=== PATIENT | female | born 1950 | race Caucasian/White ===

== ENCOUNTER → 2017-09-25 08:06 | Outpatient (CLI) | payer MEDICARE, SELFPAY ==
[2017-09-25 13:27] LABS: Anion Gap 7 (5-15); BUN 27 mg/dL (7-18); BUN/Creat Ratio 16.1 RATIO (10-20); Calcium,Total 8.6 mg/dL (8.5-10.1); Chloride 106 mmol/L (98-107); Creatinine, Serum 1.68 mg/dL (0.55-1.02); EST Glomerular Filtration Rate 32 mL/min (>60); Est Glom Filt Rate - Afr Amer 39 mL/min (>60); Glucose 113 mg/dL (74-106); Potassium 4.4 mmol/L (3.5-5.1); Sodium Level 141 mmol/L (136-145)
== END ==
PROVIDERS: PCP Internal Medicine Cardiovascular Disease; Visit Provider Family Medicine
DX: E11.65 Type 2 diabetes mellitus with hyperglycemia (principal); Z51.81 Encounter for therapeutic drug level monitoring
CPT/HCPCS: 36415; 80048

== ENCOUNTER → 2017-10-30 09:02 | Outpatient (CLI) | payer MEDICARE, SELFPAY ==
[2017-10-30 12:52] LABS: AST(SGOT) 23 U/L (15-37); Alanine Aminotransfer ALT/SGPT 25 U/L (13-56); Albumin, Serum 3.8 g/dL (3.2-5.0); Alkaline Phosphatase 43 U/L (45-117); Anion Gap 9 (5-15); BUN 24 mg/dL (7-18); BUN/Creat Ratio 13.9 RATIO (10-20); Chloride 105 mmol/L (98-107); Cholesterol 163 mg/dL (200); Creatinine, Serum 1.73 mg/dL (0.55-1.02); EST Glomerular Filtration Rate 31 mL/min (>60); Est Glom Filt Rate - Afr Amer 38 mL/min (>60); Glucose 108 mg/dL (74-106); High Density Lipoprotein 58 mg/dL; Potassium 4.1 mmol/L (3.5-5.1); Protein, Total 7.8 g/dL (6.4-8.2); Sodium Level 141 mmol/L (136-145); Triglycerides 87 mg/dL; Very Low Density Lipoprotein 17 mg/dL (5-40)
== END ==
PROVIDERS: Family Provider Family Medicine; PCP Family Medicine; Visit Provider Family Medicine
DX: E78.5 Hyperlipidemia, unspecified (principal)
CPT/HCPCS: 36415; 80053; 80061

== ENCOUNTER → 2017-12-13 08:01 | Outpatient (CLI) | payer MEDICARE, SELFPAY ==
[2017-12-13 12:09] LABS: Anion Gap 6 (5-15); BUN 36 mg/dL (7-18); BUN/Creat Ratio 23.1 RATIO (10-20); Chloride 109 mmol/L (98-107); Creatinine, Serum 1.56 mg/dL (0.55-1.02); EST Glomerular Filtration Rate 35 mL/min (>60); Est Glom Filt Rate - Afr Amer 42 mL/min (>60); Glucose 110 mg/dL (74-106); Potassium 4.8 mmol/L (3.5-5.1); Sodium Level 143 mmol/L (136-145)
== END ==
PROVIDERS: Family Provider Family Medicine; PCP Family Medicine; Visit Provider Family Medicine
DX: N28.9 Disorder of kidney and ureter, unspecified (principal)
CPT/HCPCS: 36415; 80048

== ENCOUNTER 2017-12-27 17:46 | Emergency (ER) | payer MEDICARE, SELFPAY ==
[2017-12-27 17:53] VITALS: BP 107/69; PULSE 118; RESP 18; TEMP 36.8; O2SAT 96; BMI 31.3
--- NOTE | 2017-12-27 18:07 | CT_ITS ---
STUDY: CT BRAIN WITHOUT CONTRAST REASON FOR EXAM: Female, 67 years old. Mental status change. Patient found crawling on the floor with numerous bruises. Patient on blood thinners. History of hallucinations and delusions and bipolar 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 disorder. Recent medicine change. RADIATION DOSAGE (If Supplied By Facility): CTDIvol = ( 44.99 ) mGy, DLP = ( 779.24 ) mGycm TECHNIQUE: Transaxial CT imaging of the brain was performed without administration of intravenous contrast material. Individualized dose optimization techniques were used for this CT. COMPARISON: None. FINDINGS: Normal soft tissue structures. Normal calvarium. There is mild cerebral atrophy with widening of the extra-axial spaces and ventricular dilatation. Normal white matter tracts of the cerebral hemispheres. There are small punctate calcifications of the bilateral basal ganglia. The differential diagnostic considerations includes: Fahrs disease, or endocrine disorders (hyperparathyroidism, hypoparathyroidism, pseudohypoparathyroidism). The incidental discovery of basal ganglia calcifications in a patient less than 50 years of age merits investigation. Normal brainstem. Normal cerebellum. There is no intracranial hemorrhage. There are no findings of an acute ischemic infarction. Normal visualized paranasal sinuses. CT/Brain/Head without Contrast IMPRESSION: Chronic involutional changes without evidence of acute intracranial or calvarial abnormality. There is no evidence of acute intracranial or calvarial abnormality. Electronically Signed: Angel Young DO at 18:57 EDT Tel [phone], Service support ,
--- NOTE | 2017-12-27 18:12 | ED.VISSUMM ---
- ER Visit Summary Date of Service: 12/27/17 Chief Complaint: Sent in by counseling center for unable to care for self History of Present Illness: The patient is a 67 F history of peripheral vascular disease on Plavix has had prior lower extremity vascular stents. History of qkq-bozbkcq-cnxhggtrt diabetes, COPD and renal insufficiency. Per nursing from the [facility] the counseling center had the patient sent in due to mental status change and unable to care for herself. Patient himself denies complaints. States she is not suicidal. And is able to take care of herself. Physical Examination: Older female no acute distress vital signs are stable afebrile. Pulse ox 96% room air no signs of hypoxia. H EENT exam unremarkable. No signs of trauma to her face or scalp. Nontender no hematomas. Pupils are reactive light. Normal speech. No facial droop. Neck nontender. No lymphadenopathy. Lungs clear to auscultation bilaterally. Heart regular rhythm no murmur. Chest wall nontender. Abdomen soft nontender. There is diffuse bruising of her abdomen but no abdominal tenderness or peritoneal signs. Pelvic girdle intact. She is moving all 4 extremities. Neurovascular intact. No deformities. Normal range of motion. She is a large bruise/hematoma over her left hip and buttock and also along her left shoulder and upper arm. There are no gross bony deformities. 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 Back exam is nontender. The cervical, thoracic and lumbar spines are nontender. Neurologically she is awake and alert. I do not find her to be confused. She knows day, month, year, president 9 states where she has had. She is speaking normally. Test Results: CBC normal. BMP normal. Other than chronic renal insufficiency with creatinine 1.8. INR normal. UA showed 25-50 white cells but no other signs of infection. Negative bacteria negative nitrate a urine culture be sent. CT of her brain is read by the radiologist and reviewed by me shows no acute abnormality. Alcohol intoxication were negative. Emergency Department Course and Treatment: [] Treatment Plan: She underwent crisis evaluation. And she will be transferred to a psychiatric facility in [facility]. On repeat exam at 2118 currently she is doing well. Disposition: Psychiatric facility Impression: Acute exacerbation of underlying psychiatric illness Unable to care for self This note was generated with Dragon dictation software. It may contain incorrect words, spelling, and punctuation that were not noted in review of the chart prior to signing ED Disposition - Plan for ED Patient: Chief Complaint: Confusion Referrals: Mine Bojorquez DO [Primary Care Provider] -
--- NOTE | 2017-12-27 18:15 | ED.DCSUM_ITS ---
- ER Visit Summary Date of Service: 12/27/17 Chief Complaint: Sent in by counseling center for unable to care for self History of Present Illness: The patient is a 67 F history of peripheral vascular disease on Plavix has had prior lower extremity vascular stents. History of dod-cibtrcv-pfzuhqndp diabetes, COPD and renal insufficiency. Per nursing from the [facility] the counseling center had the patient sent in due to mental status change and unable to care for herself. Patient himself denies complaints. States she is not suicidal. And is able to take care of herself. Physical Examination: Older female no acute distress vital signs are stable afebrile. Pulse ox 96% room air no signs of hypoxia. H EENT exam unremarkable. No signs of trauma to her face or scalp. Nontender no hematomas. Pupils are reactive light. Normal speech. No facial droop. Neck nontender. No lymphadenopathy. Lungs clear to auscultation bilaterally. Heart regular rhythm no murmur. Chest wall nontender. Abdomen soft nontender. There is diffuse bruising of her abdomen but no abdominal tenderness or peritoneal signs. Pelvic girdle intact. She is moving all 4 extremities. Neurovascular intact. No deformities. Normal range of motion. She is a large bruise/hematoma over her left hip and buttock and also along her left shoulder and upper arm. There are no gross bony deformities. Both upper and lower extremities are neurovascular intact with 5 out of 5 superintendent horticulture strength dorsi and plantar flexion. Back exam is nontender. The cervical, thoracic and lumbar spines are nontender. Neurologically she is awake and alert. I do not find her to be confused. She knows day, month, year, president 9 states where she has had. She is speaking normally. Test Results: CBC normal. BMP normal. Other than chronic renal insufficiency with creatinine 1.8. INR normal. UA showed 25-50 white cells but no other signs of infection. Negative bacteria negative nitrate a urine culture be sent. CT of her brain is read by the radiologist and reviewed by me shows no acute abnormality. Alcohol intoxication were negative. Emergency Department Course and Treatment: [] Treatment Plan: She underwent crisis evaluation. And she will be transferred to a psychiatric facility in [facility]. On repeat exam at 2118 currently she is doing well. Disposition: Psychiatric facility Impression: Acute exacerbation of underlying psychiatric illness Unable to care for self This note was generated with Dragon dictation software. It may contain incorrect words, spelling, and punctuation that were not noted in review of the chart prior to signing ED Disposition - Plan for ED Patient: Chief Complaint: Confusion Referrals: Mine Bojorquez DO [Primary Care Provider] -
[2017-12-27 18:38] LABS: Absolute Lymphocyte Count 1.88 X10^3/ul (0.83-4.51); Absolute Neutrophil Count 5.7 X10^3/uL (2.0-7.7); Basophil# 0.04 X10^3/uL; Basophil% 0.5 % (0-1); Eosinophil# 0.13 X10^3/uL; Eosinophils% 1.5 % (0-5); Hematocrit 42.4 % (37-47); Hemoglobin 14.2 g/dl (12.0-15.0); Lymphocyte # 1.88 X10^3/ul (4.0); Lymphocyte % 21.5 % (19-41); Mean Corp Hgb Conc 33.5 g/gl (32-36); Mean Corpuscular Hgb 31.8 pg (27.0-32.0); Mean Corpuscular Volume 95.1 fL (81-99); Mean Platelet Vol. 11.1 fl (6.2-12.0); Monocyte# 0.93 X10^3/uL; Monocyte% 10.6 % (0-10); Neutrophil # 5.73 X10^3/uL (2.7-7.7); Neutrophil % 65.4 % (47-70); Platelet Count 265 K/mm3 (150-450); RBC Distribution Width CV 15.8 % (11.6-14.6); RBC Distribution Width SD 52.8 fl (35.1-43.9); Red Blood Count 4.46 M/mm3 (4.2-5.4); White Blood Count 8.8 K/mm3 (4.4-11.0)
[2017-12-27 18:39] LABS: Anion Gap 11 (5-15); BUN 40 mg/dL (7-18); BUN/Creat Ratio 22.2 RATIO (10-20); Calcium,Total 9.7 mg/dL (8.5-10.1); Chloride 106 mmol/L (98-107); EST Glomerular Filtration Rate 30 mL/min (>60); Est Glom Filt Rate - Afr Amer 36 mL/min (>60); Estimated Creatinine Clearance 28.68 ml/min; Glucose 250 mg/dL (74-106); Potassium 3.6 mmol/L (3.5-5.1); Sodium Level 140 mmol/L (136-145)
[2017-12-27 18:42] LABS: International Normalized Ratio 1.1; POSITIVE COUNT NO; POSITIVE DIFFERENTIAL NO; POSITIVE MORPHOLOGY NO; Prothrombin Time (Protime)PT. 13.9 SECONDS (11.7-14.9)
[2017-12-27 19:53] LABS: Bacteria 0 SEEN /hpf (None Seen); Mucous, Urine 0 SEEN /hpf (<or=2+)
[2017-12-27 19:56] LABS: Color, Urine Yellow (Yellow); Glucose, Dipstick 1000 mg/dl (Normal); Ketone-Dipstick 15 mg/dl (Negative); Leukocyte Esterase-Dipstick 500 /ul (Negative); Nitrite-Dipstick Negative (Negative); Occult Blood-Urine 10 /ul (Negative); Protein-Dipstick 30 mg/dl (Negative); Urine Clarity Sl. Cloudy (Clear); Urine Urobilinogen 1 mg/dl (Normal)
[2017-12-27 20:06] LABS: Urine Bilirubin Dipstick 1 mg/dL (Negative)
[2017-12-27 20:18] LABS: Hyaline Cast 0-5 SEEN /lpf (0-5); Red Blood Cells-Urine 0-5 SEEN /hpf (0-5); Squamous Epithelial Cells - UA 0-5 SEEN /hpf (5-10); White Blood Cells 25-50 SEEN /hpf (0-5)
[2017-12-27 20:19] LABS: Amphetamine Urine VISTA NEGATIVE (<1000 ng/mL); Barbiturate Urine VISTA NEGATIVE (< 200 ng/mL); Benzodiazepine Urine VISTA NEGATIVE (< 200 ng/mL); Cocaine Urine VISTA NEGATIVE (< 300 ng/mL); Ecstacy Urine VISTA NEGATIVE (< 500 ng/mL); Methadone Urine VISTA NEGATIVE (< 300 ng/mL); PCP Urine VISTA NEGATIVE (< 25 ng/mL); THC Urine VISTA NEGATIVE (< 50 ng/mL); Vista UDS pH Range 6
[2017-12-27] MEDS: 0.9% Normal Saline 1,000 ML 999 ML IV (23:24)
[2017-12-27] MEDS: Cephalexin 250 MG Capsule 500 MG PO (23:24)
[2017-12-27 23:41] VITALS: BP 108/72; PULSE 86; RESP 18; O2SAT 99
--- NOTE | 2017-12-27 23:50 | ED.RN ---
CALLED [facility] TO SEE IF THEY COULD TRANSPORT PATIENT. BOTH DISPATCHERS STATED THEY COULD NOT UNTIL THE MORNING.
[2017-12-28 00:17] VITALS: BP 110/73; PULSE 73; RESP 16; O2SAT 97
[2017-12-28 07:44] VITALS: BP 147/68; PULSE 102; RESP 18; O2SAT 96
--- NOTE | 2017-12-28 08:58 | ED.RN ---
Michelle kowalski RN updated on [facility] that she will be picked up by transport at 0930
[2017-12-28 09:08] VITALS: RESP 20
== END 2017-12-28 09:36 ==
PROVIDERS: Emergency Provider Emergency Medicine; Family Provider Family Medicine; PCP Family Medicine
DX: F99 Mental disorder, not otherwise specified (principal); I73.9 Peripheral vascular disease, unspecified; E11.9 Type 2 diabetes mellitus without complications; J44.9 Chronic obstructive pulmonary disease, unspecified
CPT/HCPCS: 36415; 70450; 80048; 80307; 80320; 81001; 85025; 85610; 87077; 87086; 87088; 87186; 99285; J7030; G0480

== ENCOUNTER 2018-01-29 18:12 | Inpatient (IN) | payer MEDICARE, SELFPAY ==
[2018-01-29] VITALS (11 sets, daily range): BP systolic 107–142; BP diastolic 45–81; PULSE 91–126; RESP 21–33; TEMP 36.3–38.2; O2SAT 92–98; BMI 36.1; BMI 43.9; BMI 44.0
--- NOTE | 2018-01-29 18:27 | CT_ITS ---
STUDY: CT BRAIN WITHOUT CONTRAST REASON FOR EXAM: Female, 67 years old. Patient found unresponsive. RADIATION DOSAGE (If Supplied By Facility): CTDIvol = ( 44.99 ) mGy, DLP = ( 812.98 ) mGycm TECHNIQUE: Transaxial CT imaging of the brain was performed without administration of intravenous contrast material. Individualized dose optimization techniques were used for this CT. COMPARISON: December 27, 2017. FINDINGS: Normal soft tissue structures. Normal calvarium. There is mild cerebral atrophy with widening of the extra-axial spaces and ventricular dilatation. Normal white matter tracts of the cerebral hemispheres. There are small punctate calcifications of the basal ganglia which are seen in the aging brain as a normal variant. Normal brainstem. Normal cerebellum. There is no intracranial hemorrhage. There are no findings of an acute ischemic infarction. There is mucoperiosteal inflammatory disease of the paranasal sinuses consistent with moderate chronic sinusitis. CT/Brain/Head without Contrast IMPRESSION: Chronic involutional changes of the brain. Stable appearance. No hemorrhage. Electronically Signed: Andres Louie MD at 19:58 EDT , Service support ,
--- NOTE | 2018-01-29 18:27 | RAD_ITS ---
STUDY: X-RAY CHEST REASON FOR EXAM: Female, 67 years old. Hypoxia. Hypoglycemia. TECHNIQUE: Single AP portable view of the chest. COMPARISON: December 27, 2014. FINDINGS: There are monitoring devices. There are interstitial fibrotic changes of the lungs. There is no demonstrated pleural abnormality. Normal size heart. Normal mediastinum and cynthia. Normal visualized pulmonary arteries. There is atherosclerotic calcification of the aortic arch with tortuosity. Normal visualized thoracic spine. Normal visualized ribs, clavicles, and shoulders. There is no demonstrated abnormality of the visualized soft tissue structures of the upper abdomen. RAD/Chest 1 View (Portable) IMPRESSION: Lower lung fibrotic densities. Electronically Signed: Andres Louie MD at 19:18 EDT , Service support ,
--- NOTE | 2018-01-29 18:28 | EKG12_ITS ---
Test Reason : TACHY Blood Pressure : / mmHG Vent. Rate : 125 BPM Atrial Rate : 125 BPM P-R Int : 142 ms QRS Dur : 080 ms QT Int : 308 ms P-R-T Axes : 078 052 070 degrees QTc Int : 444 ms Sinus tachycardia Nonspecific ST abnormality Abnormal ECG Confirmed by DALIA HOOK, CLYDE ([id number]), assistant editor BEE TREVINO ([id number] on 01/31/2018 6:06:38 PM Referred By: DR LOPEZ Confirmed By:CLYDE GÓMEZ MD
--- NOTE | 2018-01-29 18:29 | CT_ITS ---
STUDY: CT CERVICAL SPINE WITHOUT CONTRAST REASON FOR EXAM: Female, 67 years old. Patient found unresponsive. RADIATION DOSAGE (If Supplied By Facility): CTDIvol = ( 33.81 ) mGy, DLP = ( 707.14 ) mGycm TECHNIQUE: High resolution transaxial imaging was performed without contrast material. Sagittal and coronal images were reconstructed. Individualized dose optimization techniques were used for this CT. COMPARISON: None FINDINGS: Normal craniovertebral junction. Normal anterior atlantoaxial articulation. Normal odontoid process. There is straightening of the normal cervical lordosis. There is no fracture. Normal vertebral bodies and posterior osseous elements. There is congenital incomplete fusion of the posterior arch of C1. C2-3: Normal endplates. Normal disc height and morphology. Normal central canal and intervertebral neuroforamina. C3-4: Mild spurring toward the right. Normal central canal and intervertebral neuroforamina. C4-5: Normal endplates. Normal disc height and morphology. Normal central canal and intervertebral neuroforamina. C5-6: Disc bulge with spurring flattening the thecal sac. Normal central canal and intervertebral neuroforamina. C6-7: Normal endplates. Normal disc height and morphology. Normal central canal and intervertebral neuroforamina. C7-T1: Normal endplates. Normal disc height and morphology. Normal central canal and intervertebral neuroforamina. Normal visualized soft tissue structures. There are atherosclerotic calcifications. CT/Spine Cervical without Contras IMPRESSION: Degenerative change. No fracture. Electronically Signed: Andres Louie MD at 19:56 EDT , Service support ,
[2018-01-29 18:36] LABS: Bedside Glucose 81 mg/dL (70-110)
[2018-01-29] MEDS: 0.9% Normal Saline 1,000 ML 1000 ML IV (18:50)
[2018-01-29 18:51] LABS: Absolute Lymphocyte Count 0.44 X10^3/ul (0.83-4.51); Absolute Neutrophil Count 8.2 X10^3/uL (2.0-7.7); Basophil# 0.01 X10^3/uL; Basophil% 0.1 % (0-1); Eosinophil# 0.05 X10^3/uL; Eosinophils% 0.5 % (0-5); Hematocrit 39.9 % (37-47); Hemoglobin 12.5 g/dl (12.0-15.0); Lymphocyte # 0.44 X10^3/ul (4.0); Lymphocyte % 4.6 % (19-41); Mean Corp Hgb Conc 31.3 g/gl (32-36); Mean Corpuscular Hgb 31.3 pg (27.0-32.0); Mean Platelet Vol. 10.3 fl (6.2-12.0); Monocyte# 0.84 X10^3/uL; Monocyte% 8.8 % (0-10); Neutrophil # 8.18 X10^3/uL (2.7-7.7); Neutrophil % 85.9 % (47-70); Platelet Count 232 K/mm3 (150-450); RBC Distribution Width CV 16.5 % (11.6-14.6); RBC Distribution Width SD 60.1 fl (35.1-43.9); Red Blood Count 3.99 M/mm3 (4.2-5.4); White Blood Count 9.5 K/mm3 (4.4-11.0)
[2018-01-29 18:52] LABS: Differential Indicated SCAN CRITERIA MET; International Normalized Ratio 1.1; POSITIVE COUNT NO; POSITIVE DIFFERENTIAL YES; POSITIVE MORPHOLOGY NO; Prothrombin Time (Protime)PT. 13.9 SECONDS (11.7-14.9)
[2018-01-29 18:53] LABS: Partial Thromboplast Time 28.6 Seconds (24.1-36.2)
[2018-01-29 18:58] LABS: ALB/GLOB Ratio 0.7 RATIO (0.9-2.4); AST(SGOT) 42 U/L (15-37); Alanine Aminotransfer ALT/SGPT 25 U/L (13-56); Albumin, Serum 2.8 g/dL (3.2-5.0); Alkaline Phosphatase 56 U/L (45-117); Anion Gap 7 (5-15); BUN 21 mg/dL (7-18); BUN/Creat Ratio 13.3 RATIO (10-20); Chloride 110 mmol/L (98-107); Creatinine, Serum 1.58 mg/dL (0.55-1.02); EST Glomerular Filtration Rate 34 mL/min (>60); Est Glom Filt Rate - Afr Amer 42 mL/min (>60); Glucose 126 mg/dL (74-106); Lipase 241 U/L (73-393); Potassium 4.1 mmol/L (3.5-5.1); Protein, Total 6.8 g/dL (6.4-8.2); Sodium Level 144 mmol/L (136-145)
[2018-01-29 18:59] LABS: Bacteria 0 SEEN /hpf (None Seen); Mucous, Urine 0 SEEN /hpf (<or=2+); Red Blood Cells-Urine 0 SEEN /hpf (0-5); Squamous Epithelial Cells - UA 0 SEEN /hpf (5-10)
[2018-01-29 19:00] LABS: Bedside Glucose 84 mg/dL (70-110)
[2018-01-29 19:00] LABS: Lactic Acid 1.3 mmol/L (0.4-2.0)
[2018-01-29 19:05] LABS: Differential Comment SCANNED
[2018-01-29 19:10] LABS: Allen Test POS; Base Excess -1 mmol/L (-2 to +2); Bicarbonate 24.2 mmol/L (22-26); Blood Gas Specimen Type ART; O2 Delivery Device Nasal Can; PO2 64 mmHG (75-100); SITE R Radial; SO2 91 % (95-99); Time Given 1900; Total Carbon Dioxide 25 mmol/L; pCO2 41.5 mmHg (35-45); pH 7.37 (7.35-7.45)
[2018-01-29 19:11] LABS: Color, Urine Yellow (Yellow); Glucose, Dipstick 100 mg/dl (Normal); Ketone-Dipstick Negative (Negative); Leukocyte Esterase-Dipstick NEGATIVE /ul (Negative); Nitrite-Dipstick NEGATIVE (Negative); Occult Blood-Urine NEGATIVE /ul (Negative); Protein-Dipstick 15 mg/dl (Negative); Urine Bilirubin Dipstick Negative (Negative); Urine Clarity Clear (Clear); Urine Urobilinogen 1 mg/dl (Normal)
[2018-01-29 19:12] LABS: White Blood Cells 0-5 SEEN /hpf (0-5)
[2018-01-29 19:15] LABS: CPK Total, Creatine Kinase 722 U/L (26-192)
[2018-01-29] MEDS: Dext 5%-0.45% NS 1,000 ML 125 ML IV (19:38)
--- NOTE | 2018-01-29 19:55 | ED.DCSUM_ITS ---
- ER Visit Summary Date of Service: 01/29/18 Chief Complaint: Unresponsive History of Present Illness: The patient is a 67 F who was found unresponsive this evening. Patient reportedly was to meet with home health around 10 this morning but they were unable to contact her. They went out to her residence this evening and the soft of the window that she was on the floor and on responsive. Fire made entry and the patient was noted have a blood sugar of 38. An amp of D50 was given. EMS notes her lung sounds are rhonchorous and that she was initially hypoxic and referred that she may have aspirated. It was noted that the patient at the time that she was found was laying on her left side. She is a known diabetic. Type II. Physical Examination: 121/57 temperature 97.4 heart rate 123 respirations are 27 pulse ox is 90% on room air Gen: Well-nourished well-developed Head: Normocephalic atraumatic Eyes: Perrl EOMI ENT: TMs clear no rhinorrhea moist mucous membranes Neck: Supple no lymphadenopathy no JVD nontender CVS: Regular tachycardic rate rhythm no murmurs normal S1-S2 Respiratory: No distress rhonchorous lung sounds with frequent coughing of sputum chest nontender Abdomen: Soft nontender nondistended normal bowel sounds no masses Back: Nontender Extremity: Nontender 1+ edema of the legs. There are pressure changes noted of the knee and distal legs. Extremities are cool to the touch. Skin: Normal color Neuro: Patient is lethargic/stuporous. She moves all extremities. She will open her eyes on command. Patient is able to say her name. Psych: Unable to assess Test Results: White count 9.5 with a hemoglobin of 12.5. BUN 21 and a creatinine 1.58. Liver enzymes showed an AST of 42 lipase 241. Coags normal. Troponin 0 0.038. Total body CK 722. Ketones negative. Lactic acid 1.3. Chest x-ray fibrotic changes at the bases. CT of the brain and C-spine were negative for acute. EKG shows a sinus rhythm at a rate of 125. Old EKG has a left bundle branch block. Emergency Department Course and Treatment: Patient's blood sugar was frequently monitored. She received IV fluids a De Leon catheter temperature sensitive was placed to monitor urinary output. Patient had D5 half-normal saline added to her fluids for a combined rate of 250 cc/h between the D5 half-normal in the normal saline. We will continue to monitor blood sugar. Patient continued to cough up large amounts of sputum. This was sent for culture. We administered Zosyn to cover for aspiration. Plan is admission into the hospital. Impression: 1. Diabetic hypoglycemia 2. Rhabdomyolysis 3. Hypoxemia 4. Aspiration This note was generated with [employer] dictation software. It may contain incorrect words, spelling, and punctuation that were not noted in review of the chart prior to signing ED Disposition - Plan for ED Patient: Chief Complaint: Hypoglycemia Referrals: Mine Bojorquez DO [Primary Care Provider] -
[2018-01-29 19:56] LABS: Bedside Glucose 60 mg/dL (70-110)
[2018-01-29 20:36] LABS: Bedside Glucose 130 mg/dL (70-110)
--- NOTE | 2018-01-29 20:47 | DT_ITS ---
This patient was seen during an EMR downtime January 22, 2018 - January 29, 2018. This patient may have a combination of paper and electronic documentation or all paper documentation. All documentation is viewable within the e-chart portion of [facility] for each patient visit.
[2018-01-29] MEDS: 0.9% Normal Saline 1,000 ML 999 ML IV (20:56)
--- NOTE | 2018-01-29 20:57 | ED.RN ---
PT coughed and appeared to be having problems swallowing water. This RN not comfortable giving oral Tylenol. Dr. Rodgers aware.
--- NOTE | 2018-01-29 21:19 | HP.PCM_ITS ---
Problem List (1) H/O tubal ligation Status: Resolved Comment: 41 years ago (2) H/O percutaneous transluminal coronary angioplasty Status: Resolved Comment: PTCA with MO to mid left CFX 01/02; (3) Old myocardial infarction Status: Chronic (4) Diabetes mellitus type II Status: Chronic (5) COPD Status: Chronic Comment: On 2.5 L nasal cannula at home Quit Smoking 2011 (6) History of psychosis Status: Chronic (7) Obesity Status: Chronic (8) HLD (hyperlipidemia) Status: Chronic Qualifiers: (9) HTN (hypertension) Status: Chronic Qualifiers: (10) S/P AAA repair Status: Chronic (11) Altered mental status Status: Acute Qualifiers: Altered mental status type: unspecified Qualified Code(s): R41.82 - Altered mental status, unspecified (12) Hypoglycemia Status: Acute (13) Rhabdomyolysis Status: Acute History of Present Illness Date of Admission: 01/29/18 Chief Complaint: altered mental status, low blood sugar The patient is a 67 year old female patient who presents to the ER by squad due to altered mental status. She was to receive home health care this morning at 10 :00 am but they were unable to reach her. This evening they went back and looked through the window and saw her laying on the floor. The fire department gained entry and treated her with D50 at the scene. Initial blood sugar was in the 30s and her CK is 722. Despite correcting her blood sugar she remains confused and is a poor historian. Due to altered mental status, hypoglycemia, and suspected aspiration pneumonia along with rhabdomyolysis she will be admitted to the ICU overnight. Past Medical History Past Medical History (Chronic Problems): Chronic Problems (Last Updated 11/28/17 @ 13:25 by Rina Blair) Acute and chronic respiratory failure (Chronic) Cor pulmonale (Chronic) Old myocardial infarction (Chronic) Atherosclerotic heart disease of [place] coronary artery without angina pectoris (Chronic) S/P stenting to left circumflex in 2014; Diabetes mellitus type II (Chronic) Chronic respiratory failure (Chronic) 2.5 L nasal cannular at home COPD (Chronic) On 2.5 L nasal cannula at home Quit Smoking 2011 Tobacco use disorder (Chronic) History of psychosis (Chronic) Obesity (Chronic) HLD (hyperlipidemia) (Chronic) Pulmonary hypertension (Chronic) Cor pulmonale, chronic (Chronic) HTN (hypertension) (Chronic) S/P AAA repair (Chronic) PAD (peripheral artery disease) (Chronic) Status post stenting AAA (abdominal aortic aneurysm) (Chronic) Status post repair Medical History: Medical History (Last Updated 11/28/17 @ 13:25 by Rina Blair) Acute and chronic respiratory failure (Chronic) J96.20 Cor pulmonale (Chronic) I27.81 Old myocardial infarction (Chronic) I25.2 Other detention (current) drug therapy (Acute) Z79.899 Atherosclerotic heart disease of [place] coronary artery without angina pectoris (Chronic) I25.10 S/P stenting to left circumflex in 2014; Diabetes mellitus type II (Chronic) Chronic respiratory failure (Chronic) 2.5 L nasal cannular at home COPD (Chronic) On 2.5 L nasal cannula at home Quit Smoking 2011 Tobacco use disorder (Chronic) F17.200 History of psychosis (Chronic) Z86.59 Obesity (Chronic) E66.9 Fever (Acute) R50.9 HLD (hyperlipidemia) (Chronic) E78.5 Pulmonary hypertension (Chronic) I27.2 Cor pulmonale, chronic (Chronic) I27.81 HTN (hypertension) (Chronic) I10 NSTEMI (non-ST elevated myocardial infarction) (Acute) I21.4 PAD (peripheral artery disease) (Chronic) I73.9 Status post stenting AAA (abdominal aortic aneurysm) (Chronic) I71.4 Status post repair Anemia D64.9 Allergies No Known Allergies Allergy (Verified 12/27/17 17:58) Home Medications: Ambulatory Orders Medication Instructions Recorded Aspirin [Adult Low Dose Aspirin EC] 81 mg PO DAILY 09/26/16 Canagliflozin [Invokana] 100 mg PO DAILY 09/26/16 Glimepiride [Amaryl] 4 mg PO BID 09/26/16 Isosorbide Mononitrate [Isosorbide 30 mg PO DAILY 09/26/16 Mononitrate ER] Lisinopril [Zestril] 5 mg PO BID 09/26/16 Lorazepam [Ativan] 0.5 mg PO TID 09/26/16 Metoprolol Succinate [Toprol Xl] 50 mg PO BID 09/26/16 Potassium Chloride [K-Dur] 10 meq PO DAILY 09/26/16 Sennosides/Docusate Sodium 1 ea PO DAILY 09/26/16 [Doc-Q-Lax Tablet] Trifluoperazine HCl 5 mg PO DAILY 09/26/16 Albuterol Inhaler [Ventolin Hfa 1 - 2 puff INHALATION Q6H PRN PRN 03/21/17 (SP)] Fluticasone/Vilanterol [Breo 1 ea IH DAILY 03/21/17 Ellipta Inhaler] pantoprazole 40 mg tablet,delayed 40 mg PO DAILY #30 tab 08/23/17 release fenofibrate micronized 200 mg 200 mg PO QDAY #90 cap 09/01/17 capsule clopidogrel 75 mg tablet 75 mg PO DAILY #28 tab 09/21/17 atorvastatin 80 mg tablet 80 mg PO QHS #30 tab 10/19/17 diphenhydramine 25 mg capsule 25 mg PO TID PRN cap 11/29/17 furosemide 40 mg tablet 40 mg PO DAILY tab 11/29/17 metformin 500 mg tablet 1,000 mg PO QDAY tab 11/29/17 Surgical History: Surgical History (Last Updated 11/29/17 @ 09:43 by Olinda Manzo) H/O tubal ligation (Resolved) Z98.51 41 years ago H/O percutaneous transluminal coronary angioplasty (Resolved) Z98.61 PTCA with MO to mid left CFX 01/02; S/P AAA repair (Chronic) Z98.890, Z86.79 Surgical History: - - AAA repair Smoking Status: Unknown if ever smoked - *Family History Maternal Family History: Family History (Last Reviewed 11/29/17 @ 09:43 by Olinda Manzo) Mother CAD (coronary artery disease) Brother CAD (coronary artery disease) Myocardial infarction Sister Cancer Son COPD (chronic obstructive pulmonary disease) Son COPD (chronic obstructive pulmonary disease) Daughter COPD (chronic obstructive pulmonary disease) History Items: No pertinent history Review of Systems Constitutional: Reports: Weakness Respiratory: Denies: Cough, Shortness of breath at rest Gastrointestinal: Denies: Abdominal Pain, Nausea, Vomiting Genitourinary: Denies: Dysuria Musculoskeletal: Denies: Joint Pain, Joint Tenderness Skin: Denies: Rash, Wounds Neurological: Reports: Change in Speech, Slurred speech, Confusion. Denies: Focal weakness, Numbness, Tingling Psychiatric: Reports: Anxiety. Denies: Depression, Homicidal Ideations, Suicidal Ideations Hematologic/ Lymphatic: Denies: Easy Bruising, Easy Bleeding VTE Information - Inpt Only VTE Present on Admission: No VTE Mechan Device Prophylaxis: None VTE Pharm Prophylaxis ordered?: Yes Patient Problems: Active and Suspected Problems (Last Updated 11/28/17 @ 13:25 by Rina Blair) Altered mental status (Acute) Hypoglycemia (Acute) Rhabdomyolysis (Acute) - Physical Exam General: Alert, Cooperative, Confused HEENT: Atraumatic, PERRLA, EOMI, Normocephalic Neck: Supple Lungs: Clear to auscultation, Normal air movement Cardiovascular: Regular rate, Normal S1, Normal S2, No murmurs Abdomen: Bowel Sounds Present, Soft, Non Tender, Obese Extremities: No edema Skin: No rashes Musculoskeletal: No Tenderness to Palpation of Joints or Extremities Neurological: Neuro grossly intact Psych/Mental Status: Flat Affect Vital Signs Temp Pulse Resp BP Pulse Ox 100.4 F H 124 H 33 H 107/67 94 01/29/18 19:51 01/29/18 19:51 01/29/18 19:51 01/29/18 19:51 01/29/18 19:51 Oxygen Flow Rate (L/min) 3 Oxygen Delivery Method Nasal Cannula Weight: 230 lb 6.129 oz Body Mass Index (BMI) 36.1 Finger Stick Blood Glucose 130 Laboratory Tests Past 24 Hrs 01/29/18 01/29/18 01/29/18 18:21 18:21 18:21 WBC 9.5 RBC 3.99 L Hgb 12.5 Hct 39.9 MCV 100.0 H MCH 31.3 MCHC 31.3 L RDW 16.5 H RDW Differential 60.1 H Plt Count 232 MPV 10.3 Immature Gran % (Auto) 0.100 Neut % (Auto) 85.9 H Lymph % (Auto) 4.6 L [place] % (Auto) 8.8 Eos % (Auto) 0.5 Baso % (Auto) 0.1 Absolute Neuts (auto) 8.2 H Absolute Lymphs (auto) 0.44 L Total Counted Not Reportable Differential Comment SCANNED PT 13.9 INR 1.1 APTT 28.6 Specimen Type Sample Site pH Bicarbonate Actual POC Total CO2 Base Excess O2 Saturation ABG pCO2 ABG pO2 Zachary Test O2 Delivery Device Liter Flow Blood Gas Notified Whom Blood Gas Notified Time Sodium 144 Potassium 4.1 Chloride 110 H Carbon Dioxide 27.0 Anion Gap 7 BUN 21 H Creatinine 1.58 H Est GFR (MDRD) Af Amer 42 L Est GFR (MDRD) Non-Af 34 L BUN/Creatinine Ratio 13.3 Glucose 126 H Lactic Acid Calcium 8.0 L Total Bilirubin 0.30 AST 42 H ALT 25 Alkaline Phosphatase 56 Total Creatine Kinase Troponin I 0.038 Total Protein 6.8 Albumin 2.8 L Globulin 4.0 Albumin/Globulin Ratio 0.7 L Lipase 241 Urine Color Urine Clarity Urine pH Ur Specific [place] Urine Protein Urine Glucose (UA) Urine Ketones Urine Occult Blood Urine Nitrite Urine Bilirubin Urine Urobilinogen Ur Leukocyte Esterase Urine RBC Urine WBC Ur Squamous Epith Cells Urine Bacteria Urine Mucus Acetone Level 01/29/18 01/29/18 01/29/18 18:21 18:21 18:21 WBC RBC Hgb Hct MCV MCH MCHC RDW RDW Differential Plt Count MPV Immature Gran % (Auto) Neut % (Auto) Lymph % (Auto) [place] % (Auto) Eos % (Auto) Baso % (Auto) Absolute Neuts (auto) Absolute Lymphs (auto) Total Counted Differential Comment PT INR APTT Specimen Type Sample Site pH Bicarbonate Actual POC Total CO2 Base Excess O2 Saturation ABG pCO2 ABG pO2 Zachary Test O2 Delivery Device Liter Flow Blood Gas Notified Whom Blood Gas Notified Time Sodium Potassium Chloride Carbon Dioxide Anion Gap BUN Creatinine Est GFR (MDRD) Af Amer Est GFR (MDRD) Non-Af BUN/Creatinine Ratio Glucose Lactic Acid 1.3 Calcium Total Bilirubin AST ALT Alkaline Phosphatase Total Creatine Kinase 722 H Troponin I Total Protein Albumin Globulin Albumin/Globulin Ratio Lipase Urine Color Urine Clarity Urine pH Ur Specific [place] Urine Protein Urine Glucose (UA) Urine Ketones Urine Occult Blood Urine Nitrite Urine Bilirubin Urine Urobilinogen Ur Leukocyte Esterase Urine RBC Urine WBC Ur Squamous Epith Cells Urine Bacteria Urine Mucus Acetone Level NEGATIVE 01/29/18 01/29/18 18:30 19:02 WBC RBC Hgb Hct MCV MCH MCHC RDW RDW Differential Plt Count MPV Immature Gran % (Auto) Neut % (Auto) Lymph % (Auto) [place] % (Auto) Eos % (Auto) Baso % (Auto) Absolute Neuts (auto) Absolute Lymphs (auto) Total Counted Differential Comment PT INR APTT Specimen Type ART Sample Site R Radial pH 7.37 Bicarbonate Actual 24.2 POC Total CO2 25 Base Excess -1 O2 Saturation 91 L ABG pCO2 41.5 ABG pO2 64 L Zachary Test POS O2 Delivery Device Nasal Can Liter Flow 3.0 Blood Gas Notified Whom ED Blood Gas Notified Time 1900 Sodium Potassium Chloride Carbon Dioxide Anion Gap BUN Creatinine Est GFR (MDRD) Af Amer Est GFR (MDRD) Non-Af BUN/Creatinine Ratio Glucose Lactic Acid Calcium Total Bilirubin AST ALT Alkaline Phosphatase Total Creatine Kinase Troponin I Total Protein Albumin Globulin Albumin/Globulin Ratio Lipase Urine Color Yellow Urine Clarity Clear Urine pH 7.0 Ur Specific [place] 1.010 Urine Protein 15 H Urine Glucose (UA) 100 H Urine Ketones Negative Urine Occult Blood NEGATIVE Urine Nitrite NEGATIVE Urine Bilirubin Negative Urine Urobilinogen 1 H Ur Leukocyte Esterase NEGATIVE Urine RBC 0 SEEN Urine WBC 0-5 SEEN Ur Squamous Epith Cells 0 SEEN Urine Bacteria 0 SEEN Urine Mucus 0 SEEN Acetone Level POC Glucose 01/29/18 01/29/18 01/29/18 20:29 19:33 18:57 POC Glucose 130 H 60 L 84 01/29/18 18:15 POC Glucose 81 Assessment/Plan All Active Problems (Last Updated 11/28/17 @ 13:25 by Rina Blair) Altered mental status (Acute) Hypoglycemia (Acute) Rhabdomyolysis (Acute) H/O tubal ligation (Resolved) H/O percutaneous transluminal coronary angioplasty (Resolved) Other long term care administrator (current) drug therapy (Acute) Fever (Acute) NSTEMI (non-ST elevated myocardial infarction) (Acute) Chronic Problems (Last Updated 11/28/17 @ 13:25 by Rina OleOlesterling) Acute and chronic respiratory failure (Chronic) Cor pulmonale (Chronic) Old myocardial infarction (Chronic) Atherosclerotic heart disease of [place] coronary artery without angina pectoris (Chronic) S/P stenting to left circumflex in 2014; Diabetes mellitus type II (Chronic) Chronic respiratory failure (Chronic) 2.5 L nasal cannular at home COPD (Chronic) On 2.5 L nasal cannula at home Quit Smoking 2011 Tobacco use disorder (Chronic) History of psychosis (Chronic) Obesity (Chronic) HLD (hyperlipidemia) (Chronic) Pulmonary hypertension (Chronic) Cor pulmonale, chronic (Chronic) HTN (hypertension) (Chronic) S/P AAA repair (Chronic) PAD (peripheral artery disease) (Chronic) Status post stenting AAA (abdominal aortic aneurysm) (Chronic) Status post repair Plan - admit to ICU - Consult [facility] Dr Saldana - continue IV fluid resuscitation with D51/2 normal saline at 125 cc/hour - continue glucose checks q 2 hours - CBC, CMP, ckmb in am, CXR PA/Lat - hold PO medications tonight while she remains obtunded - SCDs for DVT prophylaxis Code Visit Inpatient E&M: 83176 Init Hosp L3
[2018-01-29 22:16] LABS: Bedside Glucose 124 mg/dL (70-110)
[2018-01-29 23:51] LABS: M R Staph aureus DNA By PCR Negative (Negative); Probe Check PASS; Specimen Processing Control PASS
[2018-01-30] VITALS (31 sets, daily range): BP systolic 100–139; BP diastolic 32–86; PULSE 70–113; RESP 16–26; TEMP 37.4–38.4; O2SAT 91–98
[2018-01-30 00:20] LABS: Bedside Glucose 100 mg/dL (70-110)
[2018-01-30] MEDS: Acetaminophen 650 MG Suppository RECTAL (00:55)
[2018-01-30 02:01] LABS: Bedside Glucose 119 mg/dL (70-110)
[2018-01-30] MEDS: CHLORHEXIDINE GLUC 2% CLOTH 1 EACH TOWELETTE TOPICAL (04:10)
[2018-01-30] MEDS: 0.9% NaCl Peripheral Flush Adult/Peds IV ×3 (04:10→21:21)
[2018-01-30] MEDS: Dext 5%-0.45% NS 1,000 ML 125 ML IV (04:12)
[2018-01-30 04:16] LABS: Bedside Glucose 117 mg/dL (70-110)
[2018-01-30 04:21] LABS: Hematocrit 34.9 % (37-47); Hemoglobin 10.9 g/dl (12.0-15.0); Mean Corp Hgb Conc 31.2 g/gl (32-36); Mean Corpuscular Hgb 31.6 pg (27.0-32.0); Mean Corpuscular Volume 101.2 fL (81-99); Mean Platelet Vol. 10.3 fl (6.2-12.0); Platelet Count 205 K/mm3 (150-450); RBC Distribution Width CV 16.9 % (11.6-14.6); RBC Distribution Width SD 59.8 fl (35.1-43.9); Red Blood Count 3.45 M/mm3 (4.2-5.4); White Blood Count 8.2 K/mm3 (4.4-11.0)
[2018-01-30 04:28] LABS: Scan Indicated on CBC? Y/N NO
[2018-01-30 04:46] LABS: ALB/GLOB Ratio 0.8 RATIO (0.9-2.4); AST(SGOT) 49 U/L (15-37); Alanine Aminotransfer ALT/SGPT 24 U/L (13-56); Albumin, Serum 2.4 g/dL (3.2-5.0); Alkaline Phosphatase 45 U/L (45-117); Anion Gap 4 (5-15); BUN 20 mg/dL (7-18); BUN/Creat Ratio 13.6 RATIO (10-20); CPK Total, Creatine Kinase 1029 U/L (26-192); Calcium,Total 7.5 mg/dL (8.5-10.1); Chloride 113 mmol/L (98-107); Creatinine, Serum 1.47 mg/dL (0.55-1.02); EST Glomerular Filtration Rate 37 mL/min (>60); Est Glom Filt Rate - Afr Amer 45 mL/min (>60); Estimated Creatinine Clearance 25.94 ml/min; Globulin 3.2 g/dL (2.2-4.2); Glucose 109 mg/dL (74-106); Protein, Total 5.6 g/dL (6.4-8.2); Sodium Level 146 mmol/L (136-145)
[2018-01-30] MEDS: Piperacil/Tazobactam 3.375 GM/50 ML ML IV ×3 (05:10→21:05)
--- NOTE | 2018-01-30 05:55 | RAD_ITS ---
STUDY: X-RAY CHEST REASON FOR EXAM: Female, 67 years old. SOB TECHNIQUE: Single AP portable view of the chest. COMPARISON: None. FINDINGS: The lungs are underexpanded. There is a small left pleural effusion. Subsegmental atelectases are noted in the right and left lung bases. Normal size heart. Normal mediastinum and cynthia. Normal visualized pulmonary arteries. Normal visualized aortic arch and descending thoracic aorta. Normal visualized thoracic spine. There is degenerative osteoarthritis of the bilateral shoulders. There is no demonstrated abnormality of the visualized soft tissue structures of the upper abdomen. RAD/Chest 1 View (Portable) IMPRESSION: Small left pleural effusion. Electronically Signed: Fei Hall MD at 9:24 EDT Tel , Service support ,
[2018-01-30 06:10] LABS: Bedside Glucose 112 mg/dL (70-110)
--- NOTE | 2018-01-30 07:19 | PCM.CON.CC ---
Problem List (1) Altered mental status Status: Acute Qualifiers: Altered mental status type: unspecified Qualified Code(s): R41.82 - Altered mental status, unspecified (2) Hypoglycemia Status: Acute (3) Rhabdomyolysis Status: Acute Qualifiers: Rhabdomyolysis type: non-traumatic Qualified Code(s): M62.82 - Rhabdomyolysis (4) H/O tubal ligation Status: Resolved Comment: 41 years ago (5) H/O percutaneous transluminal coronary angioplasty Status: Resolved Comment: PTCA with MO to mid left CFX 01/02; (6) Cor pulmonale Status: Chronic (7) Old myocardial infarction Status: Chronic (8) Other longterm (current) drug therapy Status: Acute (9) Atherosclerotic heart disease of [place] coronary artery without angina pectoris Status: Chronic Qualifiers: [place] vs. transplanted heart: [place] heart Qualified Code(s): I25.10 - Atherosclerotic heart disease of [place] coronary artery without angina pectoris Comment: S/P stenting to left circumflex in 2014; (10) Diabetes mellitus type II Status: Chronic (11) Chronic respiratory failure Status: Chronic Comment: 2.5 L nasal cannular at home (12) COPD Status: Chronic Comment: On 2.5 L nasal cannula at home Quit Smoking 2011 (13) Tobacco use disorder Status: Chronic (14) History of psychosis Status: Chronic (15) Obesity Status: Chronic (16) HLD (hyperlipidemia) Status: Chronic Qualifiers: (17) Pulmonary hypertension Status: Chronic (18) HTN (hypertension) Status: Chronic Qualifiers: (19) S/P AAA repair Status: Chronic (20) NSTEMI (non-ST elevated myocardial infarction) Status: Acute (21) PAD (peripheral artery disease) Status: Chronic Comment: Status post stenting (22) AAA (abdominal aortic aneurysm) Status: Chronic Comment: Status post repair Reason for Consult Date of Consultation: 01/30/18 Reason for Consultation: Altered mental status History of Present Illness: The patient is a 67 year old F, with past medical history listed below, who presented to [facility] on 01/29/2018 after being found down by a home health aide. Patient reportedly lives alone in a home health aide went to visit her approximately 10 AM. Patient did not come to the door, so a second check was performed in the evening. Healthcare aide look to the window and found patient on the floor. The fire department was notified and made entry. Evaluation showed patient had a blood sugar of 38 with rhonchorous lung sounds and hypoxic. Patient was found lying on her left side. On presentation to the emergency room, patient was noted to be tachycardic at 123 bpm and tachypneic at 27 breaths per minute. Patient was noted to be 90% on room air. Patient was noted to be lethargic and answering only to name. Laboratory workup was grossly unremarkable except for a slightly elevated CK. Patient was placed on D5 half-normal saline and transferred to the intensive care unit for further monitoring. Patient was initiated on Zosyn therapy secondary to aspiration. Overnight, patient's hemodynamic status has significantly improved. Patient has had a fever and productive cough reported. Patient continues to have significant confusion and calling out frequently. Patient is alert and oriented only to herself. Patient is not able to provide any additional history. All available history was obtained through the electronic medical record and discussion with hospitalist. Patient is reportedly very anxious at baseline and does have a psychiatric history. Patient states that she is on chronic insulin therapy, but this is not part of her home meds list. Patient is unable to provide any history about her respiratory status. Past Medical History Past Medical History (Chronic Problems): Chronic Problems (Last Updated 11/28/17 @ 13:25 by [employer]ina [employer]) Acute and chronic respiratory failure (Chronic) Cor pulmonale (Chronic) Old myocardial infarction (Chronic) Atherosclerotic heart disease of [place] coronary artery without angina pectoris (Chronic) S/P stenting to left circumflex in 2014; Diabetes mellitus type II (Chronic) Chronic respiratory failure (Chronic) 2.5 L nasal cannular at home COPD (Chronic) On 2.5 L nasal cannula at home Quit Smoking 2011 Tobacco use disorder (Chronic) History of psychosis (Chronic) Obesity (Chronic) HLD (hyperlipidemia) (Chronic) Pulmonary hypertension (Chronic) Cor pulmonale, chronic (Chronic) HTN (hypertension) (Chronic) S/P AAA repair (Chronic) PAD (peripheral artery disease) (Chronic) Status post stenting AAA (abdominal aortic aneurysm) (Chronic) Status post repair Medical History: Medical History (Last Updated 11/28/17 @ 13:25 by [employer]) Acute and chronic respiratory failure (Chronic) J96.20 Cor pulmonale (Chronic) I27.81 Old myocardial infarction (Chronic) I25.2 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 (Acute) Z79.899 Atherosclerotic heart disease of [place] coronary artery without angina pectoris (Chronic) I25.10 S/P stenting to left circumflex in 2014; Diabetes mellitus type II (Chronic) Chronic respiratory failure (Chronic) 2.5 L nasal cannular at home COPD (Chronic) On 2.5 L nasal cannula at home Quit Smoking 2011 Tobacco use disorder (Chronic) F17.200 History of psychosis (Chronic) Z86.59 Obesity (Chronic) E66.9 Fever (Acute) R50.9 HLD (hyperlipidemia) (Chronic) E78.5 Pulmonary hypertension (Chronic) I27.2 Cor pulmonale, chronic (Chronic) I27.81 HTN (hypertension) (Chronic) I10 NSTEMI (non-ST elevated myocardial infarction) (Acute) I21.4 PAD (peripheral artery disease) (Chronic) I73.9 Status post stenting AAA (abdominal aortic aneurysm) (Chronic) I71.4 Status post repair Anemia D64.9 Allergies No Known Allergies Allergy (Verified 12/27/17 17:58) Home Medications: Ambulatory Orders Medication Instructions Recorded Aspirin [Adult Low Dose Aspirin EC] 81 mg PO DAILY 09/26/16 Canagliflozin [Invokana] 100 mg PO DAILY 09/26/16 Glimepiride [Amaryl] 4 mg PO BID 09/26/16 Isosorbide Mononitrate [Isosorbide 30 mg PO DAILY 09/26/16 Mononitrate ER] Lisinopril [Zestril] 5 mg PO BID 09/26/16 Lorazepam [Ativan] 0.5 mg PO TID 09/26/16 Metoprolol Succinate [Toprol Xl] 50 mg PO BID 09/26/16 Potassium Chloride [K-Dur] 10 meq PO DAILY 09/26/16 Sennosides/Docusate Sodium 1 ea PO DAILY 09/26/16 [Doc-Q-Lax Tablet] Trifluoperazine HCl 5 mg PO DAILY 09/26/16 Albuterol Inhaler [Ventolin Hfa 1 - 2 puff INHALATION Q6H PRN PRN 03/21/17 (SP)] Fluticasone/Vilanterol [Breo 1 ea IH DAILY 03/21/17 Ellipta Inhaler] pantoprazole 40 mg tablet,delayed 40 mg PO DAILY #30 tab 08/23/17 release fenofibrate micronized 200 mg 200 mg PO QDAY #90 cap 09/01/17 capsule clopidogrel 75 mg tablet 75 mg PO DAILY #28 tab 09/21/17 atorvastatin 80 mg tablet 80 mg PO QHS #30 tab 10/19/17 diphenhydramine 25 mg capsule 25 mg PO TID PRN cap 11/29/17 furosemide 40 mg tablet 40 mg PO DAILY tab 11/29/17 metformin 500 mg tablet 1,000 mg PO QDAY tab 11/29/17 Surgical History: Surgical History (Last Updated 11/29/17 @ 09:43 by Olinda Manzo) H/O tubal ligation (Resolved) Z98.51 41 years ago H/O percutaneous transluminal coronary angioplasty (Resolved) Z98.61 PTCA with MO to mid left CFX 01/02; S/P AAA repair (Chronic) Z98.890, Z86.79 Surgical History: - - AAA repair Smoking Status: Unknown if ever smoked - *Family History Maternal Family History: Family History (Last Reviewed 11/29/17 @ 09:43 by Olinda Manzo) Mother CAD (coronary artery disease) Brother CAD (coronary artery disease) Myocardial infarction Sister Cancer Son COPD (chronic obstructive pulmonary disease) Son COPD (chronic obstructive pulmonary disease) Daughter COPD (chronic obstructive pulmonary disease) History Items: No pertinent history Review of Systems Unable to obtain accurate/complete ROS d/t: See HPI Patient Problems: Active and Suspected Problems (Last Updated 11/28/17 @ 13:25 by Rina Blair) Altered mental status (Acute) Hypoglycemia (Acute) Rhabdomyolysis (Acute) Objective: Chest x-ray was personally reviewed and shows continued bibasilar scarring. There does not appear to be any significant change compared to previous. - Physical Exam General: Alert, No apparent distress, Confused, Disoriented, - - Morbidly obese. Speaking in full sentences. HEENT: Atraumatic, PERRLA, EOMI, Normocephalic, - - No scleral icterus or injection noted. Oral: Moist Mucosa, No Gingival or Mucosal Lesions/ Ulcerations, - - Fair dentition Neck: Supple, No JVD, No Nodes, Trachea Midline Lungs: No rhonchi, No wheeze, No rales, Diminished, - - Symmetric expansion. Cardiovascular: Regular rate, Regular Rhythm, Normal S1, Normal S2, No murmurs, No rub noted, No Gallop Abdomen: Bowel Sounds Present, Soft, Non Tender, Non-Distended, Obese Extremities: No clubbing, No cyanosis, No edema, Capillary Refill Less than 3 Seconds Skin: No rashes, No breakdown Musculoskeletal: No Tenderness to Palpation of Joints or Extremities Lymphatic: No Cervical, Supraclavicular, or Inguinal Adenopathy Neurological: Cranial nerves II-XII grossly intact, Neuro grossly intact, Motor Exam 5/5 strength throughout Psych/Mental Status: Anxious, Restless Vital Signs Temp Pulse Resp BP Pulse Ox 37.9 C H 99 18 132/57 H 95 01/30/18 06:00 01/30/18 06:00 01/30/18 06:00 01/30/18 06:00 01/30/18 06:35 Oxygen Flow Rate (L/min) 2 Oxygen Delivery Method Nasal Cannula Weight: 102.2 kg Body Mass Index (BMI) 43.9 Intake and Output for Last 24 Hours 01/28/18 01/29/18 01/30/18 23:59 23:59 23:59 Intake Total 200 / 200 720 / 720 Output Total 1000 / 1000 250 / 250 Balance -800 / -800 470 / 470 Laboratory Tests Past 24 Hrs 01/29/18 01/30/18 01/30/18 21:55 04:05 04:05 WBC 8.2 RBC 3.45 L Hgb 10.9 L Hct 34.9 L MCV 101.2 H MCH 31.6 MCHC 31.2 L RDW 16.9 H RDW Differential 59.8 H Plt Count 205 MPV 10.3 Sodium 146 H Potassium 4.0 Chloride 113 H Carbon Dioxide 29.0 Anion Gap 4 L BUN 20 H Creatinine 1.47 H Estim Creat Clear Calc 25.94 Est GFR (MDRD) Af Amer 45 L Est GFR (MDRD) Non-Af 37 L BUN/Creatinine Ratio 13.6 Glucose 109 H Calcium 7.5 L Total Bilirubin 0.40 AST 49 H ALT 24 Alkaline Phosphatase 45 Total Creatine Kinase 1029 H Total Protein 5.6 L Albumin 2.4 L Globulin 3.2 Albumin/Globulin Ratio 0.8 L MRSA (PCR) Negative POC Glucose 01/30/18 01/30/18 01/30/18 06:02 04:04 01:55 POC Glucose 112 H 117 H 119 H 01/29/18 01/29/18 23:56 21:58 POC Glucose 100 124 H Clinical Impression(s) from Imaging Studies Brain CT 01/29/18 18:27 IMPRESSION: Chronic involutional changes of the brain. Stable appearance. No hemorrhage. Electronically Signed: Andres Louie MD at 19:58 EDT , Service support , Chest X-Ray 01/29/18 18:27 IMPRESSION: Lower lung fibrotic densities. Electronically Signed: Andres Louie MD at 19:18 EDT , Service support , Cervical Spine CT 01/29/18 18:29 IMPRESSION: Degenerative change. No fracture. Electronically Signed: Andres Louie MD at 19:56 EDT , Service support , Assessment/Plan Active and Suspected Problems (Last Updated 11/28/17 @ 13:25 by Rina Blair) Altered mental status (Acute) Hypoglycemia (Acute) Rhabdomyolysis (Acute) RECOMMENDATIONS: 1. Wean IV fluids over the course of the day 2. Consider de-escalation of antibiotics 3. Delirium protocol 4. Speech therapy evaluation 5. Reevaluation of baseline medications if passes swallow eval IMPRESSIONS: 1. Mild rhabdomyolysis secondary to hypoglycemia History is very unreliable at this time. Patient account for an unknown amount of time. Patient did have a slight elevation in CK, but renal function appears to be at baseline. Patient is receiving hydration at this time. We will have to be careful given patient's history of congestive heart failure and baseline Lasix therapy. Patient is reporting a history of insulin, but this is not on her home medication list. These will need to be verified. Hold on any insulin therapy for now. 2. Reported chronic hypoxic respiratory failure secondary to COPD She reportedly on 2-1/2 L nasal cannula oxygen at baseline. No respiratory history is available at this time. Reasonable to continue with as needed bronchodilators. No signs or symptoms of exacerbation at this time. Would not recommend steroid therapy. 3. Probable chronic diastolic congestive heart failure Patient is not showing any signs or symptoms of exacerbation at this time. Last echocardiogram was completed in 2014 showed a preserved ejection fraction of 55% with left atrial enlargement. Patient does carry a diagnosis of cor pulmonale, which would lead to significant desaturations with exertion. Patient should likely have a walking oximetry prior to discharge. Defer to hospitalist on whether echocardiogram needs to be completed as an inpatient. Patient is on her reported baseline supplemental oxygen. 4. Sepsis secondary to possible aspiration Patient did spike a fever overnight. Patient does have chronic fibrotic changes at the bases, which could obscure an aspiration pneumonia. Patient is on empiric antibiotics at this time. Blood pressure is adequate to elevated. Patient is on a number of antihypertensives at home. These have been held secondary to mental status. 5. Diabetes mellitus type 2/history of myocardial infarction/morbid obesity/psychiatric conditions/HLD/AAA status post repair Complicates care, management, recovery and prognosis. Patient reportedly lives alone. Will attempt to obtain further information through friends or family through the day. Patient is currently hemodynamically stable and may be moved from the intensive care unit later today. Code Visit Inpatient E&M: 94297 Init Hosp L3
--- NOTE | 2018-01-30 07:30 | CON.PCM_ITS ---
Problem List (1) Altered mental status Status: Acute Qualifiers: Altered mental status type: unspecified Qualified Code(s): R41.82 - Altered mental status, unspecified (2) Hypoglycemia Status: Acute (3) Rhabdomyolysis Status: Acute Qualifiers: Rhabdomyolysis type: non-traumatic Qualified Code(s): M62.82 - Rhabdomyolysis (4) H/O tubal ligation Status: Resolved Comment: 41 years ago (5) H/O percutaneous transluminal coronary angioplasty Status: Resolved Comment: PTCA with MO to mid left CFX 01/02; (6) Cor pulmonale Status: Chronic (7) Old myocardial infarction Status: Chronic (8) Other group home (current) drug therapy Status: Acute (9) Atherosclerotic heart disease of [place] coronary artery without angina pectoris Status: Chronic Qualifiers: [place] vs. transplanted heart: [place] heart Qualified Code(s): I25.10 - Atherosclerotic heart disease of [place] coronary artery without angina pectoris Comment: S/P stenting to left circumflex in 2014; (10) Diabetes mellitus type II Status: Chronic (11) Chronic respiratory failure Status: Chronic Comment: 2.5 L nasal cannular at home (12) COPD Status: Chronic Comment: On 2.5 L nasal cannula at home Quit Smoking 2011 (13) Tobacco use disorder Status: Chronic (14) History of psychosis Status: Chronic (15) Obesity Status: Chronic (16) HLD (hyperlipidemia) Status: Chronic Qualifiers: (17) Pulmonary hypertension Status: Chronic (18) HTN (hypertension) Status: Chronic Qualifiers: (19) S/P AAA repair Status: Chronic (20) NSTEMI (non-ST elevated myocardial infarction) Status: Acute (21) PAD (peripheral artery disease) Status: Chronic Comment: Status post stenting (22) AAA (abdominal aortic aneurysm) Status: Chronic Comment: Status post repair Reason for Consult Date of Consultation: 01/30/18 Reason for Consultation: Altered mental status History of Present Illness: The patient is a 67 year old F, with past medical history listed below, who presented to [facility] on 01/29/2018 after being found down by a home health aide. Patient reportedly lives alone in a home health aide went to visit her approximately 10 AM. Patient did not come to the door, so a second check was performed in the evening. Healthcare aide look to the window and found patient on the floor. The fire department was notified and made entry. Evaluation showed patient had a blood sugar of 38 with rhonchorous lung sounds and hypoxic. Patient was found lying on her left side. On presentation to the emergency room, patient was noted to be tachycardic at 123 bpm and tachypneic at 27 breaths per minute. Patient was noted to be 90% on room air. Patient was noted to be lethargic and answering only to name. Laboratory workup was grossly unremarkable except for a slightly elevated CK. Patient was placed on D5 half-normal saline and transferred to the intensive care unit for further monitoring. Patient was initiated on Zosyn therapy secondary to aspiration. Overnight, patient's hemodynamic status has significantly improved. Patient has had a fever and productive cough reported. Patient continues to have significant confusion and calling out frequently. Patient is alert and oriented only to herself. Patient is not able to provide any additional history. All available history was obtained through the electronic medical record and discussion with hospitalist. Patient is reportedly very anxious at baseline and does have a psychiatric history. Patient states that she is on chronic insulin therapy, but this is not part of her home meds list. Patient is unable to provide any history about her respiratory status. Past Medical History Past Medical History (Chronic Problems): Chronic Problems (Last Updated 11/28/17 @ 13:25 by Rina [employer]) Acute and chronic respiratory failure (Chronic) Cor pulmonale (Chronic) Old myocardial infarction (Chronic) Atherosclerotic heart disease of [place] coronary artery without angina pectoris (Chronic) S/P stenting to left circumflex in 2014; Diabetes mellitus type II (Chronic) Chronic respiratory failure (Chronic) 2.5 L nasal cannular at home COPD (Chronic) On 2.5 L nasal cannula at home Quit Smoking 2011 Tobacco use disorder (Chronic) History of psychosis (Chronic) Obesity (Chronic) HLD (hyperlipidemia) (Chronic) Pulmonary hypertension (Chronic) Cor pulmonale, chronic (Chronic) HTN (hypertension) (Chronic) S/P AAA repair (Chronic) PAD (peripheral artery disease) (Chronic) Status post stenting AAA (abdominal aortic aneurysm) (Chronic) Status post repair Medical History: Medical History (Last Updated 11/28/17 @ 13:25 by AnilXOG) Acute and chronic respiratory failure (Chronic) J96.20 Cor pulmonale (Chronic) I27.81 Old myocardial infarction (Chronic) I25.2 Other ocean transportation intermediary (current) drug therapy (Acute) Z79.899 Atherosclerotic heart disease of [place] coronary artery without angina pectoris (Chronic) I25.10 S/P stenting to left circumflex in 2014; Diabetes mellitus type II (Chronic) Chronic respiratory failure (Chronic) 2.5 L nasal cannular at home COPD (Chronic) On 2.5 L nasal cannula at home Quit Smoking 2011 Tobacco use disorder (Chronic) F17.200 History of psychosis (Chronic) Z86.59 Obesity (Chronic) E66.9 Fever (Acute) R50.9 HLD (hyperlipidemia) (Chronic) E78.5 Pulmonary hypertension (Chronic) I27.2 Cor pulmonale, chronic (Chronic) I27.81 HTN (hypertension) (Chronic) I10 NSTEMI (non-ST elevated myocardial infarction) (Acute) I21.4 PAD (peripheral artery disease) (Chronic) I73.9 Status post stenting AAA (abdominal aortic aneurysm) (Chronic) I71.4 Status post repair Anemia D64.9 Allergies No Known Allergies Allergy (Verified 12/27/17 17:58) Home Medications: Ambulatory Orders Medication Instructions Recorded Aspirin [Adult Low Dose Aspirin EC] 81 mg PO DAILY 09/26/16 Canagliflozin [Invokana] 100 mg PO DAILY 09/26/16 Glimepiride [Amaryl] 4 mg PO BID 09/26/16 Isosorbide Mononitrate [Isosorbide 30 mg PO DAILY 09/26/16 Mononitrate ER] Lisinopril [Zestril] 5 mg PO BID 09/26/16 Lorazepam [Ativan] 0.5 mg PO TID 09/26/16 Metoprolol Succinate [Toprol Xl] 50 mg PO BID 09/26/16 Potassium Chloride [K-Dur] 10 meq PO DAILY 09/26/16 Sennosides/Docusate Sodium 1 ea PO DAILY 09/26/16 [Doc-Q-Lax Tablet] Trifluoperazine HCl 5 mg PO DAILY 09/26/16 Albuterol Inhaler [Ventolin Hfa 1 - 2 puff INHALATION Q6H PRN PRN 03/21/17 (SP)] Fluticasone/Vilanterol [Breo 1 ea IH DAILY 03/21/17 Ellipta Inhaler] pantoprazole 40 mg tablet,delayed 40 mg PO DAILY #30 tab 08/23/17 release fenofibrate micronized 200 mg 200 mg PO QDAY #90 cap 09/01/17 capsule clopidogrel 75 mg tablet 75 mg PO DAILY #28 tab 09/21/17 atorvastatin 80 mg tablet 80 mg PO QHS #30 tab 10/19/17 diphenhydramine 25 mg capsule 25 mg PO TID PRN cap 11/29/17 furosemide 40 mg tablet 40 mg PO DAILY tab 11/29/17 metformin 500 mg tablet 1,000 mg PO QDAY tab 11/29/17 Surgical History: Surgical History (Last Updated 11/29/17 @ 09:43 by lOinda Manzo) H/O tubal ligation (Resolved) Z98.51 41 years ago H/O percutaneous transluminal coronary angioplasty (Resolved) Z98.61 PTCA with MO to mid left CFX 01/02; S/P AAA repair (Chronic) Z98.890, Z86.79 Surgical History: - - AAA repair Smoking Status: Unknown if ever smoked - *Family History Maternal Family History: Family History (Last Reviewed 11/29/17 @ 09:43 by Olinda Manzo) Mother CAD (coronary artery disease) Brother CAD (coronary artery disease) Myocardial infarction Sister Cancer Son COPD (chronic obstructive pulmonary disease) Son COPD (chronic obstructive pulmonary disease) Daughter COPD (chronic obstructive pulmonary disease) History Items: No pertinent history Review of Systems Unable to obtain accurate/complete ROS d/t: See HPI Patient Problems: Active and Suspected Problems (Last Updated 11/28/17 @ 13:25 by Rina Blair) Altered mental status (Acute) Hypoglycemia (Acute) Rhabdomyolysis (Acute) Objective: Chest x-ray was personally reviewed and shows continued bibasilar scarring. There does not appear to be any significant change compared to previous. - Physical Exam General: Alert, No apparent distress, Confused, Disoriented, - - Morbidly obese. Speaking in full sentences. HEENT: Atraumatic, PERRLA, EOMI, Normocephalic, - - No scleral icterus or injection noted. Oral: Moist Mucosa, No Gingival or Mucosal Lesions/ Ulcerations, - - Fair dentition Neck: Supple, No JVD, No Nodes, Trachea Midline Lungs: No rhonchi, No wheeze, No rales, Diminished, - - Symmetric expansion. Cardiovascular: Regular rate, Regular Rhythm, Normal S1, Normal S2, No murmurs, No rub noted, No Gallop Abdomen: Bowel Sounds Present, Soft, Non Tender, Non-Distended, Obese Extremities: No clubbing, No cyanosis, No edema, Capillary Refill Less than 3 Seconds Skin: No rashes, No breakdown Musculoskeletal: No Tenderness to Palpation of Joints or Extremities Lymphatic: No Cervical, Supraclavicular, or Inguinal Adenopathy Neurological: Cranial nerves II-XII grossly intact, Neuro grossly intact, Motor Exam 5/5 strength throughout Psych/Mental Status: Anxious, Restless Vital Signs Temp Pulse Resp BP Pulse Ox 37.9 C H 99 18 132/57 H 95 01/30/18 06:00 01/30/18 06:00 01/30/18 06:00 01/30/18 06:00 01/30/18 06:35 Oxygen Flow Rate (L/min) 2 Oxygen Delivery Method Nasal Cannula Weight: 102.2 kg Body Mass Index (BMI) 43.9 Intake and Output for Last 24 Hours 01/28/18 01/29/18 01/30/18 23:59 23:59 23:59 Intake Total 200 / 200 720 / 720 Output Total 1000 / 1000 250 / 250 Balance -800 / -800 470 / 470 Laboratory Tests Past 24 Hrs 01/29/18 01/30/18 01/30/18 21:55 04:05 04:05 WBC 8.2 RBC 3.45 L Hgb 10.9 L Hct 34.9 L MCV 101.2 H MCH 31.6 MCHC 31.2 L RDW 16.9 H RDW Differential 59.8 H Plt Count 205 MPV 10.3 Sodium 146 H Potassium 4.0 Chloride 113 H Carbon Dioxide 29.0 Anion Gap 4 L BUN 20 H Creatinine 1.47 H Estim Creat Clear Calc 25.94 Est GFR (MDRD) Af Amer 45 L Est GFR (MDRD) Non-Af 37 L BUN/Creatinine Ratio 13.6 Glucose 109 H Calcium 7.5 L Total Bilirubin 0.40 AST 49 H ALT 24 Alkaline Phosphatase 45 Total Creatine Kinase 1029 H Total Protein 5.6 L Albumin 2.4 L Globulin 3.2 Albumin/Globulin Ratio 0.8 L MRSA (PCR) Negative POC Glucose 01/30/18 01/30/18 01/30/18 06:02 04:04 01:55 POC Glucose 112 H 117 H 119 H 01/29/18 01/29/18 23:56 21:58 POC Glucose 100 124 H Clinical Impression(s) from Imaging Studies Brain CT 01/29/18 18:27 IMPRESSION: Chronic involutional changes of the brain. Stable appearance. No hemorrhage. Electronically Signed: Andres Louie MD at 19:58 EDT , Service support , Chest X-Ray 01/29/18 18:27 IMPRESSION: Lower lung fibrotic densities. Electronically Signed: Andres Louie MD at 19:18 EDT , Service support , Cervical Spine CT 01/29/18 18:29 IMPRESSION: Degenerative change. No fracture. Electronically Signed: Andres Louie MD at 19:56 EDT , Service support , Assessment/Plan Active and Suspected Problems (Last Updated 11/28/17 @ 13:25 by Rina Blair) Altered mental status (Acute) Hypoglycemia (Acute) Rhabdomyolysis (Acute) RECOMMENDATIONS: 1. Wean IV fluids over the course of the day 2. Consider de-escalation of antibiotics 3. Delirium protocol 4. Speech therapy evaluation 5. Reevaluation of baseline medications if passes swallow eval IMPRESSIONS: 1. Mild rhabdomyolysis secondary to hypoglycemia History is very unreliable at this time. Patient account for an unknown amount of time. Patient did have a slight elevation in CK, but renal function appears to be at baseline. Patient is receiving hydration at this time. We will have to be careful given patient's history of congestive heart failure and baseline Lasix therapy. Patient is reporting a history of insulin, but this is not on her home medication list. These will need to be verified. Hold on any insulin therapy for now. 2. Reported chronic hypoxic respiratory failure secondary to COPD She reportedly on 2-1/2 L nasal cannula oxygen at baseline. No respiratory history is available at this time. Reasonable to continue with as needed bronchodilators. No signs or symptoms of exacerbation at this time. Would not recommend steroid therapy. 3. Probable chronic diastolic congestive heart failure Patient is not showing any signs or symptoms of exacerbation at this time. Last echocardiogram was completed in 2014 showed a preserved ejection fraction of 55% with left atrial enlargement. Patient does carry a diagnosis of cor pulmonale, which would lead to significant desaturations with exertion. Patient should likely have a walking oximetry prior to discharge. Defer to hospitalist on whether echocardiogram needs to be completed as an inpatient. Patient is on her reported baseline supplemental oxygen. 4. Sepsis secondary to possible aspiration Patient did spike a fever overnight. Patient does have chronic fibrotic changes at the bases, which could obscure an aspiration pneumonia. Patient is on empiric antibiotics at this time. Blood pressure is adequate to elevated. Patient is on a number of antihypertensives at home. These have been held secondary to mental status. 5. Diabetes mellitus type 2/history of myocardial infarction/morbid obesity/ psychiatric conditions/HLD/AAA status post repair Complicates care, management, recovery and prognosis. Patient reportedly lives alone. Will attempt to obtain further information through friends or family through the day. Patient is currently hemodynamically stable and may be moved from the intensive care unit later today. Code Visit Inpatient E&M: 19265 Init Hosp L3
[2018-01-30 07:56] LABS: Bedside Glucose 111 mg/dL (70-110)
--- NOTE | 2018-01-30 09:45 | CASEMGMT ---
Addendum entered by Whitney Lockwood 01/30/18 10:41: JAYA called [facility]([phone]), pt does use this pharmacy. Ann Marie will fax over pt's med list from when she left [facility] last week. SW let ICU know that the med list will be faxed over from pt's pharmacy. BENY Guerra, BRAIN Original Note: Addendum entered by Whitney Lockwood 01/30/18 10:34: SW also spoke w/Mendy at [facility], pt's mental health diagnoses as per [facility] are paranoid schizophrenia and 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 disorder unspecified. BENY Guerra, BRAIN Original Note: Pt is here in ICU, there is no family contact listed, and pt is confused. JAYA called [facility], pt's foster care case manager is Yuliya Echevarria ([phone]). JAYA called and left a message, then called and spoke to the covering foster care case manager, Leola. Pt's contact is Ashley Mcghee, though she is listed as both the daughter and the granddaughter([phone]). Pt has [employer] twice per week, Monday and , for 2.5 hours each visit. Pt also has meals delivered by [employer]. Pt was in [facility] from 12/28-01/22, which is a psychiatric facility. Pt went there from the ER at [facility]. Sola was working on getting pt set up w/a foster care case manager at [facility]. JAYA spoke w/pt briefly, pt was able to say that Ashley Mcghee is her daughter. Pt was not able to answer any other questions at this time however, repeated one word a few times, was not clear what she was saying however. SW passed on the daughter's name and number to physician, along w/information regarding recent hospitalization. JAYA will continue to follow. BENY Guerra, BRAIN
[2018-01-30] MEDS: Enoxaparin 40 MG/0.4 ML Syringe SC (10:01)
[2018-01-30 10:06] LABS: Bedside Glucose 108 mg/dL (70-110)
--- NOTE | 2018-01-30 10:14 | NURSING ---
Message left for Daughter, Ashley and Dental Appliance Fixer, Yuliya in attempt to obtain home med list and medical history. Awaiting call back.
--- NOTE | 2018-01-30 10:49 | PN_ITS ---
Patient Problems: Active and Suspected Problems (Last Updated 11/28/17 @ 13:25 by Rina Blair) Altered mental status (Acute) Hypoglycemia (Acute) Rhabdomyolysis (Acute) Subjective: Cc: Altered mental status Objective: She still confused, hemodynamically stable blood glucose has normalized. she has history of psychosis, she is not agitated or combative. Vitals/I&O's: Vital Signs Temp Pulse Resp BP Pulse Ox 99.8 F H 99 22 H 137/62 H 97 01/30/18 10:00 01/30/18 10:00 01/30/18 10:00 01/30/18 10:00 01/30/18 10:00 Oxygen Flow Rate (L/min) 1 Oxygen Delivery Method Room Air Weight: 102.2 kg Body Mass Index (BMI) 43.9 Intake and Output for Last 24 Hours 01/28/18 01/29/18 01/30/18 23:59 23:59 23:59 Intake Total 200 / 200 720 / 720 Output Total 1000 / 1000 250 / 250 Balance -800 / -800 470 / 470 General: Alert, Confused Neck: Supple, No JVD Lungs: No wheeze, No rales Cardiovascular: Regular rate, Normal S1, Normal S2 Abdomen: Bowel Sounds Present, Soft, Non Tender, Non-Distended Extremities: No edema Neurological: Cranial nerves II-XII grossly intact, Motor Exam 5/5 strength throughout Psych/Mental Status: Normal Affect Laboratory Results 01/29/18 21:55: MRSA (PCR) Negative 01/29/18 21:58: POC Glucose 124 H 01/29/18 23:56: POC Glucose 100 01/30/18 01:55: POC Glucose 119 H 01/30/18 04:04: POC Glucose 117 H 01/30/18 04:05: WBC 8.2, RBC 3.45 L, Hgb 10.9 L, Hct 34.9 L, MCV 101.2 H, MCH 31.6, MCHC 31.2 L, RDW 16.9 H, RDW Differential 59.8 H, Plt Count 205, MPV 10.3 01/30/18 04:05: Sodium 146 H, Potassium 4.0, Chloride 113 H, Carbon Dioxide 29.0 , Anion Gap 4 L, BUN 20 H, Creatinine 1.47 H, Estim Creat Clear Calc 25.94, Est GFR (MDRD) Af Amer 45 L, Est GFR (MDRD) Non-Af 37 L, BUN/Creatinine Ratio 13.6, Glucose 109 H, Calcium 7.5 L, Total Bilirubin 0.40, AST 49 H, ALT 24, Alkaline Phosphatase 45, Total Creatine Kinase 1029 H, Total Protein 5.6 L, Albumin 2.4 L , Globulin 3.2, Albumin/Globulin Ratio 0.8 L 01/30/18 06:02: POC Glucose 112 H 01/30/18 07:48: POC Glucose 111 H 01/30/18 09:59: POC Glucose 108 Current Medications Acetaminophen (Tylenol) 650 mg RECTAL Q6H PRN PRN PRN Reason: fever Last Admin: 01/30/18 00:55 Dose: 650 mg Chlorhexidine Gluconate () 1 each TOPICAL DAILY [facility] Last Admin: 01/30/18 04:10 Dose: 1 each Clopidogrel Bisulfate (Plavix) 75 mg PO DAILY [facility] Last Admin: 01/30/18 09:47 Dose: Not Given Enoxaparin Sodium (Lovenox) 40 mg SC DAILY@1000 [facility] Last Admin: 01/30/18 10:01 Dose: 40 mg Sodium Chloride () 250 mls @ 15 mls/hr IV .[id number] PRN PRN Reason: SALINE FLUSH Piperacillin Sod/Tazobactam Sod (Zosyn) 3.375 gm in 50 mls @ 12.5 mls/hr IV Q8 FÉLIX Last Admin: 01/30/18 05:10 Dose: 12.5 mls/hr Dextrose/Sodium Chloride () 1,000 mls @ 75 mls/hr IV .[id number] [facility] Magnesium Hydroxide (Milk Of Magnesia) 30 ml PO DAILY PRN PRN PRN Reason: Constipation Sodium Chloride () 5 - 30 ml IV UD PRN PRN Reason: SALINE FLUSH Last Admin: 01/30/18 04:10 Dose: 20 ml Medical Necessity - Tobacco Use Smoking Status: Unknown if ever smoked Assessment/Plan All Active Problems (Last Updated 11/28/17 @ 13:25 by Rina Blair) Altered mental status (Acute) Hypoglycemia (Acute) Rhabdomyolysis (Acute) H/O tubal ligation (Resolved) H/O percutaneous transluminal coronary angioplasty (Resolved) Other termite exterminator (current) drug therapy (Acute) Fever (Acute) NSTEMI (non-ST elevated myocardial infarction) (Acute) 1. Acute change in mental status; would continue to monitor her closely. 2. hypoglycemia; this has improved. 3. Diabetes mellitus type II ; she is on no hypoglycemic agents at this time due to presenting with difficult hypoglycemia.. Will obtain hemoglobin A1c 4. history Psychosis (NOS); we will obtain medication record from her pharmacy and restart her psychotropic medications. 5. Coronary artery ; S/P stenting to left circumflex in 2014, we clementina [id number] her cardioprotective medications as ordered. 6. Chronic respiratory failure hypoxia; continue supplemental oxygen. 7. Possible aspiration with presumptive aspiration pneumonia; we will continue with IV Zosyn as ordered. 8. DVT Prophylaxis with Lovenox. Code Visit Inpatient E&M: 43832 Subs Hosp L2
[2018-01-30 12:11] LABS: Bedside Glucose 162 mg/dL (70-110)
[2018-01-30] MEDS: RisperiDONE 1 MG Tablet 3 MG PO ×2 (13:11→21:12)
[2018-01-30] MEDS: Clopidogrel Bisulfate 75 MG Tablet PO (13:11)
[2018-01-30] MEDS: Metoprolol Tartrate 50 MG Tablet PO ×2 (13:12→21:05)
[2018-01-30 13:21] LABS: Bedside Glucose 123 mg/dL (70-110)
[2018-01-30] MEDS: busPIRone 5 MG Tablet 10 MG PO ×2 (14:13→21:12)
[2018-01-30 16:40] LABS: Bedside Glucose 192 mg/dL (70-110)
[2018-01-30] MEDS: Acetaminophen 325 MG Tablet 650 MG PO (18:56)
[2018-01-30] MEDS: QUEtiapine 100 MG Tablet 300 MG PO (21:05)
[2018-01-30 21:31] LABS: Bedside Glucose 237 mg/dL (70-110)
[2018-01-31] VITALS (17 sets, daily range): BP systolic 97–133; BP diastolic 44–68; PULSE 56–109; RESP 14–28; TEMP 36.8–37.5; O2SAT 92–97
[2018-01-31] MEDS: CHLORHEXIDINE GLUC 2% CLOTH 1 EACH TOWELETTE TOPICAL (03:00)
[2018-01-31] MEDS: busPIRone 5 MG Tablet 10 MG PO ×3 (05:33→21:27)
[2018-01-31] MEDS: Piperacil/Tazobactam 3.375 GM/50 ML ML IV ×3 (05:34→22:23)
[2018-01-31] MEDS: 0.9% NaCl Peripheral Flush Adult/Peds IV (05:47)
[2018-01-31 06:22] LABS: Absolute Lymphocyte Count 1.99 X10^3/ul (0.83-4.51); Absolute Neutrophil Count 4.4 X10^3/uL (2.0-7.7); Basophil# 0.02 X10^3/uL; Basophil% 0.3 % (0-1); Eosinophil# 0.22 X10^3/uL; Eosinophils% 2.9 % (0-5); Hematocrit 33.9 % (37-47); Hemoglobin 10.7 g/dl (12.0-15.0); Lymphocyte # 1.99 X10^3/ul (4.0); Lymphocyte % 26.4 % (19-41); Mean Corp Hgb Conc 31.6 g/gl (32-36); Mean Corpuscular Hgb 31.9 pg (27.0-32.0); Mean Corpuscular Volume 101.2 fL (81-99); Mean Platelet Vol. 10.6 fl (6.2-12.0); Monocyte# 0.91 X10^3/uL; Monocyte% 12.1 % (0-10); Neutrophil # 4.38 X10^3/uL (2.7-7.7); Platelet Count 186 K/mm3 (150-450); RBC Distribution Width CV 16.7 % (11.6-14.6); RBC Distribution Width SD 59.8 fl (35.1-43.9); Red Blood Count 3.35 M/mm3 (4.2-5.4); White Blood Count 7.5 K/mm3 (4.4-11.0)
[2018-01-31 06:28] LABS: Anion Gap 5 (5-15); BUN 21 mg/dL (7-18); BUN/Creat Ratio 12.4 RATIO (10-20); Chloride 113 mmol/L (98-107); Creatinine, Serum 1.69 mg/dL (0.55-1.02); EST Glomerular Filtration Rate 32 mL/min (>60); Est Glom Filt Rate - Afr Amer 39 mL/min (>60); Estimated Creatinine Clearance 22.57 ml/min; Glucose 126 mg/dL (74-106); Magnesium 2.4 mg/dL (1.6-2.6); Phosphorus 2.6 mg/dL (2.5-4.9); Potassium 4.2 mmol/L (3.5-5.1); Sodium Level 146 mmol/L (136-145)
[2018-01-31 06:39] LABS: POSITIVE COUNT NO; POSITIVE DIFFERENTIAL NO; POSITIVE MORPHOLOGY NO
--- NOTE | 2018-01-31 07:04 | PCM.PN.INT ---
Subjective: Patient did okay overnight. Patient continues to report a productive cough, but mentation is much improved compared to previous. Patient is on minimal nasal cannula oxygen to maintain saturations. Patient denies any pain at this time and feels that she is strong enough to go home. Patient did spike a fever overnight, but remained hemodynamically stable. General: Alert, Cooperative, No apparent distress, Disoriented, - - Speaks in full sentences. HEENT: Atraumatic, PERRLA, EOMI, Normocephalic, - - No scleral icterus or injection noted. Oral: Moist Mucosa, No Gingival or Mucosal Lesions/ Ulcerations Neck: Supple, No JVD, No Nodes, Trachea Midline Lungs: No rales, Diminished, Rhonchi - Right greater than left, Wheezes - Sporadic, - - Symmetric expansion. No dullness to percussion. Cardiovascular: Regular rate, Regular Rhythm, Normal S1, Normal S2, No murmurs, No rub noted, No Gallop Abdomen: Bowel Sounds Present, Soft, Non Tender, Non-Distended, Obese Extremities: No clubbing, No cyanosis, No edema, Capillary Refill Less than 3 Seconds Skin: No rashes, No breakdown Musculoskeletal: No Tenderness to Palpation of Joints or Extremities, No Muscle Wasting Lymphatic: No Cervical, Supraclavicular, or Inguinal Adenopathy Neurological: Cranial nerves II-XII grossly intact, Neuro grossly intact, Motor Exam 5/5 strength throughout Psych/Mental Status: Anxious, Impulsive Vital Signs Temp Pulse Resp BP Pulse Ox 37.4 C H 84 14 132/60 H 94 01/31/18 06:00 01/31/18 06:00 01/31/18 06:00 01/31/18 06:00 01/31/18 06:00 Oxygen Flow Rate (L/min) 2 Oxygen Delivery Method Nasal Cannula Weight: 102.8 kg Body Mass Index (BMI) 43.9 Intake and Output for Last 24 Hours 01/29/18 01/30/18 01/31/18 23:59 23:59 23:59 Intake Total 200 / 200 2256 / 2256 323 / 323 Output Total 1000 / 1000 1100 / 1100 150 / 150 Balance -800 / -800 1156 / 1156 173 / 173 Labs (Last 48 Hours) 01/29/18 01/29/18 01/29/18 21:55 21:58 23:56 WBC RBC Hgb Hct MCV MCH MCHC RDW RDW Differential Plt Count MPV Immature Gran % (Auto) Neut % (Auto) Lymph % (Auto) [place] % (Auto) Eos % (Auto) Baso % (Auto) Absolute Neuts (auto) Absolute Lymphs (auto) Total Counted Sodium Potassium Chloride Carbon Dioxide Anion Gap BUN Creatinine Estim Creat Clear Calc Est GFR (MDRD) Af Amer Est GFR (MDRD) Non-Af BUN/Creatinine Ratio Glucose Calcium Phosphorus Magnesium Total Bilirubin AST ALT Alkaline Phosphatase Total Creatine Kinase Total Protein Albumin Globulin Albumin/Globulin Ratio MRSA (PCR) Negative POC Glucose 124 H 100 01/30/18 01/30/18 01/30/18 01:55 04:04 04:05 WBC 8.2 RBC 3.45 L Hgb 10.9 L Hct 34.9 L MCV 101.2 H MCH 31.6 MCHC 31.2 L RDW 16.9 H RDW Differential 59.8 H Plt Count 205 MPV 10.3 Immature Gran % (Auto) Neut % (Auto) Lymph % (Auto) [place] % (Auto) Eos % (Auto) Baso % (Auto) Absolute Neuts (auto) Absolute Lymphs (auto) Total Counted Sodium Potassium Chloride Carbon Dioxide Anion Gap BUN Creatinine Estim Creat Clear Calc Est GFR (MDRD) Af Amer Est GFR (MDRD) Non-Af BUN/Creatinine Ratio Glucose Calcium Phosphorus Magnesium Total Bilirubin AST ALT Alkaline Phosphatase Total Creatine Kinase Total Protein Albumin Globulin Albumin/Globulin Ratio MRSA (PCR) POC Glucose 119 H 117 H 01/30/18 01/30/18 01/30/18 04:05 06:02 07:48 WBC RBC Hgb Hct MCV MCH MCHC RDW RDW Differential Plt Count MPV Immature Gran % (Auto) Neut % (Auto) Lymph % (Auto) [place] % (Auto) Eos % (Auto) Baso % (Auto) Absolute Neuts (auto) Absolute Lymphs (auto) Total Counted Sodium 146 H Potassium 4.0 Chloride 113 H Carbon Dioxide 29.0 Anion Gap 4 L BUN 20 H Creatinine 1.47 H Estim Creat Clear Calc 25.94 Est GFR (MDRD) Af Amer 45 L Est GFR (MDRD) Non-Af 37 L BUN/Creatinine Ratio 13.6 Glucose 109 H Calcium 7.5 L Phosphorus Magnesium Total Bilirubin 0.40 AST 49 H ALT 24 Alkaline Phosphatase 45 Total Creatine Kinase 1029 H Total Protein 5.6 L Albumin 2.4 L Globulin 3.2 Albumin/Globulin Ratio 0.8 L MRSA (PCR) POC Glucose 112 H 111 H 01/30/18 01/30/18 01/30/18 09:59 12:05 13:15 WBC RBC Hgb Hct MCV MCH MCHC RDW RDW Differential Plt Count MPV Immature Gran % (Auto) Neut % (Auto) Lymph % (Auto) [place] % (Auto) Eos % (Auto) Baso % (Auto) Absolute Neuts (auto) Absolute Lymphs (auto) Total Counted Sodium Potassium Chloride Carbon Dioxide Anion Gap BUN Creatinine Estim Creat Clear Calc Est GFR (MDRD) Af Amer Est GFR (MDRD) Non-Af BUN/Creatinine Ratio Glucose Calcium Phosphorus Magnesium Total Bilirubin AST ALT Alkaline Phosphatase Total Creatine Kinase Total Protein Albumin Globulin Albumin/Globulin Ratio MRSA (PCR) POC Glucose 108 162 H 123 H 01/30/18 01/30/18 01/31/18 16:37 21:04 05:45 WBC 7.5 RBC 3.35 L Hgb 10.7 L Hct 33.9 L MCV 101.2 H MCH 31.9 MCHC 31.6 L RDW 16.7 H RDW Differential 59.8 H Plt Count 186 MPV 10.6 Immature Gran % (Auto) 0.300 Neut % (Auto) 58.0 Lymph % (Auto) 26.4 [place] % (Auto) 12.1 H Eos % (Auto) 2.9 Baso % (Auto) 0.3 Absolute Neuts (auto) 4.4 Absolute Lymphs (auto) 1.99 Total Counted Not Reportable Sodium Potassium Chloride Carbon Dioxide Anion Gap BUN Creatinine Estim Creat Clear Calc Est GFR (MDRD) Af Amer Est GFR (MDRD) Non-Af BUN/Creatinine Ratio Glucose Calcium Phosphorus Magnesium Total Bilirubin AST ALT Alkaline Phosphatase Total Creatine Kinase Total Protein Albumin Globulin Albumin/Globulin Ratio MRSA (PCR) POC Glucose 192 H 237 H 01/31/18 05:45 WBC RBC Hgb Hct MCV MCH MCHC RDW RDW Differential Plt Count MPV Immature Gran % (Auto) Neut % (Auto) Lymph % (Auto) [place] % (Auto) Eos % (Auto) Baso % (Auto) Absolute Neuts (auto) Absolute Lymphs (auto) Total Counted Sodium 146 H Potassium 4.2 Chloride 113 H Carbon Dioxide 28.0 Anion Gap 5 BUN 21 H Creatinine 1.69 H Estim Creat Clear Calc 22.57 Est GFR (MDRD) Af Amer 39 L Est GFR (MDRD) Non-Af 32 L BUN/Creatinine Ratio 12.4 Glucose 126 H Calcium 8.0 L Phosphorus 2.6 Magnesium 2.4 Total Bilirubin AST ALT Alkaline Phosphatase Total Creatine Kinase Total Protein Albumin Globulin Albumin/Globulin Ratio MRSA (PCR) POC Glucose Clinical Impression(s) from Imaging Studies Chest X-Ray 01/30/18 05:55 IMPRESSION: Small left pleural effusion. 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 Likely okay to initiate p.o. antibiotics to complete a seven-day course 2. Consider placement for stabilization 3. Reinitiate diabetic medications in a stepwise fashion 4. Okay to leave the intensive care unit from my perspective IMPRESSIONS: 1. Mild rhabdomyolysis secondary to hypoglycemia History is very unreliable at this time. Patient is still unable to account for an unknown amount of time. Patient did have a slight elevation in CK, but renal function appears to be at baseline. She is currently on a p.o. diet. We will have to be careful given patient's history of congestive heart failure and baseline Lasix therapy. Patient reportedly does not take insulin at baseline. Hyperglycemics will be reinitiated in a stepwise fashion. 2. Reported chronic hypoxic respiratory failure secondary to COPD/probable aspiration pneumonia She reportedly on 2-1/2 L nasal cannula oxygen at baseline. No respiratory history is available at this time. Reasonable to continue with as needed bronchodilators. Patient with previous infiltrates and new onset fever. Clinical suspicion for aspiration pneumonia. Patient likely could be treated with Augmentin p.o. to complete a seven-day course. 3. Probable chronic diastolic congestive heart failure Patient is not showing any signs or symptoms of exacerbation at this time. Last echocardiogram was completed in 2014 showed a preserved ejection fraction of 55% with left atrial enlargement. Patient does carry a diagnosis of cor pulmonale, which would lead to significant desaturations with exertion. Patient should likely have a walking oximetry prior to discharge. Defer to hospitalist on whether echocardiogram needs to be completed as an inpatient. Patient is on her reported baseline supplemental oxygen. 4. Sepsis secondary to possible aspiration Patient did spike a fever overnight. Patient does have chronic fibrotic changes at the bases, which could obscure an aspiration pneumonia. Patient is on empiric antibiotics at this time. Blood pressure is adequate to elevated. Continue with current medications for now. No fluid boluses are indicated. 5. Diabetes mellitus type 2/history of myocardial infarction/morbid obesity/psychiatric conditions/HLD/AAA status post repair Complicates care, management, recovery and prognosis. Patient reportedly lives alone. Patient likely can be moved from the intensive care unit from my perspective. Code Visit Inpatient E&M: 75241 [facility] L3
[2018-01-31 08:25] LABS: Bedside Glucose 122 mg/dL (70-110)
--- NOTE | 2018-01-31 09:30 | NURSING ---
OT present in pt room
--- NOTE | 2018-01-31 10:00 | NURSING ---
BICYCLE ASSEMBLER w/pt
--- NOTE | 2018-01-31 10:19 | CASEMGMT ---
Addendum entered by Whitney Lockwood 01/31/18 10:51: SW met w/pt again, spoke w/pt again in regard to POA. Pt is not certain who she would put down. Pt does not want to put her niece as based on conversations they have had, she thinks her niece just wants her things and her money. She does not want to put Ashley down either. Pt states maybe her aide, SW explained that could be a conflict of interest however since she works for pt. Pt states that they had papers drawn up at the [email or web address] for all POA(financial and medical), and her daughter Ashley she would take her off machines. Pt states she does not think that is very nice, states she wants to when she is 88 of natural causes. SW asked pt about mental health. Pt states she is fine, is not suicidal or homicidal. Pt states she sees the psychiatrist at [facility] and takes her prescribed medications. SW explained that Jackie from [facility] is going to come see her to make sure she is okay, pt is fine with this. Pt states has been hospitalized for psychiatric reasons 5 or 6 times, but not recently until this last stay. Pt states she was suicidal one time after taking drugs, and then took sleeping pills. Pt thinks at that time the drugs caused her to be suicidal. She states she was in her 20's and her daughters were 2 and 8 at the time, states they saw all of this happen. SW then spoke w/pt about discharge plan from here is psych placement is not needed. SW asked pt about going somewhere for rehab. Pt adamantly states she is not going to a assisted. Pt states she feels she can manage at home with her aide services. She states that her niece, her granddaughter and her neighbor all also check in on her. She also is wondering if her aide services can be increased, SW explained can ask Yuliya w/[facility]. Pt is adamantly against assisted placement. SW explained that we will check in w/her again once she has had PT/OT today, as she did not move well yesterday. Pt states understanding. She then said that she hopes she does not end up in a room with a roommate who watches TV all the time. SW explained that it is not determined yet if she needs pysch placement, she will talk to Jackie from [facility] and then this will be decided. Pt states understanding. SW did give pt POA papers, let her know to just think about who she may want to put down and speak w/that person. Pt states she may want to put her daughter Sachi in [place], but also states does not want to make her family have to make decisions. SW explained that if it was ever needed, without papers her children would need to make decisions together, if she is not able to make decisions for herself. Pt states she does not want this. SW encouraged her to speak w/Sachi about it and see if she would be okay w/pt putting her as POA. Pt became tearful, states, what if she says no? SW explained if she says no, will need to think about someone else. SW offered support to pt. SW reiterated this is not a decision that needs made today, and in fact should probably not be made today, but that she should think about it. Pt states understanding. SW called [facility], let Yuliya know pt is interested in increasing aide hours, she states she will call [facility] to see about availability, as pt is getting the minimum amount of aide services. Yuliya will let this SW know. SW also let Yuliya know this SW spoke w/pt about LW/POA forms, and pt is not ready to complete them. SW asked Yuliya to follow up w/pt about these forms once she is home. JAYA explained that crisis is seeing pt, and if psych placement is not needed, pt will refuse SNF placement. Yuliya also mentioned pt going somewhere such as [facility] during the day could be beneficial to pt, though pt has been resistant to this. SW will speak w/pt about this, and [facility], if time allows, later today or tomorrow. Jackie is here now to see pt from [facility], SW will continue to follow. BENY Guerra, BLOOD TYPER Original Note: JAYA spoke w/Dr. Garcia, he states pt is medically stable and okay to call crisis today to see if pt needs psych placement again. SW called crisis, Jackie is in the ED. SW called SW in ED, she will let Jackie know that pt needs seen today. SW spoke w/pt in room regarding prior level of function, discharge plan. Pt states her outsole caser from [facility] came in to see her, told her she passed out at home, she does not remember this. She remembers not feeling well and calling the crisis line, told them she did not feel well but states she did not talk w/anyone there. She remembers going to bed the night before but does not remember passing out or how she came to the hospital. SW asked pt how she was managing at home, pt states fine. She states she drives, is independent with ADL's, does not use a cane or walker. She states her aide from [facility] just helps her with cleaning. Pt states she does have oxygen from CME that she wears at night. Pt confirms her pharmacy is [facility] and gets her medications prepackaged, states she can take her medications fine, does not need assist. Pt states maybe her aide could come out to be with her more often, but did not ask Yuilya about this when she came to visit. SW asked pt about POA forms. Pt has not completed them. SW inquired about Ashley Mcghee, pt initially states, she is nothing to me. When asked further, pt states Ashley is her daughter but they have not spoken in over a year. Pt states she has 4 children, two sons and two daughters. Her sons are 53 and 54 and do not speak to her as they do not feel pt should get any benefits her ex-(their father) who from a stroke. Pt is also from her second . Pt's other daughter, her baby, is 42 and lives in [place]. Pt mentioned a niece Carri Diaz as being her emergency contact, but does not have a number for her. SW asked about completing POA forms, and who she may want to make medical decisions for her in the event she cannot make them for herself. Pt initially states her aide. SW explained she needs to speak w/her aide to make sure she would be okay with this. Pt asked for assist in completing the forms. Mirza from [facility] came in to see pt, SW will return after Mirza has completed his assessment to discuss further POA/LW forms and also talk about possible SNF placement, if pt does not need placed by crisis. BENY Guerra, BLOOD TYPER
--- NOTE | 2018-01-31 10:30 | NURSING ---
PT working w/ pt, walking in [place]
[2018-01-31] MEDS: Metoprolol Tartrate 50 MG Tablet PO ×2 (11:57→21:27)
[2018-01-31] MEDS: Pioglitazone Hydrochloride 30 MG Tablet PO (11:57)
[2018-01-31] MEDS: Enoxaparin 40 MG/0.4 ML Syringe SC (11:59)
[2018-01-31] MEDS: RisperiDONE 1 MG Tablet 3 MG PO ×2 (12:00→21:27)
[2018-01-31] MEDS: Clopidogrel Bisulfate 75 MG Tablet PO (12:00)
--- NOTE | 2018-01-31 12:04 | CASEMGMT ---
SW spoke w/Yuliya from [facility], she states they may be able to increase her aide services. Also, if pt goes home tomorrow, her aide for tomorrow may be able to go out to see her as she does not come until 4pm. Yuliya asked SW to let her know when she is discharged. Pt was cleared by crisis, pt does not need psych placement at this time. SW reviewed [employer], we do have POA for finances and medical in the E-chart, and both forms have daughter Amalia Mcghee. SW went back to speak w/pt again. Pt is finishing w/PT and OT, pt is walking fine, walked laps in the hallway, and is steady on her feet. SW told pt that as per Jackie w/[facility], she does not need psych placement. Pt states, I told you! SW asked pt if she feels she can manage at home given how she is moving w/PT, pt states she is fine w/returning home and feels she can manage. Pt then asked about completing the POA forms, feels ready to do this now. Since pt is cleared by crisis, and pt feels ready, SW able to assist pt with this at this time. SW explained did find some in the E-chart for both medical and financial, and daughter Ashley is on both. Pt states she does not want her on both, wants to complete the medical POA and put daughter Sachi down. SW asked if she wants to speak w/her first, pt states Sachi is her daughter and will do it. Pt completed POA and Living Will forms, put Sachi(Sachi Vu, ) as POA. Pt also completed the organ donor form and SW mailed it for pt. SW gave pt original and copies, and placed a copy on the chart. SW asked pt about participating in [employer] or [employer]. Pt is not sure if she would want to do this, will think about it. SW let her know if she decides she would like to do this, let Yuliya know and she can help to set it up. Pt states understanding. SW also let pt know that as per Yuliya, [facility] may be able to increase her aide services, and if she gets home early enough tomorrow her aide can come out tomorrow. Pt states understanding. SW called Yuliya back from [facility], let her know pt did complete POA forms, gave her Sachi's contact information. Plan: Home at discharge, SW to call Yuliya at [facility] once pt is discharged([phone]), and call [facility] ([phone]) if we cannot reach Yuliya. SW did call [facility] today to make sure they knew pt was in the hospital. BENY Guerra, HEALTH CARE LEGAL ASSISTANT
[2018-01-31 12:15] LABS: Bedside Glucose 198 mg/dL (70-110)
[2018-01-31] MEDS: 0.9% NaCl IVPB Med Flush (250 mL) 15 ML IV (15:15)
--- NOTE | 2018-01-31 15:22 | NURSING ---
to 321 per WC, icu staff in attendance
--- NOTE | 2018-01-31 16:45 | PN_ITS ---
Patient Problems: Active and Suspected Problems (Last Updated 11/28/17 @ 13:25 by Rina Blair) Altered mental status (Acute) Hypoglycemia (Acute) Rhabdomyolysis (Acute) Subjective: CC: Acute mental status changes Objective: The patient is alert and oriented to time place and person, be discharged today , she does not want to go to ECF if this is recommended to, she has an aide at home who she feels is due to good job. Vitals/I&O's: Vital Signs Temp Pulse Resp BP Pulse Ox 98.9 F 56 L 22 H 111/68 92 01/31/18 14:00 01/31/18 14:00 01/31/18 14:00 01/31/18 14:00 01/31/18 14:00 Oxygen Flow Rate (L/min) 2 Oxygen Delivery Method Room Air Weight: 102.8 kg Body Mass Index (BMI) 43.9 Intake and Output for Last 24 Hours 01/29/18 01/30/18 01/31/18 23:59 23:59 23:59 Intake Total 200 / 200 2256 / 2256 683 / 683 Output Total 1000 / 1000 1100 / 1100 150 / 150 Balance -800 / -800 1156 / 1156 533 / 533 General: Alert, Oriented x3 HEENT: Atraumatic Oral: Moist Mucosa Neck: Supple Lungs: Clear to auscultation Cardiovascular: Regular rate, Regular Rhythm, Normal S1, Normal S2 Abdomen: Bowel Sounds Present, Soft, Non Tender, Non-Distended Extremities: No edema Neurological: Cranial nerves II-XII grossly intact, Motor Exam 5/5 strength throughout Laboratory Results 01/30/18 21:04: POC Glucose 237 H 01/31/18 05:45: WBC 7.5, RBC 3.35 L, Hgb 10.7 L, Hct 33.9 L, MCV 101.2 H, MCH 31.9, MCHC 31.6 L, RDW 16.7 H, RDW Differential 59.8 H, Plt Count 186, MPV 10.6 , Immature Gran % (Auto) 0.300, Neut % (Auto) 58.0, Lymph % (Auto) 26.4, [place] % (Auto) 12.1 H, Eos % (Auto) 2.9, Baso % (Auto) 0.3, Absolute Neuts (auto) 4.4, Absolute Lymphs (auto) 1.99, Total Counted Not Reportable 01/31/18 05:45: Sodium 146 H, Potassium 4.2, Chloride 113 H, Carbon Dioxide 28.0 , Anion Gap 5, BUN 21 H, Creatinine 1.69 H, Estim Creat Clear Calc 22.57, Est GFR (MDRD) Af Amer 39 L, Est GFR (MDRD) Non-Af 32 L, BUN/Creatinine Ratio 12.4, Glucose 126 H, Calcium 8.0 L, Phosphorus 2.6, Magnesium 2.4 01/31/18 08:20: POC Glucose 122 H 01/31/18 12:04: POC Glucose 198 H Current Medications Acetaminophen (Tylenol) 650 mg PO Q6H PRN PRN PRN Reason: MILD-MOD PAIN (-12/28) Last Admin: 01/30/18 18:56 Dose: 650 mg Buspirone HCl (Buspar) 10 mg PO TID [facility] Last Admin: 01/31/18 15:11 Dose: 10 mg Chlorhexidine Gluconate () 1 each TOPICAL DAILY [facility] Last Admin: 01/31/18 03:00 Dose: 1 each Clopidogrel Bisulfate (Plavix) 75 mg PO DAILY [facility] Last Admin: 01/31/18 12:00 Dose: 75 mg Enoxaparin Sodium (Lovenox) 40 mg SC DAILY@1000 [facility] Last Admin: 01/31/18 11:59 Dose: 40 mg Sodium Chloride () 250 mls @ 15 mls/hr IV .[id number] PRN PRN Reason: SALINE FLUSH Last Admin: 01/31/18 15:15 Dose: 15 mls/hr Piperacillin Sod/Tazobactam Sod (Zosyn) 3.375 gm in 50 mls @ 12.5 mls/hr IV Q8 [facility] Last Admin: 01/31/18 15:12 Dose: 12.5 mls/hr Magnesium Hydroxide (Milk Of Magnesia) 30 ml PO DAILY PRN PRN PRN Reason: Constipation Metoprolol Tartrate (Lopressor (Beta Rolando)) 50 mg PO BID [facility] Last Admin: 01/31/18 11:57 Dose: 50 mg Pioglitazone HCl (Actos) 30 mg PO DAILY@0800 [facility] Last Admin: 01/31/18 11:57 Dose: 30 mg Quetiapine Fumarate (Seroquel) 300 mg PO QHS [facility] Last Admin: 01/30/18 21:05 Dose: 300 mg Risperidone (Risperdal) 3 mg PO BID [facility] Last Admin: 01/31/18 12:00 Dose: 3 mg Sodium Chloride () 5 - 30 ml IV UD PRN PRN Reason: SALINE FLUSH Last Admin: 01/31/18 05:47 Dose: 20 ml Valproic Acid (Depakene) 250 mg PO TID [facility] Last Admin: 01/31/18 15:12 Dose: 250 mg Medical Necessity - Tobacco Use Smoking Status: Unknown if ever smoked Assessment/Plan All Active Problems (Last Updated 11/28/17 @ 13:25 by Rina Blair) Altered mental status (Acute) Hypoglycemia (Acute) Rhabdomyolysis (Acute) H/O tubal ligation (Resolved) H/O percutaneous transluminal coronary angioplasty (Resolved) 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 Acute change in mental status; this has improved 2. hypoglycemia; has resolved. 3. Diabetes mellitus type II ; she is on Actos, will obtain A1c. 4. history Psychosis (NOS); she has restarted her psychotropic medications. 5. Coronary artery ; S/P stenting to left circumflex in 2014, we will continue her cardioprotective medications as ordered. 6. Chronic respiratory failure with hypoxia; we will continue supplemental oxygen. 7. Possible aspiration with presumptive aspiration pneumonia; we will continue with IV Zosyn 8. DVT Prophylaxis with Lovenox. Code Visit Inpatient E&M: 11904 [facility] L2
[2018-01-31 17:26] LABS: Bedside Glucose 107 mg/dL (70-110)
[2018-01-31 17:31] LABS: Hemoglobin A1c 5.3 % (4.2-6.3)
[2018-01-31] MEDS: QUEtiapine 100 MG Tablet 300 MG PO (21:27)
[2018-01-31 21:40] LABS: Bedside Glucose 187 mg/dL (70-110)
[2018-02-01 05:50] VITALS: BP 138/71; PULSE 86; RESP 20; TEMP 36.7; O2SAT 93
[2018-02-01] MEDS: busPIRone 5 MG Tablet 10 MG PO ×2 (05:54→13:13)
[2018-02-01] MEDS: Piperacil/Tazobactam 3.375 GM/50 ML ML IV ×2 (05:54→13:12)
[2018-02-01 06:06] LABS: Bedside Glucose 72 mg/dL (70-110)
[2018-02-01 06:51] LABS: Bedside Glucose 120 mg/dL (70-110)
[2018-02-01 07:51] VITALS: BP 125/59; PULSE 76; RESP 16; TEMP 36.6; O2SAT 92
[2018-02-01] MEDS: Pioglitazone Hydrochloride 30 MG Tablet PO (07:59)
--- NOTE | 2018-02-01 08:17 | PCA ---
Supervised pt. eat breakfast. Pt. tolerated well.
--- NOTE | 2018-02-01 08:22 | PCM.PROGNOTE ---
Patient Problems: Active and Suspected Problems (Last Updated 11/28/17 @ 13:25 by Rina Blair) Altered mental status (Acute) Hypoglycemia (Acute) Rhabdomyolysis (Acute) Subjective: The patient was seen and examined. Nursing staff reports no acute events overnight. The patient is ambulating the halls and tolerating well. Maintaining appropriate saturations on room air. Complains of productive cough which has subjectively improved and is now only occasional with clear sputum. Asking to go home. Objective: Recent lab and culture data reviewed. Patient is afebrile today and remains hemodynamically stable. She has been weaned to room air and saturating in the low 90s. Blood cultures from 01/29 are still pending. Respiratory culture normal. - Physical Exam General: Alert, Oriented x3, Cooperative, - - no conversational dyspnea HEENT: Atraumatic, Normocephalic Oral: Moist Mucosa, No Gingival or Mucosal Lesions/ Ulcerations Neck: Supple, No Nodes, Trachea Midline Lungs: No rhonchi, No wheeze, No rales, Diminished, - - Symmetric expansion, no dullness to percussion Cardiovascular: Regular rate, Regular Rhythm, Normal S1, Normal S2, No murmurs, No rub noted, No Gallop Abdomen: Bowel Sounds Present, Soft, Non Tender, Non-Distended, Obese Extremities: No clubbing, No cyanosis, No edema Skin: No rashes, No breakdown Musculoskeletal: No Tenderness to Palpation of Joints or Extremities Lymphatic: No Cervical, Supraclavicular, or Inguinal Adenopathy Neurological: Cranial nerves II-XII grossly intact, Neuro grossly intact, Motor Exam 5/5 strength throughout Psych/Mental Status: Alert and oriented to time, place, person, mood and affect Vital Signs Temp Pulse Resp BP Pulse Ox 97.9 F 76 16 125/59 H 92 02/01/18 07:51 02/01/18 07:51 02/01/18 07:51 02/01/18 07:51 02/01/18 07:51 Oxygen Flow Rate (L/min) 2 Oxygen Delivery Method Room Air Weight: 230 lb 6.129 oz Body Mass Index (BMI) 43.9 Intake and Output for Last 24 Hours 01/30/18 01/31/18 02/01/18 23:59 23:59 23:59 Intake Total 2256 / 2256 683 / 683 859 / 859 Output Total 1100 / 1100 150 / 150 Balance 1156 / 1156 533 / 533 859 / 859 Laboratory Tests Past 24 Hrs 01/31/18 05:45 Hemoglobin A1c 5.3 POC Glucose 02/01/18 02/01/18 01/31/18 06:44 05:57 21:35 POC Glucose 120 H 72 187 H 01/31/18 01/31/18 01/31/18 17:14 12:04 08:20 POC Glucose 107 198 H 122 H Medical Necessity - Tobacco Use Smoking Status: Unknown if ever smoked Assessment/Plan All Active Problems (Last Updated 11/28/17 @ 13:25 by Rina Blair) Altered mental status (Acute) Hypoglycemia (Acute) Rhabdomyolysis (Acute) H/O tubal ligation (Resolved) H/O percutaneous transluminal coronary angioplasty (Resolved) Other fdc (current) drug therapy (Acute) Fever (Acute) NSTEMI (non-ST elevated myocardial infarction) (Acute) RECOMMENDATIONS: 1. Likely okay to transition to Augmentin to complete a seven-day course 2. Consider placement for stabilization 3. Reinitiate diabetic medications in a stepwise fashion 4. Wean supplemental oxygen as tolerated 5. Okay to discharge from pulmonary perspective IMPRESSIONS: 1. Mild rhabdomyolysis secondary to hypoglycemia History is very unreliable at this time. Patient is still unable to account for an unknown amount of time. Patient did have a slight elevation in CK, but renal function appears to be at baseline. She is currently on a p.o. diet. We will have to be careful given patient's history of congestive heart failure and baseline Lasix therapy. Patient reportedly does not take insulin at baseline. Hyperglycemics will be reinitiated in a stepwise fashion. 2. Reported chronic hypoxic respiratory failure secondary to COPD/probable aspiration pneumonia She reportedly on 2-1/2 L nasal cannula oxygen at baseline. No respiratory history is available at this time. Reasonable to continue with as needed bronchodilators. Patient with previous infiltrates and new onset fever. Clinical suspicion for aspiration pneumonia. Patient likely could be treated with Augmentin p.o. to complete a seven-day course. She appears stable for discharge from a pulmonary perspective. 3. Probable chronic diastolic congestive heart failure Patient is not showing any signs or symptoms of exacerbation at this time. Last echocardiogram was completed in 2014 showed a preserved ejection fraction of 55% with left atrial enlargement. Patient does carry a diagnosis of cor pulmonale, which would lead to significant desaturations with exertion. Patient should likely have a walking oximetry prior to discharge. Defer to hospitalist on whether echocardiogram needs to be completed as an inpatient. Patient is on her reported baseline supplemental oxygen. 4. Sepsis secondary to possible aspiration Patient afebrile now, T high 101 ?F. Patient does have chronic fibrotic changes at the bases, which could obscure an aspiration pneumonia. Patient is on empiric antibiotics at this time. Blood pressure is adequate to elevated. Continue with current medications for now. No fluid boluses are indicated. 5. Diabetes mellitus type 2/history of myocardial infarction/morbid obesity/psychiatric conditions/HLD/AAA status post repair Complicates care, management, recovery and prognosis. Patient reportedly lives alone. Patient moved from the intensive care unit 01/31. This note was generated with [employer] dictation software. It may contain incorrect words, spelling, and punctuation that were not noted in checking the note before signing.
[2018-02-01 08:24] VITALS: O2SAT 91
[2018-02-01 09:31] VITALS: PULSE 76
[2018-02-01] MEDS: Metoprolol Tartrate 50 MG Tablet PO (09:31)
[2018-02-01] MEDS: Enoxaparin 40 MG/0.4 ML Syringe SC (09:32)
[2018-02-01] MEDS: Clopidogrel Bisulfate 75 MG Tablet PO (09:33)
[2018-02-01] MEDS: RisperiDONE 1 MG Tablet 3 MG PO (09:33)
--- NOTE | 2018-02-01 11:09 | CASEMGMT ---
Social Work Note Charge Nurse Anna updated this worker that pt has decided to make her niece Carri her Healthcare Power of Corporate Relations Director now instead of her daughter and that her niece will be at [facility] around 12:15pm and would like to meet with this worker. This worker informed Anna that this worker should be available at that time. SW in to meet with pt. SW introduced self and role at [facility]. Pt confirms that she would like her niece Carri to now be her Healthcare Power of Corporate Relations Director. SW informed pt that she will have to complete a new POA form. Pt states understanding. SW informed pt that her niece informed the staff that she will be at [facility] around 12:15pm. Pt asked to complete POA forms at this time when her niece is present. SW informed pt that this worker will be back in to see her once her niece arrives. Per previous conversations with BENY Olson, pt had mentioned that she didn't want to make her niece Carri POA as she felt her niece wants her things and money. SW asked pt about this. Pt states that she doesn't think that anymore and that her niece volunteered to be her POA and she is agreeable to her niece being POA. SW will check back in with pt once pt's niece arrives to update POA forms. Plan: This worker will complete updated POA forms with pt once pt's niece arrives. Pt will discharge home when medically cleared with resumption of Home Health Services through [facility]. Kimmy Tijerina LEVEL GLASS VIAL FILLER, PUBLIC EVENTS FACILITIES RENTAL MANAGER
[2018-02-01 11:20] LABS: Bedside Glucose 111 mg/dL (70-110)
--- NOTE | 2018-02-01 13:15 | DCINST_ITS ---
- Discharge Diagnoses Current Active Problems: Current Active and Chronic Problems (Last Updated 11/28/17 @ 13:25 by Rina Blair) Altered mental status (Acute) Hypoglycemia (Acute) Rhabdomyolysis (Acute) You will use the following diet at home:: Calorie/Carbohydrate Controlled ( specify 1200, 1400, etc) Discharge Activity: Return to Normal Activity Allergies/Adverse Reactions: Allergies No Known Allergies Allergy (Verified 12/27/17 17:58) Medications to take at Discharge Aspirin [Adult Low Dose Aspirin EC] 81 mg PO DAILY 09/26/16 Canagliflozin [Invokana] 100 mg PO DAILY 09/26/16 Isosorbide Mononitrate [Isosorbide Mononitrate ER] 30 mg PO DAILY 09/26/16 Metoprolol Succinate [Toprol Xl] 50 mg PO DAILY 09/26/16 Potassium Chloride [K-Dur] 10 meq PO DAILY 09/26/16 Fluticasone/Vilanterol [Breo Ellipta 100-25 Mcg INH] 1 ea IH DAILY 03/21/17 pantoprazole 40 mg tablet,delayed release 40 mg PO DAILY #30 tab 08/23/17 fenofibrate micronized 200 mg capsule 200 mg PO QDAY #90 cap 09/01/17 clopidogrel 75 mg tablet 75 mg PO DAILY #28 tab 09/21/17 atorvastatin 80 mg tablet 80 mg PO QHS #30 tab 10/19/17 furosemide 40 mg tablet 60 mg PO DAILY tab 11/29/17 metformin 500 mg tablet 1,000 mg PO QDAY tab 11/29/17 Buspirone HCl 10 mg PO TID 01/30/18 DiphenhydrAMINE [Benadryl] 25 mg PO TID PRN PRN 01/30/18 Melatonin 10 mg PO QHS 01/30/18 Meloxicam 7.5 mg PO DAILY PRN 01/30/18 Multivitamin [Daily Multiple Vitamin] 1 tab PO DAILY 01/30/18 [place]-3 Fatty Acids/Fish Oil [Fish Oil 1,000 mg Capsule] 1 cap PO DAILY Paliperidone Palmitate [Invega Sustenna] 234 mg IM Q30D 01/30/18 Pioglitazone [Actos] 30 mg PO DAILY 01/30/18 Quetiapine Fumarate [Seroquel] 300 mg PO QHS 01/30/18 Risperidone [Risperdal] 3 mg PO BID 01/30/18 Sennosides/Docusate Sodium [Stool Softener-Laxative Tablet] 1 each PO DAILY 08/07 Umeclidinium [place] [Incruse Ellipta] 1 puff IH DAILY 01/30/18 Valproic Acid (As Sodium Salt) [Valproic Acid] 250 mg PO TID 01/30/18 Amoxicillin/Potassium Clav [Augmentin 875-125 Tablet] 1 ea PO BID #14 tab Glimepiride [Amaryl] 4 mg PO DAILY #0 02/01/18 The following prescriptions were given: Amoxicillin/Potassium Clav [Augmentin 875-125 Tablet] 1 ea PO BID #14 tab Primary Care Physician: Mine Bojorquez DO [Primary Care Provider] - Within 2 Weeks
--- NOTE | 2018-02-01 13:15 | PCM.DC.SUM ---
Discharge Date and Diagnosis Date of Admission: 01/29/18 Date of Discharge: 02/01/18 - Primary Discharge Diagnosis Active and Suspected Problems (Last Updated 11/28/17 @ 13:25 by Rina Blair) Altered mental status (Acute) Hypoglycemia (Acute) Rhabdomyolysis (Acute) - Secondary Discharge Diagnosis Chronic Problems (Last Updated 11/28/17 @ 13:25 by Rina Blair) Acute and chronic respiratory failure (Chronic) Cor pulmonale (Chronic) Old myocardial infarction (Chronic) Atherosclerotic heart disease of ione coronary artery without angina pectoris (Chronic) S/P stenting to left circumflex in 2014; Diabetes mellitus type II (Chronic) Chronic respiratory failure (Chronic) 2.5 L nasal cannular at home COPD (Chronic) On 2.5 L nasal cannula at home Quit Smoking 2011 Tobacco use disorder (Chronic) History of psychosis (Chronic) Obesity (Chronic) HLD (hyperlipidemia) (Chronic) Pulmonary hypertension (Chronic) Cor pulmonale, chronic (Chronic) HTN (hypertension) (Chronic) S/P AAA repair (Chronic) PAD (peripheral artery disease) (Chronic) Status post stenting AAA (abdominal aortic aneurysm) (Chronic) Status post repair Hospital Course and Treatment Consultations 01/31/18 10:28 Consult: Mental Health/Crisis Routine Reason for consult?: unable to care for self at times, to assess for inpt psych placement Date Notified:: 01/31/18 Time notified:: 10:15 Operations: None Summary of Care Provided: Roz Raymond is a 67 F who was found unresponsive at home. EMS was activated and upon the arrival she was noted to have her lung sounding rhonchorous and that she was initially hypoxic and referred that she may was presumed aspirated. She was placed on supplemental oxygen and sent to the emergency room for further management. Was then admitted to the ICU and has now improved she was then transferred to regular medical floor for continued management. She is Now ready for discharge home with home health care. 1. Acute change in mental status; likely due to hypoglycemia, this has resolved. 2. hypoglycemia; this has resolved. 3. Diabetes mellitus type II ; at home dose of Amaryl had been decreased to once a day instead of twice daily, metformin was continued at the same dose. 4. history Psychosis (NOS); we have restarted her psychotropic medications. 5. Coronary artery ; S/P stenting to left circumflex in 2015, we will continue her cardioprotective medications as they are. 6. acute respiratory failure hypoxia; the patient currently does not require supplemental oxygen at the time of her discharge. 7. Possible aspiration with presumptive aspiration pneumonia; treated with with IV Zosyn transitioned to Augmentin at discharge. 8. Rhabdomyolysis; this was mild and improved with IV hydration. physical exam at the time of discharge; vital signs were stable. He was alert and oriented to time place and person. He did not appear to be any form of distress. S1 and S2 heard no murmur or gallop Lung exam was clear to auscultation with no adventitious sounds. Abdomen was soft nontender with normal bowel sounds. extremity exam did not reveal any edema, palpable pulses bilaterally. Neurologic exam was grossly intact. Discharge Diet: No Restrictions Discharge Activity: Return to Normal Activity Home Medications: Medications to take at Discharge Aspirin [Adult Low Dose Aspirin EC] 81 mg PO DAILY 09/26/16 Canagliflozin [Invokana] 100 mg PO DAILY 09/26/16 Isosorbide Mononitrate [Isosorbide Mononitrate ER] 30 mg PO DAILY 09/26/16 Metoprolol Succinate [Toprol Xl] 50 mg PO DAILY 09/26/16 Potassium Chloride [K-Dur] 10 meq PO DAILY 09/26/16 Fluticasone/Vilanterol [Breo Ellipta 100-25 Mcg INH] 1 ea IH DAILY 03/21/17 pantoprazole 40 mg tablet,delayed release 40 mg PO DAILY #30 tab 08/23/17 fenofibrate micronized 200 mg capsule 200 mg PO QDAY #90 cap 09/01/17 clopidogrel 75 mg tablet 75 mg PO DAILY #28 tab 09/21/17 atorvastatin 80 mg tablet 80 mg PO QHS #30 tab 10/19/17 furosemide 40 mg tablet 60 mg PO DAILY tab 11/29/17 metformin 500 mg tablet 1,000 mg PO QDAY tab 11/29/17 Buspirone HCl 10 mg PO TID 01/30/18 DiphenhydrAMINE [Benadryl] 25 mg PO TID PRN PRN 01/30/18 Melatonin 10 mg PO QHS 01/30/18 Meloxicam 7.5 mg PO DAILY PRN 01/30/18 Multivitamin [Daily Multiple Vitamin] 1 tab PO DAILY 01/30/18 [place]-3 Fatty Acids/Fish Oil [Fish Oil 1,000 mg Capsule] 1 cap PO DAILY 01/30/18 Paliperidone Palmitate [Invega Sustenna] 234 mg IM Q30D 01/30/18 Pioglitazone [Actos] 30 mg PO DAILY 01/30/18 Quetiapine Fumarate [Seroquel] 300 mg PO QHS 01/30/18 Risperidone [Risperdal] 3 mg PO BID 01/30/18 Sennosides/Docusate Sodium [Stool Softener-Laxative Tablet] 1 each PO DAILY 01/30/18 Umeclidinium [place] [Incruse Ellipta] 1 puff IH DAILY 01/30/18 Valproic Acid (As Sodium Salt) [Valproic Acid] 250 mg PO TID 01/30/18 Amoxicillin/Potassium Clav [Augmentin 875-125 Tablet] 1 ea PO BID #14 tab 02/01/18 Glimepiride [Amaryl] 4 mg PO DAILY #0 02/01/18 Following Prescrptions Were Given to Patient: Amoxicillin/Potassium Clav [Augmentin 875-125 Tablet] 1 ea PO BID #14 tab Primary Care Physician: Mine Bojorquez DO [Primary Care Provider] - Within 2 Weeks Medical Necessity - Tobacco Use Smoking Status: Unknown if ever smoked Meaningful Use Info Meaningful Use Diagnoses (Choose all that apply): None applicable Code Visit Inpatient E&M: 07750 Disch Hosp
[2018-02-01 13:31] VITALS: BP 132/59; PULSE 83; RESP 16; TEMP 37.2; O2SAT 94
--- NOTE | 2018-02-01 14:33 | CASEMGMT ---
Social Work Note Pt's niece Carri present in pt's room and requesting to talk to this worker. SW in to meet with pt and pt's niece Carri. Pt confirms that she still would like to update her Healthcare Power of Fourth Hand. JAYA completed Healthcare Power of Fourth Hand with pt. This worker and REENA Rodney witnessed pt's signature. Pt requested to have copy of Healthcare Power of Fourth Hand faxed to [facility]. Pt's niece asked this worker about guardianship for pt if she comes unable to make decisions for herself. SW states that if pt becomes unable to make decisions for herself and needs a guardian, then her PCP will have to deem her incompetent to make decisions. Carri states understanding. SW informed Crari that pt's aide should be able to see pt today as per previous notes, Care EVENTS ADMINISTRATIVE ASSISTANT-S mentioned that if pt is able to discharge before 4:00pm today then her aide will be able to come see her tonight. Carri states understanding. JAYA provided original of Healthcare Power of Fourth Hand to pt and placed copy on pt's chart. Pt agreeable to this worker giving copy of Healthcare Power of Fourth Hand to her niece. JAYA provided copy of Healthcare Power of Fourth Hand to pt's niece Carri. Pt and pt's niece Carri denied additional needs or concerns at this time. JAYA faxed discharge instructions to [facility] and copy of pt's Healthcare Power of Fourth Hand per pt's request. REENA Rodney states that she called [facility] and updated them that pt will be discharged today. This SW placed a call to Yuliya at [facility] and left her a message informing her that pt will be discharged today. Earlier today, this worker received a call from [place] informing this worker that pt has [facility] and pt's REENA Marcial was wanting to see if pt would fill out release of information for [facility]. SW asked pt if she would be agreeable to signing release of information for [facility] and pt agreeable. Pt signed release of information for [facility]. Plan: Pt discharge home with resumption of Home Health Care through [facility] Kimmy Tijerina PARADI TENDER, FINANCIAL REP
--- NOTE | 2018-02-01 14:45 | PCA ---
Pt. peripheral IV D/C'd, pt. tolerated well.
== END 2018-02-01 14:16 | disposition home health service (06) | DRG 637 ==
LOC: ED 19:52 → ICU 21:15 → MS3 01-31 15:27
PROVIDERS: Internal Medicine Critical Care Medicine; Admitting Provider Family Medicine; Emergency Provider Emergency Medicine; Family Provider Family Medicine; PCP Family Medicine; Visit Provider Internal Medicine
DX: E11.649 Type 2 diabetes mellitus with hypoglycemia without coma (principal); J69.0 Pneumonitis due to inhalation of food and vomit; J96.21 Acute and chronic respiratory failure with hypoxia; M62.82 Rhabdomyolysis; I50.32 Chronic diastolic (congestive) heart failure; I11.0 Hypertensive heart disease with heart failure; I25.10 Atherosclerotic heart disease of native coronary artery without angina pectoris; J44.9 Chronic obstructive pulmonary disease, unspecified; E78.5 Hyperlipidemia, unspecified; I27.81 Cor pulmonale (chronic); I73.9 Peripheral vascular disease, unspecified; I27.20 Pulmonary hypertension, unspecified; Z86.79 Personal history of other diseases of the circulatory system; Z87.891 Personal history of nicotine dependence; Z79.82 Long term (current) use of aspirin; I25.2 Old myocardial infarction; Z98.61 Coronary angioplasty status; Z98.51 Tubal ligation status; Z60.2 Problems related to living alone
CPT/HCPCS: 36415; 36600; 51702; 70450; 71045; 72125; 80048; 80053; 81001; 82009; 82550; 82803; 82962; 83036; 83605; 83690; 83735; 84100; 84484; 85025; 85027; 85610; 85730; 87040; 87070; 87077; 87205; 87641; 92526; 93005; 97162; 97165; 97530; 97802; 99285; J7030; J7050; A4216; J7799

== ENCOUNTER 2018-02-12 19:51 | Emergency (ER) | payer MEDICARE, SELFPAY ==
[2018-02-12 19:53] VITALS: BP 115/80; PULSE 91; RESP 18; TEMP 36.4; O2SAT 95; BMI 36.3
[2018-02-12] MEDS: Dextrose 50%-Water 25 GM/50 ML DISP.SYRIN IV (20:06)
--- NOTE | 2018-02-12 20:11 | EKG12_ITS ---
Test Reason : HYPOGLYCEMIA Blood Pressure : / mmHG Vent. Rate : 091 BPM Atrial Rate : 091 BPM P-R Int : 144 ms QRS Dur : 084 ms QT Int : 386 ms P-R-T Axes : 072 021 042 degrees QTc Int : 474 ms Normal sinus rhythm Normal ECG Confirmed by CLYDE GÓMEZ MD ([id number]), script editor SRINIVASA ADAME ([id number]) on 02/15/2018 3:59:17 PM Referred By: HILLARY MADRID Confirmed By:CLYDE GÓMEZ MD
--- NOTE | 2018-02-12 20:20 | ED.DCSUM_ITS ---
- ER Visit Summary Date of Service: 02/12/18 Chief Complaint: Altered mental status History of Present Illness: The patient is a 67 F who was found by her caregiver at home, lethargic. She had this in the past with hypoglycemia. Her blood sugar was in the 40s. EMS was activated and they treated her with oral glucose. She continues to have a blood sugar in the 40s, but her mental status is improving. The patient takes oral hypoglycemics for diabetes. She has not been eating today other than a glass of milk. She says she is not hungry and she is also dieting. She has a history of Schizoaffective disorder, but is not having active delusions or hallucinations. No suicidal or homicidal thoughts. Physical Examination: Vital signs unremarkable. Afebrile. Head and neck atraumatic. Cranial nerves grossly intact. No focal or lateralizing neurologic abnormalities. Heart regular. Lungs clear. Abdomen soft. Skin appears normal. Alert and oriented. Appropriate for situation. Test Results: EKG and laboratory studies pending. Emergency Department Course and Treatment: IV placed. Patient was treated with an amp of dextrose. Laboratory studies and EKG unremarkable. Repeat glucose after eating was 147. Patient was discussed with her primary care doctor who was on-call for admissions. I called to admit her overnight for observation. The hospitalist saw the patient. He knows her well. She is back to baseline would like to go home. She will be discharged. He recommended stopping the oral hypoglycemics. Treatment Plan: As above Disposition: Discharged Impression: Hypoglycemia This note was generated with [employer] dictation software. It may contain incorrect words, spelling, and punctuation that were not noted in review of the chart prior to signing ED Disposition - Plan for ED Patient: Chief Complaint: Hypoglycemia Referrals: Mine Bojorquez DO [Primary Care Provider] -
[2018-02-12 20:24] LABS: Absolute Lymphocyte Count 1.41 X10^3/ul (0.83-4.51); Absolute Neutrophil Count 2.9 X10^3/uL (2.0-7.7); Basophil# 0.01 X10^3/uL; Basophil% 0.2 % (0-1); Eosinophil# 0.07 X10^3/uL; Eosinophils% 1.4 % (0-5); Hemoglobin 11.7 g/dl (12.0-15.0); Lymphocyte # 1.41 X10^3/ul (4.0); Lymphocyte % 28.7 % (19-41); Mean Corp Hgb Conc 31.6 g/gl (32-36); Mean Corpuscular Hgb 31.4 pg (27.0-32.0); Mean Corpuscular Volume 99.2 fL (81-99); Mean Platelet Vol. 10.3 fl (6.2-12.0); Monocyte# 0.48 X10^3/uL; Monocyte% 9.8 % (0-10); Neutrophil # 2.94 X10^3/uL (2.7-7.7); Neutrophil % 59.9 % (47-70); Platelet Count 233 K/mm3 (150-450); RBC Distribution Width CV 15.8 % (11.6-14.6); RBC Distribution Width SD 56.9 fl (35.1-43.9); Red Blood Count 3.73 M/mm3 (4.2-5.4); White Blood Count 4.9 K/mm3 (4.4-11.0)
[2018-02-12 20:26] LABS: POSITIVE COUNT NO; POSITIVE DIFFERENTIAL NO; POSITIVE MORPHOLOGY NO
[2018-02-12 20:26] LABS: Bedside Glucose 44 mg/dL (70-110)
[2018-02-12 20:58] LABS: ALB/GLOB Ratio 0.7 RATIO (0.9-2.4); AST(SGOT) 36 U/L (15-37); Alanine Aminotransfer ALT/SGPT 25 U/L (13-56); Albumin, Serum 2.8 g/dL (3.2-5.0); Alkaline Phosphatase 58 U/L (45-117); Anion Gap 9 (5-15); BUN 20 mg/dL (7-18); BUN/Creat Ratio 11.2 RATIO (10-20); Calcium,Total 8.5 mg/dL (8.5-10.1); Chloride 105 mmol/L (98-107); Creatinine, Serum 1.79 mg/dL (0.55-1.02); EST Glomerular Filtration Rate 30 mL/min (>60); Est Glom Filt Rate - Afr Amer 36 mL/min (>60); Estimated Creatinine Clearance 26.69 ml/min; Globulin 3.8 g/dL (2.2-4.2); Glucose 41 mg/dL (74-106); Potassium 3.7 mmol/L (3.5-5.1); Protein, Total 6.6 g/dL (6.4-8.2); Sodium Level 142 mmol/L (136-145)
--- NOTE | 2018-02-12 20:59 | ED.RN ---
LAB CALLED WITH CRITICAL LAB RESULTS. GLUCOSE 41. DR. THORNTON MADE AWARE AT THIS TIME
[2018-02-12 21:01] LABS: Bedside Glucose 146 mg/dL (70-110)
[2018-02-12 21:03] LABS: Mucous, Urine 0 SEEN /hpf (<or=2+); Red Blood Cells-Urine 0 SEEN /hpf (0-5)
[2018-02-12 21:07] LABS: Color, Urine Yellow (Yellow); Glucose, Dipstick 1000 mg/dl (Normal); Ketone-Dipstick 5 mg/dl (Negative); Leukocyte Esterase-Dipstick 500 /ul (Negative); Nitrite-Dipstick Positive (Negative); Occult Blood-Urine 10 /ul (Negative); Protein-Dipstick 15 mg/dl (Negative); Urine Bilirubin Dipstick Negative (Negative); Urine Clarity Sl. Cloudy (Clear); Urine Urobilinogen Normal (Normal)
[2018-02-12 21:17] LABS: Bacteria 3+ /hpf (None Seen); Hyaline Cast 0-5 SEEN /lpf (0-5); Squamous Epithelial Cells - UA 0-5 SEEN /hpf (5-10); White Blood Cells 10-25 SEEN /hpf (0-5)
[2018-02-12 21:35] LABS: Amphetamine Urine VISTA NEGATIVE (<1000 ng/mL); Barbiturate Urine VISTA NEGATIVE (< 200 ng/mL); Benzodiazepine Urine VISTA NEGATIVE (< 200 ng/mL); Cocaine Urine VISTA NEGATIVE (< 300 ng/mL); Ecstacy Urine VISTA NEGATIVE (< 500 ng/mL); Methadone Urine VISTA NEGATIVE (< 300 ng/mL); PCP Urine VISTA NEGATIVE (< 25 ng/mL); THC Urine VISTA NEGATIVE (< 50 ng/mL); Vista UDS pH Range 5
--- NOTE | 2018-02-12 21:39 | ED.DEP ---
ED Disposition - Plan for ED Patient: Chief Complaint: Hypoglycemia Instructions: ED Diabetes Hypoglycemia Oral Agent Referrals: Mine Bojorquez DO [Primary Care Provider] -
--- NOTE | 2018-02-12 22:18 | ED.RN ---
ATTEMPTED TO OBTAIN TRANSPORTATION HOME, PT HAS MONEY FOR TAXI, NO FAMILY THAT IS ABLE TO GIVE RIDE HOME. NEWS DEPARTMENT INTERN FROM [facility] WILL COME GET PT, GIVE HER RIDE HOME.
[2018-02-12 22:19] VITALS: BP 153/87; PULSE 81; RESP 16; O2SAT 97
[2018-02-12 22:36] LABS: Bedside Glucose 197 mg/dL (70-110)
== END 2018-02-12 22:30 | disposition home or self-care (01) ==
PROVIDERS: Emergency Provider Emergency Medicine; Family Provider Family Medicine; PCP Family Medicine
DX: E11.649 Type 2 diabetes mellitus with hypoglycemia without coma (principal); J44.9 Chronic obstructive pulmonary disease, unspecified; I25.10 Atherosclerotic heart disease of native coronary artery without angina pectoris; I10 Essential (primary) hypertension; I25.2 Old myocardial infarction; Z72.0 Tobacco use; Z99.81 Dependence on supplemental oxygen; F25.9 Schizoaffective disorder, unspecified
CPT/HCPCS: 80053; 80307; 80320; 81001; 82962; 84484; 85025; 93005; 99285; A4216; G0480

== ENCOUNTER → 2018-02-28 07:29 | Outpatient (CLI) | payer MEDICARE, SELFPAY ==
--- NOTE | 2018-02-28 07:41 | CT_ITS ---
STUDY: CT ABDOMEN AND PELVIS WITHOUT CONTRAST REASON FOR EXAM: Female, 67 years old. Abdominal aortic aneurysm. RADIATION DOSAGE (If Supplied By Facility): CTDIvol = ( 21.20 ) mGy, DLP = ( 1070.08 ) mGycm TECHNIQUE: Transaxial images were obtained from the dome of the diaphragm to the symphysis pubis without oral contrast, and without intravenous contrast. Sagittal and coronal images were reconstructed. Individualized dose optimization techniques were used for this CT. COMPARISON: February 17, 2017. FINDINGS: Bilateral lower lung atelectasis. The visualized portions of the heart are within normal limits. Normal liver. There are multiple gallstones. There are multiple benign calcified granulomata of the spleen. Normal pancreas. Normal bilateral adrenal glands. Normal right kidney. Normal left kidney. No stones or hydronephrosis. Normal visualized stomach. Normal small intestine. There are multiple colonic diverticula consistent with diverticulosis. There is non-visualization of the appendix. Atherosclerotic calcifications of the aorta and branches. There is 4.0 cm infrarenal aortic aneurysm with stent graft extending to the proximal iliac arteries. Normal inferior vena cava. Normal retroperitoneum. Normal urinary bladder. Normal visualized uterus. There is no free fluid in the abdomen or pelvis. Normal abdominal wall. There is grade 2 spondylolisthesis at L4-5 with bilateral pars interarticularis defects of L4. There are degenerative changes of the hips. CT/Abdomen/Pelvis without Cont IMPRESSION: Stable aortic aneurysm status post stent graft. Colonic diverticulosis. No obstruction or abscess. Multiple gallstones. No biliary dilatation. Electronically Signed: Andres Louie MD at 17:05 EDT , Service support ,
[2018-02-28 08:03] LABS: Anion Gap 8 (5-15); BUN 22 mg/dL (7-18); BUN/Creat Ratio 13.3 RATIO (10-20); Calcium,Total 9.2 mg/dL (8.5-10.1); Chloride 102 mmol/L (98-107); Creatinine, Serum 1.66 mg/dL (0.55-1.02); EST Glomerular Filtration Rate 33 mL/min (>60); Est Glom Filt Rate - Afr Amer 39 mL/min (>60); Glucose 114 mg/dL (74-106); Potassium 3.5 mmol/L (3.5-5.1); Sodium Level 140 mmol/L (136-145)
== END ==
PROVIDERS: Family Provider Family Medicine; PCP Family Medicine; Visit Provider Surgery Vascular Surgery
DX: I71.4 Abdominal aortic aneurysm, without rupture (principal); R79.89 Other specified abnormal findings of blood chemistry; Z98.890 Other specified postprocedural states
CPT/HCPCS: 36415; 74176; 80048

== ENCOUNTER → 2018-03-22 13:08 | Outpatient (CLI) | payer MEDICARE, SELFPAY ==
--- NOTE | 2018-03-22 13:12 | BI_ITS ---
MAMMOGRAPHY - BILATERAL DIAGNOSTIC REASON FOR EXAM: Female, 68 years old. 3 week history of right breast lump. PERTINENT HISTORY: Daughter with breast cancer. Sister with breast cancer. TECHNIQUE: Digital bilateral breast chadwick (3D mammographic acquisition) in the CC and MLO projections. 2-D mediolateral oblique (MLO) and craniocaudad (CC) views of both breasts were obtained. CAD: Full Field Digital Mammography with Computer Added Detection was performed. COMPARISON: Comparison is made with prior examination dated March 24, 2017 and March 23, 2016. FINDINGS: Breast Composition: There are scattered areas of fibroglandular density. There are no dominant masses or suspicious calcifications. No other significant abnormalities are identified. There has been no significant change since the prior study. BI/DIAG MAMM W/CAD, BILAT IMPRESSION: Stable bilateral diagnostic mammogram. The patient's history of a palpable lump in the right breast, correlation with ultrasound is recommended. ASSESSMENT CATEGORY: BIRADS Category 0: Incomplete. Need additional imaging evaluation. A letter regarding these results will be sent to the patient by the facility within 30 days. Approximately 10% of breast cancers are not detected by mammography. A normal mammogram should not delay biopsy of a clinically suspicious abnormality. Electronically Signed: Smith Chau MD at 15:00 EDT Tel [phone], Service support ,
--- NOTE | 2018-03-22 13:12 | US_ITS ---
STUDY: ULTRASOUND BREAST - RIGHT REASON FOR EXAM: Female, 68 years old. Palpable lump in the right breast. TECHNIQUE: Axial and longitudinal images of the RIGHT breast were performed with a high resolution ultrasound transducer. COMPARISON: Comparison is made with prior mammogram done earlier in the day. FINDINGS: RIGHT Breast: There is evidence of mild retroareolar ductal dilatation. No mass lesion is seen. US/Breast Limited Unilateral IMPRESSION: Retroareolar ductal dilatation. ASSESSMENT CATEGORY: BIRADS Category 2: Benign. A letter regarding these results will be sent to the patient by the facility within 30 days. Electronically Signed: Smith Chau MD at 14:30 EDT Tel [phone], Service support ,
== END ==
PROVIDERS: Family Provider Family Medicine; PCP Family Medicine; Visit Provider Family Medicine
DX: N63.13 Unspecified lump in the right breast, lower outer quadrant (principal); Z80.3 Family history of malignant neoplasm of breast
CPT/HCPCS: 76642; 77062; 77066; G0279

== ENCOUNTER → 2018-05-03 08:08 | Outpatient (CLI) | payer MEDICARE, SELFPAY ==
[2018-05-03 09:30] LABS: Hemoglobin A1c 5.8 % (4.2-6.3)
[2018-05-03 09:36] LABS: ALB/GLOB Ratio 0.8 RATIO (0.9-2.4); AST(SGOT) 30 U/L (15-37); Alanine Aminotransfer ALT/SGPT 33 U/L (13-56); Albumin, Serum 3.3 g/dL (3.2-5.0); Alkaline Phosphatase 56 U/L (45-117); Anion Gap 10 (5-15); BUN 21 mg/dL (7-18); BUN/Creat Ratio 15.2 RATIO (10-20); Calcium,Total 9.6 mg/dL (8.5-10.1); Chloride 105 mmol/L (98-107); Cholesterol 164 mg/dL (200); Creatinine, Serum 1.38 mg/dL (0.55-1.02); EST Glomerular Filtration Rate 40 mL/min (>60); Est Glom Filt Rate - Afr Amer 49 mL/min (>60); Glucose 108 mg/dL (74-106); High Density Lipoprotein 45 mg/dL; Potassium 3.5 mmol/L (3.5-5.1); Prealbumin 25.6 mg/dL (20.0-40.0); Protein, Total 7.3 g/dL (6.4-8.2); Sodium Level 144 mmol/L (136-145); Triglycerides 147 mg/dL; Very Low Density Lipoprotein 29 mg/dL (5-40)
[2018-05-03 09:37] LABS: Creatinine, Urine (random) < 13.00 mg/dL (NO RANGE EST.); Microalbumin,Random Urine < 5.0 mg/L (NO RANGE EST.)
== END ==
PROVIDERS: Family Provider Family Medicine; PCP Family Medicine; Visit Provider Family Medicine
DX: E11.9 Type 2 diabetes mellitus without complications (principal); E46 Unspecified protein-calorie malnutrition
CPT/HCPCS: 36415; 80053; 80061; 82043; 82570; 83036; 84134

== ENCOUNTER 2018-05-18 15:57 | Inpatient (IN) | payer MEDICARE, MEDICAID, SELFPAY ==
[2018-05-18] VITALS (9 sets, daily range): BP systolic 103–144; BP diastolic 47–63; PULSE 63–94; RESP 14–23; TEMP 36.6–36.7; O2SAT 92–98; BMI 29.9; BMI 31.6
--- NOTE | 2018-05-18 16:07 | CT_ITS ---
STUDY: CT BRAIN WITHOUT CONTRAST REASON FOR EXAM: Female, 68 years old. Altered mental status. History of bipolar/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 disorder. RADIATION DOSAGE (If Supplied By Facility): CTDIvol = ( 44.99 ) mGy, DLP = ( 779.24 ) mGycm TECHNIQUE: Transaxial CT imaging of the brain was performed without administration of intravenous contrast material. Individualized dose optimization techniques were used for this CT. COMPARISON: Prior head CT exam of January 29, 2018 FINDINGS: Normal soft tissue structures. Normal calvarium. There is mild cerebral atrophy with widening of the extra-axial spaces and ventricular dilatation. Normal white matter tracts of the cerebral hemispheres. There are small punctate calcifications of the basal ganglia which are seen in the aging brain as a normal variant. Normal brainstem. Normal cerebellum. There is no intracranial hemorrhage. There are no findings of an acute ischemic infarction. Normal visualized paranasal sinuses. CT/Brain/Head without Contrast IMPRESSION: Normal unenhanced CT scan of the brain for age. Electronically Signed: Jhoana Mckeon MD at 16:47 EDT , Service support ,
--- NOTE | 2018-05-18 16:08 | EKG12_ITS ---
Test Reason : DIZZINESS Blood Pressure : / mmHG Vent. Rate : 083 BPM Atrial Rate : 083 BPM P-R Int : 146 ms QRS Dur : 084 ms QT Int : 394 ms P-R-T Axes : 079 044 044 degrees QTc Int : 462 ms Normal sinus rhythm Low voltage QRS (limb leads) Confirmed by JOSIANE HOOK, RAÚL ([id number]), photograph editor BEE TREVINO ([id number]) on 05/21/2018 3:04:39 PM Referred By: Martha Babb Confirmed By:RAÚL JOSHUA MD
[2018-05-18 16:16] LABS: Bedside Glucose 115 mg/dL (70-110)
[2018-05-18 16:33] LABS: Absolute Lymphocyte Count 1.39 X10^3/ul (0.83-4.51); Basophil# 0.01 X10^3/uL; Basophil% 0.2 % (0-1); Eosinophils% 2.1 % (0-5); Hematocrit 38.3 % (37-47); Hemoglobin 12.3 g/dl (12.0-15.0); Lymphocyte # 1.39 X10^3/ul (4.0); Lymphocyte % 28.8 % (19-41); Mean Corp Hgb Conc 32.1 g/gl (32-36); Mean Corpuscular Hgb 30.3 pg (27.0-32.0); Mean Corpuscular Volume 94.3 fL (81-99); Mean Platelet Vol. 10.7 fl (6.2-12.0); Monocyte# 0.29 X10^3/uL; Neutrophil # 3.04 X10^3/uL (2.7-7.7); Neutrophil % 62.9 % (47-70); Platelet Count 198 K/mm3 (150-450); RBC Distribution Width CV 15.7 % (11.6-14.6); RBC Distribution Width SD 54.2 fl (35.1-43.9); Red Blood Count 4.06 M/mm3 (4.2-5.4); White Blood Count 4.8 K/mm3 (4.4-11.0)
--- NOTE | 2018-05-18 16:43 | RAD_ITS ---
STUDY: X-RAY CHEST REASON FOR EXAM: Female, 68 years old. Cough and shortness of breath. TECHNIQUE: Single AP portable view of the chest. COMPARISON: Prior chest radiograph of January 30, 2018, January 29, 2018 and December 27, 2014. FINDINGS: Lung dubois are generally hyperexpanded with emphysematous upper lung zone changes. Focal relatively small transverse linear opacity of the right costophrenic angle. More substantial atelectatic change at the left lung base and costophrenic angle. Normal size heart. Normal mediastinum and cynthia. Normal visualized pulmonary arteries. There is atherosclerotic calcification of the aortic arch with tortuosity. Normal visualized thoracic spine. Normal visualized ribs, clavicles, and shoulders. There is no demonstrated abnormality of the visualized soft tissue structures of the upper abdomen. RAD/Chest 1 View (Portable) IMPRESSION: Generalized hyperexpansion with emphysematous changes. Bibasilar linear type atelectatic changes, left greater than right. Electronically Signed: Jhoana Mckeon MD at 17:02 EDT , Service support ,
[2018-05-18 16:46] LABS: Blood Gas Specimen Type VEN; O2 Delivery Device Nasal Can; SITE OTHER; Time Given 1638; VBG BASE EXCESS 3 mmol/L (-1.0-3.5); VBG Bicarbonate 27 mmol/L (22-26); VBG Oxygen Content 28 mmol/L (23-33); VBG PO2 63 mmHg (25-40); VBG SO2 92 % (50-70); VBG pCO2 40.3 mmHg (41-51); VBG pH 7.43 (7.32-7.42)
[2018-05-18] MEDS: Albuterol 2.5 MG/3 ML VIAL.NEB. INHALATION (16:51)
[2018-05-18 17:01] LABS: POSITIVE COUNT NO; POSITIVE DIFFERENTIAL NO; POSITIVE MORPHOLOGY NO
--- NOTE | 2018-05-18 17:09 | ED.DCSUM_ITS ---
- ER Visit Summary Date of Service: 05/18/18 Chief Complaint: Altered mental status History of Present Illness: The patient is a 68 F presenting for evaluation secondary to altered mental status. Patient has an underlying history of psychiatric disease and is on multiple medications. She also has multiple medical problems including COPD, heart attacks, diabetes hypertension high cholesterol and a history of an abdominal aortic aneurysm repair. Patient lives at home and has a caregiver that visits her. Caregiver presented to the home today and noted the patient to have altered mental status. Paramedics were not able to determine a last known well. Patient when questioned states that she has been having some subjective fevers, but states that she has been feeling otherwise well recently, and on specific review of systems denies any rhinorrhea sore throat chest pain shortness of breath cough abdominal pain nausea vomiting diarrhea urinary symptoms headache numbness or weakness. Physical Examination: Vital signs within normal limits. Well-nourished age- appropriate female no acute distress sitting comfortably in the bed. Head normocephalic atraumatic. PRL, EOMI no evidence of conjunctival pallor or scleral icterus. Moist mucous membranes are noted. Neck is supple no lymphadenopathy no JVD noted. Heart was regular rate and rhythm no murmurs, lungs sounds showed some mild rhonchi in the lung dubois bilaterally with no respiratory distress or retractions. Abdomen was soft and nontender. Back was nontender. Extremities were nontender nonedematous, skin normal color no rash. Patient was alert and oriented x4, had some poverty of speech but did not have any evidence of a aphasia. She has normal strength and sensation. Test Results: EKG shows sinus rate of [address] segments and normal T waves. Venous blood gas is essentially unremarkable with a normal pH, normal CO2 of 40, O2 of 63, and a bicarb of 26. CT brain was negative. Chest x-ray shows chronic changes. CBC unremarkable, chemistry shows creatinine 1.3 which is chronic, liver panel unremarkable, troponin negative, toxicology and ethanol screens are negative, Depakote level was subtherapeutic. Urinalysis shows evidence of infection with 50-100 white blood cells and a large amount of bacteria. Emergency Department Course and Treatment: Patient presented for evaluation secondary to a undifferentiated altered mental status. She does not have signs and symptoms of stroke, there is no indication for activation a stroke team. Broad workup was obtained, patient was ultimately found to have urinary tract infection. I went back and reevaluated her, she did seem to have somewhat of an improvement in her mentation, which is a hallmark of encephalopathy with a urinary tract infection. Patient lives by herself and I do not believe that it is appropriate to discharge her as she may not adequately care for herself. Patient was given a dose of Rocephin, and will be admitted to the hospitalist. Disposition: Admission Impression: 1. Urinary tract infection 2. Encephalopathy This note was generated with [employer] dictation software. It may contain incorrect words, spelling, and punctuation that were not noted in review of the chart prior to signing ED Disposition - Plan for ED Patient: Chief Complaint: Alt LOC Referrals: Mine Bojorquez DO [Primary Care Provider] -
[2018-05-18 17:10] LABS: AST(SGOT) 38 U/L (15-37); Alanine Aminotransfer ALT/SGPT 40 U/L (13-56); Albumin, Serum 3.3 g/dL (3.2-5.0); Alkaline Phosphatase 52 U/L (45-117); Anion Gap 9 (5-15); BUN 21 mg/dL (7-18); BUN/Creat Ratio 15.4 RATIO (10-20); Chloride 107 mmol/L (98-107); Creatinine, Serum 1.36 mg/dL (0.55-1.02); EST Glomerular Filtration Rate 41 mL/min (>60); Est Glom Filt Rate - Afr Amer 49 mL/min (>60); Estimated Creatinine Clearance 38.83 ml/min; Globulin 3.3 g/dL (2.2-4.2); Glucose 117 mg/dL (74-106); Potassium 3.5 mmol/L (3.5-5.1); Protein, Total 6.6 g/dL (6.4-8.2); Sodium Level 144 mmol/L (136-145)
[2018-05-18 17:19] LABS: Valproic Acid (Depakene) Level < 3 ug/mL (50-100)
[2018-05-18 17:38] LABS: Mucous, Urine 0 SEEN /hpf (<or=2+)
[2018-05-18 17:42] LABS: Color, Urine Yellow (Yellow); Glucose, Dipstick 1000 mg/dl (Normal); Ketone-Dipstick 5 mg/dl (Negative); Leukocyte Esterase-Dipstick 500 /ul (Negative); Nitrite-Dipstick Negative (Negative); Occult Blood-Urine 25 /ul (Negative); Protein-Dipstick 15 mg/dl (Negative); Specific Gravity, Urine 1.015 (1.002-1.030); Urine Bilirubin Dipstick Negative (Negative); Urine Clarity Cloudy (Clear); Urine Urobilinogen Normal (Normal)
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
[2018-05-18 17:53] LABS: Amphetamine Urine VISTA NEGATIVE (<1000 ng/mL); Barbiturate Urine VISTA NEGATIVE (< 200 ng/mL); Benzodiazepine Urine VISTA NEGATIVE (< 200 ng/mL); Cocaine Urine VISTA NEGATIVE (< 300 ng/mL); Ecstacy Urine VISTA NEGATIVE (< 500 ng/mL); Methadone Urine VISTA NEGATIVE (< 300 ng/mL); PCP Urine VISTA NEGATIVE (< 25 ng/mL); THC Urine VISTA NEGATIVE (< 50 ng/mL); Vista UDS pH Range 5
[2018-05-18 17:57] LABS: Red Blood Cells-Urine 5-10 SEEN /hpf (0-5); White Blood Cells 50-100 SEEN /hpf (0-5)
[2018-05-18 17:58] LABS: Bacteria 2+ /hpf (None Seen); Squamous Epithelial Cells - UA 5-10 SEEN /hpf (5-10); Transitional Epithelial - Ur 0-5 SEEN /hpf (0-5)
--- NOTE | 2018-05-18 18:25 | PCM.HP.STD ---
Problem List (1) Altered mental status Status: Acute History of Present Illness Date of Admission: 05/18/18 Chief Complaint: altered mental status The patient is a 68 year old F with past medical history of hypertension, chronic hypoxic respiratory failure due to COPD, hyperlipidemia and diabetes mellitus as well as 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 disorder. She was admitted by the ED on 05/18/2018 after the squad was called when her home health aide found her with altered mental status at home. Patient was noted to be confused with waxing and waning confusion. However at time of my seeing patient, patient was very alert and oriented x3. She said 8 had called the edge glue machine tender on her when she found her at home. She could not see the exact reason why but denied any fever or chills, any cough or chest pain, any shortness of breath, any abdominal pain, any diarrhea vomiting, any frequency or dysuria or offensive urine. She denied any previous episode of confusion. She has not yet taken her 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 meds today but has been compliant with them previously and says she takes the same dose as always and dose has not been changed recently. The ED, vitals showed a temperature of 98.1 Fahrenheit, blood pressure 121/63, pulse rate of 77 and respiratory rate of 23. She is saturating at 98% on 2 L of oxygen BMP showed creatinine of 1.36 which is on her baseline. Glucose was 117. CBC was unremarkable but urinalysis was positive for UTI. She has been admitted and managed for acute metabolic encephalopathy due to UTI. She was started on IV ceftriaxone in the ED. 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) S/P stenting to left circumflex in 2014; Diabetes mellitus type II (Chronic) Chronic respiratory failure (Chronic) 2.5 L nasal cannular at home COPD (Chronic) On 2.5 L nasal cannula at home Quit Smoking 2011 Tobacco use disorder (Chronic) History of psychosis (Chronic) Obesity (Chronic) HLD (hyperlipidemia) (Chronic) Pulmonary hypertension (Chronic) Cor pulmonale, chronic (Chronic) HTN (hypertension) (Chronic) S/P AAA repair (Chronic) PAD (peripheral artery disease) (Chronic) Status post stenting AAA (abdominal aortic aneurysm) (Chronic) Status post repair Medical History: Medical History (Last Updated 11/28/17 @ 13:25 by Rina Blair) Acute and chronic respiratory failure (Chronic) J96.20 Cor pulmonale (Chronic) I27.81 Old myocardial infarction (Chronic) I25.2 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) drug therapy (Acute) Z79.899 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) I25.10 S/P stenting to left circumflex in 2014; Diabetes mellitus type II (Chronic) Chronic respiratory failure (Chronic) 2.5 L nasal cannular at home COPD (Chronic) On 2.5 L nasal cannula at home Quit Smoking 2011 Tobacco use disorder (Chronic) F17.200 History of psychosis (Chronic) Z86.59 Obesity (Chronic) E66.9 Fever (Acute) R50.9 HLD (hyperlipidemia) (Chronic) E78.5 Pulmonary hypertension (Chronic) I27.2 Cor pulmonale, chronic (Chronic) I27.81 HTN (hypertension) (Chronic) I10 NSTEMI (non-ST elevated myocardial infarction) (Acute) I21.4 PAD (peripheral artery disease) (Chronic) I73.9 Status post stenting AAA (abdominal aortic aneurysm) (Chronic) I71.4 Status post repair Anemia D64.9 Allergies No Known Allergies Allergy (Verified 02/12/18 20:02) Home Medications: Ambulatory Orders Medication Instructions Recorded Aspirin [Adult Low Dose Aspirin EC] 81 mg PO DAILY 09/26/16 Canagliflozin [Invokana] 100 mg PO DAILY 09/26/16 Isosorbide Mononitrate [Isosorbide 30 mg PO DAILY 09/26/16 Mononitrate ER] Metoprolol Succinate [Toprol Xl] 50 mg PO DAILY 09/26/16 Potassium Chloride [K-Dur] 10 meq PO DAILY 09/26/16 Fluticasone/Vilanterol [Breo 1 ea IH DAILY 03/21/17 Ellipta 100-25 Mcg INH] pantoprazole 40 mg tablet,delayed 40 mg PO DAILY #30 tab 08/23/17 release fenofibrate micronized 200 mg 200 mg PO QDAY #90 cap 09/01/17 capsule clopidogrel 75 mg tablet 75 mg PO DAILY #28 tab 09/21/17 atorvastatin 80 mg tablet 80 mg PO QHS #30 tab 10/19/17 furosemide 40 mg tablet 60 mg PO DAILY tab 11/29/17 metformin 500 mg tablet 1,000 mg PO QDAY tab 11/29/17 Buspirone HCl 10 mg PO TID 01/30/18 DiphenhydrAMINE [Benadryl] 25 mg PO TID PRN PRN 01/30/18 Melatonin 10 mg PO QHS 01/30/18 Meloxicam 7.5 mg PO DAILY PRN 01/30/18 Multivitamin [Daily Multiple 1 tab PO DAILY 01/30/18 Vitamin] [place]-3 Fatty Acids/Fish Oil [Fish 1 cap PO DAILY 01/30/18 Oil 1,000 mg Capsule] Paliperidone Palmitate [Invega 234 mg IM Q30D 01/30/18 Sustenna] Pioglitazone [Actos] 30 mg PO DAILY 01/30/18 Quetiapine Fumarate [Seroquel] 300 mg PO QHS 01/30/18 Risperidone [Risperdal] 3 mg PO BID 01/30/18 Sennosides/Docusate Sodium [Stool 1 each PO DAILY 01/30/18 Softener-Laxative Tablet] Umeclidinium [place] Inhaler 1 puff IH DAILY 01/30/18 [Incruse Ellipta Inhaler] Valproic Acid (As Sodium Salt) 250 mg PO TID 01/30/18 [Valproic Acid] Glimepiride [Amaryl] 4 mg PO DAILY #0 02/01/18 Surgical History: Surgical History (Last Updated 11/29/17 @ 09:43 by Olinda Manzo) H/O tubal ligation (Resolved) Z98.51 41 years ago H/O percutaneous transluminal coronary angioplasty (Resolved) Z98.61 PTCA with MO to mid left CFX 01/02; S/P AAA repair (Chronic) Z98.890, Z86.79 Surgical History: - - AAA repair Psychiatric History: - - 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 Lives: Alone Smoking Status: Light Smoker (<10/day) Tobacco Use: Cigarettes Alcohol: None Drugs: None - *Family History Maternal Family History: Family History (Last Reviewed 11/29/17 @ 09:43 by Olinda Manzo) Mother CAD (coronary artery disease) Brother CAD (coronary artery disease) Myocardial infarction Sister Cancer Son COPD (chronic obstructive pulmonary disease) Son COPD (chronic obstructive pulmonary disease) Daughter COPD (chronic obstructive pulmonary disease) History Items: No pertinent history Review of Systems Constitutional: Denies: Chills, Fever, Malaise, Weight Change Eyes: Denies: Blurred vision HEENT: Denies: Head Aches, Sinus Congestion, Sinus Drainage Cardiovascular: Denies: Chest Pain, Edema, Heaviness, Light Headedness, Palpitations Respiratory: Reports: Cough - productive of clear sputum, Shortness of Breath - on 2.5L of oxygen at home, Sputum production - clear. Denies: Shortness of breath at rest, Shortness of breath upon exertion Gastrointestinal: Denies: Abdominal Pain, Nausea, Vomiting Genitourinary: Denies: Dysuria Musculoskeletal: Denies: Joint Pain, Joint Tenderness Skin: Denies: Rash, Wounds Neurological: Denies: Numbness, Tingling, Focal weakness Psychiatric: Denies: Anxiety, Depression, Homicidal Ideations, Suicidal Ideations Hematologic/ Lymphatic: Denies: Easy Bruising, Easy Bleeding VTE Information - Inpt Only VTE Present on Admission: No VTE Mechan Device Prophylaxis: None VTE Pharm Prophylaxis ordered?: Yes Patient Problems: Active and Suspected Problems (Last Updated 11/28/17 @ 13:25 by Rina Blair) Altered mental status (Acute) - Physical Exam General: Alert, Oriented x3, Cooperative, No apparent distress HEENT: Atraumatic, PERRLA, EOMI, Normocephalic Oral: Moist Mucosa Neck: Supple, No JVD, Negative Carotid Bruits Lungs: Clear to auscultation, Normal air movement, No rhonchi, No wheeze, No rales, - - on 4L of oxygen at time of review, with sats ~ 98%. O2 reduced to 2L, with sats remaining the same Cardiovascular: Regular rate, Regular Rhythm, Normal S1, Normal S2, No murmurs Abdomen: Bowel Sounds Present, Soft, Non Tender, Non-Distended, No Hepato-splenomegaly Extremities: No clubbing, No cyanosis, No edema, Capillary Refill Less than 3 Seconds Skin: No rashes, No breakdown Musculoskeletal: No Tenderness to Palpation of Joints or Extremities Lymphatic: No Cervical, Supraclavicular, or Inguinal Adenopathy Neurological: Cranial nerves II-XII grossly intact, Neuro grossly intact, Motor Exam 5/5 strength throughout Psych/Mental Status: Normal Affect, Appropriate, Alert and oriented to time, place, person, mood and affect Vital Signs Temp Pulse Resp BP Pulse Ox 98.1 F 77 23 H 121/63 H 98 05/18/18 15:59 05/18/18 18:01 05/18/18 18:01 05/18/18 18:01 05/18/18 18:01 Oxygen Flow Rate (L/min) 2 Oxygen Delivery Method Nasal Cannula Weight: 197 lb 1.492 oz Body Mass Index (BMI) 29.9 Finger Stick Blood Glucose 115 Laboratory Tests Past 24 Hrs 05/18/18 05/18/18 05/18/18 16:20 16:20 16:20 WBC 4.8 RBC 4.06 L Hgb 12.3 Hct 38.3 MCV 94.3 MCH 30.3 MCHC 32.1 RDW 15.7 H RDW Differential 54.2 H Plt Count 198 MPV 10.7 Immature Gran % (Auto) 0.000 Neut % (Auto) 62.9 Lymph % (Auto) 28.8 [place] % (Auto) 6.0 Eos % (Auto) 2.1 Baso % (Auto) 0.2 Absolute Neuts (auto) 3.0 Absolute Lymphs (auto) 1.39 Total Counted Not Reportable Specimen Type Sample Site VBG pH VBG pO2 VBG O2 Sat (Calc) VBG O2 Content VBG Base Excess VBG Carboxyhemoglobin POC Mix VBG pCO2 Pt Tmp O2 Delivery Device Liter Flow Blood Gas Notified Whom Blood Gas Notified Time Sodium 144 Potassium 3.5 Chloride 107 Carbon Dioxide 28.0 Anion Gap 9 BUN 21 H Creatinine 1.36 H Estim Creat Clear Calc 38.83 Est GFR (MDRD) Af Amer 49 L Est GFR (MDRD) Non-Af 41 L BUN/Creatinine Ratio 15.4 Glucose 117 H Calcium 9.0 Total Bilirubin 0.30 AST 38 H ALT 40 Alkaline Phosphatase 52 Troponin I < 0.015 Total Protein 6.6 Albumin 3.3 Globulin 3.3 Albumin/Globulin Ratio 1.0 Urine Color Urine Clarity Urine pH Ur Specific [place] Urine Protein Urine Glucose (UA) Urine Ketones Urine Occult Blood Urine Nitrite Urine Bilirubin Urine Urobilinogen Ur Leukocyte Esterase Urine RBC Urine WBC Ur Squamous Epith Cells Ur Transition Epith Cell Urine Bacteria Urine Mucus Urine Opiates Screen Urine Methadone Screen Ur Barbiturates Screen Valproic Acid Ur Phencyclidine Scrn Ur Amphetamines Screen U Methamphetamin-MDMA U Benzodiazepines Scrn Urine Cocaine Screen U Cannabinoids Screen Ur Drug Screen Comment Ethyl Alcohol 6.0 05/18/18 05/18/18 05/18/18 16:20 16:20 16:37 WBC RBC Hgb Hct MCV MCH MCHC RDW RDW Differential Plt Count MPV Immature Gran % (Auto) Neut % (Auto) Lymph % (Auto) [place] % (Auto) Eos % (Auto) Baso % (Auto) Absolute Neuts (auto) Absolute Lymphs (auto) Total Counted Specimen Type GURINDER Sample Site OTHER VBG pH 7.43 H VBG pO2 63 H VBG O2 Sat (Calc) 92 H VBG O2 Content 28 VBG Base Excess 3 VBG Carboxyhemoglobin 7.0 H POC Mix VBG pCO2 Pt Tmp 40.3 L O2 Delivery Device Nasal Can Liter Flow 4.0 Blood Gas Notified Whom ED MD Blood Gas Notified Time 1638 Sodium Potassium Chloride Carbon Dioxide Anion Gap BUN Creatinine Estim Creat Clear Calc Est GFR (MDRD) Af Amer Est GFR (MDRD) Non-Af BUN/Creatinine Ratio Glucose Calcium Total Bilirubin AST ALT Alkaline Phosphatase Troponin I Total Protein Albumin Globulin Albumin/Globulin Ratio Urine Color Urine Clarity Urine pH Ur Specific [place] Urine Protein Urine Glucose (UA) Urine Ketones Urine Occult Blood Urine Nitrite Urine Bilirubin Urine Urobilinogen Ur Leukocyte Esterase Urine RBC Urine WBC Ur Squamous Epith Cells Ur Transition Epith Cell Urine Bacteria Urine Mucus Urine Opiates Screen Urine Methadone Screen Ur Barbiturates Screen Valproic Acid < 3 L Ur Phencyclidine Scrn Ur Amphetamines Screen U Methamphetamin-MDMA U Benzodiazepines Scrn Urine Cocaine Screen U Cannabinoids Screen Ur Drug Screen Comment Ethyl Alcohol 05/18/18 05/18/18 17:30 17:30 WBC RBC Hgb Hct MCV MCH MCHC RDW RDW Differential Plt Count MPV Immature Gran % (Auto) Neut % (Auto) Lymph % (Auto) [place] % (Auto) Eos % (Auto) Baso % (Auto) Absolute Neuts (auto) Absolute Lymphs (auto) Total Counted Specimen Type Sample Site VBG pH VBG pO2 VBG O2 Sat (Calc) VBG O2 Content VBG Base Excess VBG Carboxyhemoglobin POC Mix VBG pCO2 Pt Tmp O2 Delivery Device Liter Flow Blood Gas Notified Whom Blood Gas Notified Time Sodium Potassium Chloride Carbon Dioxide Anion Gap BUN Creatinine Estim Creat Clear Calc Est GFR (MDRD) Af Amer Est GFR (MDRD) Non-Af BUN/Creatinine Ratio Glucose Calcium Total Bilirubin AST ALT Alkaline Phosphatase Troponin I Total Protein Albumin Globulin Albumin/Globulin Ratio Urine Color Yellow Urine Clarity Cloudy Urine pH 5.0 Ur Specific [place] 1.015 Urine Protein 15 H Urine Glucose (UA) 1000 H Urine Ketones 5 H Urine Occult Blood 25 H Urine Nitrite Negative Urine Bilirubin Negative Urine Urobilinogen Normal Ur Leukocyte Esterase 500 H Urine RBC 5-10 SEEN Urine WBC 50-100 SEEN Ur Squamous Epith Cells 5-10 SEEN Ur Transition Epith Cell 0-5 SEEN Urine Bacteria 2+ Urine Mucus 0 SEEN Urine Opiates Screen NEGATIVE Urine Methadone Screen NEGATIVE Ur Barbiturates Screen NEGATIVE Valproic Acid Ur Phencyclidine Scrn NEGATIVE Ur Amphetamines Screen NEGATIVE U Methamphetamin-MDMA NEGATIVE U Benzodiazepines Scrn NEGATIVE Urine Cocaine Screen NEGATIVE U Cannabinoids Screen NEGATIVE Ur Drug Screen Comment Ethyl Alcohol POC Glucose 05/18/18 16:09 POC Glucose 115 H Diagnostic Data Brain CT 05/18/18 16:07 IMPRESSION: Normal unenhanced CT scan of the brain for age. Electronically Signed: Jhoana Mckeon MD at 16:47 EDT , Service support , Chest X-Ray 05/18/18 16:43 IMPRESSION: Generalized hyperexpansion with emphysematous changes. Bibasilar linear type atelectatic changes, left greater than right. 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 1. Acute metabolic encephalopathy due to UTI was found acutely confused and had waxing and waning episodes of confusion even in ED. However, at time of my review patient was AOx 3 denies any fever or chills or urinary symptoms brain CT was negative for any acute intracranial process. EKG showed no Acute ST changes and showed normal sinus rhythm Chest x-ray showed no acute cardiopulmonary process, and only showed generalized hyper inflation with emphysematous changes bibasilar linear type atelectatic changes greater on the left than the right. admit to [facility] with telemetry UA: LE-500, wbc 50-100, urine bacteria 2+ CBC : no leucocytosis urine culture continue IV ceftriaxone started in ED hydrate gently with IVF NS ~ 100cc/hr x 1 bag 2. Hypertension controlled on furosemide 60mg daily and metoprolol 3. Schizoaffective disorder: On Risperdal, quetiapine, valproic acid and paliperidone(Invega) urine tox was negative 4. Diabetes: on metformin, invokana and pioglitazone accuchecks ACHS Insulin sliding scale 5. Chronic hypoxic respiratory failure due to COPD Still smokes about 2 cigarettes daily. On 2.5 L of oxygen at home. Was on 4 L of oxygen in the ED and saturating 98% and was still saturating at 90% when oxygen was brought down to a baseline level of 2.5 L. Venous blood gas done in the ED was essentially unremarkable. Continue oxygen Continue Incruse Ellipta inhaler and Breo Ellipta 6. CAD: stable. On aspirin and plavix and statin 7. Hyperlipidemia: on statin and fenofibrate 8. CKD 3 Cr is 1.36, which is ~ her baseline continue monitoring. Being gently resuscitaed with IVF DVT prophylaxis: heparin Code status: full code Code Visit Inpatient E&M: 82540 Init Hosp L3
--- NOTE | 2018-05-18 18:29 | HP.PCM_ITS ---
Problem List (1) Altered mental status Status: Acute History of Present Illness Date of Admission: 05/18/18 Chief Complaint: altered mental status The patient is a 68 year old F with past medical history of hypertension, chronic hypoxic respiratory failure due to COPD, hyperlipidemia and diabetes mellitus as well as 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 disorder. She was admitted by the ED on 05/18/2018 after the squad was called when her home health aide found her with al tered mental status at home. Patient was noted to be confused with waxing and waning confusion. However at time of my seeing patient, patient was very alert and oriented x3. She said 8 had called the external relations manager on her when she found her at home. She could not see the exact reason why but denied any fever or chills, any cough or chest pain, any shortness of breath, any abdominal pain, any diarrhea vomiting, any frequency or dysuria or offensive urine. She denied any previous episode of confusion. She has not yet taken her 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 meds today but has been compliant with them previously and says she takes the same dose as always and dose has not been changed recently. The ED, vitals showed a temperature of 98.1 Fahrenheit, blood pressure 121/63, pulse rate of 77 and respiratory rate of 23. She is saturating at 98% on 2 L of oxygen BMP showed creatinine of 1.36 which is on her baseline. Glucose was 117. CBC was unremarkable but urinalysis was positive for UTI. She has been admitted and managed for acute metabolic encephalopathy due to UTI. She was started on IV ceftriaxone in the ED. [] Past Medical History Past Medical History (Chronic Problems): Chronic Problems (Last Updated 11/28/17 @ 13:25 by Rina Blair) Acute and chronic respiratory failure (Chronic) Cor pulmonale (Chronic) Old myocardial infarction (Chronic) Atherosclerotic heart disease of [place] coronary artery without angina pectoris (Chronic) S/P stenting to left circumflex in 2014; Diabetes mellitus type II (Chronic) Chronic respiratory failure (Chronic) 2.5 L nasal cannular at home COPD (Chronic) On 2.5 L nasal cannula at home Quit Smoking 2011 Tobacco use disorder (Chronic) History of psychosis (Chronic) Obesity (Chronic) HLD (hyperlipidemia) (Chronic) Pulmonary hypertension (Chronic) Cor pulmonale, chronic (Chronic) HTN (hypertension) (Chronic) S/P AAA repair (Chronic) PAD (peripheral artery disease) (Chronic) Status post stenting AAA (abdominal aortic aneurysm) (Chronic) Status post repair Medical History: Medical History (Last Updated 11/28/17 @ 13:25 by Rina Blair) Acute and chronic respiratory failure (Chronic) J96.20 Cor pulmonale (Chronic) I27.81 Old myocardial infarction (Chronic) I25.2 Other intermediate manager (current) drug therapy (Acute) Z79.899 Atherosclerotic heart disease of [place] coronary artery without angina pectoris (Chronic) I25.10 S/P stenting to left circumflex in 2014; Diabetes mellitus type II (Chronic) Chronic respiratory failure (Chronic) 2.5 L nasal cannular at home COPD (Chronic) On 2.5 L nasal cannula at home Quit Smoking 2011 Tobacco use disorder (Chronic) F17.200 History of psychosis (Chronic) Z86.59 Obesity (Chronic) E66.9 Fever (Acute) R50.9 HLD (hyperlipidemia) (Chronic) E78.5 Pulmonary hypertension (Chronic) I27.2 Cor pulmonale, chronic (Chronic) I27.81 HTN (hypertension) (Chronic) I10 NSTEMI (non-ST elevated myocardial infarction) (Acute) I21.4 PAD (peripheral artery disease) (Chronic) I73.9 Status post stenting AAA (abdominal aortic aneurysm) (Chronic) I71.4 Status post repair Anemia D64.9 Allergies No Known Allergies Allergy (Verified 02/12/18 20:02) Home Medications: Ambulatory Orders Medication Instructions Recorded Aspirin [Adult Low Dose Aspirin EC] 81 mg PO DAILY 09/26/16 Canagliflozin [Invokana] 100 mg PO DAILY 09/26/16 Isosorbide Mononitrate [Isosorbide 30 mg PO DAILY 09/26/16 Mononitrate ER] Metoprolol Succinate [Toprol Xl] 50 mg PO DAILY 09/26/16 Potassium Chloride [K-Dur] 10 meq PO DAILY 09/26/16 Fluticasone/Vilanterol [Breo 1 ea IH DAILY 03/21/17 Ellipta 100-25 Mcg INH] pantoprazole 40 mg tablet,delayed 40 mg PO DAILY #30 tab 08/23/17 release fenofibrate micronized 200 mg 200 mg PO QDAY #90 cap 09/01/17 capsule clopidogrel 75 mg tablet 75 mg PO DAILY #28 tab 09/21/17 atorvastatin 80 mg tablet 80 mg PO QHS #30 tab 10/19/17 furosemide 40 mg tablet 60 mg PO DAILY tab 11/29/17 metformin 500 mg tablet 1,000 mg PO QDAY tab 11/29/17 Buspirone HCl 10 mg PO TID 01/30/18 DiphenhydrAMINE [Benadryl] 25 mg PO TID PRN PRN 01/30/18 Melatonin 10 mg PO QHS 01/30/18 Meloxicam 7.5 mg PO DAILY PRN 01/30/18 Multivitamin [Daily Multiple 1 tab PO DAILY 01/30/18 Vitamin] Maribel-3 Fatty Acids/Fish Oil [Fish 1 cap PO DAILY 01/30/18 Oil 1,000 mg Capsule] Paliperidone Palmitate [Invega 234 mg IM Q30D 01/30/18 Sustenna] Pioglitazone [Actos] 30 mg PO DAILY 01/30/18 Quetiapine Fumarate [Seroquel] 300 mg PO QHS 01/30/18 Risperidone [Risperdal] 3 mg PO BID 01/30/18 Sennosides/Docusate Sodium [Stool 1 each PO DAILY 01/30/18 Softener-Laxative Tablet] Umeclidinium [place] Inhaler 1 puff IH DAILY 01/30/18 [Incruse Ellipta Inhaler] Valproic Acid (As Sodium Salt) 250 mg PO TID 01/30/18 [Valproic Acid] Glimepiride [Amaryl] 4 mg PO DAILY #0 02/01/18 Surgical History: Surgical History (Last Updated 11/29/17 @ 09:43 by Olinda Manzo) H/O tubal ligation (Resolved) Z98.51 41 years ago H/O percutaneous transluminal coronary angioplasty (Resolved) Z98.61 PTCA with MO to mid left CFX 01/02; S/P AAA repair (Chronic) Z98.890, Z86.79 Surgical History: - - AAA repair Psychiatric History: - - 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 disorder 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 Lives: Alone Smoking Status: Light Smoker (<10/day) Tobacco Use: Cigarettes Alcohol: None Drugs: None - *Family History Maternal Family History: Family History (Last Reviewed 11/29/17 @ 09:43 by Olinda Manzo) Mother CAD (coronary artery disease) Brother CAD (coronary artery disease) Myocardial infarction Sister Cancer Son COPD (chronic obstructive pulmonary disease) Son COPD (chronic obstructive pulmonary disease) Daughter COPD (chronic obstructive pulmonary disease) History Items: No pertinent history Review of Systems Constitutional: Denies: Chills, Fever, Malaise, Weight Change Eyes: Denies: Blurred vision HEENT: Denies: Head Aches, Sinus Congestion, Sinus Drainage Cardiovascular: Denies: Chest Pain, Edema, Heaviness, Light Headedness, Palpitations Respiratory: Reports: Cough - productive of clear sputum, Shortness of Breath - on 2.5L of oxygen at home, Sputum production - clear. Denies: Shortness of breath at rest, Shortness of breath upon exertion Gastrointestinal: Denies: Abdominal Pain, Nausea, Vomiting Genitourinary: Denies: Dysuria Musculoskeletal: Denies: Joint Pain, Joint Tenderness Skin: Denies: Rash, Wounds Neurological: Denies: Numbness, Tingling, Focal weakness Psychiatric: Denies: Anxiety, Depression, Homicidal Ideations, Suicidal Ideations Hematologic/ Lymphatic: Denies: Easy Bruising, Easy Bleeding VTE Information - Inpt Only VTE Present on Admission: No VTE Mechan Device Prophylaxis: None VTE Pharm Prophylaxis ordered?: Yes Patient Problems: Active and Suspected Problems (Last Updated 11/28/17 @ 13:25 by Rina Blair) Altered mental status (Acute) - Physical Exam General: Alert, Oriented x3, Cooperative, No apparent distress HEENT: Atraumatic, PERRLA, EOMI, Normocephalic Oral: Moist Mucosa Neck: Supple, No JVD, Negative Carotid Bruits Lungs: Clear to auscultation, Normal air movement, No rhonchi, No wheeze, No rales, - - on 4L of oxygen at time of review, with sats ~ 98%. O2 reduced to 2L, with sats remaining the same Cardiovascular: Regular rate, Regular Rhythm, Normal S1, Normal S2, No murmurs Abdomen: Bowel Sounds Present, Soft, Non Tender, Non-Distended, No Hepato- splenomegaly Extremities: No clubbing, No cyanosis, No edema, Capillary Refill Less than 3 Seconds Skin: No rashes, No breakdown Musculoskeletal: No Tenderness to Palpation of Joints or Extremities Lymphatic: No Cervical, Supraclavicular, or Inguinal Adenopathy Neurological: Cranial nerves II-XII grossly intact, Neuro grossly intact, Motor Exam 5/5 strength throughout Psych/Mental Status: Normal Affect, Appropriate, Alert and oriented to time, place, person, mood and affect Vital Signs Temp Pulse Resp BP Pulse Ox 98.1 F 77 23 H 121/63 H 98 05/18/18 15:59 05/18/18 18:01 05/18/18 18:01 05/18/18 18:01 05/18/18 18:01 Oxygen Flow Rate (L/min) 2 Oxygen Delivery Method Nasal Cannula Weight: 197 lb 1.492 oz Body Mass Index (BMI) 29.9 Finger Stick Blood Glucose 115 Laboratory Tests Past 24 Hrs 05/18/18 05/18/18 05/18/18 16:20 16:20 16:20 WBC 4.8 RBC 4.06 L Hgb 12.3 Hct 38.3 MCV 94.3 MCH 30.3 MCHC 32.1 RDW 15.7 H RDW Differential 54.2 H Plt Count 198 MPV 10.7 Immature Gran % (Auto) 0.000 Neut % (Auto) 62.9 Lymph % (Auto) 28.8 [place] % (Auto) 6.0 Eos % (Auto) 2.1 Baso % (Auto) 0.2 Absolute Neuts (auto) 3.0 Absolute Lymphs (auto) 1.39 Total Counted Not Reportable Specimen Type Sample Site VBG pH VBG pO2 VBG O2 Sat (Calc) VBG O2 Content VBG Base Excess VBG Carboxyhemoglobin POC Mix VBG pCO2 Pt Tmp O2 Delivery Device Liter Flow Blood Gas Notified Whom Blood Gas Notified Time Sodium 144 Potassium 3.5 Chloride 107 Carbon Dioxide 28.0 Anion Gap 9 BUN 21 H Creatinine 1.36 H Estim Creat Clear Calc 38.83 Est GFR (MDRD) Af Amer 49 L Est GFR (MDRD) Non-Af 41 L BUN/Creatinine Ratio 15.4 Glucose 117 H Calcium 9.0 Total Bilirubin 0.30 AST 38 H ALT 40 Alkaline Phosphatase 52 Troponin I < 0.015 Total Protein 6.6 Albumin 3.3 Globulin 3.3 Albumin/Globulin Ratio 1.0 Urine Color Urine Clarity Urine pH Ur Specific [place] Urine Protein Urine Glucose (UA) Urine Ketones Urine Occult Blood Urine Nitrite Urine Bilirubin Urine Urobilinogen Ur Leukocyte Esterase Urine RBC Urine WBC Ur Squamous Epith Cells Ur Transition Epith Cell Urine Bacteria Urine Mucus Urine Opiates Screen Urine Methadone Screen Ur Barbiturates Screen Valproic Acid Ur Phencyclidine Scrn Ur Amphetamines Screen U Methamphetamin-MDMA U Benzodiazepines Scrn Urine Cocaine Screen U Cannabinoids Screen Ur Drug Screen Comment Ethyl Alcohol 6.0 05/18/18 05/18/18 05/18/18 16:20 16:20 16:37 WBC RBC Hgb Hct MCV MCH MCHC RDW RDW Differential Plt Count MPV Immature Gran % (Auto) Neut % (Auto) Lymph % (Auto) [place] % (Auto) Eos % (Auto) Baso % (Auto) Absolute Neuts (auto) Absolute Lymphs (auto) Total Counted Specimen Type GURINDER Sample Site OTHER VBG pH 7.43 H VBG pO2 63 H VBG O2 Sat (Calc) 92 H VBG O2 Content 28 VBG Base Excess 3 VBG Carboxyhemoglobin 7.0 H POC Mix VBG pCO2 Pt Tmp 40.3 L O2 Delivery Device Nasal Can Liter Flow 4.0 Blood Gas Notified Whom ED Blood Gas Notified Time 1638 Sodium Potassium Chloride Carbon Dioxide Anion Gap BUN Creatinine Estim Creat Clear Calc Est GFR (MDRD) Af Amer Est GFR (MDRD) Non-Af BUN/Creatinine Ratio Glucose Calcium Total Bilirubin AST ALT Alkaline Phosphatase Troponin I Total Protein Albumin Globulin Albumin/Globulin Ratio Urine Color Urine Clarity Urine pH Ur Specific [place] Urine Protein Urine Glucose (UA) Urine Ketones Urine Occult Blood Urine Nitrite Urine Bilirubin Urine Urobilinogen Ur Leukocyte Esterase Urine RBC Urine WBC Ur Squamous Epith Cells Ur Transition Epith Cell Urine Bacteria Urine Mucus Urine Opiates Screen Urine Methadone Screen Ur Barbiturates Screen Valproic Acid < 3 L Ur Phencyclidine Scrn Ur Amphetamines Screen U Methamphetamin-MDMA U Benzodiazepines Scrn Urine Cocaine Screen U Cannabinoids Screen Ur Drug Screen Comment Ethyl Alcohol 05/18/18 05/18/18 17:30 17:30 WBC RBC Hgb Hct MCV MCH MCHC RDW RDW Differential Plt Count MPV Immature Gran % (Auto) Neut % (Auto) Lymph % (Auto) [place] % (Auto) Eos % (Auto) Baso % (Auto) Absolute Neuts (auto) Absolute Lymphs (auto) Total Counted Specimen Type Sample Site VBG pH VBG pO2 VBG O2 Sat (Calc) VBG O2 Content VBG Base Excess VBG Carboxyhemoglobin POC Mix VBG pCO2 Pt Tmp O2 Delivery Device Liter Flow Blood Gas Notified Whom Blood Gas Notified Time Sodium Potassium Chloride Carbon Dioxide Anion Gap BUN Creatinine Estim Creat Clear Calc Est GFR (MDRD) Af Amer Est GFR (MDRD) Non-Af BUN/Creatinine Ratio Glucose Calcium Total Bilirubin AST ALT Alkaline Phosphatase Troponin I Total Protein Albumin Globulin Albumin/Globulin Ratio Urine Color Yellow Urine Clarity Cloudy Urine pH 5.0 Ur Specific [place] 1.015 Urine Protein 15 H Urine Glucose (UA) 1000 H Urine Ketones 5 H Urine Occult Blood 25 H Urine Nitrite Negative Urine Bilirubin Negative Urine Urobilinogen Normal Ur Leukocyte Esterase 500 H Urine RBC 5-10 SEEN Urine WBC 50-100 SEEN Ur Squamous Epith Cells 5-10 SEEN Ur Transition Epith Cell 0-5 SEEN Urine Bacteria 2+ Urine Mucus 0 SEEN Urine Opiates Screen NEGATIVE Urine Methadone Screen NEGATIVE Ur Barbiturates Screen NEGATIVE Valproic Acid Ur Phencyclidine Scrn NEGATIVE Ur Amphetamines Screen NEGATIVE U Methamphetamin-MDMA NEGATIVE U Benzodiazepines Scrn NEGATIVE Urine Cocaine Screen NEGATIVE U Cannabinoids Screen NEGATIVE Ur Drug Screen Comment Ethyl Alcohol POC Glucose 05/18/18 16:09 POC Glucose 115 H Diagnostic Data Brain CT 05/18/18 16:07 IMPRESSION: Normal unenhanced CT scan of the brain for age. Electronically Signed: Jhoana Mckeon MD at 16:47 EDT , Service support , Chest X-Ray 05/18/18 16:43 IMPRESSION: Generalized hyperexpansion with emphysematous changes. Bibasilar linear type atelectatic changes, left greater than right. Electronically Signed: Jhoana Mckeon MD at 17:02 EDT , Service support , Assessment/Plan All Active Problems (Last Updated 11/28/17 @ 13:25 by Rina Blair) Altered mental status (Acute) Hypoglycemia (Acute) Rhabdomyolysis (Acute) Altered mental status (Acute) H/O tubal ligation (Resolved) H/O percutaneous transluminal coronary angioplasty (Resolved) Other alf (current) drug therapy (Acute) Fever (Acute) NSTEMI (non-ST elevated myocardial infarction) (Acute) 68-year-old female presenting with a 1 day history of altered mental status and has urine positive for UTI. 1. Acute metabolic encephalopathy due to UTI * was found acutely confused and had waxing and waning episodes of confusion even in ED. However, at time of my review patient was AOx 3 * denies any fever or chills or urinary symptoms * brain CT was negative for any acute intracranial process. EKG showed no * Acute ST changes and showed normal sinus rhythm * Chest x-ray showed no acute cardiopulmonary process, and only showed generalized hyper inflation with emphysematous changes bibasilar linear type atelectatic changes greater on the left than the right. * admit to NH with telemetry * UA: LE-500, wbc 50-100, urine bacteria 2+ * CBC : no leucocytosis * urine culture * continue IV ceftriaxone started in ED * hydrate gently with IVF NS ~ 100cc/hr x 1 bag * 2. Hypertension * controlled * on furosemide 60mg daily and metoprolol * 3. Schizoaffective disorder: * On Risperdal, quetiapine, valproic acid and paliperidone(Invega) * urine tox was negative * 4. Diabetes: * on metformin, invokana and pioglitazone * accuchecks ACHS * Insulin sliding scale * 5. Chronic hypoxic respiratory failure due to COPD * Still smokes about 2 cigarettes daily. * On 2.5 L of oxygen at home. Was on 4 L of oxygen in the ED and saturating 98% and was still saturating at 90% when oxygen was brought down to a baseline level of 2.5 L. * Venous blood gas done in the ED was essentially unremarkable. * Continue oxygen * Continue Incruse Ellipta inhaler and Breo Ellipta * 6. CAD: stable. On aspirin and plavix and statin 7. Hyperlipidemia: on statin and fenofibrate 8. CKD 3 * Cr is 1.36, which is ~ her baseline * continue monitoring. Being gently resuscitaed with IVF * DVT prophylaxis: heparin Code status: full code Code Visit Inpatient E&M: 36330 Init Hosp L3
--- NOTE | 2018-05-18 19:04 | NURSING ---
called [place] [facility] for updated med list. they are closed for the weekend but on the answering service provided a phone number for [facility]. [phone]. spoke with Nell at [facility] who will to fax updated home med list
[2018-05-18] MEDS: Ipratropium/Albuterol Sulfate 3 ML AMPUL.NEB INHALATION (19:25)
[2018-05-18] MEDS: 0.9% Normal Saline 1,000 ML 100 ML IV (19:50)
[2018-05-18] MEDS: Ceftriaxone 1 GM/50 ML BAG IV (19:50)
[2018-05-18 22:00] LABS: Bedside Glucose 124 mg/dL (70-110)
[2018-05-18] MEDS: RisperiDONE 1 MG Tablet 3 MG PO (23:19)
[2018-05-18] MEDS: busPIRone 5 MG Tablet 10 MG PO (23:20)
[2018-05-18] MEDS: Atorvastatin Calcium 80 MG Tablet PO (23:20)
[2018-05-18] MEDS: Pantoprazole Sodium 40 MG Tablet PO (23:26)
[2018-05-18] MEDS: Isosorbide Mononitrate 30 MG Tablet PO (23:27)
[2018-05-18] MEDS: Clopidogrel Bisulfate 75 MG Tablet PO (23:27)
[2018-05-18] MEDS: Heparin Injection (Vial) 5,000 UNIT/ML VIAL 5000 UNIT SC (23:38)
[2018-05-18 23:46] LABS: Bedside Glucose 91 mg/dL (70-110)
[2018-05-19] VITALS (15 sets, daily range): BP systolic 119–128; BP diastolic 59–68; PULSE 67–108; RESP 16–24; TEMP 36.2–36.7; O2SAT 92–97
[2018-05-19] MEDS: Ipratropium/Albuterol Sulfate 3 ML AMPUL.NEB INHALATION ×4 (00:57→18:55)
[2018-05-19] MEDS: Budesonide Respules 0.5 MG/2 ML AMPUL.NEB. INHALATION ×2 (06:34→18:55)
[2018-05-19] MEDS: Heparin Injection (Vial) 5,000 UNIT/ML VIAL 5000 UNIT SC ×3 (06:41→22:22)
[2018-05-19] MEDS: busPIRone 5 MG Tablet 10 MG PO ×3 (06:42→22:22)
[2018-05-19 07:01] LABS: Bedside Glucose 111 mg/dL (70-110)
[2018-05-19 07:25] LABS: Absolute Neutrophil Count 2.5 X10^3/uL (2.0-7.7); Basophil# 0.01 X10^3/uL; Basophil% 0.2 % (0-1); Eosinophil# 0.09 X10^3/uL; Eosinophils% 1.8 % (0-5); Hematocrit 35.9 % (37-47); Hemoglobin 11.4 g/dl (12.0-15.0); Lymphocyte % 39.4 % (19-41); Mean Corp Hgb Conc 31.8 g/gl (32-36); Mean Corpuscular Hgb 30.8 pg (27.0-32.0); Mean Platelet Vol. 10.9 fl (6.2-12.0); Monocyte# 0.44 X10^3/uL; Monocyte% 8.7 % (0-10); Neutrophil # 2.53 X10^3/uL (2.7-7.7); Neutrophil % 49.7 % (47-70); Platelet Count 195 K/mm3 (150-450); RBC Distribution Width CV 15.9 % (11.6-14.6); RBC Distribution Width SD 54.3 fl (35.1-43.9); White Blood Count 5.1 K/mm3 (4.4-11.0)
[2018-05-19 07:30] LABS: POSITIVE COUNT NO; POSITIVE DIFFERENTIAL NO; POSITIVE MORPHOLOGY NO
[2018-05-19 07:47] LABS: Anion Gap 6 (5-15); BUN 18 mg/dL (7-18); BUN/Creat Ratio 14.1 RATIO (10-20); Calcium,Total 8.8 mg/dL (8.5-10.1); Chloride 109 mmol/L (98-107); Creatinine, Serum 1.28 mg/dL (0.55-1.02); EST Glomerular Filtration Rate 44 mL/min (>60); Est Glom Filt Rate - Afr Amer 53 mL/min (>60); Glucose 107 mg/dL (74-106); Potassium 4.1 mmol/L (3.5-5.1); Sodium Level 144 mmol/L (136-145)
[2018-05-19] MEDS: Isosorbide Mononitrate 30 MG Tablet PO (08:55)
[2018-05-19] MEDS: Aspirin E.C. 81 MG Tablet PO (08:55)
[2018-05-19] MEDS: Senna/Docusate Sodium 1 Tablet PO (08:56)
[2018-05-19] MEDS: Pantoprazole Sodium 40 MG Tablet PO (08:56)
[2018-05-19] MEDS: Clopidogrel Bisulfate 75 MG Tablet PO (08:56)
[2018-05-19] MEDS: RisperiDONE 1 MG Tablet 3 MG PO ×2 (08:56→22:33)
[2018-05-19] MEDS: Metoprolol(XL)Succ 50 MG Tablet PO (08:56)
[2018-05-19] MEDS: Fenofibrate 145 MG Tablet PO (08:58)
[2018-05-19] MEDS: Ceftriaxone 1 GM/50 ML BAG IV ×2 (09:06→20:57)
--- NOTE | 2018-05-19 10:38 | PCM.PN.HOSP ---
Patient Problems: Active and Suspected Problems (Last Updated 11/28/17 @ 13:25 by Rina Blair) Altered mental status (Acute) Subjective: Patient seen and examined. She was admitted with a complaint of acute confusion and was found to have UTI. She has been managed for metabolic encephalopathy due to UTI and is on IV ceftriaxone. Patient seen and examined. She has no complaints and feels well. She denies any fever or chills has a mild cough which is chronic with actually woke with clear sputum. She denies any chest pain, abdominal pain, frequency of urination, diarrhea or vomiting.She is saturating well on her 2L of oxygen. Vitals/I&O's: Vital Signs Temp Pulse Resp BP Pulse Ox 98 F 74 20 H 128/68 H 97 05/19/18 08:00 05/19/18 08:56 05/19/18 08:00 05/19/18 08:00 05/19/18 08:00 Oxygen Flow Rate (L/min) 2 Oxygen Delivery Method Nasal Cannula Weight: 189 lb 13.088 oz Body Mass Index (BMI) 31.6 Finger Stick Blood Glucose 115 Intake and Output for Last 24 Hours 05/17/18 05/18/18 05/19/18 23:59 23:59 23:59 Intake Total 735 / 735 Output Total 500 / 500 Balance 235 / 235 General: Alert, Oriented x3, Cooperative HEENT: Atraumatic, PERRLA, EOMI, Normocephalic Oral: Moist Mucosa Neck: Supple, No JVD, Negative Carotid Bruits Lungs: Clear to auscultation, Normal air movement, No rhonchi, No wheeze, No rales Cardiovascular: Regular rate, Regular Rhythm, Normal S1, Normal S2, No murmurs Abdomen: Bowel Sounds Present, Soft, Non Tender, Non-Distended, No Hepato-splenomegaly Extremities: No clubbing, No cyanosis, No edema, Capillary Refill Less than 3 Seconds Skin: No rashes, No breakdown Musculoskeletal: No Tenderness to Palpation of Joints or Extremities Lymphatic: No Cervical, Supraclavicular, or Inguinal Adenopathy Neurological: Cranial nerves II-XII grossly intact, Neuro grossly intact, Motor Exam 5/5 strength throughout Psych/Mental Status: Normal Affect, Appropriate, Alert and oriented to time, place, person, mood and affect Laboratory Results 05/18/18 16:09: POC Glucose 115 H 05/18/18 16:20: WBC 4.8, RBC 4.06 L, Hgb 12.3, Hct 38.3, MCV 94.3, MCH 30.3, MCHC 32.1, RDW 15.7 H, RDW Differential 54.2 H, Plt Count 198, MPV 10.7, Immature Gran % (Auto) 0.000, Neut % (Auto) 62.9, Lymph % (Auto) 28.8, [place] % (Auto) 6.0, Eos % (Auto) 2.1, Baso % (Auto) 0.2, Absolute Neuts (auto) 3.0, Absolute Lymphs (auto) 1.39, Total Counted Not Reportable 05/18/18 16:20: Sodium 144, Potassium 3.5, Chloride 107, Carbon Dioxide 28.0, Anion Gap 9, BUN 21 H, Creatinine 1.36 H, Estim Creat Clear Calc 38.83, Est GFR (MDRD) Af Amer 49 L, Est GFR (MDRD) Non-Af 41 L, BUN/Creatinine Ratio 15.4, Glucose 117 H, Calcium 9.0, Total Bilirubin 0.30, AST 38 H, ALT 40, Alkaline Phosphatase 52, Troponin I < 0.015, Total Protein 6.6, Albumin 3.3, Globulin 3.3, Albumin/Globulin Ratio 1.0 05/18/18 16:20: Ethyl Alcohol 6.0 05/18/18 16:20: VBG Carboxyhemoglobin 7.0 H 05/18/18 16:20: Valproic Acid < 3 L 05/18/18 16:37: Specimen Type GURINDER, Sample Site OTHER, VBG pH 7.43 H, VBG pO2 63 H, VBG O2 Sat (Calc) 92 H, VBG O2 Content 28, VBG Base Excess 3, POC Mix VBG pCO2 Pt Tmp 40.3 L, O2 Delivery Device Nasal Can, Liter Flow 4.0, Blood Gas Notified Whom ED , Blood Gas Notified Time 6398 05/18/18 17:30: Urine Color Yellow, Urine Clarity Cloudy, Urine pH 5.0, Ur Specific [place] 1.015, Urine Protein 15 H, Urine Glucose (UA) 1000 H, Urine Ketones 5 H, Urine Occult Blood 25 H, Urine Nitrite Negative, Urine Bilirubin Negative, Urine Urobilinogen Normal, Ur Leukocyte Esterase 500 H, Urine RBC 5-10 SEEN, Urine WBC 50-100 SEEN, Ur Squamous Epith Cells 5-10 SEEN, Ur Transition Epith Cell 0-5 SEEN, Urine Bacteria 2+, Urine Mucus 0 SEEN 05/18/18 17:30: Urine Opiates Screen NEGATIVE, Urine Methadone Screen NEGATIVE, Ur Barbiturates Screen NEGATIVE, Ur Phencyclidine Scrn NEGATIVE, Ur Amphetamines Screen NEGATIVE, U Methamphetamin-MDMA NEGATIVE, U Benzodiazepines Scrn NEGATIVE, Urine Cocaine Screen NEGATIVE, U Cannabinoids Screen NEGATIVE, Ur Drug Screen Comment 05/18/18 19:30: POC Glucose 124 H 05/18/18 23:12: POC Glucose 91 05/19/18 06:38: POC Glucose 111 H 05/19/18 06:56: WBC 5.1, RBC 3.70 L, Hgb 11.4 L, Hct 35.9 L, MCV 97.0, MCH 30.8, MCHC 31.8 L, RDW 15.9 H, RDW Differential 54.3 H, Plt Count 195, MPV 10.9, Immature Gran % (Auto) 0.200, Neut % (Auto) 49.7, Lymph % (Auto) 39.4, [place] % (Auto) 8.7, Eos % (Auto) 1.8, Baso % (Auto) 0.2, Absolute Neuts (auto) 2.5, Absolute Lymphs (auto) 2.00, Total Counted Not Reportable 05/19/18 06:56: Sodium 144, Potassium 4.1, Chloride 109 H, Carbon Dioxide 29.0, Anion Gap 6, BUN 18, Creatinine 1.28 H, Estim Creat Clear Calc 36.80, Est GFR (MDRD) Af Amer 53 L, Est GFR (MDRD) Non-Af 44 L, BUN/Creatinine Ratio 14.1, Glucose 107 H, Calcium 8.8 Current Medications Albuterol Sulfate (Ventolin Aerosols) 2.5 mg INHALATION Q4H PRN PRN Albuterol/Ipratropium (Duoneb) 3 ml INHALATION Q6HWA.RT [facility] Last Admin: 05/19/18 06:34 Dose: 3 ml Aspirin (Ecotrin) 81 mg PO DAILY [facility] Last Admin: 05/19/18 08:55 Dose: 81 mg Atorvastatin Calcium (Lipitor) 80 mg PO QHS [facility] Last Admin: 05/18/18 23:20 Dose: 80 mg Budesonide (Pulmicort Aerosol) 0.5 mg INHALATION Q12H.RT [facility] Last Admin: 05/19/18 06:34 Dose: 0.5 mg Buspirone HCl (Buspar) 10 mg PO TID [facility] Last Admin: 05/19/18 06:42 Dose: 10 mg Clopidogrel Bisulfate (Plavix) 75 mg PO DAILY [facility] Last Admin: 05/19/18 08:56 Dose: 75 mg Dextrose (D50w Syringe) 0 gm IV X1 PRN; Protocol PRN Reason: Hypoglycemia Fenofibrate (Tricor) 145 mg PO DAILY [facility] Last Admin: 05/19/18 08:58 Dose: 145 mg Glucagon () 1 mg IM .X1 PRN PRN Reason: Hypoglycemia Heparin Sodium (Porcine) (Heparin Na) 5,000 unit SC Q8 [facility] Last Admin: 05/19/18 06:41 Dose: 5,000 unit Ceftriaxone Sodium (Rocephin) 1 gm in 50 mls @ 100 mls/hr IV Q12 [facility] Last Admin: 05/19/18 09:06 Dose: 100 mls/hr Insulin Human Lispro (Humalog Kwikpen (Bkc)) 0 unit SQ ACHS [facility]; Protocol Last Admin: 05/19/18 06:42 Dose: Not Given Isosorbide Mononitrate (Imdur) 30 mg PO DAILY [facility] Last Admin: 05/19/18 08:55 Dose: 30 mg Magnesium Hydroxide (Milk Of Magnesia) 30 ml PO DAILY PRN PRN PRN Reason: Constipation Metoprolol Succinate (Toprol Xl (Beta Rolando)) 50 mg PO DAILY [facility] Last Admin: 05/19/18 08:56 Dose: 50 mg Pantoprazole Sodium (Protonix) 40 mg PO DAILY [facility] Last Admin: 05/19/18 08:56 Dose: 40 mg Potassium Chloride (K-Dur) 10 meq PO DAILY [facility] Last Admin: 05/19/18 08:55 Dose: 10 meq Risperidone (Risperdal) 3 mg PO BID [facility] Last Admin: 05/19/18 08:56 Dose: 3 mg Senna/Docusate Sodium (Senokot-S, Porsha-Colace) 1 tablet PO DAILY [facility] Last Admin: 05/19/18 08:56 Dose: 1 tablet Medical Necessity - Tobacco Use Smoking Status: Light Smoker (<10/day) Tobacco Use: Cigarettes Assessment/Plan All Active Problems (Last Updated 11/28/17 @ 13:25 by Rina Blair) Altered mental status (Acute) Hypoglycemia (Acute) Rhabdomyolysis (Acute) Altered mental status (Acute) H/O tubal ligation (Resolved) H/O percutaneous transluminal coronary angioplasty (Resolved) Other group home (current) drug therapy (Acute) Fever (Acute) NSTEMI (non-ST elevated myocardial infarction) (Acute) 68-year-old female presenting with a 1 day history of altered mental status and has urine positive for UTI. 1. Acute metabolic encephalopathy due to UTI Metabolic encephalopathy has resolved. Patient is alert and oriented x3. no fever per EMR on IV ceftriaxone urine culture pending. continue gentle hydration with IVF for likely dc tomorrow 2. Hypertension controlled on furosemide 60mg daily and metoprolol 3. Schizoaffective disorder: On Risperdal, quetiapine, valproic acid and paliperidone(Invega) urine tox was negative 4. Diabetes: on metformin, invokana and pioglitazone accuchecks ACHS Insulin sliding scale 5. Chronic hypoxic respiratory failure due to COPD Still smokes about 2 cigarettes daily. on baseline 2L and saturating well on Incruse Ellipta inhaler and Breo Ellipta 6. CAD: stable. On aspirin and plavix and statin 7. Hyperlipidemia: on statin and fenofibrate 8. CKD 3 Cr was 1.36 on admission, which is ~ her baseline continue monitoring. Cr trended down to 1.28 with IVF DVT prophylaxis: heparin Code status: full code Code Visit Inpatient E&M: 07006 Subs Hosp L2
--- NOTE | 2018-05-19 10:43 | PN_ITS ---
Patient Problems: Active and Suspected Problems (Last Updated 11/28/17 @ 13:25 by Rina Blair) Altered mental status (Acute) Subjective: Patient seen and examined. She was admitted with a complaint of acute confusion and was found to have UTI. She has been managed for metabolic encephalopathy due to UTI and is on IV ceftriaxone. Patient seen and examined. She has no complaints and feels well. She denies any fever or chills has a mild cough which is chronic with actually woke with clear sputum. She denies any chest terrie n, abdominal pain, frequency of urination, diarrhea or vomiting.She is saturating well on her 2L of oxygen. Vitals/I&O's: Vital Signs Temp Pulse Resp BP Pulse Ox 98 F 74 20 H 128/68 H 97 05/19/18 08:00 05/19/18 08:56 05/19/18 08:00 05/19/18 08:00 05/19/18 08:00 Oxygen Flow Rate (L/min) 2 Oxygen Delivery Method Nasal Cannula Weight: 189 lb 13.088 oz Body Mass Index (BMI) 31.6 Finger Stick Blood Glucose 115 Intake and Output for Last 24 Hours 05/17/18 05/18/18 05/19/18 23:59 23:59 23:59 Intake Total 735 / 735 Output Total 500 / 500 Balance 235 / 235 General: Alert, Oriented x3, Cooperative HEENT: Atraumatic, PERRLA, EOMI, Normocephalic Oral: Moist Mucosa Neck: Supple, No JVD, Negative Carotid Bruits Lungs: Clear to auscultation, Normal air movement, No rhonchi, No wheeze, No rales Cardiovascular: Regular rate, Regular Rhythm, Normal S1, Normal S2, No murmurs Abdomen: Bowel Sounds Present, Soft, Non Tender, Non-Distended, No Hepato- splenomegaly Extremities: No clubbing, No cyanosis, No edema, Capillary Refill Less than 3 Seconds Skin: No rashes, No breakdown Musculoskeletal: No Tenderness to Palpation of Joints or Extremities Lymphatic: No Cervical, Supraclavicular, or Inguinal Adenopathy Neurological: Cranial nerves II-XII grossly intact, Neuro grossly intact, Motor Exam 5/5 strength throughout Psych/Mental Status: Normal Affect, Appropriate, Alert and oriented to time, place, person, mood and affect Laboratory Results 05/18/18 16:09: POC Glucose 115 H 05/18/18 16:20: WBC 4.8, RBC 4.06 L, Hgb 12.3, Hct 38.3, MCV 94.3, MCH 30.3, MCHC 32.1, RDW 15.7 H, RDW Differential 54.2 H, Plt Count 198, MPV 10.7, Immature Gran % (Auto) 0.000, Neut % (Auto) 62.9, Lymph % (Auto) 28.8, [place] % (Auto) 6.0, Eos % (Auto) 2.1, Baso % (Auto) 0.2, Absolute Neuts (auto) 3.0, Absolute Lymphs (auto) 1.39, Total Counted Not Reportable 05/18/18 16:20: Sodium 144, Potassium 3.5, Chloride 107, Carbon Dioxide 28.0, Anion Gap 9, BUN 21 H, Creatinine 1.36 H, Estim Creat Clear Calc 38.83, Est GFR (MDRD) Af Amer 49 L, Est GFR (MDRD) Non-Af 41 L, BUN/Creatinine Ratio 15.4, Glucose 117 H, Calcium 9.0, Total Bilirubin 0.30, AST 38 H, ALT 40, Alkaline Phosphatase 52, Troponin I < 0.015, Total Protein 6.6, Albumin 3.3, Globulin 3.3, Albumin/Globulin Ratio 1.0 05/18/18 16:20: Ethyl Alcohol 6.0 05/18/18 16:20: VBG Carboxyhemoglobin 7.0 H 05/18/18 16:20: Valproic Acid < 3 L 05/18/18 16:37: Specimen Type GURINDER, Sample Site OTHER, VBG pH 7.43 H, VBG pO2 63 H, VBG O2 Sat (Calc) 92 H, VBG O2 Content 28, VBG Base Excess 3, POC Mix VBG pCO2 Pt Tmp 40.3 L, O2 Delivery Device Nasal Can, Liter Flow 4.0, Blood Gas Notified Whom ED , Blood Gas Notified Time 1634 05/18/18 17:30: Urine Color Yellow, Urine Clarity Cloudy, Urine pH 5.0, Ur Specific [place] 1.015, Urine Protein 15 H, Urine Glucose (UA) 1000 H, Urine Ketones 5 H, Urine Occult Blood 25 H, Urine Nitrite Negative, Urine Bilirubin Negative, Urine Urobilinogen Normal, Ur Leukocyte Esterase 500 H, Urine RBC 5-10 SEEN, Urine WBC 50-100 SEEN, Ur Squamous Epith Cells 5-10 SEEN, Ur Transition Epith Cell 0-5 SEEN, Urine Bacteria 2+, Urine Mucus 0 SEEN 05/18/18 17:30: Urine Opiates Screen NEGATIVE, Urine Methadone Screen NEGATIVE, Ur Barbiturates Screen NEGATIVE, Ur Phencyclidine Scrn NEGATIVE, Ur Amphetamines Screen NEGATIVE, U Methamphetamin-MDMA NEGATIVE, U Benzodiazepines Scrn NEGATIVE, Urine Cocaine Screen NEGATIVE, U Cannabinoids Screen NEGATIVE, Ur Drug Screen Comment 05/18/18 19:30: POC Glucose 124 H 05/18/18 23:12: POC Glucose 91 05/19/18 06:38: POC Glucose 111 H 05/19/18 06:56: WBC 5.1, RBC 3.70 L, Hgb 11.4 L, Hct 35.9 L, MCV 97.0, MCH 30.8, MCHC 31.8 L, RDW 15.9 H, RDW Differential 54.3 H, Plt Count 195, MPV 10.9, Immature Gran % (Auto) 0.200, Neut % (Auto) 49.7, Lymph % (Auto) 39.4, [place] % (Auto) 8.7, Eos % (Auto) 1.8, Baso % (Auto) 0.2, Absolute Neuts (auto) 2.5, Absolute Lymphs (auto) 2.00, Total Counted Not Reportable 05/19/18 06:56: Sodium 144, Potassium 4.1, Chloride 109 H, Carbon Dioxide 29.0, Anion Gap 6, BUN 18, Creatinine 1.28 H, Estim Creat Clear Calc 36.80, Est GFR (MDRD) Af Amer 53 L, Est GFR (MDRD) Non-Af 44 L, BUN/Creatinine Ratio 14.1, Glucose 107 H, Calcium 8.8 Current Medications Albuterol Sulfate (Ventolin Aerosols) 2.5 mg INHALATION Q4H PRN PRN Albuterol/Ipratropium (Duoneb) 3 ml INHALATION Q6HWA.RT [facility] Last Admin: 05/19/18 06:34 Dose: 3 ml Aspirin (Ecotrin) 81 mg PO DAILY [facility] Last Admin: 05/19/18 08:55 Dose: 81 mg Atorvastatin Calcium (Lipitor) 80 mg PO QHS [facility] Last Admin: 05/18/18 23:20 Dose: 80 mg Budesonide (Pulmicort Aerosol) 0.5 mg INHALATION Q12H.RT [facility] Last Admin: 05/19/18 06:34 Dose: 0.5 mg Buspirone HCl (Buspar) 10 mg PO TID [facility] Last Admin: 05/19/18 06:42 Dose: 10 mg Clopidogrel Bisulfate (Plavix) 75 mg PO DAILY [facility] Last Admin: 05/19/18 08:56 Dose: 75 mg Dextrose (D50w Syringe) 0 gm IV X1 PRN; Protocol PRN Reason: Hypoglycemia Fenofibrate (Tricor) 145 mg PO DAILY [facility] Last Admin: 05/19/18 08:58 Dose: 145 mg Glucagon () 1 mg IM .X1 PRN PRN Reason: Hypoglycemia Heparin Sodium (Porcine) (Heparin Na) 5,000 unit SC Q8 [facility] Last Admin: 05/19/18 06:41 Dose: 5,000 unit Ceftriaxone Sodium (Rocephin) 1 gm in 50 mls @ 100 mls/hr IV Q12 [facility] Last Admin: 05/19/18 09:06 Dose: 100 mls/hr Insulin Human Lispro (Humalog Kwikpen (Bkc)) 0 unit SQ ACHS [facility]; Protocol Last Admin: 05/19/18 06:42 Dose: Not Given Isosorbide Mononitrate (Imdur) 30 mg PO DAILY [facility] Last Admin: 05/19/18 08:55 Dose: 30 mg Magnesium Hydroxide (Milk Of Magnesia) 30 ml PO DAILY PRN PRN PRN Reason: Constipation Metoprolol Succinate (Toprol Xl (Beta Rolando)) 50 mg PO DAILY [facility] Last Admin: 05/19/18 08:56 Dose: 50 mg Pantoprazole Sodium (Protonix) 40 mg PO DAILY [facility] Last Admin: 05/19/18 08:56 Dose: 40 mg Potassium Chloride (K-Dur) 10 meq PO DAILY [facility] Last Admin: 05/19/18 08:55 Dose: 10 meq Risperidone (Risperdal) 3 mg PO BID [facility] Last Admin: 05/19/18 08:56 Dose: 3 mg Senna/Docusate Sodium (Senokot-S, Porsha-Colace) 1 tablet PO DAILY [facility] Last Admin: 05/19/18 08:56 Dose: 1 tablet Medical Necessity - Tobacco Use Smoking Status: Light Smoker (<10/day) Tobacco Use: Cigarettes Assessment/Plan All Active Problems (Last Updated 11/28/17 @ 13:25 by Rina Blair) Altered mental status (Acute) Hypoglycemia (Acute) Rhabdomyolysis (Acute) Altered mental status (Acute) H/O tubal ligation (Resolved) H/O percutaneous transluminal coronary angioplasty (Resolved) 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 1. Acute metabolic encephalopathy due to UTI * Metabolic encephalopathy has resolved. Patient is alert and oriented x3. * no fever per EMR * on IV ceftriaxone * urine culture pending. * continue gentle hydration with IVF * for likely dc tomorrow * * * 2. Hypertension * controlled * on furosemide 60mg daily and metoprolol * 3. Schizoaffective disorder: * On Risperdal, quetiapine, valproic acid and paliperidone(Invega) * urine tox was negative * 4. Diabetes: * on metformin, invokana and pioglitazone * accuchecks ACHS * Insulin sliding scale * 5. Chronic hypoxic respiratory failure due to COPD * Still smokes about 2 cigarettes daily. * on baseline 2L and saturating well * on Incruse Ellipta inhaler and Breo Ellipta * 6. CAD: stable. On aspirin and plavix and statin 7. Hyperlipidemia: on statin and fenofibrate 8. CKD 3 * Cr was 1.36 on admission, which is ~ her baseline * continue monitoring. Cr trended down to 1.28 with IVF * DVT prophylaxis: heparin Code status: full code Code Visit Inpatient E&M: 28766 Subs Hosp L2
[2018-05-19 10:51] LABS: Bedside Glucose 186 mg/dL (70-110)
[2018-05-19] MEDS: Insulin Lispro 100 UNIT/ML INSULN.PEN SQ ×2 (11:28→20:59)
--- NOTE | 2018-05-19 13:32 | CASEMGMT ---
Social Work Consult for transportation. Spoke with patient in room. Patient reporting to have limited finances and to not be able to afford a taxi home. Patient does have [employer] insurance, which needs 72 hours notice to set up transportation to home. is wanting patient to discharge tomorrow. Patient is agreeable to discharge tomorrow just needs a ride home. Patient reporting to have limited support and to have no one that is able to bring patient home. Patient reporting to have PASSPORT services and to have aides that help in the home but are not able to transport patient to home. This social research assistant discussing wheelchair van transportation home for patient, patient is agreeable to this. Support given. Green sheet placed on chart with contact for transportation company if patient is discharged on Monday. No further needs identified at this time. [facility], CALL CENTER RECEPTIONIST
[2018-05-19 13:45] LABS: Bedside Glucose 183 mg/dL (70-110)
[2018-05-19 16:51] LABS: Bedside Glucose 113 mg/dL (70-110)
[2018-05-19 20:55] LABS: Bedside Glucose 161 mg/dL (70-110)
[2018-05-19] MEDS: 0.9% NaCl Peripheral Flush Adult/Peds IV (20:56)
[2018-05-19] MEDS: Atorvastatin Calcium 80 MG Tablet PO (22:23)
[2018-05-20 02:13] VITALS: BP 140/69; PULSE 76; RESP 18; TEMP 36.6; O2SAT 99
[2018-05-20 02:14] VITALS: PULSE 60
[2018-05-20] MEDS: busPIRone 5 MG Tablet 10 MG PO (05:10)
[2018-05-20] MEDS: Heparin Injection (Vial) 5,000 UNIT/ML VIAL 5000 UNIT SC (05:10)
[2018-05-20 05:11] LABS: Bedside Glucose 93 mg/dL (70-110)
[2018-05-20 06:04] LABS: Absolute Lymphocyte Count 1.32 X10^3/ul (0.83-4.51); Absolute Neutrophil Count 2.2 X10^3/uL (2.0-7.7); Basophil# 0.01 X10^3/uL; Basophil% 0.2 % (0-1); Eosinophil# 0.13 X10^3/uL; Eosinophils% 3.1 % (0-5); Hematocrit 36.5 % (37-47); Hemoglobin 11.5 g/dl (12.0-15.0); Lymphocyte # 1.32 X10^3/ul (4.0); Lymphocyte % 31.8 % (19-41); Mean Corp Hgb Conc 31.5 g/gl (32-36); Mean Corpuscular Hgb 30.7 pg (27.0-32.0); Mean Corpuscular Volume 97.6 fL (81-99); Monocyte# 0.44 X10^3/uL; Monocyte% 10.6 % (0-10); Neutrophil # 2.24 X10^3/uL (2.7-7.7); Neutrophil % 54.1 % (47-70); Platelet Count 185 K/mm3 (150-450); RBC Distribution Width CV 15.9 % (11.6-14.6); RBC Distribution Width SD 54.5 fl (35.1-43.9); Red Blood Count 3.74 M/mm3 (4.2-5.4); White Blood Count 4.2 K/mm3 (4.4-11.0)
[2018-05-20 06:08] LABS: POSITIVE COUNT NO; POSITIVE DIFFERENTIAL NO; POSITIVE MORPHOLOGY NO
[2018-05-20 06:29] LABS: Anion Gap 4 (5-15); BUN 17 mg/dL (7-18); BUN/Creat Ratio 12.8 RATIO (10-20); Calcium,Total 8.4 mg/dL (8.5-10.1); Chloride 108 mmol/L (98-107); Creatinine, Serum 1.33 mg/dL (0.55-1.02); EST Glomerular Filtration Rate 42 mL/min (>60); Est Glom Filt Rate - Afr Amer 51 mL/min (>60); Estimated Creatinine Clearance 35.42 ml/min; Glucose 126 mg/dL (74-106); Potassium 4.2 mmol/L (3.5-5.1); Sodium Level 140 mmol/L (136-145)
[2018-05-20] MEDS: Budesonide Respules 0.5 MG/2 ML AMPUL.NEB. INHALATION (07:10)
[2018-05-20 07:11] VITALS: PULSE 72; RESP 18; O2SAT 96
[2018-05-20] MEDS: Ipratropium/Albuterol Sulfate 3 ML AMPUL.NEB INHALATION (07:11)
[2018-05-20 07:12] VITALS: PULSE 67
[2018-05-20] MEDS: Aspirin E.C. 81 MG Tablet PO (08:25)
[2018-05-20] MEDS: Clopidogrel Bisulfate 75 MG Tablet PO (08:26)
[2018-05-20] MEDS: Pantoprazole Sodium 40 MG Tablet PO (08:26)
[2018-05-20] MEDS: Senna/Docusate Sodium 1 Tablet PO (08:26)
[2018-05-20] MEDS: Fenofibrate 145 MG Tablet PO (08:27)
[2018-05-20 08:28] VITALS: PULSE 86
[2018-05-20] MEDS: Metoprolol(XL)Succ 50 MG Tablet PO (08:28)
[2018-05-20] MEDS: Isosorbide Mononitrate 30 MG Tablet PO (08:29)
[2018-05-20 08:30] VITALS: BP 135/72; PULSE 86; RESP 18; TEMP 36.1; O2SAT 94
[2018-05-20] MEDS: Ceftriaxone 1 GM/50 ML BAG IV (08:36)
--- NOTE | 2018-05-20 09:05 | DCINST_ITS ---
- Discharge Diagnoses Current Active Problems: Current Active and Chronic Problems (Last Updated 11/28/17 @ 13:25 by Rina Blair) Altered mental status (Acute) You will use the following diet at home:: Cardiac Your food should be the consistency of: Regular Your liquids should be the consistency of: Regular/Thin Discharge Activity: Return to Normal Activity Weight Bearing Status: Weight bearing as tolerated Call your doctor if you observe: Fever of 101 or Higher Allergies/Adverse Reactions: Allergies No Known Allergies Allergy (Verified 02/12/18 20:02) Medications to take at Discharge Aspirin [Adult Low Dose Aspirin EC] 81 mg PO DAILY 09/26/16 Canagliflozin [Invokana] 100 mg PO DAILY 09/26/16 Isosorbide Mononitrate [Isosorbide Mononitrate ER] 30 mg PO DAILY 09/26/16 Metoprolol Succinate [Toprol Xl] 50 mg PO DAILY 09/26/16 Potassium Chloride [K-Dur] 10 meq PO DAILY 09/26/16 Fluticasone/Vilanterol [Breo Ellipta 100-25 Mcg INH] 1 ea IH DAILY 03/21/17 furosemide 40 mg tablet 60 mg PO DAILY tab 11/29/17 metformin 500 mg tablet 1,000 mg PO QDAY tab 11/29/17 Buspirone HCl 10 mg PO TID 01/30/18 Multivitamin [Daily Multiple Vitamin] 1 tab PO DAILY 01/30/18 [place]-3 Fatty Acids/Fish Oil [Fish Oil 1,000 mg Capsule] 1 cap PO DAILY 01/30/18 Paliperidone Palmitate [Invega Sustenna] 234 mg IM Q30D 01/30/18 Risperidone [Risperdal] 3 mg PO BID 01/30/18 Sennosides/Docusate Sodium [Stool Softener-Laxative Tablet] 1 each PO DAILY 01/30/18 Umeclidinium [place] Inhaler [Incruse Ellipta Inhaler] 1 puff IH DAILY 01/30/18 Acetaminophen [Tylenol] 500 mg PO Q4H PRN PRN 05/18/18 Albuterol Sulfate [Ventolin Hfa] 2 puff INHALATION 4X/DAY PRN PRN 05/18/18 Atorvastatin Calcium [Lipitor] 80 mg PO QHS 05/18/18 Clopidogrel Bisulfate [Plavix] 75 mg PO DAILY 05/18/18 Pantoprazole Sodium [Protonix] 40 mg PO DAILY 05/18/18 fenofibrate micronized 200 mg capsule 200 mg PO DAILY 05/18/18 Cefdinir 300 mg PO BID #10 capsule 05/20/18 The following prescriptions were given: Cefdinir 300 mg PO BID #10 capsule Primary Care Physician: Mine Bojorquez DO [Primary Care Provider] - Please follow up with your Primary Care Physician in: one week Test Results: Test results from this visit will be discussed in further detail at your follow- up appointment, if applicable. Proposed Discharge Date: 05/20/18
--- NOTE | 2018-05-20 09:08 | PCM.DC.SUM ---
Discharge Date and Diagnosis - Problem List Patient Problems: Active and Suspected Problems (Last Updated 11/28/17 @ 13:25 by Rina Blair) Altered mental status (Acute) Date of Admission: 05/18/18 Date of Discharge: 05/20/18 - Primary Discharge Diagnosis Active and Suspected Problems (Last Updated 11/28/17 @ 13:25 by Rina Blair) Altered mental status (Acute) Acute metabolic encephalopathy due to UTI - Secondary Discharge Diagnosis Chronic Problems (Last Updated 11/28/17 @ 13:25 by Rina Blair) Acute and chronic respiratory failure (Chronic) Cor pulmonale (Chronic) Old myocardial infarction (Chronic) Atherosclerotic heart disease of [place] coronary artery without angina pectoris (Chronic) S/P stenting to left circumflex in 2014; Diabetes mellitus type II (Chronic) Chronic respiratory failure (Chronic) 2.5 L nasal cannular at home COPD (Chronic) On 2.5 L nasal cannula at home Quit Smoking 2011 Tobacco use disorder (Chronic) History of psychosis (Chronic) Obesity (Chronic) HLD (hyperlipidemia) (Chronic) Pulmonary hypertension (Chronic) Cor pulmonale, chronic (Chronic) HTN (hypertension) (Chronic) S/P AAA repair (Chronic) PAD (peripheral artery disease) (Chronic) Status post stenting AAA (abdominal aortic aneurysm) (Chronic) Status post repair Hospital Course and Treatment Imaging Results: Diagnostic Data Brain CT 05/18/18 16:07 IMPRESSION: Normal unenhanced CT scan of the brain for age. Electronically Signed: Jhoana Mckeon MD at 16:47 EDT , Service support , Chest X-Ray 05/18/18 16:43 IMPRESSION: Generalized hyperexpansion with emphysematous changes. Bibasilar linear type atelectatic changes, left greater than right. Electronically Signed: Jhoana Mckeon MD at 17:02 EDT , Service support , Laboratory Tests 05/18/18 05/18/18 05/18/18 16:09 16:20 16:20 WBC 4.8 RBC 4.06 L Hgb 12.3 Hct 38.3 MCV 94.3 MCH 30.3 MCHC 32.1 RDW 15.7 H RDW Differential 54.2 H Plt Count 198 MPV 10.7 Immature Gran % (Auto) 0.000 Neut % (Auto) 62.9 Lymph % (Auto) 28.8 Ashley % (Auto) 6.0 Eos % (Auto) 2.1 Baso % (Auto) 0.2 Absolute Neuts (auto) 3.0 Absolute Lymphs (auto) 1.39 Total Counted Not Reportable Specimen Type Sample Site VBG pH VBG pO2 VBG O2 Sat (Calc) VBG O2 Content VBG Base Excess VBG Carboxyhemoglobin POC Mix VBG pCO2 Pt Tmp O2 Delivery Device Liter Flow Blood Gas Notified Whom Blood Gas Notified Time Sodium 144 Potassium 3.5 Chloride 107 Carbon Dioxide 28.0 Anion Gap 9 BUN 21 H Creatinine 1.36 H Estim Creat Clear Calc 38.83 Est GFR (MDRD) Af Amer 49 L Est GFR (MDRD) Non-Af 41 L BUN/Creatinine Ratio 15.4 Glucose 117 H Calcium 9.0 Total Bilirubin 0.30 AST 38 H ALT 40 Alkaline Phosphatase 52 Troponin I < 0.015 Total Protein 6.6 Albumin 3.3 Globulin 3.3 Albumin/Globulin Ratio 1.0 Urine Color Urine Clarity Urine pH Ur Specific [place] Urine Protein Urine Glucose (UA) Urine Ketones Urine Occult Blood Urine Nitrite Urine Bilirubin Urine Urobilinogen Ur Leukocyte Esterase Urine RBC Urine WBC Ur Squamous Epith Cells Ur Transition Epith Cell Urine Bacteria Urine Mucus Urine Opiates Screen Urine Methadone Screen Ur Barbiturates Screen Valproic Acid Ur Phencyclidine Scrn Ur Amphetamines Screen U Methamphetamin-MDMA U Benzodiazepines Scrn Urine Cocaine Screen U Cannabinoids Screen Ur Drug Screen Comment Ethyl Alcohol POC Glucose 115 H 05/18/18 05/18/18 05/18/18 16:20 16:20 16:20 WBC RBC Hgb Hct MCV MCH MCHC RDW RDW Differential Plt Count MPV Immature Gran % (Auto) Neut % (Auto) Lymph % (Auto) Ashley % (Auto) Eos % (Auto) Baso % (Auto) Absolute Neuts (auto) Absolute Lymphs (auto) Total Counted Specimen Type Sample Site VBG pH VBG pO2 VBG O2 Sat (Calc) VBG O2 Content VBG Base Excess VBG Carboxyhemoglobin 7.0 H POC Mix VBG pCO2 Pt Tmp O2 Delivery Device Liter Flow Blood Gas Notified Whom Blood Gas Notified Time Sodium Potassium Chloride Carbon Dioxide Anion Gap BUN Creatinine Estim Creat Clear Calc Est GFR (MDRD) Af Amer Est GFR (MDRD) Non-Af BUN/Creatinine Ratio Glucose Calcium Total Bilirubin AST ALT Alkaline Phosphatase Troponin I Total Protein Albumin Globulin Albumin/Globulin Ratio Urine Color Urine Clarity Urine pH Ur Specific [place] Urine Protein Urine Glucose (UA) Urine Ketones Urine Occult Blood Urine Nitrite Urine Bilirubin Urine Urobilinogen Ur Leukocyte Esterase Urine RBC Urine WBC Ur Squamous Epith Cells Ur Transition Epith Cell Urine Bacteria Urine Mucus Urine Opiates Screen Urine Methadone Screen Ur Barbiturates Screen Valproic Acid < 3 L Ur Phencyclidine Scrn Ur Amphetamines Screen U Methamphetamin-MDMA U Benzodiazepines Scrn Urine Cocaine Screen U Cannabinoids Screen Ur Drug Screen Comment Ethyl Alcohol 6.0 POC Glucose 05/18/18 05/18/18 05/18/18 16:37 17:30 17:30 WBC RBC Hgb Hct MCV MCH MCHC RDW RDW Differential Plt Count MPV Immature Gran % (Auto) Neut % (Auto) Lymph % (Auto) Ashley % (Auto) Eos % (Auto) Baso % (Auto) Absolute Neuts (auto) Absolute Lymphs (auto) Total Counted Specimen Type GURINDER Sample Site OTHER VBG pH 7.43 H VBG pO2 63 H VBG O2 Sat (Calc) 92 H VBG O2 Content 28 VBG Base Excess 3 VBG Carboxyhemoglobin POC Mix VBG pCO2 Pt Tmp 40.3 L O2 Delivery Device Nasal Can Liter Flow 4.0 Blood Gas Notified Whom ED Blood Gas Notified Time 1638 Sodium Potassium Chloride Carbon Dioxide Anion Gap BUN Creatinine Estim Creat Clear Calc Est GFR (MDRD) Af Amer Est GFR (MDRD) Non-Af BUN/Creatinine Ratio Glucose Calcium Total Bilirubin AST ALT Alkaline Phosphatase Troponin I Total Protein Albumin Globulin Albumin/Globulin Ratio Urine Color Yellow Urine Clarity Cloudy Urine pH 5.0 Ur Specific [place] 1.015 Urine Protein 15 H Urine Glucose (UA) 1000 H Urine Ketones 5 H Urine Occult Blood 25 H Urine Nitrite Negative Urine Bilirubin Negative Urine Urobilinogen Normal Ur Leukocyte Esterase 500 H Urine RBC 5-10 SEEN Urine WBC 50-100 SEEN Ur Squamous Epith Cells 5-10 SEEN Ur Transition Epith Cell 0-5 SEEN Urine Bacteria 2+ Urine Mucus 0 SEEN Urine Opiates Screen NEGATIVE Urine Methadone Screen NEGATIVE Ur Barbiturates Screen NEGATIVE Valproic Acid Ur Phencyclidine Scrn NEGATIVE Ur Amphetamines Screen NEGATIVE U Methamphetamin-MDMA NEGATIVE U Benzodiazepines Scrn NEGATIVE Urine Cocaine Screen NEGATIVE U Cannabinoids Screen NEGATIVE Ur Drug Screen Comment Ethyl Alcohol POC Glucose 05/18/18 05/18/18 05/19/18 19:30 23:12 06:38 WBC RBC Hgb Hct MCV MCH MCHC RDW RDW Differential Plt Count MPV Immature Gran % (Auto) Neut % (Auto) Lymph % (Auto) Ashley % (Auto) Eos % (Auto) Baso % (Auto) Absolute Neuts (auto) Absolute Lymphs (auto) Total Counted Specimen Type Sample Site VBG pH VBG pO2 VBG O2 Sat (Calc) VBG O2 Content VBG Base Excess VBG Carboxyhemoglobin POC Mix VBG pCO2 Pt Tmp O2 Delivery Device Liter Flow Blood Gas Notified Whom Blood Gas Notified Time Sodium Potassium Chloride Carbon Dioxide Anion Gap BUN Creatinine Estim Creat Clear Calc Est GFR (MDRD) Af Amer Est GFR (MDRD) Non-Af BUN/Creatinine Ratio Glucose Calcium Total Bilirubin AST ALT Alkaline Phosphatase Troponin I Total Protein Albumin Globulin Albumin/Globulin Ratio Urine Color Urine Clarity Urine pH Ur Specific [place] Urine Protein Urine Glucose (UA) Urine Ketones Urine Occult Blood Urine Nitrite Urine Bilirubin Urine Urobilinogen Ur Leukocyte Esterase Urine RBC Urine WBC Ur Squamous Epith Cells Ur Transition Epith Cell Urine Bacteria Urine Mucus Urine Opiates Screen Urine Methadone Screen Ur Barbiturates Screen Valproic Acid Ur Phencyclidine Scrn Ur Amphetamines Screen U Methamphetamin-MDMA U Benzodiazepines Scrn Urine Cocaine Screen U Cannabinoids Screen Ur Drug Screen Comment Ethyl Alcohol POC Glucose 124 H 91 111 H 05/19/18 05/19/18 05/19/18 06:56 06:56 10:44 WBC 5.1 RBC 3.70 L Hgb 11.4 L Hct 35.9 L MCV 97.0 MCH 30.8 MCHC 31.8 L RDW 15.9 H RDW Differential 54.3 H Plt Count 195 MPV 10.9 Immature Gran % (Auto) 0.200 Neut % (Auto) 49.7 Lymph % (Auto) 39.4 Ashley % (Auto) 8.7 Eos % (Auto) 1.8 Baso % (Auto) 0.2 Absolute Neuts (auto) 2.5 Absolute Lymphs (auto) 2.00 Total Counted Not Reportable Specimen Type Sample Site VBG pH VBG pO2 VBG O2 Sat (Calc) VBG O2 Content VBG Base Excess VBG Carboxyhemoglobin POC Mix VBG pCO2 Pt Tmp O2 Delivery Device Liter Flow Blood Gas Notified Whom Blood Gas Notified Time Sodium 144 Potassium 4.1 Chloride 109 H Carbon Dioxide 29.0 Anion Gap 6 BUN 18 Creatinine 1.28 H Estim Creat Clear Calc 36.80 Est GFR (MDRD) Af Amer 53 L Est GFR (MDRD) Non-Af 44 L BUN/Creatinine Ratio 14.1 Glucose 107 H Calcium 8.8 Total Bilirubin AST ALT Alkaline Phosphatase Troponin I Total Protein Albumin Globulin Albumin/Globulin Ratio Urine Color Urine Clarity Urine pH Ur Specific [place] Urine Protein Urine Glucose (UA) Urine Ketones Urine Occult Blood Urine Nitrite Urine Bilirubin Urine Urobilinogen Ur Leukocyte Esterase Urine RBC Urine WBC Ur Squamous Epith Cells Ur Transition Epith Cell Urine Bacteria Urine Mucus Urine Opiates Screen Urine Methadone Screen Ur Barbiturates Screen Valproic Acid Ur Phencyclidine Scrn Ur Amphetamines Screen U Methamphetamin-MDMA U Benzodiazepines Scrn Urine Cocaine Screen U Cannabinoids Screen Ur Drug Screen Comment Ethyl Alcohol POC Glucose 186 H 05/19/18 05/19/18 05/19/18 13:32 16:42 20:51 WBC RBC Hgb Hct MCV MCH MCHC RDW RDW Differential Plt Count MPV Immature Gran % (Auto) Neut % (Auto) Lymph % (Auto) [place] % (Auto) Eos % (Auto) Baso % (Auto) Absolute Neuts (auto) Absolute Lymphs (auto) Total Counted Specimen Type Sample Site VBG pH VBG pO2 VBG O2 Sat (Calc) VBG O2 Content VBG Base Excess VBG Carboxyhemoglobin POC Mix VBG pCO2 Pt Tmp O2 Delivery Device Liter Flow Blood Gas Notified Whom Blood Gas Notified Time Sodium Potassium Chloride Carbon Dioxide Anion Gap BUN Creatinine Estim Creat Clear Calc Est GFR (MDRD) Af Amer Est GFR (MDRD) Non-Af BUN/Creatinine Ratio Glucose Calcium Total Bilirubin AST ALT Alkaline Phosphatase Troponin I Total Protein Albumin Globulin Albumin/Globulin Ratio Urine Color Urine Clarity Urine pH Ur Specific [place] Urine Protein Urine Glucose (UA) Urine Ketones Urine Occult Blood Urine Nitrite Urine Bilirubin Urine Urobilinogen Ur Leukocyte Esterase Urine RBC Urine WBC Ur Squamous Epith Cells Ur Transition Epith Cell Urine Bacteria Urine Mucus Urine Opiates Screen Urine Methadone Screen Ur Barbiturates Screen Valproic Acid Ur Phencyclidine Scrn Ur Amphetamines Screen U Methamphetamin-MDMA U Benzodiazepines Scrn Urine Cocaine Screen U Cannabinoids Screen Ur Drug Screen Comment Ethyl Alcohol POC Glucose 183 H 113 H 161 H 05/20/18 05/20/18 05/20/18 05:05 05:35 05:35 WBC 4.2 L RBC 3.74 L Hgb 11.5 L Hct 36.5 L MCV 97.6 MCH 30.7 MCHC 31.5 L RDW 15.9 H RDW Differential 54.5 H Plt Count 185 MPV 11.0 Immature Gran % (Auto) 0.200 Neut % (Auto) 54.1 Lymph % (Auto) 31.8 Ashley % (Auto) 10.6 H Eos % (Auto) 3.1 Baso % (Auto) 0.2 Absolute Neuts (auto) 2.2 Absolute Lymphs (auto) 1.32 Total Counted Not Reportable Specimen Type Sample Site VBG pH VBG pO2 VBG O2 Sat (Calc) VBG O2 Content VBG Base Excess VBG Carboxyhemoglobin POC Mix VBG pCO2 Pt Tmp O2 Delivery Device Liter Flow Blood Gas Notified Whom Blood Gas Notified Time Sodium 140 Potassium 4.2 Chloride 108 H Carbon Dioxide 28.0 Anion Gap 4 L BUN 17 Creatinine 1.33 H Estim Creat Clear Calc 35.42 Est GFR (MDRD) Af Amer 51 L Est GFR (MDRD) Non-Af 42 L BUN/Creatinine Ratio 12.8 Glucose 126 H Calcium 8.4 L Total Bilirubin AST ALT Alkaline Phosphatase Troponin I Total Protein Albumin Globulin Albumin/Globulin Ratio Urine Color Urine Clarity Urine pH Ur Specific [place] Urine Protein Urine Glucose (UA) Urine Ketones Urine Occult Blood Urine Nitrite Urine Bilirubin Urine Urobilinogen Ur Leukocyte Esterase Urine RBC Urine WBC Ur Squamous Epith Cells Ur Transition Epith Cell Urine Bacteria Urine Mucus Urine Opiates Screen Urine Methadone Screen Ur Barbiturates Screen Valproic Acid Ur Phencyclidine Scrn Ur Amphetamines Screen U Methamphetamin-MDMA U Benzodiazepines Scrn Urine Cocaine Screen U Cannabinoids Screen Ur Drug Screen Comment Ethyl Alcohol POC Glucose 93 Operations: None Procedures: None Summary of Care Provided: The patient is a 68 year old F with past medical history of chronic hypoxic respiratory failure due to COPD, hypertension, hyperlipidemia, diabetes mellitus and 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 disorder. She was admitted through the ED on 05/18/2018 after she was found at home by home health aide with altered mental status; she was confused and was waxing and waning. They could not tell if she had taken any overdose of medications. At time of review in the ED, patient was alert and oriented x3 and could not tell why he ate had called the squad on her. She denied any fever or chills, any cough or chest pain, any shortness of breath, any abdominal pain, any frequency or dysuria of urine, any diarrhea vomiting. Urinalysis was positive for UTI. She was therefore admitted and managed for acute metabolic encephalopathy due to UTI. She was started on IV ceftriaxone in the ED. Patient's encephalopathy resolved and she remained stable. Urine cultured Enterobacter cloacae and Streptococcus. Patient was discharged home on 05/20/2018 with a prescription for oral cefdinir 300 mg twice daily for 5 days. She is to follow-up with her primary care doctor within 1 week. Patient seen and examined prior to discharge. She felt well and had no complaints and wanted to go home. She denied any fever or chills, cough or chest pain, any shortness of breath, any abdominal pain, any diarrhea vomiting. 12 point review of systems is otherwise negative. Labs and vitals reviewed. On examination Vital Signs Height 5 ft 5 in Weight: 189 lb 13.088 oz Weight in Pounds 189.8 lbs Pulse Ox 94 Temperature 96.9 F Pulse Rate 86 Respiratory Rate 18 Blood Pressure 135/72 Blood Pressure Position Semi-Fowlers []General: Alert, Oriented x3, Cooperative, No apparent distress HEENT: Atraumatic, PERRLA, EOMI, Normocephalic Oral: Moist Mucosa Neck: Supple, No JVD, Negative Carotid Bruits Lungs: Clear to auscultation, Normal air movement, No rhonchi, No wheeze, No rales, saturating well on 2L of oxygen which is her baseline Cardiovascular: Regular rate, Regular Rhythm, Normal S1, Normal S2, No murmurs Abdomen: Bowel Sounds Present, Soft, Non Tender, Non-Distended, No Hepato-splenomegaly Extremities: No clubbing, No cyanosis, No edema, Capillary Refill Less than 3 Seconds Skin: No rashes, No breakdown Musculoskeletal: No Tenderness to Palpation of Joints or Extremities Lymphatic: No Cervical, Supraclavicular, or Inguinal Adenopathy Neurological: Cranial nerves II-XII grossly intact, Neuro grossly intact, Motor Exam 5/5 strength throughout Psych/Mental Status: Normal Affect, Appropriate, Alert and oriented to time, place, person, mood and affect Plan as stated above. Discharge Diet: Low fat/ Low Cholesterol Discharge Activity: Return to Normal Activity Weight Bearing Status: Weight bearing as tolerated Call your doctor if you observe: Fever of 101 or Higher Home Medications: Medications to take at Discharge Aspirin [Adult Low Dose Aspirin EC] 81 mg PO DAILY 09/26/16 Canagliflozin [Invokana] 100 mg PO DAILY 09/26/16 Isosorbide Mononitrate [Isosorbide Mononitrate ER] 30 mg PO DAILY 09/26/16 Metoprolol Succinate [Toprol Xl] 50 mg PO DAILY 09/26/16 Potassium Chloride [K-Dur] 10 meq PO DAILY 09/26/16 Fluticasone/Vilanterol [Breo Ellipta 100-25 Mcg INH] 1 ea IH DAILY 03/21/17 furosemide 40 mg tablet 60 mg PO DAILY tab 11/29/17 metformin 500 mg tablet 1,000 mg PO QDAY tab 11/29/17 Buspirone HCl 10 mg PO TID 01/30/18 Multivitamin [Daily Multiple Vitamin] 1 tab PO DAILY 01/30/18 [place]-3 Fatty Acids/Fish Oil [Fish Oil 1,000 mg Capsule] 1 cap PO DAILY 01/30/18 Paliperidone Palmitate [Invega Sustenna] 234 mg IM Q30D 01/30/18 Risperidone [Risperdal] 3 mg PO BID 01/30/18 Sennosides/Docusate Sodium [Stool Softener-Laxative Tablet] 1 each PO DAILY 01/30/18 Umeclidinium [place] Inhaler [Incruse Ellipta Inhaler] 1 puff IH DAILY 01/30/18 Acetaminophen [Tylenol] 500 mg PO Q4H PRN PRN 05/18/18 Albuterol Sulfate [Ventolin Hfa] 2 puff INHALATION 4X/DAY PRN PRN 05/18/18 Atorvastatin Calcium [Lipitor] 80 mg PO QHS 05/18/18 Clopidogrel Bisulfate [Plavix] 75 mg PO DAILY 05/18/18 Pantoprazole Sodium [Protonix] 40 mg PO DAILY 05/18/18 fenofibrate micronized 200 mg capsule 200 mg PO DAILY 05/18/18 Cefdinir 300 mg PO BID #10 capsule 05/20/18 Following Prescrptions Were Given to Patient: Cefdinir 300 mg PO BID #10 capsule Primary Care Physician: Mine Bojorquez DO [Primary Care Provider] - Please follow up with your Primary Care Physician in: one week Patient Instructions: ED Altered Loc, ED Confusion, Understanding Urinary Tract Infections (UTIs) Disposition: Home Minutes spent on discharge:: 37 Patient Condition:: Stable Medical Necessity - Tobacco Use Smoking Status: Light Smoker (<10/day) Tobacco Use: Cigarettes Meaningful Use Info Meaningful Use Diagnoses (Choose all that apply): None applicable Code Visit Inpatient E&M: 08244 Disch Hosp
[2018-05-20] MEDS: RisperiDONE 1 MG Tablet 3 MG PO (09:39)
--- NOTE | 2018-05-21 14:43 | CASEMGMT ---
REENA COHN Phone Call DC Date: 05/20/18 Disposition: Home LACE/STRATA: 13/4 Intro role of CM to patient via phone. Pt did not have questions. REENA COHN reviewed meds/antibiotic. Pt conversation with long pauses, REENA COHN had to redirect phone conversation. No questions at this time. Jodie SHABAZZ RN ACM
== END 2018-05-20 12:14 | disposition home or self-care (01) | DRG 689 ==
LOC: ED 18:08 → MS2 18:23
PROVIDERS: Admitting Provider Student in an Organized Health Care Education/Training Program; Emergency Provider Emergency Medicine; Family Provider Family Medicine; PCP Family Medicine; Referring Provider Student in an Organized Health Care Education/Training Program; Visit Provider Student in an Organized Health Care Education/Training Program
DX: N39.0 Urinary tract infection, site not specified (principal); G93.41 Metabolic encephalopathy; J96.11 Chronic respiratory failure with hypoxia; Z23 Encounter for immunization; F17.210 Nicotine dependence, cigarettes, uncomplicated; Z79.84 Long term (current) use of oral hypoglycemic drugs; E11.22 Type 2 diabetes mellitus with diabetic chronic kidney disease; E78.5 Hyperlipidemia, unspecified; I25.10 Atherosclerotic heart disease of native coronary artery without angina pectoris; Z79.82 Long term (current) use of aspirin; Z79.02 Long term (current) use of antithrombotics/antiplatelets; I12.9 Hypertensive chronic kidney disease with stage 1 through stage 4 chronic kidney disease, or unspecified chronic kidney disease; N18.3 Chronic kidney disease, stage 3 (moderate); J44.9 Chronic obstructive pulmonary disease, unspecified; Z99.81 Dependence on supplemental oxygen; I25.2 Old myocardial infarction; Z95.5 Presence of coronary angioplasty implant and graft
CPT/HCPCS: 36415; 70450; 71045; 80048; 80053; 80164; 80307; 80320; 81001; 82375; 82803; 82962; 84484; 85025; 87077; 87086; 87088; 87186; 93005; 94640; 97161; 97166; 97802; 99284; J7030; 90686; A4216; G0480

== ENCOUNTER 2018-05-23 11:26 | Emergency (ER) | payer MEDICARE, SELFPAY ==
[2018-05-23 11:27] VITALS: BP 140/64; PULSE 94; RESP 27; TEMP 36.2; O2SAT 92; BMI 33.3
--- NOTE | 2018-05-23 11:31 | EKG12_ITS ---
Test Reason : CONFUSION Blood Pressure : / mmHG Vent. Rate : 092 BPM Atrial Rate : 092 BPM P-R Int : 148 ms QRS Dur : 084 ms QT Int : 400 ms P-R-T Axes : 056 030 043 degrees QTc Int : 494 ms Normal sinus rhythm Prolonged QT Abnormal ECG Confirmed by DALIA HOOK, CLYDE ([id number]), newspaper photo editor BEE TREVINO ([id number]) on 05/28/2018 3:12:20 PM Referred By: NARCISO Confirmed By:CLYDE GÓMEZ MD
--- NOTE | 2018-05-23 11:31 | CT_ITS ---
STUDY: CT BRAIN WITHOUT CONTRAST REASON FOR EXAM: Female, 68 years old. CVA, FOUND NAKED AND CONFUSED, BIPOLAR/SCHIZOPHRENIC RADIATION DOSAGE (If Supplied By Facility): CTDIvol = ( 60.81 ) mGy, DLP = ( 1067.08 ) mGycm TECHNIQUE: Transaxial CT imaging of the brain was performed without administration of intravenous contrast material. Individualized dose optimization techniques were used for this CT. COMPARISON: None. FINDINGS: Normal soft tissue structures. Normal calvarium. Normal size ventricles and extra-axial spaces for the patient's age. There are areas of decreased attenuation within the white matter tracts of the supratentorial brain, consistent with microvascular disease changes. There are small punctate calcifications of the basal ganglia which are seen in the aging brain as a normal variant. Normal brainstem. Normal cerebellum. There is no intracranial hemorrhage. There are no findings of an acute ischemic infarction. Normal visualized paranasal sinuses. CT/Brain/Head without Contrast IMPRESSION: Chronic involutional changes of the brain. Electronically Signed: Fei Hall MD at 12:14 EDT Tel , Service support ,
--- NOTE | 2018-05-23 11:31 | RAD_ITS ---
STUDY: X-RAY CHEST REASON FOR EXAM: Female, 68 years old. FOUND NAKED AND CONFUSED [facility]. PT HAS HX OF DM AND SCHIZOAFFECTIVE TECHNIQUE: Frontal and lateral views of the chest. COMPARISON: None. FINDINGS: Subsegmental atelectases in the right and left lung bases. There is no demonstrated pleural abnormality. Normal size heart. Normal mediastinum and cynthia. Normal visualized pulmonary arteries. Normal visualized aortic arch and descending thoracic aorta. Normal visualized thoracic spine. There is degenerative osteoarthritis of the bilateral shoulders. There is no demonstrated abnormality of the visualized soft tissue structures of the upper abdomen. RAD/Chest 1 View IMPRESSION: Degenerative changes, as described above. No demonstrated acute cardiopulmonary process. Electronically Signed: Fei Hall MD at 11:55 EDT Tel , Service support ,
[2018-05-23 11:35] VITALS: O2SAT 96
--- NOTE | 2018-05-23 11:38 | ED.VISSUMM ---
- ER Visit Summary Date of Service: 05/23/18 Chief Complaint: Confusion, speech difficulty History of Present Illness: The patient is a 68 F with history of hypertension, hyperlipidemia, COPD, and prior [place] presents to the emergency department with speech difficulty. Patient was last seen normal yesterday. Apparently, the caregiver called her today. She had nonsensical speech on the phone and was slow to respond. She states that this is very abnormal for her. Police were called. On police arrival, the patient answered the door naked and confused. They did call squad. Her blood sugar was normal. The patient was recently hospitalized for delirium thought to be secondary to urinary tract infection. She had improvement with antibiotics and was discharged home. She denies headache. She denies visual change. Physical Examination: Initial NIH is 1. Patient does have a component of a aphasia. She does answer questions appropriately, but is slow to respond. She moves all extremities. Her neurologic exam is otherwise nonfocal. Head is normocephalic, atraumatic. Heart is regular rate and rhythm. Lungs are clear. Abdomen soft. Skin shows no rash. Test Results: [] Emergency Department Course and Treatment: The patient presents with questionable component of aphasia. She was very slow to speak. She had normal fluency. There is no dysarthria. She was able to receptive without issue. In review of the patient's records, she has had some similar presentations. I do feel that this is likely brought her into the hospital just a week ago. I did obtain a neurologic workup including head CT which was unremarkable. The patient had complete return of fluency of her speech. My suspicion is this is likely psychogenic. I did discuss the patient with social work who did see and evaluate the patient. She does state that she has been compliant with all of her medications. I do not feel that this represents TIA or stroke. I do feel that this is more likely psychiatric in origin. I discussed that the patient with the counseling center who did see and evaluate the patient. They are very familiar with her. She does have a follow-up appointment in 7 days. They are going to arrange for case management to check on her. The patient will be discharged home. Treatment Plan: [] Disposition: Discharge Impression: 1. Change in speech fluency- resolved 2. Change of mental status This note was generated with Media [employer]efined[employer] software. It may contain incorrect words, spelling, and punctuation that were not noted in review of the chart prior to signing ED Disposition - Plan for ED Patient: Chief Complaint: Mental Status Change Instructions: ED Altered Loc Referrals: Mine Bojorquez DO [Primary Care Provider] -
[2018-05-23 11:40] VITALS: BP 130/83; PULSE 91; RESP 23; O2SAT 96
[2018-05-23 11:43] LABS: Absolute Lymphocyte Count 1.64 X10^3/ul (0.83-4.51); Absolute Neutrophil Count 3.4 X10^3/uL (2.0-7.7); Basophil# 0.03 X10^3/uL; Basophil% 0.5 % (0-1); Eosinophil# 0.09 X10^3/uL; Eosinophils% 1.6 % (0-5); Hematocrit 39.1 % (37-47); Hemoglobin 12.4 g/dl (12.0-15.0); Lymphocyte # 1.64 X10^3/ul (4.0); Mean Corp Hgb Conc 31.7 g/gl (32-36); Mean Corpuscular Hgb 30.2 pg (27.0-32.0); Mean Corpuscular Volume 95.4 fL (81-99); Mean Platelet Vol. 10.4 fl (6.2-12.0); Monocyte# 0.32 X10^3/uL; Monocyte% 5.9 % (0-10); Neutrophil # 3.37 X10^3/uL (2.7-7.7); Neutrophil % 61.8 % (47-70); Platelet Count 204 K/mm3 (150-450); RBC Distribution Width CV 16.3 % (11.6-14.6); RBC Distribution Width SD 56.2 fl (35.1-43.9); White Blood Count 5.5 K/mm3 (4.4-11.0)
[2018-05-23 11:44] LABS: POSITIVE COUNT NO; POSITIVE DIFFERENTIAL NO; POSITIVE MORPHOLOGY NO
[2018-05-23] MEDS: 0.9% Normal Saline 1,000 ML 100 ML IV (11:44)
[2018-05-23 12:00] LABS: Anion Gap 9 (5-15); BUN 27 mg/dL (7-18); BUN/Creat Ratio 18.4 RATIO (10-20); Chloride 107 mmol/L (98-107); Creatinine, Serum 1.47 mg/dL (0.55-1.02); EST Glomerular Filtration Rate 37 mL/min (>60); Est Glom Filt Rate - Afr Amer 45 mL/min (>60); Estimated Creatinine Clearance 32.04 ml/min; Glucose 154 mg/dL (74-106); Potassium 3.6 mmol/L (3.5-5.1); Sodium Level 143 mmol/L (136-145)
[2018-05-23 12:10] LABS: International Normalized Ratio 1.1
[2018-05-23 12:11] LABS: Partial Thromboplast Time 26.9 Seconds (24.1-36.2)
[2018-05-23 12:28] LABS: Bacteria 0 SEEN /hpf (None Seen); Mucous, Urine 0 SEEN /hpf (<or=2+); Red Blood Cells-Urine 0 SEEN /hpf (0-5); Squamous Epithelial Cells - UA 0 SEEN /hpf (5-10); White Blood Cells 0 SEEN /hpf (0-5)
[2018-05-23 12:30] LABS: Bedside Glucose 127 mg/dL (70-110)
[2018-05-23 12:44] LABS: Color, Urine Yellow (Yellow); Glucose, Dipstick 1000 mg/dl (Normal); Ketone-Dipstick Negative (Negative); Leukocyte Esterase-Dipstick 100 /ul (Negative); Nitrite-Dipstick Negative (Negative); Occult Blood-Urine Negative /ul (Negative); Protein-Dipstick Negative (Negative); Urine Bilirubin Dipstick Negative (Negative); Urine Clarity Sl. Cloudy (Clear); Urine Urobilinogen Normal (Normal); Urine pH 6.5 (5.0 - 8.0)
[2018-05-23 12:59] LABS: Amphetamine Urine VISTA NEGATIVE (<1000 ng/mL); Barbiturate Urine VISTA NEGATIVE (< 200 ng/mL); Benzodiazepine Urine VISTA NEGATIVE (< 200 ng/mL); Cocaine Urine VISTA NEGATIVE (< 300 ng/mL); Ecstacy Urine VISTA NEGATIVE (< 500 ng/mL); Methadone Urine VISTA NEGATIVE (< 300 ng/mL); PCP Urine VISTA NEGATIVE (< 25 ng/mL); THC Urine VISTA NEGATIVE (< 50 ng/mL); Vista UDS pH Range 5
[2018-05-23 13:01] VITALS: BP 114/77; PULSE 90; RESP 23; O2SAT 97
--- NOTE | 2018-05-23 13:05 | CM.ED ---
Social Work Note Referral from Dr. Alexis due to mental health concerns. Face to face with the pt to complete assessment. Introduced self and role at [facility]. The pt reports that she lives alone and was released from the hospital on Sunday 05/20, and got home via ambulette. Reports that her gearcase assembler, Yuliya Echevarria, was out to visit yesterday 05/22. Aggie Sahni from her [facility] agency called her today she states. Inquire if the pt was able to get her medications that were prescribed at discharge. Pt states that they were delivered today. Inquire if these were her normal prescriptions as SW would be surprised if an antibiotic for a UTI were included in that so quickly. Pt states she is not sure. Do not believe, based on conversation, that pt was able to obtain any prescriptions at discharge. Pt confirms she has aides 3 days per week. Inquire if she needs more assistance at home. Pt states, I am 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. What is that? While describing 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 do the pt interupts and inquires how she is getting home. Explain and pt asks again. Explain again and pt asks if they are coming from [place]. Pt's thought process is disorganized. She denies hallucinations or delusions. Denies fear of anyone harming her or of concern in her home. Denies SI or HI. Due to history with [facility], recent admission for confusion, and inability to maintain conversation or thought process, and preoccupation with thought content SW did recommend that crisis be consulted for further evaluation for psychiatric hospitalization. Jackie is presently on her way to the hospital. Plan: Evaluation by crisis. Grace Liriano, MUSIC DEPARTMENT CHAIR, TYPO MACHINE OPERATOR
[2018-05-23 13:27] VITALS: BP 125/68; PULSE 91; RESP 16; O2SAT 95
[2018-05-23 13:56] LABS: Bedside Glucose 132 mg/dL (70-110)
== END 2018-05-23 15:14 | disposition home or self-care (01) ==
PROVIDERS: Emergency Provider Emergency Medicine; Family Provider Family Medicine; PCP Family Medicine
DX: R41.82 Altered mental status, unspecified (principal); F41.9 Anxiety disorder, unspecified; I10 Essential (primary) hypertension; E78.00 Pure hypercholesterolemia, unspecified; J44.9 Chronic obstructive pulmonary disease, unspecified; I25.2 Old myocardial infarction
CPT/HCPCS: 70450; 71045; 80048; 80307; 80320; 81001; 82962; 84484; 85025; 85610; 85730; 93005; 99285; J7030; A4216; G0480

== ENCOUNTER 2018-06-15 15:37 | Emergency (ER) | payer MEDICARE, SELFPAY ==
[2018-06-15 15:38] VITALS: BP 117/67; PULSE 102; RESP 18; TEMP 36.2; O2SAT 94; BMI 29.0
--- NOTE | 2018-06-15 16:12 | ED.RN ---
PT STATES SHE DOES NOT WANT TO WAIT TO BE SEEN AND SHE NEEDS A RIDE HOME. PT HAS NO ONE TO CALL FOR RIDE. SOCIAL WORK AWARE AND ASSISTING IN FINDING PT RIDE HOME.
--- NOTE | 2018-06-15 16:34 | ED.RN ---
PT INFORMED BY SOCIAL WORK THAT IT WILL BE UP TO 1.5 HOURS BEFORE CAB ARRIVES TO TAKE PT HOME. PT VERBALIZED AN UNDERSTANDING.
--- NOTE | 2018-06-15 16:37 | CM.ED ---
Social Work Note Pt presented to ED via squad for Anxiety. Now does not want to wait to be seen. States that she has a case sealer through [facility]. Nursing placed call and they are not able to assist with transportation at this time. Educate pt to the appropriate need of EMS and if she is not willing to wait to be seen it is probably not considered an emergency. Pt states that she called the nurse at her PCP's office who suggested she come to the ED. Explain that this is her third trip to the ED where she has not transportation home. Explain that we are depleting her transportation benefit with insurance and recommend she seek alternative transport options in the future as it is not the hospital's responsibility to fund transportation once she maximizes the transport benefit. Pt states she will not call EMS anymore. Reiterate that this is not what is being asked, but for the pt to identify an emergency. Placed call to [facility] insurance transportation line at . Transportation setup through the [employer] which could arrive anytime from now until 6p. Pt and scientific editor notified. No further needs at this time. Will evaluate for potential care plan. Plan: Home via [employer], funded by medical insurance. Grace Liriano, CAN CLOSING MACHINE OPERATOR, ALBA
== END 2018-06-15 16:54 ==
LOC: ED 16:58
PROVIDERS: Emergency Provider Emergency Medicine; Family Provider Family Medicine; PCP Family Medicine
DX: F41.9 Anxiety disorder, unspecified (principal)
CPT/HCPCS: 99281

== ENCOUNTER → 2018-07-10 11:11 | Outpatient (CLI) | payer MEDICARE, SELFPAY ==
--- NOTE | 2018-07-10 10:00 | SPU_PTH ---
PATIENT: RAFAL SR LOC: [facility] U#:[id number] AGE/SX: 75/F ROOM: RE07/10/[address]: Dr. Aristeo Reilly MD : [id number] BED: DIS: SPEC #: [id number] RECD: 07/10/18 13:01 STATUS: LA JUANA #: [id number] JACKIE: 07/10/18 10:[address]: Aristeo Reilly V DEPT: CYTOLOGY RECD BY: Misha Girard ENTERED: 07/10/18 13:01 SP TYPE: Sputum Cy OTHR DR: Dr. Mine Bojorquez, DO Tissues: Sputum Procedures: Pap Stain (control) Special Stain Group II Cytospin Fluid HEADER OPERATION: Not noted PRE-OP DIAGNOSIS: Hemoptysis TISSUE SUBMITTED: Sputum for cytology DIAGNOSIS CYTOLOGY Sputum for cytology (cytospin and smears): Negative for malignant cells. See cytology study and comment. SJ:jolene 07/11/18 CYTOLOGY STUDY Slides are reviewed. The specimen consists of benign squamous cells, a few respiratory epithelial cells, neutrophils, rare histiocytes, and organisms consistent with bacteria. Correlation with clinical findings and appropriate follow up are necessary. CYTOLOGY GROSS Received is 3 ml of thick cloudy mucoid fluid labeled with the patient's name and and designated per the requisition as sputum. Submitted for cytology preparation. 07/10/18 TC:5 CPT: 16569
[2018-07-10 11:41] LABS: Cytology, Body Fluid / CSF SEE PATHOLOGY REPORT
== END ==
PROVIDERS: Family Provider Family Medicine; PCP Family Medicine; Referring Provider Internal Medicine Pulmonary Disease; Visit Provider Internal Medicine Pulmonary Disease
DX: R04.2 Hemoptysis (principal)
CPT/HCPCS: 88108; 88313

== ENCOUNTER → 2018-10-22 08:49 | Outpatient (CLI) | payer MEDICARE, SELFPAY ==
[2018-10-22 08:58] LABS: Bacteria 0 SEEN /hpf (None Seen); Mucous, Urine 0 SEEN /hpf (<or=2+); Red Blood Cells-Urine 0 SEEN /hpf (0-5); Squamous Epithelial Cells - UA 0 SEEN /hpf (5-10); White Blood Cells 0 SEEN /hpf (0-5)
[2018-10-22 12:08] LABS: Color, Urine Yellow (Yellow); Glucose, Dipstick 1000 mg/dl (Normal); Ketone-Dipstick Negative (Negative); Leukocyte Esterase-Dipstick Negative /ul (Negative); Nitrite-Dipstick Negative (Negative); Occult Blood-Urine Negative /ul (Negative); Protein-Dipstick Negative (Negative); Urine Bilirubin Dipstick Negative (Negative); Urine Clarity Clear (Clear); Urine Urobilinogen Normal (Normal)
[2018-10-22 12:35] LABS: Microalbumin,Random Urine 8.4 mg/L (NO RANGE EST.); Microalbumin:Creatinine Ratio 13.8 mg/g CRE (<30 mg/g CRE)
[2018-10-22 12:54] LABS: ALB/GLOB Ratio 0.9 RATIO (0.9-2.4); AST(SGOT) 24 U/L (15-37); Alanine Aminotransfer ALT/SGPT 22 U/L (13-56); Albumin, Serum 3.3 g/dL (3.2-5.0); Alkaline Phosphatase 58 U/L (45-117); Anion Gap 6 (5-15); BUN 27 mg/dL (7-18); BUN/Creat Ratio 18.8 RATIO (10-20); Calcium,Total 8.3 mg/dL (8.5-10.1); Chloride 110 mmol/L (98-107); Cholesterol 156 mg/dL (200); Creatinine, Serum 1.44 mg/dL (0.55-1.02); EST Glomerular Filtration Rate 38 mL/min (>60); Est Glom Filt Rate - Afr Amer 46 mL/min (>60); Globulin 3.5 g/dL (2.2-4.2); Glucose 110 mg/dL (74-106); High Density Lipoprotein 52 mg/dL; Protein, Total 6.8 g/dL (6.4-8.2); Sodium Level 142 mmol/L (136-145); Triglycerides 76 mg/dL; Very Low Density Lipoprotein 15 mg/dL (5-40)
[2018-10-22 13:08] LABS: Hemoglobin A1c 6.1 % (4.2-6.3)
== END ==
PROVIDERS: Family Provider Family Medicine; PCP Family Medicine; Visit Provider Family Medicine
DX: E11.9 Type 2 diabetes mellitus without complications (principal); N28.9 Disorder of kidney and ureter, unspecified; E78.5 Hyperlipidemia, unspecified; Z51.81 Encounter for therapeutic drug level monitoring
CPT/HCPCS: 36415; 80053; 80061; 81001; 82043; 82570; 83036; 87086; 87088

== ENCOUNTER → 2018-12-11 12:47 | Outpatient (CLI) | payer MEDICARE, SELFPAY ==
--- NOTE | 2018-12-11 12:57 | RAD_ITS ---
STUDY: X-RAY CHEST REASON FOR EXAM: Female, 68 years old. TECHNIQUE: Spitting up blood last month. Cough. PA and lateral chest COMPARISON: 05/23/2018 FINDINGS: Right medial lung base atelectasis or scar. Similar features seen on prior imaging. Minimal atelectasis at the left lung base. Hyperlucency and hyperinflation with hemidiaphragm flattening suggesting underlying COPD/emphysema. Chronic smoking history. Normal cardiomediastinal silhouette, cynthia and pleural margins. No acute osseous or upper abdominal process. RAD/Chest PA and Lateral IMPRESSION: Bibasilar atelectasis/scar, stable. Suspected COPD/emphysema. Correlate smoking history. No acute cardiac pulmonary process. Electronically Signed: Misha Umana MD at 17:57 EDT Tel , Service support ,
== END ==
PROVIDERS: Family Provider Family Medicine; PCP Family Medicine; Referring Provider Internal Medicine Pulmonary Disease; Visit Provider Internal Medicine Pulmonary Disease
DX: R04.2 Hemoptysis (principal)
CPT/HCPCS: 71046

== ENCOUNTER 2019-03-13 11:08 | Emergency (ER) | payer MEDICARE, SELFPAY ==
[2019-03-13 11:09] VITALS: BP 92/55; PULSE 89; RESP 16; TEMP 36.5; O2SAT 95
--- NOTE | 2019-03-13 11:30 | RAD_ITS ---
STUDY: X-RAY - LEFT ANKLE REASON FOR EXAM: Female, 68 years old. Pain after a fall TECHNIQUE: 3 view(s) of the ankle. COMPARISON: None. FINDINGS: Normal visualized distal tibia and fibula. Normal medial and lateral malleoli. Normal tibiotalar articulation and ankle mortise. Normal visualized talus and calcaneus. The visualized subtalar, talonavicular, calcaneocuboid and tarsal articulations are normal. Diffuse lateral soft tissue swelling. RAD/Ankle min 3 Views IMPRESSION: No demonstrated fracture or significant ankle mortise arthrosis. Diffuse lateral soft tissue swelling. Electronically Signed: Madi Jennings MD at 11:48 EDT , Service support ,
--- NOTE | 2019-03-13 11:30 | RAD_ITS ---
STUDY: X-RAY - RIGHT ANKLE REASON FOR EXAM: Female, 68 years old. Pain TECHNIQUE: 3 view(s) of the ankle. COMPARISON: None. FINDINGS: Normal visualized distal tibia, old ununited distal fibular fracture.. Normal medial and lateral malleoli. Normal tibiotalar articulation and ankle mortise. Normal visualized talus and calcaneus. The visualized subtalar, talonavicular, calcaneocuboid and tarsal articulations are normal. The soft tissue structures are unremarkable. RAD/Ankle min 3 Views IMPRESSION: No acute findings, old ununited fracture at the tip of the distal fibula. Electronically Signed: Madi Jennings MD at 11:49 EDT , Service support ,
[2019-03-13] MEDS: Acetaminophen 500 MG Tablet 1000 MG PO (11:43)
--- NOTE | 2019-03-13 12:01 | ED.DCSUM_ITS ---
History of Present Illness Chief Complaint: Lower Extremity Injury Informant: Patient Onset: Today Narrative: Reports twisting both ankles while standing in the kitchen. Fell back onto her back. No head injuries. No neck or back pain. Denies history of fractures. C oncern of fracture. No medications taken. No history of gastric ulcers or kidney injury. States injured her right Ankle years ago. no other complaints. Prior similar symptoms: Yes Past Medical History - Allergies and Home Meds Allergies/Adverse Reactions: Allergies No Known Allergies Allergy (Verified 03/13/19 11:12) Primary Care Physician: Mine Bojorquez DO [Primary Care Provider] - Surgical History: - - AAA repair Smoking Status: Current every day smoker - Family History Maternal Family History: Family History (Last Reviewed 11/29/17 @ 09:43 by Olinda Manzo) Mother CAD (coronary artery disease) Brother CAD (coronary artery disease) Myocardial infarction Sister Cancer Son COPD (chronic obstructive pulmonary disease) Son COPD (chronic obstructive pulmonary disease) Daughter COPD (chronic obstructive pulmonary disease) Family History: Reports: No pertinent history Review of Systems General: Denies: Chills, Fever, Sweats Eyes: Denies: Visual changes - bilaterally, Diplopia ENT: Denies: Rhinorrhea, Sore throat Cardiovascular: Denies: Chest pain, Palpitations Respiratory: Denies: Dyspnea, Cough, Dyspnea on exertion Gastrointestinal: Denies: Abdominal pain, Nausea, Vomiting, Diarrhea, Melena, Hematochezia Genitourinary: Denies: Dysuria, Hematuria, Frequency Musculoskeletal: Reports: Arthralgias. Denies: Back pain, Extremity Pain Skin: Denies: Rash, Wounds Neurological: Denies: Headache, Weakness, Numbness Physical Exam Vital Signs/Narrative: Vital Signs Temp Pulse Resp BP Pulse Ox 03/13/19 11:09 97.7 F L 89 16 92/55 L 95 Inital Vital Signs reviewed: Yes General: Well nourished, Well developed, No Acute Distress Head: Normocephalic, Atraumatic Eyes: Perrl, EOMI ENT: Moist mucous membranes, No rhinorrhea Neck: Supple, Nontender Cardiovascular: Regular rate, Regular rhythm, No murmurs Respiratory: No distress, CTA bilaterally, Chest nontender Abdomen: Soft, Nontender, Nondistended, Normal bowel sounds Back: Nontender, Normal Inspection Extremities: - - Right lower extremity: Tender palpation lateral malleolus without swelling. No deformities. No foot tenderness. No knee tenderness. Skin intact. Neurovascular intact. Left lower externally: No knee tenderness, there is swelling lateral malleolus with tenderness. No medial mild tenderness. No foot tenderness. Skin intact. Neurovascular intact. Skin: Normal color, No rash Neurological: Alert, Oriented x3, Cranial nerves II-XII grossly intact, Normal Strength, Normal Sensation Psychological: Normal affect, Normal Mood Diagnostic/Tx/Re-eval Bilateral ankle x-ray: No fracture dislocation. Reported old avulsion fracture right distal fibula. - Medical Decision Making Patient standing bedside walking in the department requesting pain medicines. Evaluated patient she had swelling lateral malleolus with pain on both sides. She given Tylenol and ice, image studies negative for acute fracture. Latrell wrap provided to the left ankle. Rice therapy discussed with patient continuing Tylenol followed up as an outpatient. All questions were answered. ED Disposition - Plan for ED Patient: Disposition: Home or Assisted Living Diagnosis: bilateral ankle sprain Instructions: Sprain, Ankle, with X-Ray Referrals: Mine Bojorquez DO [Primary Care Provider] - 5-7 Days
--- NOTE | 2019-03-13 12:24 | CM.ED ---
Social Work Consult: Transportation Informant: REENA Cook Met with patient in room. Patient stating to have no transportation to home. Patient stating to have limited support and that there are no family members that are able to provide a ride home for patient. Patient does have [employer]. Patient also agreeable to this geriatric social worker contact [facility] Transportation company to see if there would be any openings for today. Telephone call to [facility] Transportation: Transportation set up for today at 1:30pm. This geriatric social worker notified patient as well as nursing staff. Preston DE LA PAZ, ALBA
== END 2019-03-13 12:08 | disposition home or self-care (01) ==
PROVIDERS: Emergency Provider Emergency Medicine; Family Provider Family Medicine; PCP Family Medicine
DX: S93.401A Sprain of unspecified ligament of right ankle, initial encounter (principal); S93.402A Sprain of unspecified ligament of left ankle, initial encounter; F17.200 Nicotine dependence, unspecified, uncomplicated; Z86.79 Personal history of other diseases of the circulatory system; W01.190A Fall on same level from slipping, tripping and stumbling with subsequent striking against furniture, initial encounter; Y93.89 Activity, other specified; Y92.000 Kitchen of unspecified non-institutional (private) residence as the place of occurrence of the external cause; Y99.9 Unspecified external cause status
CPT/HCPCS: 73610; 99284

== ENCOUNTER → 2019-05-13 07:56 | Outpatient (CLI) | payer MEDICARE, SELFPAY ==
[2019-05-13 12:30] LABS: Absolute Neutrophil Count 2.8 X10^3/uL (2.0-7.7); Basophil# 0.04 X10^3/uL; Basophil% 0.7 % (0-1); Eosinophil# 0.15 X10^3/uL; Eosinophils% 2.8 % (0-5); Hemoglobin 12.9 g/dL (12.0-15.0); Lymphocyte % 36.8 % (19-41); Mean Corp Hgb Conc 31.5 g/dL (32-36); Mean Corpuscular Hgb 30.2 pg (27.0-32.0); Mean Platelet Vol. 11.6 fl (6.2-12.0); Monocyte# 0.42 X10^3/uL; Monocyte% 7.7 % (0-10); NRBC Flagged by Analyzer 0 % (0-5); Neutrophil # 2.82 X10^3/uL (2.7-7.7); Neutrophil % 51.8 % (47-70); Platelet Count 180 K/mm3 (150-450); RBC Distribution Width CV 15.6 % (11.6-14.6); RBC Distribution Width SD 54.5 fl (35.1-43.9); Red Blood Count 4.27 M/mm3 (4.2-5.4); White Blood Count 5.4 K/mm3 (4.4-11.0)
[2019-05-13 12:42] LABS: AST(SGOT) 14 U/L (15-37); Alanine Aminotransfer ALT/SGPT 20 U/L (13-56); Albumin, Serum 3.2 g/dL (3.2-5.0); Alkaline Phosphatase 63 U/L (45-117); Anion Gap 5 (5-15); BUN 28 mg/dL (7-18); Calcium,Total 8.6 mg/dL (8.5-10.1); Chloride 111 mmol/L (98-107); Creatinine, Serum 1.27 mg/dL (0.55-1.02); EST Glomerular Filtration Rate 44 mL/min (>60); Est Glom Filt Rate - Afr Amer 53 mL/min (>60); Globulin 3.3 g/dL (2.2-4.2); Glucose 96 mg/dL (74-106); Potassium 4.1 mmol/L (3.5-5.1); Protein, Total 6.5 g/dL (6.4-8.2); Sodium Level 144 mmol/L (136-145)
[2019-05-13 12:45] LABS: Hemoglobin A1c 5.6 % (4.2-6.3)
[2019-05-13 13:49] LABS: Bacteria 0 SEEN /hpf (None Seen); Mucous, Urine 0 SEEN /hpf (<or=2+); Red Blood Cells-Urine 0 SEEN /hpf (0-5); White Blood Cells 0 SEEN /hpf (0-5)
[2019-05-13 14:03] LABS: Color, Urine Yellow (Yellow); Glucose, Dipstick 1000 mg/dl (Normal); Ketone-Dipstick Negative (Negative); Leukocyte Esterase-Dipstick Negative /ul (Negative); Nitrite-Dipstick Negative (Negative); Occult Blood-Urine Negative /ul (Negative); Protein-Dipstick Negative (Negative); Urine Bilirubin Dipstick Negative (Negative); Urine Clarity Clear (Clear); Urine Urobilinogen Normal (Normal); Urine pH 6.5 (5.0 - 8.0)
[2019-05-13 14:07] LABS: Squamous Epithelial Cells - UA 0-5 SEEN /hpf (5-10)
== END ==
LOC: LAB.FUTURE 08:21 → BFHLAB 08-23 08:41
PROVIDERS: Family Provider Family Medicine; PCP Family Medicine; Visit Provider Family Medicine
DX: N28.9 Disorder of kidney and ureter, unspecified (principal); E11.9 Type 2 diabetes mellitus without complications; N18.3 Chronic kidney disease, stage 3 (moderate); R30.0 Dysuria
CPT/HCPCS: 36415; 80053; 81001; 83036; 85025; 87086; 87088

== ENCOUNTER 2019-08-05 13:29 | Emergency (ER) | payer MEDICARE, SELFPAY ==
--- NOTE | 2019-08-05 13:39 | ED.RN ---
pt states she doesn't want to wait to be seen.
[2019-08-05 13:48] VITALS: TEMP 36.6; BMI 29.9
== END 2019-08-05 13:39 | disposition left against medical advice (07) ==
LOC: ED 13:44
PROVIDERS: Emergency Provider Emergency Medicine; Family Provider Family Medicine; PCP Family Medicine
DX: R69 Illness, unspecified (principal)

== ENCOUNTER → 2020-01-27 08:30 | Outpatient (CLI) | payer MEDICARE, SELFPAY ==
[2020-01-27 08:35] LABS: Bacteria 0 SEEN /hpf (None Seen); Mucous, Urine 0 SEEN /hpf (<or=2+); Red Blood Cells-Urine 0 SEEN /hpf (0-5)
[2020-01-27 12:24] LABS: Color, Urine Yellow (Yellow); Glucose, Dipstick Normal (Normal); Ketone-Dipstick Negative (Negative); Leukocyte Esterase-Dipstick 25 /ul (Negative); Nitrite-Dipstick Negative (Negative); Occult Blood-Urine Negative /ul (Negative); Protein-Dipstick Negative (Negative); Urine Bilirubin Dipstick Negative (Negative); Urine Clarity Sl. Cloudy (Clear); Urine Urobilinogen Normal (Normal)
[2020-01-27 12:29] LABS: Absolute Lymphocyte Count 1.67 X10^3/uL (0.83-4.51); Absolute Neutrophil Count 3.7 X10^3/uL (2.0-7.7); Basophil# 0.02 X10^3/uL; Basophil% 0.3 % (0-1); Eosinophil# 0.17 X10^3/uL; Eosinophils% 2.8 % (0-5); Hemoglobin 13.5 g/dL (12.0-15.0); Lymphocyte # 1.67 X10^3/ul (4.0); Lymphocyte % 27.7 % (19-41); Mean Corp Hgb Conc 31.4 g/dL (32-36); Mean Corpuscular Hgb 30.5 pg (27.0-32.0); Mean Corpuscular Volume 97.1 fL (81-99); Mean Platelet Vol. 11.8 fl (6.2-12.0); Monocyte# 0.43 X10^3/uL; Monocyte% 7.1 % (0-10); NRBC Flagged by Analyzer 0 % (0-5); Neutrophil # 3.72 X10^3/uL (2.7-7.7); Neutrophil % 61.9 % (47-70); Platelet Count 191 K/mm3 (150-450); RBC Distribution Width CV 16.3 % (11.6-14.6); RBC Distribution Width SD 57.8 fl (35.1-43.9); Red Blood Count 4.43 M/mm3 (4.2-5.4)
[2020-01-27 12:32] LABS: Squamous Epithelial Cells - UA 0-5 SEEN /hpf (5-10); White Blood Cells 0-5 SEEN /hpf (0-5)
[2020-01-27 12:37] LABS: Hemoglobin A1c 5.5 % (3.8-5.6)
[2020-01-27 12:43] LABS: ALB/GLOB Ratio 0.9 RATIO (0.9-2.4); AST(SGOT) 15 U/L (15-37); Alanine Aminotransfer ALT/SGPT 23 U/L (13-56); Albumin, Serum 3.1 g/dL (3.2-5.0); Alkaline Phosphatase 65 U/L (45-117); Anion Gap 7 (5-15); BUN 13 mg/dL (7-18); BUN/Creat Ratio 12.1 RATIO (10-20); Calcium,Total 8.5 mg/dL (8.5-10.1); Chloride 113 mmol/L (98-107); Creatinine, Serum 1.07 mg/dL (0.55-1.02); EST Glomerular Filtration Rate 54 mL/min (>60); Est Glom Filt Rate - Afr Amer 65 mL/min (>60); Ferritin 16 ng/mL (8-252); Free T3 2.5 pg/mL (2.18-3.98); Globulin 3.5 g/dL (2.2-4.2); Glucose 87 mg/dL (74-106); Iron 69 ug/dL (50-170); Potassium 3.7 mmol/L (3.5-5.1); Protein, Total 6.6 g/dL (6.4-8.2); Sodium Level 146 mmol/L (136-145); T4 Free Direct 1.13 ng/dL (0.76-1.46); Thyroid Stim Hormone (TSH) 2.08 uIU/mL (0.358-3.74)
[2020-01-27 12:45] LABS: Vitamin B12 696 pg/mL (211-911)
== END ==
PROVIDERS: Family Provider Family Medicine; PCP Family Medicine; Visit Provider Family Medicine
DX: N28.9 Disorder of kidney and ureter, unspecified (principal); E11.22 Type 2 diabetes mellitus with diabetic chronic kidney disease; N18.3 Chronic kidney disease, stage 3 (moderate); R53.83 Other fatigue; D64.9 Anemia, unspecified; R30.0 Dysuria
CPT/HCPCS: 36415; 80053; 81001; 82607; 82728; 83036; 83540; 84439; 84443; 84481; 85025; 87086; 87088

== ENCOUNTER → 2020-03-13 | Outpatient (CLI) | payer MEDICARE, MEDICAID, SELFPAY ==
[2020-03-13 11:05] LABS: Color, Urine Straw (Yellow); Glucose, Dipstick Normal (Normal); Ketone-Dipstick Negative (Negative); Leukocyte Esterase-Dipstick 100 /ul (Negative); Nitrite-Dipstick Negative (Negative); Occult Blood-Urine Negative /ul (Negative); Protein-Dipstick Negative (Negative); Urine Bilirubin Dipstick Negative (Negative); Urine Clarity Clear (Clear); Urine Urobilinogen Normal (Normal)
[2020-03-13 11:11] LABS: Absolute Lymphocyte Count 1.86 X10^3/uL (0.83-4.51); Absolute Neutrophil Count 3.3 X10^3/uL (2.0-7.7); Basophil# 0.03 X10^3/uL; Basophil% 0.5 % (0-1); Eosinophil# 0.18 X10^3/uL; Eosinophils% 3.1 % (0-5); Hematocrit 43.9 % (37-47); Lymphocyte # 1.86 X10^3/ul (4.0); Lymphocyte % 31.6 % (19-41); Mean Corp Hgb Conc 31.9 g/dL (32-36); Mean Corpuscular Hgb 31.3 pg (27.0-32.0); Mean Platelet Vol. 11.5 fl (6.2-12.0); Monocyte# 0.47 X10^3/uL; NRBC Flagged by Analyzer 0 % (0-5); Neutrophil # 3.34 X10^3/uL (2.7-7.7); Neutrophil % 56.6 % (47-70); Platelet Count 183 K/mm3 (150-450); RBC Distribution Width CV 14.9 % (11.6-14.6); RBC Distribution Width SD 53.8 fl (35.1-43.9); Red Blood Count 4.48 M/mm3 (4.2-5.4); White Blood Count 5.9 K/mm3 (4.4-11.0)
[2020-03-13 11:18] LABS: ALB/GLOB Ratio 1.1 RATIO (0.9-2.4); AST(SGOT) 16 U/L (15-37); Alanine Aminotransfer ALT/SGPT 19 U/L (13-56); Albumin, Serum 3.4 g/dL (3.2-5.0); Alkaline Phosphatase 61 U/L (45-117); Anion Gap 1 (5-15); BUN 19 mg/dL (7-18); BUN/Creat Ratio 16.2 RATIO (10-20); Calcium,Total 8.8 mg/dL (8.5-10.1); Chloride 113 mmol/L (98-107); Creatinine, Serum 1.17 mg/dL (0.55-1.02); EST Glomerular Filtration Rate 48 mL/min (>60); Est Glom Filt Rate - Afr Amer 59 mL/min (>60); Globulin 3.2 g/dL (2.2-4.2); Glucose 115 mg/dL (74-106); Potassium 4.1 mmol/L (3.5-5.1); Protein, Total 6.6 g/dL (6.4-8.2); Sodium Level 143 mmol/L (136-145)
== END | disposition home or self-care (01) ==
PROVIDERS: PCP Family Medicine; Visit Provider Family Medicine
DX: N28.9 Disorder of kidney and ureter, unspecified (principal); R30.0 Dysuria
CPT/HCPCS: 36415; 80053; 81002; 85025; 87086; 87088

== ENCOUNTER 2020-06-10 16:29 | Emergency (ER) | payer MEDICARE, MEDICAID, SELFPAY ==
[2020-06-10] VITALS (7 sets, daily range): BP systolic 147–152; BP diastolic 80–114; PULSE 73–83; RESP 16–17; TEMP 37.1; O2SAT 93; BMI 31.1
--- NOTE | 2020-06-10 18:09 | ED.VIS.GEN ---
History of Present Illness Chief Complaint: Mental Health Narrative: Patient was brought to the emergency department for 2 reasons. #1 her blood sugar has been varying throughout the day, and it is now in the 80s. However the main concern for the home health aide was because patient is somewhat agitated. She is usually agitated 3 weeks after her intramuscular antipsychotic, and it lasts a week. This is what happens most months. Patient denies any suicidal homicidal ideations, she did get mad at her at her son today. Her home health aide brought her in. Past Medical History - Allergies and Home Meds Allergies/Adverse Reactions: Allergies No Known Allergies Allergy (Verified 06/10/20 16:38) Primary Care Physician: Mine Bojorquez DO [Primary Care Provider] - Past Medical History: - - Hypertension, hypercholesterolemia, diabetes, bipolar disorder with 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 disorder Surgical History: - - AAA repair Smoking Status: Current every day smoker - Family History Maternal Family History: Family History (Last Reviewed 11/29/17 @ 09:43 by Olinda Manzo) Mother CAD (coronary artery disease) Brother CAD (coronary artery disease) Myocardial infarction Sister Cancer Son COPD (chronic obstructive pulmonary disease) Son COPD (chronic obstructive pulmonary disease) Daughter COPD (chronic obstructive pulmonary disease) Family History: Reports: No pertinent history Review of Systems All systems negative except as indicated General: Denies: Fever ENT: Denies: Sore throat Cardiovascular: Denies: Chest pain Respiratory: Denies: Dyspnea, Cough Gastrointestinal: Denies: Abdominal pain, Nausea, Vomiting Musculoskeletal: Denies: Myalgias, Arthralgias Skin: Denies: Rash Neurological: Denies: Headache, Weakness Psych: Reports: - - Behavioral changes without any suicidal or homicidal ideation. She is lucid and coherent and calm and collected at this time. Endocrine: Denies: Polyuria, Polydipsia Hematologic: Denies: Easy bruising Physical Exam Vital Signs/Narrative: Vital Signs Temp Pulse Resp BP Pulse Ox 06/10/20 17:43 17 06/10/20 16:32 98.7 F 73 16 152/114 H 93 General: Well nourished, Well developed, Acute Distress Eyes: Perrl ENT: Moist mucous membranes Neck: Supple Cardiovascular: Regular rate, Regular rhythm Respiratory: No distress, CTA bilaterally, Chest tenderness Abdomen: Soft Back: Nontender, Normal Inspection. Negative for: CVA tenderness Extremities: Nontender Skin: Normal color Neurological: Alert, Normal Strength, Normal Sensation Psychological: - - She is calm, she is lucid and coherent and she appears well. Diagnostic/Tx/Re-eval - Medical Decision Making Patient has a normal work-up. She has behavioral issues. I talked to crisis, they are comfortable with discharge as a my she has no suicidal or homicidal ideations I will discharge in stable condition. ED Disposition - Plan for ED Patient: Disposition: Home or Assisted Living Diagnosis: Diabetes, Behavioral disorder Instructions: ED Schizo Affective Disorder, ED DIET Diabetic Referrals: Mine Bojorquez DO [Primary Care Provider] - 2 Days
[2020-06-10 18:20] LABS: Absolute Lymphocyte Count 1.39 X10^3/uL (0.83-4.51); Basophil# 0.03 X10^3/uL; Basophil% 0.5 % (0-1); Eosinophil# 0.15 X10^3/uL; Eosinophils% 2.5 % (0-5); Hematocrit 38.4 % (37-47); Hemoglobin 12.4 g/dL (12.0-15.0); Lymphocyte # 1.39 X10^3/ul (4.0); Lymphocyte % 23.5 % (19-41); Mean Corp Hgb Conc 32.3 g/dL (32-36); Mean Corpuscular Hgb 31.8 pg (27.0-32.0); Mean Corpuscular Volume 98.5 fL (81-99); Mean Platelet Vol. 11.7 fl (6.2-12.0); Monocyte# 0.37 X10^3/uL; Monocyte% 6.3 % (0-10); NRBC Flagged by Analyzer 0 % (0-5); Neutrophil # 3.95 X10^3/uL (2.7-7.7); Neutrophil % 66.7 % (47-70); Platelet Count 196 K/mm3 (150-450); RBC Distribution Width CV 14.6 % (11.6-14.6); RBC Distribution Width SD 53.2 fl (35.1-43.9); White Blood Count 5.9 K/mm3 (4.4-11.0)
[2020-06-10 18:28] LABS: Anion Gap 4 (5-15); BUN 21 mg/dL (7-18); BUN/Creat Ratio 17.8 RATIO (10-20); Calcium,Total 8.6 mg/dL (8.5-10.1); Chloride 113 mmol/L (98-107); Creatinine, Serum 1.18 mg/dL (0.55-1.02); EST Glomerular Filtration Rate 48 mL/min (>60); Est Glom Filt Rate - Afr Amer 58 mL/min (>60); Estimated Creatinine Clearance 41.91 ml/min; Glucose 68 mg/dL (74-106); Potassium 3.7 mmol/L (3.5-5.1); Sodium Level 146 mmol/L (136-145)
[2020-06-10 18:30] LABS: Amphetamine Urine VISTA NEGATIVE (<1000 ng/mL); Barbiturate Urine VISTA NEGATIVE (< 200 ng/mL); Benzodiazepine Urine VISTA NEGATIVE (< 200 ng/mL); Cocaine Urine VISTA NEGATIVE (< 300 ng/mL); Ecstacy Urine VISTA NEGATIVE (< 500 ng/mL); Methadone Urine VISTA NEGATIVE (< 300 ng/mL); PCP Urine VISTA NEGATIVE (< 25 ng/mL); THC Urine VISTA NEGATIVE (< 50 ng/mL); Vista UDS pH Range 6
--- NOTE | 2020-06-10 19:59 | ED.RN ---
REPORT FAXED TO [facility] FROM [facility]
== END 2020-06-10 21:37 | disposition home or self-care (01) ==
PROVIDERS: Emergency Provider Emergency Medicine; PCP Family Medicine
DX: E11.9 Type 2 diabetes mellitus without complications (principal); F25.9 Schizoaffective disorder, unspecified; E78.00 Pure hypercholesterolemia, unspecified; I10 Essential (primary) hypertension; F17.200 Nicotine dependence, unspecified, uncomplicated; Z79.899 Other long term (current) drug therapy
CPT/HCPCS: 80048; 80307; 80320; 85025; 99284; G0480

== ENCOUNTER → 2020-08-10 08:34 | Outpatient (CLI) | payer MEDICARE, MEDICAID, SELFPAY ==
[2020-06-10 16:32] VITALS: BMI 31.1
--- NOTE | 2020-08-10 08:36 | AAVD_ITS ---
Reason For Study: AAA Aorta Measurements Aorta Doppler Measurements Proximal aorta measures1.70 x 1.70cm. in cross- Peak systolic flow velocities within the proximal sectional axis. aorta measure 73.2 cm/sec. Proximal aorta measures1.77cm. in longitudinal Limb 1, mid, 84.2 cm/sec. axis. Limb 2, mid, 52.3 cm/sec. Mid residual sac 4.00 x 4.00 x 4.01 cm. Limb 1, distal, 130.8 cm/sec. Limb 1, mid, 1.31 x 1.31 x 1.30 cm. Limb 2, distal, 50.1 cm/sec. Limb 2, mid, 1.48 x 1.48 x 1.41 cm. Distal residual sac, 3.09 x 3.09 x 3.03 cm. Limb 1, distal,1.17 x 1.17 x 1.21 cm. Limb 2, distal, 1.23 x 1.23 x 1.43 cm. Left Iliac Artery Left iliac artery measures 1.43 x 1.49 cm. in the cross-sectional axis. Left iliac artery measures 1.45 cm. in the longitudinal axis. Peak systolic velocity in the left iliac artery measures 202.4 cm/sec. Right Iliac Artery Right iliac artery measures 1.32 x 1.31 cm. in the cross-sectional axis. Right iliac artery measures 1.52 cm. in the longitudinal axis. Peak systolic velocity in the right iliac artery measures 185.6 cm/sec. Procedure Aorta IVC Iliac vasculature or bypass grafts 45004. Exam performed in department. Interpretation Summary Proximal abdominal aorta 1.7 x 1.7 cm in diameter Mid abdominal aorta aneurysm sac 4 x 4 cm Patent stent graft limbs bilaterally Right iliac 1.32 x 1.31 cm with slightly increased velocity of 185 cm/s flow Left iliac 1.43 x 1.49 cm with slightly increased velocity at 202 cm/s peak systolic flow No obvious intrasac endoleak flow identified No previous evaluations available for comparison Ordering Physician: Grace Suh Referring Physician: Mine Bojorquez Performed By: Kimmy Lopez RVT
== END ==
PROVIDERS: PCP Family Medicine; Referring Provider Nurse Practitioner Primary Care; Visit Provider Nurse Practitioner Primary Care
DX: I71.4 Abdominal aortic aneurysm, without rupture (principal); Z98.890 Other specified postprocedural states
CPT/HCPCS: 93978

== ENCOUNTER → 2021-02-19 09:31 | Outpatient (CLI) | payer MEDICARE, MEDICAID, SELFPAY ==
[2020-06-10 16:32] VITALS: BMI 31.1
[2021-02-19 12:13] LABS: ALB/GLOB Ratio 0.9 RATIO (0.9-2.4); AST(SGOT) 15 U/L (15-37); Alanine Aminotransfer ALT/SGPT 15 U/L (13-56); Albumin, Serum 3.2 g/dL (3.2-5.0); Alkaline Phosphatase 68 U/L (45-117); Anion Gap 0 (5-15); BUN 14 mg/dL (7-18); BUN/Creat Ratio 13.2 RATIO (10-20); Calcium,Total 8.7 mg/dL (8.5-10.1); Chloride 111 mmol/L (98-107); Creatinine, Serum 1.06 mg/dL (0.55-1.02); EST Glomerular Filtration Rate 54 mL/min (>60); Est Glom Filt Rate - Afr Amer 65 mL/min (>60); Globulin 3.4 g/dL (2.2-4.2); Glucose 79 mg/dL (74-106); Potassium 3.9 mmol/L (3.5-5.1); Protein, Total 6.6 g/dL (6.4-8.2); Sodium Level 144 mmol/L (136-145)
[2021-02-19 12:24] LABS: Color, Urine Yellow (Yellow); Glucose, Dipstick Normal (Normal); Ketone-Dipstick Negative (Negative); Leukocyte Esterase-Dipstick Negative /ul (Negative); Nitrite-Dipstick Negative (Negative); Occult Blood-Urine Negative /ul (Negative); Protein-Dipstick Negative (Negative); Urine Bilirubin Dipstick Negative (Negative); Urine Clarity Clear (Clear); Urine Urobilinogen Normal (Normal)
== END ==
PROVIDERS: PCP Family Medicine; Visit Provider Family Medicine
DX: N18.31 Chronic kidney disease, stage 3a (principal); R30.0 Dysuria; Z51.81 Encounter for therapeutic drug level monitoring
CPT/HCPCS: 36415; 80053; 81002; 87086; 87088

== ENCOUNTER → 2021-06-03 12:06 | Outpatient (CLI) | payer MEDICARE, MEDICAID, SELFPAY ==
[2021-06-03 12:24] LABS: Color, Urine Yellow (Yellow); Glucose, Dipstick Normal (Normal); Ketone-Dipstick Negative (Negative); Leukocyte Esterase-Dipstick Negative /ul (Negative); Nitrite-Dipstick Negative (Negative); Occult Blood-Urine Negative /ul (Negative); Protein-Dipstick Negative (Negative); Urine Bilirubin Dipstick Negative (Negative); Urine Clarity Sl. Cloudy (Clear); Urine Urobilinogen Normal (Normal)
== END ==
PROVIDERS: PCP Family Medicine; Visit Provider Family Medicine
DX: R30.0 Dysuria (principal)
CPT/HCPCS: 81002; 87086; 87088

== ENCOUNTER → 2021-07-26 09:33 | Outpatient (CLI) | payer MEDICARE, MEDICAID, SELFPAY ==
--- NOTE | 2021-07-26 09:34 | BI_ITS ---
MAMMOGRAPHY - BILATERAL DIAGNOSTIC REASON FOR EXAM: Female, 71 years old. Left breast lump. Patient has a bruise at the palpable site. PERTINENT HISTORY: Daughter with breast cancer. Sister with breast cancer. TECHNIQUE: Digital bilateral breast chadwick (3D mammographic acquisition) in the CC and MLO projections. 2-D mediolateral oblique (MLO) and craniocaudad (CC) views of both breasts were obtained. CAD: Full Field Digital Mammography with Computer Added Detection was performed. COMPARISON: Comparison is made with prior examination 03/22/2018 and 03/24/2017. FINDINGS: Breast Composition: There are scattered areas of fibroglandular density. There are no dominant masses or suspicious calcifications. Stable small benign-appearing bilateral axillary lymph nodes. No other significant abnormalities are identified. There has been no significant change since the prior study. BI/DIAG MAMM W/CAD, BILAT IMPRESSION: Stable bilateral diagnostic mammogram. With the patient''s age of a palpable lump in the anterior perihilar region of the left breast, correlation with ultrasound is recommended. ASSESSMENT CATEGORY: BIRADS Category 0: Incomplete. Need additional imaging evaluation. A letter regarding these results will be sent to the patient by the facility within 30 days. Approximately 10% of breast cancers are not detected by mammography. A normal mammogram should not delay biopsy of a clinically suspicious abnormality. Electronically Signed: Smith Chau MD at 11:13 EST , Service support ,
--- NOTE | 2021-07-26 09:34 | US_ITS ---
STUDY: ULTRASOUND BREAST - LEFT REASON FOR EXAM: Female, 71 years old. Palpable lump left breast. TECHNIQUE: Axial and longitudinal images of the LEFT breast were performed with a high resolution ultrasound transducer. # OF IMAGES: 13 COMPARISON: Comparison is made with prior mammogram done earlier in the day. FINDINGS: LEFT Breast: The upper half of the breast was examined by ultrasound. There is evidence of a large area of bruising. There is a 1.9 cm x 1.4 cm x 0.6 cm nodular density of the heterogeneous echotexture at the 12 o''clock position of the breast at 3 cm from the nipple. This may represent a hematoma. A four-month follow-up sonogram is recommended. US/Breast Limited Unilateral IMPRESSION: The palpable abnormality is in an area of bruising. There is evidence of a 1.9 cm x 1.4 cm x 0.6 cm heterogeneous echotexture at the palpable site suggestive of a hematoma. 4 month follow-up is recommended. ASSESSMENT CATEGORY: BIRADS Category 3: Probably Benign - Short-Interval Follow-up Suggested. A letter regarding these results will be sent to the patient by the facility within 30 days. Electronically Signed: Smith Chau MD at 11:21 EST , Service support ,
== END ==
PROVIDERS: PCP Family Medicine; Referring Provider Family Medicine; Visit Provider Family Medicine
DX: N63.20 Unspecified lump in the left breast, unspecified quadrant (principal); R92.2 Inconclusive mammogram
CPT/HCPCS: 76642; 77062; 77066; G0279

== ENCOUNTER 2021-10-08 17:53 | Emergency (ER) | payer MEDICARE, MEDICAID, SELFPAY ==
[2021-10-08 17:54] VITALS: BP 185/125; PULSE 85; RESP 30; TEMP 36.4; O2SAT 82; BMI 30.6
[2021-10-08 17:58] VITALS: O2SAT 90
--- NOTE | 2021-10-08 19:02 | RAD_ITS ---
STUDY: XR Hand Min 3 Views REASON FOR EXAM: Female, 71 years old. PAIN pain and bruising to left hand TECHNIQUE: XR Hand Min 3 Views COMPARISON: None. FINDINGS: Normal radiocarpal articulation. Normal distal radioulnar joint. Normal visualized carpal bones. Normal carpal articulations Normal carpometacarpal articulation of the thumb. Normal second through fifth carpometacarpal joints. Normal metacarpi. Normal metacarpophalangeal joint of the thumb. Normal interphalangeal joint of the thumb. Normal proximal and distal phalanges of the thumb. Normal metacarpophalangeal joints of the second through fifth fingers. Normal proximal and distal interphalangeal joints of the second through fifth fingers. Normal phalanges of the second through fifth fingers. The soft tissue structures are unremarkable. RAD/Hand Min 3 Views IMPRESSION: There are no acute findings. Electronically Signed: Doyle Su MD at 19:54 EST ,
--- NOTE | 2021-10-08 19:02 | RAD_ITS ---
STUDY: XR Hand Min 3 Views REASON FOR EXAM: Female, 71 years old. PAIN pain and bruising to right hand TECHNIQUE: XR Hand Min 3 Views COMPARISON: None. FINDINGS: Normal radiocarpal articulation. Normal distal radioulnar joint. Normal visualized carpal bones. Normal carpal articulations Normal carpometacarpal articulation of the thumb. Normal second through fifth carpometacarpal joints. Normal metacarpi. Normal metacarpophalangeal joint of the thumb. Normal interphalangeal joint of the thumb. Normal proximal and distal phalanges of the thumb. Normal metacarpophalangeal joints of the second through fifth fingers. Normal proximal and distal interphalangeal joints of the second through fifth fingers. Normal phalanges of the second through fifth fingers. The soft tissue structures are unremarkable. RAD/Hand Min 3 Views IMPRESSION: There are no acute findings. Electronically Signed: Doyle Su MD at 19:54 EST ,
--- NOTE | 2021-10-08 19:02 | RAD_ITS ---
STUDY: X-RAY CHEST REASON FOR EXAM: Female, 71 years old. CHEST PAIN pt states cough, frequent falls, covid positive today Trauma TECHNIQUE: XR Chest 1 View COMPARISON: 12.11.18 FINDINGS: There is no demonstrated pleural abnormality. Normal size heart. Normal mediastinum and cynthia. Normal visualized pulmonary arteries. There is atherosclerotic calcification of the aortic arch with tortuosity. There are diffuse degenerative changes of the visualized thoracic spine. There is degenerative osteoarthritis of the bilateral shoulders. There is no demonstrated abnormality of the visualized soft tissue structures of the upper abdomen. RAD/Chest 1 View (Portable) IMPRESSION: There are no acute findings. Electronically Signed: Doyle Su MD at 19:54 EST ,
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
[2021-10-08 19:08] VITALS: BP 160/99; PULSE 75; RESP 16; O2SAT 95
[2021-10-08] MEDS: HYDROcodone Bitartrate/Apap 5/325 Tablet PO (19:09)
[2021-10-08 21:11] VITALS: BP 130/80; PULSE 68; RESP 12
== END 2021-10-08 21:12 | disposition home or self-care (01) ==
PROVIDERS: Emergency Provider Emergency Medicine; PCP Family Medicine; Visit Provider Emergency Medicine
DX: S20.211A Contusion of right front wall of thorax, initial encounter (principal); E11.51 Type 2 diabetes mellitus with diabetic peripheral angiopathy without gangrene; J44.9 Chronic obstructive pulmonary disease, unspecified; I27.20 Pulmonary hypertension, unspecified; I71.4 Abdominal aortic aneurysm, without rupture; S60.221A Contusion of right hand, initial encounter; S60.222A Contusion of left hand, initial encounter; I25.10 Atherosclerotic heart disease of native coronary artery without angina pectoris; E78.00 Pure hypercholesterolemia, unspecified; I10 Essential (primary) hypertension; I25.2 Old myocardial infarction; E66.9 Obesity, unspecified; Z95.1 Presence of aortocoronary bypass graft; F17.210 Nicotine dependence, cigarettes, uncomplicated; Z79.82 Long term (current) use of aspirin; Z79.899 Other long term (current) drug therapy; V89.2XXA Person injured in unspecified motor-vehicle accident, traffic, initial encounter; W22.10XA Striking against or struck by unspecified automobile airbag, initial encounter; Y93.9 Activity, unspecified; Y92.9 Unspecified place or not applicable; Z68.30 Body mass index [BMI] 30.0-30.9, adult
CPT/HCPCS: 71045; 73130; 99284; A4216

== ENCOUNTER 2021-11-15 14:27 | Outpatient (CLI) | payer MEDICARE, MEDICAID, SELFPAY ==
--- NOTE | 2021-11-15 14:27 | US_ITS ---
STUDY: ULTRASOUND BREAST - LEFT REASON FOR EXAM: Female, 71 years old. Left breast mass. TECHNIQUE: Axial and longitudinal images of the LEFT breast were performed with a high resolution ultrasound transducer. # OF IMAGES: 13 COMPARISON: Comparison is made with prior sonogram dated 07/26/2021. FINDINGS: LEFT Breast: The upper outer quadrant of the left breast was examined by ultrasound. The previously seen nodular density laterally just echotexture at 12 o''clock position of the breast has cleared. This most likely represents resolution of a hematoma. US/Breast Limited Unilateral IMPRESSION: No abnormality is seen. ASSESSMENT CATEGORY: BIRADS Category 1: Negative. A letter regarding these results will be sent to the patient by the facility within 30 days. Electronically Signed: Smith Chau MD at 15:40 EDT ,
== END 2021-11-15 23:59 | disposition home or self-care (01) ==
PROVIDERS: PCP Family Medicine; Visit Provider Family Medicine
DX: R92.8 Other abnormal and inconclusive findings on diagnostic imaging of breast (principal)
CPT/HCPCS: 76642

== ENCOUNTER 2022-04-11 18:53 | Emergency (ER) | payer MEDICARE, MEDICAID, SELFPAY ==
[2022-04-11 18:54] VITALS: BP 124/67; PULSE 96; RESP 16; TEMP 37.2; O2SAT 96; BMI 22.3
[2022-04-11 19:26] VITALS: PULSE 53; O2SAT 100
[2022-04-11 19:27] VITALS: O2SAT 100
--- NOTE | 2022-04-11 19:47 | EKG12_ITS ---
Test Reason : DYSRHYTHMIA Blood Pressure : / mmHG Vent. Rate : 067 BPM Atrial Rate : 067 BPM P-R Int : 142 ms QRS Dur : 082 ms QT Int : 408 ms P-R-T Axes : 073 022 024 degrees QTc Int : 431 ms Normal sinus rhythm Premature ventricular complexes Confirmed by JOSIANE HOOK, RAÚL ([id number]), manager editorial [employer]U[facility] DAILY ([id number]) on 04/13/2022 8:59:27 AM Referred By: JOSELIN Confirmed By:RAÚL JOSHUA MD
--- NOTE | 2022-04-11 19:48 | EDS_ITS ---
HPI History of Present Illness Chief Complaint: Shortness of Breath Informant: patient Narrative Narrative: Patient called the squad because she is short of breath. She states for the last month she has been having more episodes of shortness of breath. When she feels short of breath she feels like she is having a stroke. She states she slurs her words a little bit and she just feels weak but no focal weakness. No visual complaints. She is not having those feelings now. In fact, on 4 L here she feels fine. It sounds like she has inhalers but does not have a nebulizer. She is on 4 L of oxygen. She states she fired her aide about 2 weeks ago because she was not doing her job. Her aide came 5 to 7 days a week for about 5 hours and helped with general household duties cooking and cleaning. But patient states she does not want to go live anywhere else. She wants to go home. She was concerned about how long this evaluation would take. It sounds like she wanted to go right away. But I explained that she has significant illness we should evaluate her since she is here. She did agree to stay at this time. But she again was saying that she did not want to take too long. She denies having chest pain. She does cough but is not having sputum production. [facility] Medical History AAA (abdominal aortic aneurysm) Abdominal aortic aneurysm, ruptured (~05/25/12) Acute and chronic respiratory failure Altered mental status Altered mental status Anemia Atherosclerosis of [place] coronary artery of [place] heart without angina pectoris Chronic respiratory failure COPD COPD (chronic obstructive pulmonary disease) Cor pulmonale Cor pulmonale, chronic Diabetes mellitus type II Essential (primary) hypertension Fever History of psychosis Hypoglycemia NSTEMI (non-ST elevated myocardial infarction) Obesity Old myocardial infarction 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 PAD (peripheral artery disease) Presence of stent in coronary artery (~01/08/15) Pulmonary hypertension Pure hypercholesterolemia Rhabdomyolysis Tobacco use disorder Type 2 diabetes mellitus Home Medications aspirin 81 mg tablet,delayed release 81 mg PO DAILY Heart Health 09/26/16 [History Last Taken 05/17/18] metoprolol succinate 50 mg tablet,extended release 24 hr 50 mg PO DAILY Heart/BP 09/26/16 [History Last Taken 05/17/18] buspirone 10 mg tablet 10 mg PO TID anxiety 01/30/18 [History Last Taken 05/17/18] multivitamin (Daily Multiple tablet) 1 tab PO DAILY vitamin 01/30/18 [History Last Taken 05/17/18] omega-3 fatty acids-fish oil 340 mg-1,000 mg capsule (Fish Oil) 1 cap PO DAILY vitamin 01/30/18 [History Last Taken 05/17/18 ]] paliperidone palmitate 234 mg/1.5 mL intramuscular syringe (Invega Sustenna) 234 mg IM Q30D schizo 01/30/18 [History Last Taken 01/05/18] risperidone 3 mg tablet (Risperdal) 3 mg PO BID psych 01/30/18 [History Last Taken 05/17/18] albuterol sulfate 90 mcg/actuation aerosol inhaler (Ventolin HFA) 2 puff inhalation 4X/DAY PRN PRN Sob &/Or Wheezing 05/18/18 [History Last Taken Unknown] potassium chloride 10 mEq tablet,extended release(part/cryst) 10 meq PO DAILY supplement #90 tabs 02/28/20 [Rx Last Taken Unknown] Incruse Ellipta Inhaler 62.5 mcg inhalation DAILY 10/21/20 [History Last Taken Unknown] Isosorbide Mononitrate 30 mg PO DAILY 10/21/20 [History Last Taken Unknown] fenofibrate micronized 200 mg capsule 200 mg PO DAILY #90 caps 05/24/21 [Rx Last Taken Unknown] pantoprazole 40 mg tablet,delayed release See Rx Instructions .Route .COMPLEX #28 tabs 05/24/21 [Rx Last Taken Unknown] atorvastatin 80 mg tablet See Rx Instructions .Route .COMPLEX #28 tabs 06/17/21 [Rx Last Taken Unknown] clopidogrel 75 mg tablet 75 mg PO DAILY ANTIPLATELET #90 tabs 07/20/21 [Rx Last Taken Unknown] guaifenesin 600 mg tablet, extended release 12 hr (Mucinex) 600 mg PO BID 10/08/21 [History Last Taken Unknown] prednisone 20 mg tablet 60 mg PO DAILY #15 tabs 04/11/22 [Rx Last Taken Unknown] Allergy/AdvReac Type Severity Reaction Status Date / Time haloperidol [From Haldol] AdvReac Other Verified 04/11/22 18:57 Family History Mother CAD (coronary artery disease) Brother CAD (coronary artery disease) Myocardial infarction Sister Cancer lung cancer Son COPD (chronic obstructive pulmonary disease) Son COPD (chronic obstructive pulmonary disease) Daughter COPD (chronic obstructive pulmonary disease) Surgical History H/O percutaneous transluminal coronary angioplasty History of abdominal aortic aneurysm repair (~05/25/12) History of tubal ligation Presence of coronary angioplasty implant and graft (~01/08/15) S/P AAA repair Social History Smoking Status: Current every day smoker tobacco type: cigarettes alcohol intake: never substance use type: does not use caffeine: Yes Type: tea what type of physical activity do you participate in: walking frequency: daily duration: < 15 minutes/day seatbelt use: always do you feel safe at home: Yes ROS ROS ED Constitutional Constitutional ED: Denies chills, fever(s) or sweats Eyes Eyes: Denies blurry vision ENT ENT ED: Denies rhinorrhea or sore throat Cardiovascular Cardiovascular: Denies chest pain, palpitations or racing heartbeat Respiratory/Chest Respiratory/Chest: Reports cough, dyspnea, dyspnea on exertion and other Details: See history of present illness Gastrointestinal Gastrointestinal: Denies abdominal pain, nausea or vomiting Genitourinary Genitourinary ED: Denies dysuria Musculoskeletal Musculoskeletal: Denies arthralgias or myalgias Neurologic Neurologic: Reports other Details: See history of present illness peer ; Denies headache(s), paresthesias or weakness Psychiatric Psychiatric: Reports anxiety Endocrine Endocrinology: Denies polydipsia or polyuria Hematologic/Lymphatic Hematologic/Lymphatic: Denies easy bleeding or easy bruising Allergic/Immunologic Allergic/Immunologic ED: Denies urticaria EXAM Physical Exam Const Vital Signs: 04/11/22 18:54 04/11/22 19:26 04/11/22 19:27 Temperature 98.9 F Temperature Source Temporal Pulse Rate 96 53 L Respiratory Rate 16 Respiratory Effort Non-Labored Short of Breath Respiratory Depth Normal Respiratory Pattern Normal Blood Pressure 124/67 H Blood Pressure Mean 86 Pulse Ox 96 100 Oxygen Delivery Method Room Air Nasal Cannula Nasal Cannula Oxygen Flow Rate (L/min) 4 4 04/11/22 20:00 04/11/22 20:00 04/11/22 20:54 Temperature Temperature Source Pulse Rate 80 77 Respiratory Rate 20 H 24 H 16 Respiratory Effort Non-Labored Short of Breath Respiratory Depth Shallow Respiratory Pattern Normal Tachypnea Blood Pressure 161/89 H Blood Pressure Mean 113 Pulse Ox 100 95 Oxygen Delivery Method Nasal Cannula Room Air Oxygen Flow Rate (L/min) 4 Positive well nourished and well developed General Appearance ED: well developed and NAD HEENT Reports moist mucous membranes Negative for trauma or tenderness Eyes EOMs intact bilaterally Eyes Narrative: Pupils are about 2 and half millimeters bilaterally and reactive. Neck no meningeal signs Resp Resp Narrative: Respiratory effort actually looks normal. She does have some expiratory wheezing. But her saturations are 100% on her 4 L. No pain with a deep breath. Auscultation: wheezes Cardio regular rate, regular rhythm and no murmurs GI non-tender and non-distended Neuro oriented x3 Neuro Narrative: At first I thought the patient was confused. But then I found she just did not want to answer questions. She really did not want to be here. She is actually ANO x3 and a reasonable informant for her past history. Sensorium / Orientation: alert, oriented to person, oriented to place and oriented to time Psych mental status grossly normal Skin Skin Narrative: There is some dirt on her feet. There was a report of stool either in her home or on her. This certainly could be stool. But she has not covered illness. No notable rashes. Rashes: no rashes MDM MDM MDM Narrative Medical decision making narrative: Patient's labs show mild anemia. No elevated white count. Electrolytes show no marked abnormalities. She is well-hydrated. Sodium is minimally up. Glucose is also minimally up. Chest x-ray shows some chronic appearing interstitial changes. CT of the head shows no acute process. Patient sats remained good here. She states she has all her inhalers at home. I will write for a short course of steroids. She wants to go home. We have started adoption social worker consult here to assist the patient may be getting further help in the house and she fired her aide recently. We discussed returning with more trouble breathing, trouble obtaining food or resources. She states she can do fine at home. Lab Data Attestation: I reviewed the patient's lab results. Labs: Laboratory Results - last 24 hr 04/11/22 04/11/22 19:55 19:55 WBC 6.2 RBC 3.51 L Hgb 10.7 L Hct 34.2 L MCV 97.4 MCH 30.5 MCHC 31.3 L RDW Std Deviation 60.1 H RDW Coeff of Parviz 16.9 H Plt Count 187 MPV 12.1 H Immature Gran % (Auto) 0.500 Neut % (Auto) 62.6 Lymph % (Auto) 25.9 Carroll % (Auto) 8.4 Eos % (Auto) 2.1 Baso % (Auto) 0.5 Absolute Neuts (auto) 3.9 Absolute Lymphs (auto) 1.60 Nucleated RBC % 0 Sodium 147 H Potassium 3.8 Chloride 112 H Carbon Dioxide 33.0 H Anion Gap 2 L BUN 19 H Creatinine 0.88 Estim Creat Clear Calc 50.47 Est GFR (MDRD) Af Amer 80 Est GFR (MDRD) Non-Af 67 BUN/Creatinine Ratio 21.5 H Glucose 146 H Calcium 8.6 Radiography Diagnostic Testing: Clinical Impression(s) from Imaging Studies Chest X-Ray 04/11/22 20:06 IMPRESSION: Mild bibasilar interstitial thickening likely chronic. No acute cardiopulmonary pathology Electronically Signed: Brennen Mederos MD at 20:31 EDT , Brain CT 04/11/22 20:40 IMPRESSION: Mild atrophy and periventricular white matter ischemic change. No acute bleed. If concern for acute infarct MRI recommended. Electronically Signed: Brennen Mederos MD at 20:56 EDT , Discharge Plan Triage Chief Complaint: Shortness of Breath ED Provider: Fahad Troncoso Dx/Rx/DC Orders Clinical Impression: Asthma exacerbation in COPD Instructions: ED COPD Flare Prescriptions: New prednisone 20 mg tablet 60 mg PO DAILY Qty: 15 0RF No Action metoprolol succinate 50 MG tablet extended release 24 hr 50 mg PO DAILY aspirin 81 MG tablet,delayed release (DR/EC) 81 mg PO DAILY Incruse Ellipta Inhaler 62.5 mcg INHALATION DAILY Isosorbide Mononitrate 30 MG 30 mg PO DAILY multivitamin [Daily Multiple] 1 EACH tablet 1 tab PO DAILY risperidone [Risperdal] 3 MG tablet 3 mg PO BID buspirone 10 MG tablet 10 mg PO TID Fish Oil 1 EACH capsule 1 cap PO DAILY Invega Sustenna 234 MG/1.5 ML syringe 234 mg IM Q30D albuterol sulfate [Ventolin HFA] 108 HFA aerosol inhaler 2 puff inhalation 4X/DAY PRN PRN (Reason: Sob &/Or Wheezing) guaifenesin [Mucinex] 600 mg tablet extended release 12hr 600 mg PO BID potassium chloride 10 mEq tablet,ER particles/crystals 10 meq PO DAILY Qty: 90 3RF pantoprazole 40 mg tablet,delayed release (DR/EC) See Rx Instructions .ROUTE .COMPLEX Qty: 28 11RF Dose Instruction: TAKE 1 TABLET BY MOUTH DAILY Rx Instructions: TAKE 1 TABLET BY MOUTH DAILY fenofibrate micronized 200 mg capsule 200 mg PO DAILY Qty: 90 3RF Rx Instructions: TAKE 1 CAPSULE BY MOUTH DAILY atorvastatin 80 mg tablet See Rx Instructions .ROUTE .COMPLEX Qty: 28 11RF Dose Instruction: TAKE 1 TABLET BY MOUTH AT BEDTIME Rx Instructions: TAKE 1 TABLET BY MOUTH AT BEDTIME clopidogrel 75 mg tablet 75 mg PO DAILY Qty: 90 3RF Primary Care Provider: Mine Bojorquez Referrals: Mine Bojorquez DO [Primary Care Provider] - 3-5 Days if not improving Disposition Disposition: Home, Self Care
[2022-04-11 20:00] VITALS: PULSE 80; RESP 20; RESP 24; O2SAT 100
[2022-04-11] MEDS: Ipratropium/Albuterol Sulfate 3 ML AMPUL.NEB INHALATION (20:00)
[2022-04-11] MEDS: Albuterol 2.5 MG/3 ML VIAL.NEB. INHALATION (20:00)
[2022-04-11 20:01] LABS: Absolute Neutrophil Count 3.9 X10^3/uL (2.0-7.7); Basophil# 0.03 X10^3/uL; Basophil% 0.5 % (0-1); Eosinophil# 0.13 X10^3/uL; Eosinophils% 2.1 % (0-5); Hematocrit 34.2 % (37-47); Hemoglobin 10.7 g/dL (12.0-15.0); Lymphocyte % 25.9 % (19-41); Mean Corp Hgb Conc 31.3 g/dL (32-36); Mean Corpuscular Hgb 30.5 pg (27.0-32.0); Mean Corpuscular Volume 97.4 fL (81-99); Mean Platelet Vol. 12.1 fl (6.2-12.0); Monocyte# 0.52 X10^3/uL; Monocyte% 8.4 % (0-10); NRBC Flagged by Analyzer 0 % (0-5); Neutrophil # 3.87 X10^3/uL (2.7-7.7); Neutrophil % 62.6 % (47-70); Platelet Count 187 K/mm3 (150-450); RBC Distribution Width CV 16.9 % (11.6-14.6); RBC Distribution Width SD 60.1 fl (35.1-43.9); Red Blood Count 3.51 M/mm3 (4.2-5.4); White Blood Count 6.2 K/mm3 (4.4-11.0)
[2022-04-11] MEDS: MethylPREDNISolone 125 MG/2 ML Vial IV (20:01)
--- NOTE | 2022-04-11 20:06 | RAD_ITS ---
STUDY: X-RAY CHEST REASON FOR EXAM: Female, 72 years old. SOB TECHNIQUE: AP portable COMPARISON: 10/08/2021 FINDINGS: Mild bibasilar and superficial thickening likely chronic.. There is no demonstrated pleural abnormality. Normal size heart. Normal mediastinum and cynthia. Normal visualized pulmonary arteries. Mildly calcified aortic arch and descending thoracic aorta. Normal visualized thoracic spine. Normal visualized ribs, clavicles, and shoulders. There is no demonstrated abnormality of the visualized soft tissue structures of the upper abdomen. RAD/Chest 1 View (Portable) IMPRESSION: Mild bibasilar interstitial thickening likely chronic. No acute cardiopulmonary pathology Electronically Signed: Brennen Mederos MD at 20:31 EDT ,
--- NOTE | 2022-04-11 20:17 | CPS ---
x1 Albuterol given to pt. in ER as well
[2022-04-11 20:27] LABS: Anion Gap 2 (5-15); BUN 19 mg/dL (7-18); BUN/Creat Ratio 21.5 RATIO (10-20); Calcium,Total 8.6 mg/dL (8.5-10.1); Chloride 112 mmol/L (98-107); Creatinine, Serum 0.88 mg/dL (0.55-1.02); EST Glomerular Filtration Rate 67 mL/min (>60); Est Glom Filt Rate - Afr Amer 80 mL/min (>60); Estimated Creatinine Clearance 50.47 ml/min; Glucose 146 mg/dL (74-106); Potassium 3.8 mmol/L (3.5-5.1); Sodium Level 147 mmol/L (136-145)
--- NOTE | 2022-04-11 20:40 | CT_ITS ---
STUDY: CT BRAIN WITHOUT CONTRAST REASON FOR EXAM: Female, 72 years old. speech abnormality RADIATION DOSAGE (If Supplied By Facility): CTDIvol = ( 44.99 ) mGy, DLP = ( 832.67 ) mGycm TECHNIQUE: Transaxial CT imaging of the brain was performed without administration of intravenous contrast material. Individualized dose optimization techniques were used for this CT. COMPARISON: 05/23/2018. FINDINGS: Normal soft tissue structures. Normal calvarium. Calcific plaquing of cavernous carotids Mild atrophy and periventricular white matter ischemic changes. Bilateral basal ganglia calcification most likely of no clinical significance Normal brainstem. Normal cerebellum. Empty sella deformity of uncertain significance There is no intracranial hemorrhage. There are no findings of an acute ischemic infarction. Normal visualized paranasal sinuses. No significant change since prior study CT/Brain/Head without Contrast IMPRESSION: Mild atrophy and periventricular white matter ischemic change. No acute bleed. If concern for acute infarct MRI recommended. Electronically Signed: Brennen Mederos MD at 20:56 EDT ,
[2022-04-11 20:54] VITALS: BP 161/89; PULSE 77; RESP 16; O2SAT 95
--- NOTE | 2022-04-11 21:02 | CM.ED ---
Addendum entered by Arelis Sanchez 04/11/22 22:05: JAYA called [facility] and it went to voice mail. SW was unable to leave message for Margarita as SW did not know her extension or last name. SW spoke to patient. Patient stated she is bathing and able to care for herself and cooking for herself. However, per documentation of MD patient had dirty feet upon admission. JAYA advised that ambullette will take her home Arelis ARIAS Addendum entered by Arelis Sanchez 04/11/22 21:20: SW Note SW called and left voice mail for Sheldon at [facility]. Advised that patient was asked about meals and patient said that she eats food. Patient also took off her oxygen nasal cannula to eat food. SW also advised that the chart noted that patient's feet were dirty and there was reference to possibility of it being stool. SW noted that the RN said that patient was soiling herself. JAYA advised patient reports she has a casemanager through [facility] named Margarita. RN advised patient does not have her home oxygen and is at 4L at home and dropped to 83% without oxygen. Thus, patient needs ambullette transport at discharge. Mary, residential door unit installer will call for transport. AJYA called [facility] and spoke to [facility] and cancelled the ride home via [employer] as patient needs oxygen on the transport home. Plan: Ambullette to be called. Patient needs oxygen for ride home and does not have her oxygen at the ED Arelis Laura ARIAS Original Note: JAYA Note REENA Henriquez advised that patient wants to speak to psychologist social. RN said that patient has been soiling herself. JAYA met with patient and she said that she needed taxi home. JAYA advised that this administrative underwriter needs to call patient's insurance for ride home. Patient said that she fired her aide in the home as she was stealing from me. While talking to patient she took her oxygen off and was eating a sandwich and drinking a diet coke. Patient appeared to be eating the sandwich very fast and it appeared that patient may be hungary. SW asked patient about if she has meals on wheels or how she gets her meals and patient said food. JAYA asked patient if she is showering or bathing herself and she said yes and that she was doing fine at home. Per REENA Henriquez patient voiced she wanted to go home. Patient said that she has a casemanager from [facility], Margarita. Patient said I have vouchers at home. SW indicated that was not going to work as patient does not have voucher with her this administrative underwriter needs to call her insurance company. SW called patient's insurance, [employer] which is [employer]. SW spoke to [facility] and she stated she will attempt to reach out to [employer] to secure a ride between the current time and 10-11pm. Confirmation number is [id number]
[2022-04-11 22:03] VITALS: BP 185/44; PULSE 63; RESP 26; O2SAT 97
== END 2022-04-12 01:37 | disposition home or self-care (01) ==
PROVIDERS: Emergency Provider Emergency Medicine; PCP Family Medicine; Visit Provider Emergency Medicine
DX: J44.1 Chronic obstructive pulmonary disease with (acute) exacerbation (principal); E11.9 Type 2 diabetes mellitus without complications; I25.10 Atherosclerotic heart disease of native coronary artery without angina pectoris; I10 Essential (primary) hypertension; E78.00 Pure hypercholesterolemia, unspecified; F17.210 Nicotine dependence, cigarettes, uncomplicated; Z99.81 Dependence on supplemental oxygen; Z79.82 Long term (current) use of aspirin; Z79.52 Long term (current) use of systemic steroids; Z79.899 Other long term (current) drug therapy
CPT/HCPCS: 70450; 71045; 80048; 85025; 93005; 96374; 99251; 99285; G0463

== ENCOUNTER 2022-05-20 19:28 | Inpatient (IN) | payer MEDICARE, MEDICAID, SELFPAY ==
[2022-05-20] VITALS (7 sets, daily range): BP systolic 150–235; BP diastolic 59–198; PULSE 84–112; RESP 16–36; TEMP 36.5; O2SAT 95–100; BMI 26.7
--- NOTE | 2022-05-20 19:52 | ED.RN ---
1948: PT GIBSON COLOR, PULSE OX APPLIED 56%. RT AND MD CALLED TO BEDSIDE. NON REBREATHERER APPLIED. PT WEIGHT 72.7K IV ACCESS- BILAT AC 20G WITH 1 L RUNNING WIDE OPEN 1952; 20 ETOMADITE IVP, 50 JOHAN IVP 23CM AT LIP WITH BILAT BREATH SOUNDS & COLOR CHANGE VS: 112HR 100% 20R MANUALLY BAGGING PT UNTIL 2004
[2022-05-20] MEDS: Rocuronium Bromide 50 MG/5 ML Vial IV (19:53)
[2022-05-20] MEDS: Etomidate 20 MG/10 ML Vial IV (19:53)
--- NOTE | 2022-05-20 20:07 | CT_ITS ---
INDICATION: alt loc EXAMINATION: CT BRAIN - CT Head or Brain W/O Contrast Injection TECHNIQUE: Multiple axial images were obtained of the head without intravenous contrast. A radiation dose optimization technique was used for this scan. IV Contrast dosage and agent: None. COMPARISON: 04/11/[address] FINDINGS: BRAIN PARENCHYMA: No intra- or extra-axial hemorrhage. No intracranial mass or mass effect. Rosa/white matter differentiation is maintained and there is no blurring of the basal ganglia. There is no hyperdense vessel. There is significant bilateral basal ganglia calcifications, unchanged. Moderate calcifications pineal gland no more than 8 mm in maximum diameter. Empty sella appearance. Moderate cavernous carotid artery intimal calcifications. Posterior fossa structures are unremarkable. CSF SPACES: Appropriate for age. No hydrocephalus. Basal cisterns are patent. CALVARIUM, SKULL BASE, PARANASAL SINUSES AND MASTOID AIR CELLS: Intact calvarium and skull base. Moderate opacification ethmoid air cells. Paranasal sinuses are otherwise clear. Mastoid air cells are clear. No discrete lytic or blastic abnormalities. ORBITS: Both globes, extraocular muscles, optic nerves and retrobulbar fat appear unremarkable. ASPECTS Score for Acute Strokes: 10 CT/Brain/Head without Contrast IMPRESSION: No acute intracranial pathology. Basal ganglia calcifications, typically a benign finding. Ethmoid air cell, paranasal sinus disease. Electronically Signed: Tian Parham DO at 22:32 EDT ,
--- NOTE | 2022-05-20 20:08 | EKG12_ITS ---
Test Reason : DYSRHYTHMIA Blood Pressure : / mmHG Vent. Rate : 107 BPM Atrial Rate : 107 BPM P-R Int : 122 ms QRS Dur : 078 ms QT Int : 330 ms P-R-T Axes : 086 060 055 degrees QTc Int : 440 ms Sinus tachycardia with occasional Premature ventricular complexes Otherwise normal ECG Confirmed by DALIA HOOK, CLYDE ([id number]), newspaper editor managing NUZHAT DAILY ([id number]) on 05/23/2022 10:22:22 AM Referred By: Confirmed By:CLYDE GÓMEZ MD
[2022-05-20] MEDS: Propofol 10MG/Ml 1,000 MG/100 ML Bottle 4.4 MG CONT INF (20:24)
[2022-05-20 20:26] LABS: Absolute Lymphocyte Count 0.72 X10^3/uL (0.83-4.51); Absolute Neutrophil Count 6.2 X10^3/uL (2.0-7.7); Basophil# 0.02 X10^3/uL; Basophil% 0.3 % (0-1); Eosinophil# 0.07 X10^3/uL; Eosinophils% 0.9 % (0-5); Hematocrit 28.6 % (37-47); Hemoglobin 8.5 g/dL (12.0-15.0); Lymphocyte # 0.72 X10^3/ul (0.83-4.51); Lymphocyte % 9.5 % (19-41); Mean Corp Hgb Conc 29.7 g/dL (32-36); Mean Corpuscular Hgb 29.7 pg (27.0-32.0); Monocyte# 0.53 X10^3/uL; NRBC Flagged by Analyzer 0 % (0-5); Neutrophil # 6.16 X10^3/uL (2.7-7.7); Neutrophil % 81.8 % (47-70); Platelet Count 192 K/mm3 (150-450); RBC Distribution Width CV 15.8 % (11.6-14.6); RBC Distribution Width SD 57.9 fl (35.1-43.9); Red Blood Count 2.86 M/mm3 (4.2-5.4); White Blood Count 7.5 K/mm3 (4.4-11.0)
--- NOTE | 2022-05-20 20:34 | CT_ITS ---
STUDY: CTA CHEST REASON FOR EXAM: Female, 72 years old. pulmonary embolism RADIATION DOSAGE (If Supplied By Facility): CTDIvol = ( 15.08 ) mGy, DLP = ( 634.69 ) mGycm TECHNIQUE: The examination was performed with the intravenous administration of IV 100mL Isovue-370. Post-processing of the angiographic images was performed, with multiplanar reformation and 3D reconstruction. Individualized dose optimization techniques were used for this CT. COMPARISON: CT abdomen and pelvis obtained in conjunction with this exam. Also compared with chest x-ray 05/20/2022. FINDINGS: Suboptimal but adequate density of contrast in the pulmonary arteries and no significant motion; diagnostic exam. No pulmonary artery filling defect to suggest pulmonary embolism. There is no evidence of right heart strain. Heart is mildly enlarged. No pericardial fluid. Coronary artery intimal calcifications. Normal three-vessel arch with extensive coronary artery intimal calcifications. No aneurysmal dilation. Moderate calcifications common carotid arteries and carotid bulbs. There is a endotracheal tube and enteric tube well-positioned. Moderate emphysematous changes, especially in the upper lobes. There is moderate peribronchial thickening, especially in the lung bases. Tiny left and small right pleural effusions with moderate overlying atelectasis. There is also at least moderate right middle. 5 mm, noncalcified nodule right upper lobe, image 183, series 5. 4 mm, noncalcified nodule, right upper lobe, image 198 of series 5. 6 mm, noncalcified nodule right upper lobe, axial image 215 of series 5.. 4. mm, noncalcified nodule, right upper lobe, axial image 168 of series 5. 4 mm noncalcified pulmonary nodule, image 46 of series 5. 8mm, noncalcified, pleural-based nodule superior segment left lower lobe, axial image 159 of series 5. 4 mm noncalcified nodule superior segment left lower lobe, axial image 91 of series 5. Several other pulmonary nodules less than 4 mm size. 12 mm right thyroid lobe nodule, appears exophytic. Correlation with ultrasound is recommended. Extrathoracic soft tissues of the chest and visualized neck are within normal limits. Slight buckle deformity right lateral third rib may represent complete or old fracture. Correlate for right lateral rib pain. Age expected degenerative changes present spine endplates. CT/CTA Chest W/WO Contrast IMPRESSION: No pulmonary embolism. Tiny left and small right pleural effusions with at least moderate atelectasis. Numerous, solid, noncalcified pulmonary nodules between 4 and 8 mm. Majority are between 4 and 6 mm. Follow-up CT chest in 3-6 months is recommended. Moderate emphysematous disease. Moderate bronchiectasis lung bases. Patient is intubated without evidence of complication. Mild cardiomegaly. Extensive coronary artery calcifications. 12 mm right thyroid, exophytic nodule. Correlation with thyroid ultrasound is recommended. Questionable right third lateral rib remote or incomplete fracture. Electronically Signed: Tian Parham DO at 23:25 EDT ,
--- NOTE | 2022-05-20 20:34 | CT_ITS ---
INDICATION: abdominal pain EXAMINATION: CT ABDOMEN AND PELVIS WITH CONTRAST - CT Abdomen And Pelvis W/ Contrast Injection TECHNIQUE: Helically acquired images were obtained of the abdomen and pelvis following IV contrast. A radiation dose optimization technique was used for this scan. IV Contrast dosage and agent: 100 mL of ISOVUE-370 Oral contrast: None. COMPARISON: CT angiography of the chest from the same evening. Also compared with a CT abdomen and pelvis from 02/28/2018. FINDINGS: LOWER CHEST: Small, right greater than left, pleural effusions and moderate overlying atelectasis. Base of the heart does appear mildly increased in size. No pericardial effusion. No hiatal hernia. LIVER: Homogeneous. No focal mass. GALLBLADDER AND BILIARY TREE: At least one, 2 cm gallbladder stone. No gallbladder distension or wall edema. There are however subtle hazy margins of the gallbladder. This may be due to mild motion. Pericholecystic fluid is suspected. Correlation with ultrasound would be helpful. No intra- or extrahepatic biliary ductal dilation. PANCREAS: No focal cystic or solid mass. SPLEEN: Normal size spleen. Several hypodensities. These are also visible on comparison CT from 2018. ADRENAL GLANDS: No nodules. KIDNEYS, URETERS and BLADDER: Normal renal size and position. 3 right and one left exophytic hypodensity of the kidneys likely representing cysts however suboptimal exam motion. There is moderate bilateral perinephric stranding which appears similar to prior comparison exam.. Bladder is unremarkable. LOWE catheter in place.. Suboptimal assessment of the lower abdomen due to artifact associated with monitoring device hardware overlying the hips and hands at patient''s sides. PERITONEUM: Small amount of stranding fluid density compatible renal fossa region right lower quadrant abdomen region There is a small amount of fluid in the dependent pelvis. No other fluid collection. BOWEL: There is a enteric tube with the tip in the distal stomach body. Very limited assessment right colon due to motion. No abnormally distended bowel loops or air fluid levels. No wall thickening or mass. No focal inflammatory changes. There are diverticuli seen in the sigmoid colon. LYMPH NODES: No enlarged mesenteric or retroperitoneal lymph nodes. VESSELS: 4.4 cm infrarenal abdominal aortic aneurysm status post aortic/biiliac stent graft. Roughly 25% stenosis left external iliac artery. No significant femoral artery stenosis though intimal calcifications noted. Asymmetric significantly decreased opacification of the left visualized femoral and iliac vein compared to the right could be indicative of deep venous thrombosis. REPRODUCTIVE ORGANS: Uterus is present. Ovaries not visualized. ABDOMINAL WALL: No discrete abdominal or pelvic wall hernia. BONES: Partial sacralization of L5 on the right. Pars defects at L4 bilaterally with grade 2 anterolisthesis of L4 on L5 and severe degenerative disc and endplate changes at this level. Associated facet arthropathy. Mild degenerative changes bilateral hips. No fracture or focal osseous lesion. CT/Abdomen/Pelvis W IV Cont ONLY IMPRESSION: Overall limited exam motion and artifact associated with monitoring hardware and patient size and hand septations sides. Cholelithiasis with somewhat ill-defined gallbladder wall margins and small amount abnormal hazy density gallbladder fossa region and small amount of fluid in the hepatorenal fossa. Findings may represent cholecystitis. Correlation with ultrasound is recommended. There is also small amount of free fluid in the pelvis. Asymmetric limited enhancement of the left femoral and iliac veins may be indicative of left-sided deep venous thrombosis. Correlate clinically and consider ultrasound. Stable, 4.4 cm infrarenal abdominal aortic aneurysm status post aortobiiliac stents. Small bilateral pleural effusions and moderate overlying atelectasis. Splenic hypodensities likely representing cysts, are present on prior exam from 2018. Diverticulosis without diverticulitis. Assessment is limited. L4 pars defects with grade 2 anterolisthesis of L4 on L5 and advanced degenerative disc and endplate changes and facet arthropathy at this level. Electronically Signed: Tian Parham DO at 23:06 EDT ,
[2022-05-20 20:35] LABS: Allen Test Positive; Base Excess 7 mmol/L (-2 to +2); Bicarbonate 33.5 mmol/L (22-26); Blood Gas Specimen Type ART; FI02 60; Mode AC; O2 Delivery Device ET Tube; PEEP 5; PO2 257 mmHG (75-100); RR 16; SITE L Radial; SO2 100 % (95-99); Total Carbon Dioxide 36 mmol/L; Vt 450; pH 7.31 (7.35-7.45)
[2022-05-20 20:36] LABS: International Normalized Ratio 1.1; Partial Thromboplast Time 28.5 Seconds (24.1-36.2); Prothrombin Time (Protime)PT. 14.1 SECONDS (11.7-14.9)
[2022-05-20] MEDS: 0.9% Normal Saline 1,000 ML 150 ML IV (20:36)
[2022-05-20] MEDS: Propofol 10MG/Ml 1,000 MG/100 ML Bottle 6.5 MG CONT INF (20:40)
--- NOTE | 2022-05-20 20:46 | RAD_ITS ---
INDICATION: intubation EXAMINATION/TECHNIQUE: X-RAY - XR Chest 1 View COMPARISON: Chest x-ray from 04/11/2022. FINDINGS: LINES/DEVICES: Endotracheal tube or 0.4 cm from the rose. Enteric tube follows the expected course of the esophagus with the proximal side port and tip below the field of view. LUNGS: Symmetric normal lung volumes. No significant airspace disease suggest consolidation. There is likely mild atelectasis left, greater than right lung bases. No pleural effusion, nodule or pneumothorax. MEDIASTINUM AND CARDIOVASCULAR STRUCTURES: Normal size and contour of the cardiomediastinal silhouette. No evidence of pulmonary vascular congestion. Aortic arch intimal calcifications. No definite pulmonary hypertension. BONES AND SOFT TISSUES: No fracture or focal osseous lesion. RAD/Chest 1 View (Portable) IMPRESSION: 1. Well-positioned endotracheal tube and enteric tube. 2. No pneumothorax or other evidence of acute cardiopulmonary disease. Minimal basilar atelectasis. 3. Electronically Signed: Tian Parham DO at 21:05 EDT ,
[2022-05-20] MEDS: Propofol 10MG/Ml 1,000 MG/100 ML Bottle 13.1 MG CONT INF (20:55)
[2022-05-20 20:58] LABS: AST(SGOT) 58 U/L (15-37); Alanine Aminotransfer ALT/SGPT 41 U/L (13-56); Albumin, Serum 2.5 g/dL (3.2-5.0); Alkaline Phosphatase 73 U/L (45-117); Anion Gap 5 (5-15); BUN 33 mg/dL (7-18); BUN/Creat Ratio 28.4 RATIO (10-20); Bilirubin, Direct 0.09 mg/dL (0.00-0.30); Calcium,Total 8.7 mg/dL (8.5-10.1); Chloride 106 mmol/L (98-107); Creatinine, Serum 1.16 mg/dL (0.55-1.02); EST Glomerular Filtration Rate 49 mL/min (>60); Est Glom Filt Rate - Afr Amer 59 mL/min (>60); Estimated Creatinine Clearance 38.29 ml/min; Globulin 3.4 g/dL (2.2-4.2); Glucose 122 mg/dL (74-106); Lipase 284 U/L (73-393); Potassium 4.3 mmol/L (3.5-5.1); Protein, Total 5.9 g/dL (6.4-8.2); Sodium Level 144 mmol/L (136-145); Troponin-I HS 82 pg/mL (3.0-54.0)
[2022-05-20 20:59] LABS: Mucous, Urine 0 SEEN /hpf (<or=2+); Red Blood Cells-Urine 0 SEEN /hpf (0-5); Squamous Epithelial Cells - UA 0 SEEN /hpf (5-10)
[2022-05-20] MEDS: Propofol 10MG/Ml 1,000 MG/100 ML Bottle 15.3 MG CONT INF (21:06)
[2022-05-20 21:15] LABS: Lactic Acid 2.8 mmol/L (0.4-1.9)
[2022-05-20 21:44] LABS: CPK Total, Creatine Kinase 70 U/L (26-192); Triglycerides 66 mg/dL
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
--- NOTE | 2022-05-20 22:27 | CPS ---
Pt. extubated in ER & placed on 50% Venturi Mask
--- NOTE | 2022-05-20 23:00 | ED.RN ---
pt extubated at 2150 vs: 136/65 89hr 20R 74%RA. 50% Venti mask applied, O2 saturation 100% 24R - PT tolerating well
[2022-05-20 23:10] LABS: Amphetamine Urine VISTA NEGATIVE (<1000 ng/mL); Barbiturate Urine VISTA NEGATIVE (< 200 ng/mL); Benzodiazepine Urine VISTA NEGATIVE (< 200 ng/mL); Cocaine Urine VISTA NEGATIVE (< 300 ng/mL); Ecstacy Urine VISTA NEGATIVE (< 500 ng/mL); Methadone Urine VISTA NEGATIVE (< 300 ng/mL); PCP Urine VISTA NEGATIVE (< 25 ng/mL); THC Urine VISTA NEGATIVE (< 50 ng/mL); Vista UDS pH Range 5
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
[2022-05-20 23:17] LABS: Color, Urine Yellow (Yellow); Glucose, Dipstick Normal (Normal); Ketone-Dipstick 5 mg/dl (Negative); Leukocyte Esterase-Dipstick Negative /ul (Negative); Nitrite-Dipstick Negative (Negative); Occult Blood-Urine 25 /ul (Negative); Protein-Dipstick 100 mg/dl (Negative); Specific Gravity, Urine 1.025 (1.002-1.030); Urine Bilirubin Dipstick Negative (Negative); Urine Clarity Clear (Clear); Urine Urobilinogen Normal (Normal)
[2022-05-20 23:34] LABS: Bacteria 1+ /hpf (None Seen); White Blood Cells 0-5 SEEN /hpf (0-5)
[2022-05-21] VITALS (26 sets, daily range): BP systolic 137–164; BP diastolic 64–75; PULSE 61–100; RESP 12–32; TEMP 36.2–36.9; O2SAT 93–100; BMI 26.2
[2022-05-21 00:21] LABS: Reflex Lactate? Y
--- NOTE | 2022-05-21 00:58 | NURSING ---
94.42ml fentanyl wasted by Kimmy Zavala and witnessed by this nurse. Dipsosed in rx disposal bin.
[2022-05-21 01:12] LABS: Lactic Acid 0.8 mmol/L (0.4-1.9)
--- NOTE | 2022-05-21 02:10 | EKG12_ITS ---
Test Reason : RHYTHM CHANGE Blood Pressure : / mmHG Vent. Rate : 089 BPM Atrial Rate : 089 BPM P-R Int : 146 ms QRS Dur : 144 ms QT Int : 388 ms P-R-T Axes : 080 063 112 degrees QTc Int : 472 ms Normal sinus rhythm Left bundle branch block Abnormal ECG When compared with ECG of 11-APR-2022 19:56, Premature ventricular complexes are no longer Present Left bundle branch block is now Present Confirmed by DALIA HOOK, CLYDE ([id number]), staff editor NUZHAT DAILY ([id number]) on 05/24/2022 12:45:27 PM Referred By: Confirmed By:CLYDE GÓMEZ MD
[2022-05-21 02:46] LABS: Troponin-I HS 151 pg/mL (3.0-54.0)
--- NOTE | 2022-05-21 03:01 | US_ITS ---
EXAM: US SOFT TISSUES HEAD AND NECK, THYROID CLINICAL INDICATION: Right exophytic thyroid lesion TECHNIQUE: Greyscale and color doppler imaging was performed of the thyroid gland. This report was created using [employer] report generation technology. COMPARISON: None. FINDINGS: LEFT THYROID LOBE: Left thyroid lobe measures 3.8 x 1.2 x 1.6 cm. Multiple nodular echotexture. Dominant 6 mm nodule. This nodule is mixed cystic and solid, hyperechoic or isoechoic, [id number], smoothly marginated and contains no echogenic foci. TI-RADS points: 2. TI-RADS category: TR2. This nodule is not suspicious and no FNA or follow-up is necessary. RIGHT THYROID LOBE: Right thyroid lobe measures 4.1 x 1.4 x 2.0 cm. Multinodular echotexture with dominant 9 mm lesion. This nodule is solid or almost completely solid, hyperechoic or isoechoic, [id number], smoothly marginated and contains no echogenic foci. TI-RADS points: 3. TI-RADS category: TR3. This nodule is mildly suspicious but no FNA or follow-up is necessary given the small size of this nodule. ISTHMUS: Normal. No thyroid nodules are present. US/Thyroid IMPRESSION: Multinodular appearance of the thyroid gland. No significant lesion identified. Electronically Signed: Aba Boyer MD at 16:58 EDT ,
[2022-05-21 04:27] LABS: Troponin-I HS 123 pg/mL (3.0-54.0)
[2022-05-21 07:50] LABS: Absolute Lymphocyte Count 1.38 X10^3/uL (0.83-4.51); Absolute Neutrophil Count 4.4 X10^3/uL (2.0-7.7); Basophil# 0.02 X10^3/uL; Basophil% 0.3 % (0-1); Eosinophil# 0.14 X10^3/uL; Eosinophils% 2.2 % (0-5); Hematocrit 26.6 % (37-47); Lymphocyte # 1.38 X10^3/ul (0.83-4.51); Lymphocyte % 21.5 % (19-41); Mean Corp Hgb Conc 30.1 g/dL (32-36); Mean Corpuscular Volume 99.6 fL (81-99); Mean Platelet Vol. 10.4 fl (6.2-12.0); Monocyte# 0.47 X10^3/uL; Monocyte% 7.3 % (0-10); NRBC Flagged by Analyzer 0 % (0-5); Neutrophil # 4.37 X10^3/uL (2.7-7.7); Neutrophil % 68.1 % (47-70); Platelet Count 185 K/mm3 (150-450); RBC Distribution Width CV 15.9 % (11.6-14.6); Red Blood Count 2.67 M/mm3 (4.2-5.4); White Blood Count 6.4 K/mm3 (4.4-11.0)
[2022-05-21 08:41] LABS: Troponin-I HS 114 pg/mL (3.0-54.0)
[2022-05-21 08:49] LABS: ALB/GLOB Ratio 0.8 RATIO (0.9-2.4); AST(SGOT) 32 U/L (15-37); Alanine Aminotransfer ALT/SGPT 32 U/L (13-56); Albumin, Serum 2.4 g/dL (3.2-5.0); Alkaline Phosphatase 63 U/L (45-117); Anion Gap -1 (5-15); BUN 27 mg/dL (7-18); BUN/Creat Ratio 34.8 RATIO (10-20); Calcium,Total 8.5 mg/dL (8.5-10.1); Chloride 106 mmol/L (98-107); Creatinine, Serum 0.78 mg/dL (0.55-1.02); EST Glomerular Filtration Rate 77 mL/min (>60); Est Glom Filt Rate - Afr Amer 94 mL/min (>60); Estimated Creatinine Clearance 44.41 ml/min; Glucose 103 mg/dL (74-106); Potassium 4.2 mmol/L (3.5-5.1); Protein, Total 5.4 g/dL (6.4-8.2); Sodium Level 143 mmol/L (136-145); Thyroid Stim Hormone (TSH) 1.57 uIU/mL (0.358-3.74)
[2022-05-21] MEDS: FLU VACC QS2022-23(6MOS UP)/PF 60 MCG/0.5 ML SYRINGE IM (09:11)
[2022-05-21] MEDS: Enoxaparin 40 MG/0.4 ML Syringe SC (09:12)
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
--- NOTE | 2022-05-21 10:58 | CPS ---
Bipap was attempted x 2 to be placed on Pt. Pt refused to wear Bipap. Pt threw mask off. Pt's nurse was informed and pt was placed back on O2 at 4 lpm per home setting.
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
[2022-05-21] MEDS: predniSONE 20 MG Tablet 40 MG PO (12:39)
[2022-05-21] MEDS: busPIRone 5 MG Tablet 10 MG PO ×2 (13:57→20:31)
[2022-05-21] MEDS: Aspirin E.C. 81 MG Tablet PO (13:58)
[2022-05-21] MEDS: RisperiDONE 1 MG Tablet 3 MG PO ×2 (13:58→20:30)
[2022-05-21] MEDS: Metoprolol(XL)Succ 50 MG Tablet PO (13:59)
[2022-05-21] MEDS: Clopidogrel Bisulfate 75 MG Tablet PO (13:59)
[2022-05-21] MEDS: Pantoprazole Sodium 40 MG Tablet PO (13:59)
[2022-05-21] MEDS: Isosorbide Mononitrate 30 MG Tablet PO (13:59)
[2022-05-21] MEDS: Fenofibrate 145 MG Tablet PO (13:59)
--- NOTE | 2022-05-21 14:38 | CASEMGMT ---
SW had explained to patient's son, Robert about guardianship and what guardianship means. Arelis ARIAS
[2022-05-21] MEDS: Ipratropium/Albuterol Sulfate 3 ML AMPUL.NEB INHALATION ×2 (15:28→19:25)
[2022-05-21] MEDS: MELATONIN 3 MG TABLET PO (20:31)
[2022-05-21] MEDS: Atorvastatin Calcium 80 MG Tablet PO (20:31)
[2022-05-21] MEDS: Ondansetron 4 MG/2 ML Vial IV (22:37)
[2022-05-21] MEDS: 0.9% Saline Lock 10 ML Syringe IV (22:37)
[2022-05-22] VITALS (26 sets, daily range): BP systolic 111–167; BP diastolic 55–90; PULSE 60–95; RESP 16–24; TEMP 36.4–37.3; O2SAT 86–99
[2022-05-22 05:48] LABS: Absolute Lymphocyte Count 1.34 X10^3/uL (0.83-4.51); Absolute Neutrophil Count 3.9 X10^3/uL (2.0-7.7); Basophil# 0.02 X10^3/uL; Basophil% 0.3 % (0-1); Eosinophil# 0.13 X10^3/uL; Eosinophils% 2.2 % (0-5); Hematocrit 25.6 % (37-47); Hemoglobin 7.8 g/dL (12.0-15.0); Lymphocyte # 1.34 X10^3/ul (0.83-4.51); Lymphocyte % 22.6 % (19-41); Mean Corp Hgb Conc 30.5 g/dL (32-36); Mean Corpuscular Hgb 30.2 pg (27.0-32.0); Mean Corpuscular Volume 99.2 fL (81-99); Mean Platelet Vol. 11.1 fl (6.2-12.0); Monocyte# 0.54 X10^3/uL; Monocyte% 9.1 % (0-10); NRBC Flagged by Analyzer 0 % (0-5); Neutrophil # 3.88 X10^3/uL (2.7-7.7); Neutrophil % 65.3 % (47-70); Platelet Count 192 K/mm3 (150-450); RBC Distribution Width CV 15.9 % (11.6-14.6); RBC Distribution Width SD 57.7 fl (35.1-43.9); Red Blood Count 2.58 M/mm3 (4.2-5.4); White Blood Count 5.9 K/mm3 (4.4-11.0)
[2022-05-22] MEDS: busPIRone 5 MG Tablet 10 MG PO ×3 (05:51→20:55)
[2022-05-22 06:10] LABS: ALB/GLOB Ratio 0.8 RATIO (0.9-2.4); AST(SGOT) 20 U/L (15-37); Alanine Aminotransfer ALT/SGPT 28 U/L (13-56); Albumin, Serum 2.5 g/dL (3.2-5.0); Alkaline Phosphatase 56 U/L (45-117); Anion Gap 1 (5-15); BUN 31 mg/dL (7-18); BUN/Creat Ratio 34.5 RATIO (10-20); Calcium,Total 8.9 mg/dL (8.5-10.1); Chloride 107 mmol/L (98-107); EST Glomerular Filtration Rate 65 mL/min (>60); Est Glom Filt Rate - Afr Amer 79 mL/min (>60); Estimated Creatinine Clearance 49.35 ml/min; Globulin 3.1 g/dL (2.2-4.2); Glucose 91 mg/dL (74-106); Potassium 4.6 mmol/L (3.5-5.1); Protein, Total 5.6 g/dL (6.4-8.2); Sodium Level 144 mmol/L (136-145)
[2022-05-22] MEDS: Ipratropium/Albuterol Sulfate 3 ML AMPUL.NEB INHALATION ×4 (07:34→19:34)
[2022-05-22 08:17] LABS: Ferritin 23 ng/mL (8-252); Iron 21 ug/dL (50-170); Iron Binding Capacity,Total 255 ug/dL (250-450); PERCENT IRON SATURATION 8.2 % (15.0-55.0)
--- NOTE | 2022-05-22 08:49 | NURSING ---
Applied Bipap to patient. Patient compliant and is now resting with eyes closed
[2022-05-22] MEDS: Aspirin E.C. 81 MG Tablet PO (10:13)
[2022-05-22] MEDS: Isosorbide Mononitrate 30 MG Tablet PO (10:14)
[2022-05-22] MEDS: Fenofibrate 145 MG Tablet PO (10:14)
[2022-05-22] MEDS: predniSONE 20 MG Tablet 40 MG PO (10:14)
[2022-05-22] MEDS: Enoxaparin 40 MG/0.4 ML Syringe SC (10:15)
[2022-05-22] MEDS: Clopidogrel Bisulfate 75 MG Tablet PO (10:15)
[2022-05-22] MEDS: Pantoprazole Sodium 40 MG Tablet PO (10:16)
[2022-05-22] MEDS: Metoprolol(XL)Succ 50 MG Tablet PO (10:16)
[2022-05-22] MEDS: RisperiDONE 1 MG Tablet 3 MG PO ×2 (10:26→20:56)
--- NOTE | 2022-05-22 12:52 | PCM.PN.HOSP ---
Subjective Subjective Little anemic today but otherwise no new issues overnight. She is still restless at times and confused Objective Data Objective Data Vital Signs: Vital Signs Temp Pulse Resp BP Pulse Ox O2 Del Method O2 Flow Rate 98.5 F 70 18 163/74 H 86 Nasal Cannula 4 05/22/22 11:55 05/22/22 11:56 05/22/22 11:56 05/22/22 11:55 05/22/22 11:55 05/22/22 11:55 05/22/22 11:55 FiO2 30 05/21/22 19:25 Oxygen Flow Rate (L/min) 4 Oxygen Delivery Method Nasal Cannula Weight: 157 lb 3.033 oz Body Mass Index (BMI) 26.2 Intake & Output: Intake and Output for Last 24 Hours 05/21/22 05/22/22 05/23/22 03:59 03:59 03:59 Intake Total 374.81 / 374.81 360 / 360 360 / 360 Output Total 1600 / 1600 Balance 374.81 / 374.81 -1240 / -1240 360 / 360 Lab / Micro Data Result Diagrams: 05/22/22 05:37 05/22/22 05:37 Labs: Laboratory Results - last 24 hr 05/22/22 05:37: WBC 5.9, RBC 2.58 L, Hgb 7.8 L, Hct 25.6 L, MCV 99.2 H, MCH 30.2, MCHC 30.5 L, RDW Std Deviation 57.7 H, RDW Coeff of Parviz 15.9 H, Plt Count 192, MPV 11.1, Immature Gran % (Auto) 0.500, Neut % (Auto) 65.3, Lymph % (Auto) 22.6, Travis % (Auto) 9.1, Eos % (Auto) 2.2, Baso % (Auto) 0.3, Absolute Neuts (auto) 3.9, Absolute Lymphs (auto) 1.34, Nucleated RBC % 0 05/22/22 05:37: Sodium 144, Potassium 4.6, Chloride 107, Carbon Dioxide 36.0 H, Anion Gap 1 L, BUN 31 H, Creatinine 0.90, Estim Creat Clear Calc 49.35, Est GFR (MDRD) Af Amer 79, Est GFR (MDRD) Non-Af 65, BUN/Creatinine Ratio 34.5 H, Glucose 91, Calcium 8.9, Total Bilirubin 0.20, AST 20, ALT 28, Alkaline Phosphatase 56, Total Protein 5.6 L, Albumin 2.5 L, Globulin 3.1, Albumin/Globulin Ratio 0.8 L 05/22/22 05:37: Iron 21 L, TIBC 255, Iron Saturation 8.2 L, Ferritin 23 05/22/22 08:14: Blood Type A POSITIVE, Antibody Screen NEGATIVE, Crossmatch See Detail Radiography Diagnostic Testing: Radiology Impression Thyroid Ultrasound 05/21/22 03:01 IMPRESSION: Multinodular appearance of the thyroid gland. No significant lesion identified. Electronically Signed: Aba Boyer MD at 16:58 EDT , Physical Exam Narrative General: Alert, confused, Cooperative, No apparent distress HEENT: Atraumatic, PERRLA, EOMI, Normocephalic Oral: Moist Mucosa Neck: Supple, No JVD Lungs: Diminished, poor air movement, No rhonchi, No wheeze, No rales Cardiovascular: Regular rate, Regular Rhythm, Normal S1, Normal S2, No murmurs Abdomen: Soft, Non Tender, Non-Distended, No Hepato-splenomegaly Extremities: No edema, Capillary Refill Less than 3 Seconds Skin: No rashes, No breakdown Musculoskeletal: No Tenderness to Palpation of Joints or Extremities Neurological: Cranial nerves II-XII grossly intact, Motor Exam 5/5 strength throughout, Sensory exam intact to light touch and pain Psych/Mental Status: Flat affect, confused, does not remember the events that brought her here Assessment & Plan Assessment/Plan (1) Acute hypoxemic respiratory failure: PLAN: Plan 1. Acute on chronic hypoxic respiratory failure with metabolic encephalopathy possibly from a COPD exacerbation/history of schizophrenia ? She is unaware as to why she is here ? She is requiring 6 L nasal cannula is a baseline of 4 L at home ? There is not appear to be an infectious etiology for her encephalopathy, blood cultures are pending ? She has agreed to intermittently wear BiPAP ? We will restart her schizophrenic medications as she was not very compliant with his medications at home ? CTA of the chest showed multiple calcified nodules as well as an exophytic thyroid nodule. Ultrasound of the thyroid demonstrated a multinodular appearance with no significant lesion identified ? May benefit from some steroids as well as her inhalers ? Social work is looking into guardianship options. 2. HTN HLD/CAD status post stent/PAD ? Blood pressures are stable, can resume her home isosorbide and metoprolol ? Continue with her aspirin and Plavix ? Continue with her cholesterol medications ? Elevated troponin is unremarkable, she denies any chest pain 3. CKD 3 A ?Renal function is stable and at baseline we will continue to monitor 4. Iron deficiency anemia ? She is anemic today to 7.8 ? Hemoccult is pending ? Iron studies show an iron level of 21 with an iron saturation of 8.2% and a TIBC of 255. Ferritin is normal ? We will transfuse 1 unit and start her on iron replacement. DVT: Lovenox Charges/Coding Visit Charges Inpatient E&M: 04637 Subs Hosp L2
[2022-05-22] MEDS: 0.9% Saline Lock 10 ML Syringe IV ×2 (14:39→15:35)
--- NOTE | 2022-05-22 15:17 | NURSING ---
Encouraged incentive spirometer. Taught patient how to use. Patient was able to achieve 500 ml 10 times.
[2022-05-22] MEDS: Furosemide 20 MG/2 ML VIAL IV (15:35)
[2022-05-22] MEDS: Senna/Docusate Sodium 1 Tablet 2 TABLET PO (17:11)
[2022-05-22] MEDS: Atorvastatin Calcium 80 MG Tablet PO (20:56)
[2022-05-22] MEDS: MELATONIN 3 MG TABLET PO (20:57)
--- NOTE | 2022-05-22 21:04 | NURSING ---
pt noted with IV d/c to R forearm. gauze and tape dressing applied, bleeding stopped will monitor. Pt is refusing IV placement at this time. SUPERINTENDENT SALES aware.
[2022-05-23] VITALS (21 sets, daily range): BP systolic 140–164; BP diastolic 59–70; PULSE 58–88; RESP 12–25; TEMP 36.4–36.7; O2SAT 93–98
[2022-05-23] MEDS: Benzonatate 100 MG Capsule PO ×2 (03:39→10:04)
[2022-05-23] MEDS: Acetaminophen 325 MG Tablet 650 MG PO (04:49)
[2022-05-23] MEDS: busPIRone 5 MG Tablet 10 MG PO ×3 (04:49→23:00)
[2022-05-23] MEDS: Ipratropium/Albuterol Sulfate 3 ML AMPUL.NEB INHALATION ×4 (06:42→19:17)
--- NOTE | 2022-05-23 07:43 | CPS ---
pt decreased to 4lpm. Saturation 92% on 4. Nurse aware of change
[2022-05-23 09:19] LABS: Vitamin B12 602 pg/mL (211-911)
--- NOTE | 2022-05-23 10:03 | CASEMGMT ---
Call to [facility] [place] and per rep, pt's order is for 2-3L continuous.
[2022-05-23] MEDS: predniSONE 20 MG Tablet 40 MG PO (10:04)
[2022-05-23] MEDS: Metoprolol(XL)Succ 50 MG Tablet PO (10:09)
[2022-05-23] MEDS: Clopidogrel Bisulfate 75 MG Tablet PO (10:10)
[2022-05-23] MEDS: Pantoprazole Sodium 40 MG Tablet PO (10:10)
[2022-05-23] MEDS: Aspirin E.C. 81 MG Tablet PO (10:10)
[2022-05-23] MEDS: Isosorbide Mononitrate 30 MG Tablet PO (10:10)
[2022-05-23] MEDS: Fenofibrate 145 MG Tablet PO (10:48)
[2022-05-23] MEDS: RisperiDONE 1 MG Tablet 3 MG PO ×2 (10:48→23:00)
[2022-05-23] MEDS: Enoxaparin 40 MG/0.4 ML Syringe SC (10:55)
--- NOTE | 2022-05-23 13:13 | NURSING ---
pt incont of stool and then wiped with hands and kleenex and thru on ground. stool all over bedside stand as well. no sign of any bleeding noted or black stools.
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
--- NOTE | 2022-05-23 13:38 | PN.HOSP_ITS ---
Subjective Subjective Patient seen and examined. Her son was by her bedside. She states she wanted to go home. She was however requiring 6 L of oxygen with her baseline being around 4 L due to hypoxia. She is still coughing. She denies any wheezing and review of systems otherwise negative. Objective Data Objective Data Vital Signs: Vital Signs Temp Pulse Resp BP Pulse Ox O2 Del Method O2 Flow Rate 97.9 F 74 16 157/70 H 94 Nasal Cannula 6 05/23/22 10:00 05/23/22 11:08 05/23/22 11:08 05/23/22 10:00 05/23/22 10:00 05/23/22 10:00 05/23/22 10:00 FiO2 30 05/23/22 04:00 Oxygen Flow Rate (L/min) 6 Oxygen Delivery Method Nasal Cannula Weight: 157 lb 3.033 oz Body Mass Index (BMI) 26.2 Intake & Output: Intake and Output for Last 24 Hours 05/21/22 05/22/22 05/23/22 23:59 23:59 23:59 Intake Total 360 / 360 880 / 880 540 / 540 Output Total 1600 / 1600 Balance -1240 / -1240 880 / 880 540 / 540 Lab / Micro Data Result Diagrams: 05/22/22 05:37 05/22/22 05:37 Labs: Laboratory Results - last 24 hr 05/21/22 07:37: Vitamin B12 602 05/22/22 08:14: Crossmatch See Detail Micro: Microbiology 05/20/22 20:35 Blood Culture (Wb) - Right Forearm Blood Culture - Preliminary No growth in 48 hours. 05/20/22 20:10 Blood Culture (Wb) - Venous Blood Culture - Preliminary No growth in 48 hours. 05/22/22 19:00 Stool Stool Occult Blood (RUBÉN) - Final Occult Blood Positive Physical Exam Const alert, oriented x3 and no apparent distress HEENT head/scalp atraumatic and moist oral mucous membranes Mouth: oral and palatal mucosa normal Eyes PERRL, EOMs intact bilaterally and conjunctivae normal Neck no lymphadenopathy, supple and no JVD Resp Resp Narrative: diminished breath sounds bibasally, no wheezes or crackles. On 6L of oxygen by nasal canula. Cardio regular rate, regular rhythm, S1 normal heart sound, S2 normal heart sound and no murmurs GI normal to inspection, nondistended, normoactive bowel sounds, soft to palpation, non-tender and non-distended Extremity normal to inspection, full ROM and no clubbing, cyanosis or edema Neuro oriented x3, CN's II-XII intact bilaterally, moves all extremities and no focal motor deficits Sensorium / Orientation: awake and alert Motor Exam: strength 5/5 throughout Psych affect normal Assessment & Plan Assessment/Plan (1) Acute and chronic respiratory failure: (2) COPD (chronic obstructive pulmonary disease): PLAN: Plan #Acute on chronic hypoxic respiratory failure due to COPD exacerbation * on 6L of oxygen; usually wears 4L of oxygen at home. * on breathing treatment with bronchodilators * on PO prednisone; will switch to IV solumedrol * #Iron deficiency anemia * Hb went down to 7.8. She was transfused with on unit of PRBCs * iron panel showed iron saturation of 8.2%, with TIBC of 255 and iron level of 21. * stool for occult blood was positive. * will consult GI * Hypertension: on metoprolol #Hyperlipidemia: on statin #CAD s/p stents: on aspirin and plavix #DVT prophylaxis: switch to SCDs o/a of anemia and positive FOBT.
--- NOTE | 2022-05-23 13:46 | NURSING ---
Home med list obtained from [facility]. Med list updated and md notified.
--- NOTE | 2022-05-23 13:47 | CASEMGMT ---
JAYA called [facility] and spoke with Hoang Rey on the coverage line. Patient's case mgr is Margarita Saavedra. Her phone number is [phone] and fax number is [phone]. The only service patient currently has is home delivered meals 14 a week from [facility]. JAYA called Margarita and left her a voice mail requesting a return call. Isaura Leiva MSW ALBA
[2022-05-23 14:49] LABS: Absolute Lymphocyte Count 0.39 X10^3/uL (0.83-4.51); Absolute Neutrophil Count 6.4 X10^3/uL (2.0-7.7); Basophil# 0.03 X10^3/uL; Basophil% 0.4 % (0-1); Eosinophil# 0.06 X10^3/uL; Eosinophils% 0.8 % (0-5); Hematocrit 28.5 % (37-47); Lymphocyte # 0.39 X10^3/ul (0.83-4.51); Lymphocyte % 5.5 % (19-41); Mean Corp Hgb Conc 31.6 g/dL (32-36); Mean Corpuscular Hgb 30.9 pg (27.0-32.0); Mean Corpuscular Volume 97.9 fL (81-99); Mean Platelet Vol. 10.7 fl (6.2-12.0); Monocyte# 0.19 X10^3/uL; Monocyte% 2.7 % (0-10); NRBC Flagged by Analyzer 0 % (0-5); Neutrophil # 6.41 X10^3/uL (2.7-7.7); Neutrophil % 90.2 % (47-70); POSITIVE DIFFERENTIAL YES; Platelet Count 196 K/mm3 (150-450); RBC Distribution Width SD 59.7 fl (35.1-43.9); Red Blood Count 2.91 M/mm3 (4.2-5.4); White Blood Count 7.1 K/mm3 (4.4-11.0)
[2022-05-23 14:54] LABS: Differential Indicated SCAN CRITERIA MET
[2022-05-23 15:13] LABS: Anion Gap 2 (5-15); BUN 25 mg/dL (7-18); BUN/Creat Ratio 30.4 RATIO (10-20); Calcium,Total 8.6 mg/dL (8.5-10.1); Chloride 105 mmol/L (98-107); Creatinine, Serum 0.82 mg/dL (0.55-1.02); EST Glomerular Filtration Rate 72 mL/min (>60); Est Glom Filt Rate - Afr Amer 87 mL/min (>60); Estimated Creatinine Clearance 54.16 ml/min; Glucose 197 mg/dL (74-106); Potassium 4.2 mmol/L (3.5-5.1); Sodium Level 145 mmol/L (136-145)
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
[2022-05-23 16:10] LABS: Differential Comment SCANNED; Hypochromasia 1+
[2022-05-23] MEDS: Atorvastatin Calcium 80 MG Tablet PO (23:00)
[2022-05-24] VITALS (21 sets, daily range): BP systolic 127–182; BP diastolic 64–83; PULSE 53–94; RESP 12–32; TEMP 36.2–36.6; O2SAT 91–97
[2022-05-24] MEDS: busPIRone 5 MG Tablet 10 MG PO ×3 (06:45→21:45)
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
[2022-05-24] MEDS: Ipratropium/Albuterol Sulfate 3 ML AMPUL.NEB INHALATION ×3 (07:02→19:34)
--- NOTE | 2022-05-24 09:07 | PN.HOSP_ITS ---
Subjective Subjective Patient seen and examined. She had no active complaints today and said she wanted to go home. SHe is down to 4L of oxygen today. She denies any fever, chills, cough, chest pain, palpitations, dizziness, nausea, vomiting or diarrhea. REview of systems is otherwise negative. Shee has remained hemodynamically stable Objective Data Objective Data Vital Signs: Vital Signs Temp Pulse Resp BP Pulse Ox O2 Del Method O2 Flow Rate 97.8 F 70 19 H 145/68 H 95 Nasal Cannula 4 05/24/22 04:40 05/24/22 07:02 05/24/22 07:02 05/24/22 04:40 05/24/22 07:02 05/24/22 07:02 05/24/22 07:02 FiO2 30 05/24/22 04:00 Oxygen Flow Rate (L/min) 4 Oxygen Delivery Method Nasal Cannula Weight: 157 lb 3.033 oz Body Mass Index (BMI) 26.2 Intake & Output: Intake and Output for Last 24 Hours 05/22/22 05/23/22 05/24/22 23:59 23:59 23:59 Intake Total 880 / 880 780 / 780 Output Total 500 / 500 Balance 880 / 880 780 / 280 -500 / -500 Lab / Micro Data Result Diagrams: 05/23/22 14:35 05/23/22 14:35 Labs: Laboratory Results - last 24 hr 05/21/22 07:37: Vitamin B12 602 05/23/22 14:35: WBC 7.1, RBC 2.91 L, Hgb 9.0 L, Hct 28.5 L, MCV 97.9, MCH 30.9, MCHC 31.6 L, RDW Std Deviation 59.7 H, RDW Coeff of Parviz 17.0 H, Plt Count 196, MPV 10.7, Immature Gran % (Auto) 0.400, Neut % (Auto) 90.2 H, Lymph % (Auto) 5.5 L, [place] % (Auto) 2.7, Eos % (Auto) 0.8, Baso % (Auto) 0.4, Absolute Neuts (auto) 6.4, Absolute Lymphs (auto) 0.39 L, Nucleated RBC % 0, Differential Comment SCANNED, Hypochromasia 1+ 05/23/22 14:35: Sodium 145, Potassium 4.2, Chloride 105, Carbon Dioxide 38.0 H, Anion Gap 2 L, BUN 25 H, Creatinine 0.82, Estim Creat Clear Calc 54.16, Est GFR (MDRD) Af Amer 87, Est GFR (MDRD) Non-Af 72, BUN/Creatinine Ratio 30.4 H, Glucose 197 H, Calcium 8.6 Micro: Microbiology 05/20/22 20:35 Blood Culture (Wb) - Right Forearm Blood Culture - Preliminary No growth in 48 hours. 05/20/22 20:10 Blood Culture (Wb) - Venous Blood Culture - Preliminary No growth in 48 hours. 05/22/22 19:00 Stool Stool Occult Blood (RUBÉN) - Final Occult Blood Positive Physical Exam Const alert, oriented x3 and no apparent distress HEENT head/scalp atraumatic and moist oral mucous membranes Head and Scalp: normocephalic Eyes PERRL, EOMs intact bilaterally and conjunctivae normal Neck no lymphadenopathy, supple and no JVD Resp Resp Narrative: diminished breath sounds bibasally, no wheezes or crackles. On 4L of oxygen by nasal canula. Cardio regular rate, regular rhythm, S1 normal heart sound, S2 normal heart sound and no murmurs GI normal to inspection, nondistended, normoactive bowel sounds, soft to palpation, non-tender and non-distended Extremity normal to inspection, full ROM and no clubbing, cyanosis or edema Neuro oriented x3, CN's II-XII intact bilaterally, moves all extremities and no focal motor deficits Sensorium / Orientation: awake and alert Motor Exam: strength 5/5 throughout Psych affect normal Assessment & Plan Assessment/Plan (1) Acute and chronic respiratory failure: (2) COPD (chronic obstructive pulmonary disease): PLAN: Plan #Acute on chronic hypoxic respiratory failure due to COPD exacerbation * now down to his baseline 4L of oxygen. * on breathing treatment with bronchodilators * on PO prednisone; will switch to IV solumedrol * #Iron deficiency anemia * s/p transfusion of one unit of PRBC * Hb today is 9 * iron panel showed iron saturation of 8.2%, with TIBC of 255 and iron level of 21. * stool for occult blood was positive. * GI consulted; await rec's * Hypertension: on metoprolol #Hyperlipidemia: on statin #CAD s/p stents: on aspirin and plavix; hold aspirin and plavix #DVT prophylaxis: switch to SCDs o/a of anemia and positive FOBT. Charges/Coding Visit Charges Inpatient E&M: 80438 Subs Hosp L2
--- NOTE | 2022-05-24 09:27 | CASEMGMT ---
SW met with patient. Patient asked SW, Who are you. SW introduced self and role at [facility]. SW let patient know SW spoke with her Direction Home Spotter Margarita. Patient asked what SW talked to her about. SW told patient that SW usually notifies Direction Home Window Treatment Installer when their patient's come into the hospital so they can pause there services. SW let patient know that Margarita said she would re-schedule her appt with her since she is in the hospital. Patient did not participate in conversation much except to give short answers. Patient asked when she can leave. SW told patient that is up to the doctor. SW asked patient about her Healthcare Power of Order Entry Specialist Carri Diaz. Patient said she does not want her to be contacted. Patient was very adamant she did not want Carri contacted. SW asked patient who she would want to be her Healthcare Power of Order Entry Specialist. Patient said she wants her son Robert. SW asked patient about her physical therapy seeing her. SW mentioned a few of the local nursing homes in the area and patient said, No I am not going to a detention. You can't make me go to a detention. SW told patient she is right no one can make her do anything. Patient said, I just want to go home. SW asked patient if she would need a ride home and she said she would. SW asked patient if she wanted SW to talk with her Spotter Claire. Patient got upset and said, I don't like her, don't you call her! SW asked patient why she didn't like her and patient just said, I just don't. Patient has only had Claire as a Spotter for a couple of months as her previous case management assistant has Cancer per patient. Patient asked SW again when she can leave. SW told patient that is up to the doctor. SW asked patient if she has oxygen at home and she said she does. SW asked patient if she smokes. Patient said she hasn't in awhile. SW told patient she should never smoke around the oxygen. Patient said, I know that. Isaura WILLIS
--- NOTE | 2022-05-24 10:56 | CASEMGMT ---
SW spoke with patient and asked if she would like SW help her complete a new Healthcare Power of Veterinary Surgeon (HCPOA). Patient agreed with this. SW assisted patient in completing new a Healthcare Power of Veterinary Surgeon where patient named her son, Robert Ojeda as her new HCPOA. Copies were made and given to patient along with original. A copy was also placed in patient's chart. Isaura WILLIS
[2022-05-24] MEDS: predniSONE 20 MG Tablet 40 MG PO (11:18)
[2022-05-24] MEDS: Fenofibrate 145 MG Tablet PO (11:19)
[2022-05-24] MEDS: Pantoprazole Sodium 40 MG Tablet PO (11:19)
[2022-05-24] MEDS: RisperiDONE 1 MG Tablet 3 MG PO ×2 (11:19→21:45)
[2022-05-24] MEDS: Isosorbide Mononitrate 30 MG Tablet PO (11:19)
[2022-05-24] MEDS: Metoprolol(XL)Succ 50 MG Tablet PO (11:20)
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
--- NOTE | 2022-05-24 18:23 | NURSING ---
Charting reviewed with Suni Morales RN
[2022-05-24] MEDS: Atorvastatin Calcium 80 MG Tablet PO (21:45)
[2022-05-25] VITALS (12 sets, daily range): BP systolic 127–163; BP diastolic 64–120; PULSE 61–115; RESP 16–22; TEMP 36.1–36.6; O2SAT 90–99
[2022-05-25] MEDS: busPIRone 5 MG Tablet 10 MG PO (05:54)
[2022-05-25 06:24] LABS: Absolute Lymphocyte Count 1.24 X10^3/uL (0.83-4.51); Absolute Neutrophil Count 5.1 X10^3/uL (2.0-7.7); Basophil# 0.01 X10^3/uL; Basophil% 0.1 % (0-1); Eosinophil# 0.17 X10^3/uL; Eosinophils% 2.4 % (0-5); Hematocrit 29.8 % (37-47); Hemoglobin 9.1 g/dL (12.0-15.0); Lymphocyte # 1.24 X10^3/ul (0.83-4.51); Lymphocyte % 17.2 % (19-41); Mean Corp Hgb Conc 30.5 g/dL (32-36); Mean Corpuscular Hgb 29.5 pg (27.0-32.0); Mean Corpuscular Volume 96.8 fL (81-99); Mean Platelet Vol. 10.5 fl (6.2-12.0); Monocyte# 0.67 X10^3/uL; Monocyte% 9.3 % (0-10); NRBC Flagged by Analyzer 0 % (0-5); Neutrophil # 5.08 X10^3/uL (2.7-7.7); Neutrophil % 70.6 % (47-70); Platelet Count 206 K/mm3 (150-450); RBC Distribution Width CV 16.5 % (11.6-14.6); RBC Distribution Width SD 57.6 fl (35.1-43.9); Red Blood Count 3.08 M/mm3 (4.2-5.4); White Blood Count 7.2 K/mm3 (4.4-11.0)
--- NOTE | 2022-05-25 06:30 | NURSING ---
this nurse and charge nurse spoke with lev Jones to receive consent for EGD with . consent given by Lev Jones
--- NOTE | 2022-05-25 06:40 | NURSING ---
Patient taken down to AC for EGD
[2022-05-25 06:49] LABS: Anion Gap 0 (5-15); BUN 22 mg/dL (7-18); BUN/Creat Ratio 29.7 RATIO (10-20); Calcium,Total 8.6 mg/dL (8.5-10.1); Chloride 108 mmol/L (98-107); Creatinine, Serum 0.74 mg/dL (0.55-1.02); EST Glomerular Filtration Rate 82 mL/min (>60); Est Glom Filt Rate - Afr Amer 99 mL/min (>60); Estimated Creatinine Clearance 44.41 ml/min; Glucose 76 mg/dL (74-106); Potassium 3.9 mmol/L (3.5-5.1); Sodium Level 145 mmol/L (136-145)
[2022-05-25 07:56] LABS: Hemoglobin A1c 5.4 % (3.8-5.6)
--- NOTE | 2022-05-25 08:02 | OP.EGD_ITS ---
Patient Name: Roz Raymond Procedure Date: 05/25/2022 6:33 AM Date of : 1950 Age: 72 Procedure: Upper GI endoscopy Indications: Epigastric abdominal pain, Iron deficiency anemia Providers: Gaston Allison DO Medicines: Monitored Anesthesia Care Patient Profile: This is a 72 year old female. Refer to note in patient chart for documentation of history and physical. Patient has symptoms of acute epigastric abdominal pain and chronic nausea. Complications: No immediate complications. Procedure: Pre-Anesthesia Assessment: - Prior to the procedure, a History and Physical was performed, and patient medications and allergies were reviewed. The patient is competent. The risks and benefits of the procedure and the sedation options and risks were discussed with the patient. All questions were answered and informed consent was obtained. Patient identification and proposed procedure were verified by the physician in the pre-procedure area. Mental Status Examination: alert and oriented. Airway Examination: normal oropharyngeal airway and neck mobility. Respiratory Examination: clear to auscultation. CV Examination: normal. Prophylactic Antibiotics: The patient does not require prophylactic antibiotics. Prior Anticoagulants: The patient has taken no previous anticoagulant or antiplatelet agents. ASA Grade Assessment: II - A patient with mild systemic disease. After reviewing the risks and benefits, the patient was deemed in satisfactory condition to undergo the procedure. The anesthesia plan was to use monitored anesthesia care (MAC). Immediately prior to administration of medications, the patient was re-assessed for adequacy to receive sedatives. The heart rate, respiratory rate, oxygen saturations, blood pressure, adequacy of pulmonary ventilation, and response to care were monitored throughout the procedure. The physical status of the patient was re-assessed after the procedure. After obtaining informed consent, the endoscope was passed under direct vision. Throughout the procedure, the patient's blood pressure, pulse, and oxygen saturations were monitored continuously. The gastroscope was introduced through the mouth, and advanced to the second part of duodenum. The upper GI endoscopy was accomplished without difficulty. The patient tolerated the procedure well. Scope In: 7:49:39 AM Scope Out: 7:54:47 AM Total Procedure Duration Time 0 hours 5 minutes 8 seconds Findings: LA Grade A (one or more mucosal breaks less than 5 mm, not extending between tops of 2 mucosal folds) esophagitis with no bleeding was found 34 to 35 cm from the incisors. A small hiatal hernia was present. Diffuse prominent gastric folds were found in the entire examined stomach. Four 5 mm bleeding angiodysplastic lesions were found in the gastric body. Coagulation for hemostasis using heater probe was successful. Estimated blood loss was minimal. No gross lesions were noted in the second portion of the duodenum. Impression: - LA Grade A reflux esophagitis. - Small hiatal hernia. - Enlarged gastric folds. 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 Treated with a heater probe. - No gross lesions in the second portion of the duodenum. - No specimens collected. Recommendation: - [facility]. - Resume previous diet. - Use Protonix (pantoprazole) 40 mg PO BID for 4 weeks. - Use sucralfate tablets 1 gram PO BID for 4 weeks. - Continue present medications. - resume antiplatelets/anticoagulation in 3 days Procedure Code(s): --- Professional --- 77942, Esophagogastroduodenoscopy, flexible, transoral; with control of bleeding, any method CPT copyright 2017 [employer]. All rights reserved. The codes documented in this report are preliminary and upon can filling machine operator review may be revised to meet current compliance requirements. Gaston Allison DO 05/25/2022 8:02:39 AM This report has been signed electronically. Number of Addenda: 0 Note Initiated On: 05/25/2022 6:33 AM
--- NOTE | 2022-05-25 08:03 | OP.CCLET_ITS ---
05/25/2022 Mine Bojorquez [address] [facility] [place] [address] Re : Upper GI endoscopy procedure for Roz Mandi Dear Dr. Bojorquez This procedure was performed on Wednesday, May 25, 2022. My impressions and recommendations are as follows: Impressions : - LA Grade A reflux esophagitis. - Small hiatal hernia. - Enlarged gastric folds. 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 Treated with a heater probe. - No gross lesions in the second portion of the duodenum. - No specimens collected. Recommendations : - Return patient to [facility] for ongoing care. - Resume previous diet. - Use Protonix (pantoprazole) 40 mg PO BID for 4 weeks. - Use sucralfate tablets 1 gram PO BID for 4 weeks. - Continue present medications. - resume antiplatelets/anticoagulation in 3 days My findings are described in the full procedure note, which is enclosed. If I can be of further assistance, please feel free to contact me at . Sincerely, Gaston Allison, 05/25/2022 8:02:39 AM This report has been signed electronically.
[2022-05-25] MEDS: Fenofibrate 145 MG Tablet PO (08:58)
[2022-05-25] MEDS: RisperiDONE 1 MG Tablet 3 MG PO (08:59)
[2022-05-25] MEDS: predniSONE 20 MG Tablet 40 MG PO (08:59)
[2022-05-25] MEDS: Isosorbide Mononitrate 30 MG Tablet PO (08:59)
[2022-05-25] MEDS: Pantoprazole Sodium 40 MG Tablet PO (08:59)
[2022-05-25] MEDS: Metoprolol(XL)Succ 50 MG Tablet PO (08:59)
--- NOTE | 2022-05-25 09:10 | CASEMGMT ---
Discharge Travel Sales Consultant Margarita salgado internal medicine physician assistant asked for a wheel chair when scheduling a fern picker time with [facility]. Margarita Espinal Discharge Travel Sales Consultant
--- NOTE | 2022-05-25 09:10 | CASEMGMT ---
Discharge Calender Tender Margarita esquivel/guero bankruptcy assistant talked with patient about transportation home. Patient wants her son Robert to take her home. Margarita called Robert he is unable to take patient home today. Patient was concerned she has no house keys. Son stated house in unlocked and keys are inside. Margarita set up transportation home with [facility] for a picket labor union time of 1:00pm. Patient and staff made aware. Plan: Home Margarita Espinal Discharge Calender Tender
--- NOTE | 2022-05-25 09:41 | CASEMGMT ---
Patient is being discharged home today. JAYA called [facility] Salad Counter Attendant and left her a voice mail notifying her of discharge and the appt that certified legal secretary specialist made with Dr Perez. JAYA also called Margarita Salad Counter Attendant with [facility] and left her a voice mail letting her know about discharge and POA papers that SW re-did with patient. JAYA also called Rodríguez with [facility] and let her know patient is being discharged today without any services due to her declining them. JAYA also let Rodríguez know that JAYA did re-do patient's Healthcare POA and patient named her son. Rodríguez will follow up. Plan: d/c home with resumption of Case Management services through [facility] and [facility]. Adult Protective Services is also involved. Isaura Leiva BIOLOGY SPECIALIST ALBA
[2022-05-25] MEDS: Ipratropium/Albuterol Sulfate 3 ML AMPUL.NEB INHALATION (11:03)
--- NOTE | 2022-05-25 11:07 | PHA.DC.MC ---
Pharmacy Service has performed discharge medication reconciliation and counseling for this patient. 1. SUCRALFATE 1GM PO BID The patient's discharge medication list was reviewed for discrepancies and discrepancies were resolved. Home Medications metoprolol succinate 50 mg tablet,extended release 24 hr 50 mg PO DAILY Heart/BP 09/26/16 buspirone 10 mg tablet 10 mg PO TID anxiety 01/30/18 multivitamin (Daily Multiple tablet) 1 tab PO DAILY vitamin 01/30/18 omega-3 fatty acids-fish oil 340 mg-1,000 mg capsule (Fish Oil) 1 cap PO DAILY vitamin 01/30/18 paliperidone palmitate 234 mg/1.5 mL intramuscular syringe (Invega Sustenna) 234 mg IM Q30D schizo 01/30/18 risperidone 3 mg tablet (Risperdal) 3 mg PO BID psych 01/30/18 albuterol sulfate 90 mcg/actuation aerosol inhaler (Ventolin HFA) 2 puff inhalation 4X/DAY PRN PRN Sob &/Or Wheezing 05/18/18 potassium chloride 10 mEq tablet,extended release(part/cryst) 10 meq PO DAILY supplement #90 tabs 02/28/20 Incruse Ellipta Inhaler 62.5 mcg inhalation DAILY COPD 10/21/20 atorvastatin 80 mg tablet 80 mg PO QHS cholesterol 05/21/22 fenofibrate micronized 200 mg capsule 200 mg PO DAILY high triglycerides 05/21/22 isosorbide mononitrate 30 mg tablet,extended release 24 hr 30 mg PO DAILY Heart 05/21/22 benztropine 1 mg tablet 1 mg PO BID sedation 05/23/22 fluticasone furoate 100 mcg-vilanterol 25 mcg/dose inhalation powder (Breo Ellipta) 1 ea inhalation TID PRN Sedation 05/23/22 tiotropium bromide 2.5 mcg/actuation mist for inhalation (Spiriva Respimat) 2 inh inhalation DAILY breathing 05/23/22 aspirin 81 mg tablet,delayed release 81 mg PO DAILY Heart Health #30 tabs 05/25/22 clopidogrel 75 mg tablet 75 mg PO DAILY ANTIPLATELET #90 tabs 05/25/22 pantoprazole 40 mg tablet,delayed release 40 mg PO BIDCM #60 tabs 05/25/22 sucralfate 1 gram tablet 1 g PO BID #60 tabs 05/25/22 The patient was counseled on the following discharge medications and changes in medications for homegoing were reviewed. The Reason for Use, instructions for use, and potential side effects were reviewed for all new medications. The patient's questions regarding all of their medications were answered. The patient was able to verbally demonstrate an understanding of their discharge medications.
== END 2022-05-25 13:05 | disposition home or self-care (01) | DRG 208 ==
LOC: ED 23:15 → PCU 05-21 00:29
PROVIDERS: Anesthesiology; Family Medicine; Internal Medicine Gastroenterology; Admitting Provider Hospitalist; Emergency Provider Emergency Medicine; PCP Family Medicine; Visit Provider Student in an Organized Health Care Education/Training Program
PROC: 0DJ08ZZ Inspection of Upper Intestinal Tract, Via Natural or Artificial Opening Endoscopic (ICD-10-PCS; CPT 43235; principal; 2022-05-25 06:25)
DX: J96.21 Acute and chronic respiratory failure with hypoxia (principal); G93.41 Metabolic encephalopathy; K31.811 Angiodysplasia of stomach and duodenum with bleeding; J44.1 Chronic obstructive pulmonary disease with (acute) exacerbation; I27.20 Pulmonary hypertension, unspecified; E11.22 Type 2 diabetes mellitus with diabetic chronic kidney disease; E11.51 Type 2 diabetes mellitus with diabetic peripheral angiopathy without gangrene; N18.31 Chronic kidney disease, stage 3a; F20.9 Schizophrenia, unspecified; D50.9 Iron deficiency anemia, unspecified; E04.2 Nontoxic multinodular goiter; E78.00 Pure hypercholesterolemia, unspecified; I25.10 Atherosclerotic heart disease of native coronary artery without angina pectoris; I12.9 Hypertensive chronic kidney disease with stage 1 through stage 4 chronic kidney disease, or unspecified chronic kidney disease; E78.5 Hyperlipidemia, unspecified; K21.00 Gastro-esophageal reflux disease with esophagitis, without bleeding; K44.9 Diaphragmatic hernia without obstruction or gangrene; I25.2 Old myocardial infarction; Z79.82 Long term (current) use of aspirin; Z79.02 Long term (current) use of antithrombotics/antiplatelets; Z95.5 Presence of coronary angioplasty implant and graft
CPT/HCPCS: 31500; 31720; 36415; 36600; 51702; 70450; 71045; 71275; 74177; 76536; 80048; 80053; 80076; 80307; 81001; 82077; 82140; 82274; 82550; 82607; 82728; 82803; 83036; 83540; 83550; 83605; 83690; 84443; 84478; 84484; 85025; 85610; 85730; 86850; 86900; 86901; 86920; 86922; 87040; 93005; 94002; 94003; 94640; 94762; 97162; 97166; 97530; 97535; 99251; 99285; G0008; J7040; J7120; P9016; Q9967; 90686; A4216; G0463; J1940; J2405; J3010

== ENCOUNTER 2022-05-26 09:59 | Inpatient (IN) | payer MEDICARE, MEDICAID, SELFPAY ==
[2022-05-26] VITALS (43 sets, daily range): BP systolic 77–153; BP diastolic 27–95; PULSE 66–91; RESP 8–36; TEMP 31.9–37.8; O2SAT 85–100; BMI 27.9; BMI 27.3
--- NOTE | 2022-05-26 10:08 | CT_ITS ---
STUDY: CT CERVICAL SPINE WITHOUT CONTRAST REASON FOR EXAM: Female, 72 years old. History of fall. The patient is unresponsive. RADIATION DOSAGE (If Supplied By Facility): CTDIvol = ( 24.48 ) mGy, DLP = ( 493.71 ) mGycm TECHNIQUE: High resolution transaxial imaging was performed without contrast material. Sagittal and coronal images were reconstructed. Individualized dose optimization techniques were used for this CT. COMPARISON: None FINDINGS: An endotracheal tube is in situ. An orogastric tube is within the esophagus. Normal craniovertebral junction. There are degenerative changes of the anterior atlantoaxial articulation. Normal odontoid process. There is straightening of the normal cervical lordosis. Normal vertebral bodies and posterior osseous elements. C2-3: Normal endplates. Normal disc height and morphology. Normal central canal and intervertebral neuroforamina. C3-4: Mild degree of disc space narrowing. Uncovertebral arthrosis. Mild right neural foraminal stenosis. C4-5: Uncovertebral arthrosis. Mild degree right neural foraminal stenosis. C5-6: Marked degree of disc space narrowing. Uncovertebral arthrosis. Mild degree of bilateral neural foraminal stenosis. C6-7: Mild degree of disc space narrowing. Uncovertebral arthrosis. No significant stenosis is seen. C7-T1: Normal endplates. Normal disc height and morphology. Normal central canal and intervertebral neuroforamina. Atherosclerotic plaque formation of the carotid bifurcations. CT/Spine Cervical without Contras IMPRESSION: Multilevel degenerative changes, as described above. Electronically Signed: Smith Chau MD at 12:11 EDT ,
--- NOTE | 2022-05-26 10:08 | CT_ITS ---
STUDY: CT BRAIN WITHOUT CONTRAST REASON FOR EXAM: Female, 72 years old. Altered mental status. The patient is unresponsive. RADIATION DOSAGE (If Supplied By Facility): CTDIvol = ( 44.99 ) mGy, DLP = ( 779.24 ) mGycm TECHNIQUE: Transaxial CT imaging of the brain was performed without administration of intravenous contrast material. Individualized dose optimization techniques were used for this CT. COMPARISON: No relevant priors. FINDINGS: Normal soft tissue structures. Normal calvarium. There is mild cerebral atrophy with widening of the extra-axial spaces and ventricular dilatation. Normal white matter tracts of the cerebral hemispheres. There are small punctate calcifications of the basal ganglia which are seen in the aging brain as a normal variant. Normal brainstem. Normal cerebellum. There is no intracranial hemorrhage. There are no findings of an acute ischemic infarction. Atherosclerotic calcification of the cavernous portions of the internal carotid arteries bilaterally. Mucosal thickening of the ethmoid sinuses bilaterally. CT/Brain/Head without Contrast IMPRESSION: Chronic involutional changes of the brain. There has been no change since prior study. Electronically Signed: Smith Chau MD at 12:13 EDT ,
--- NOTE | 2022-05-26 10:19 | EDS_ITS ---
HPI History of Present Illness Chief Complaint: Unresponsive Narrative Narrative: 72-year-old female presenting with altered mental status. EMS states that her home health healthcare administrator found her this morning unresponsive. Unknown downtime. Patient was hypoxic and I gel was placed prior to arrival. [facility] Medical History AAA (abdominal aortic aneurysm) Abdominal aortic aneurysm, ruptured (~05/25/12) Acute and chronic respiratory failure Altered mental status Altered mental status Anemia Atherosclerosis of [place] coronary artery of [place] heart without angina pectoris Chronic respiratory failure COPD COPD (chronic obstructive pulmonary disease) Cor pulmonale Cor pulmonale, chronic Diabetes mellitus type II Essential (primary) hypertension Fever History of psychosis Hypoglycemia NSTEMI (non-ST elevated myocardial infarction) Obesity Old myocardial infarction Other intermediate designer (current) drug therapy PAD (peripheral artery disease) Presence of stent in coronary artery (~01/08/15) Pulmonary hypertension Pure hypercholesterolemia Rhabdomyolysis Tobacco use disorder Type 2 diabetes mellitus Home Medications metoprolol succinate 50 mg tablet,extended release 24 hr 50 mg PO DAILY Heart/BP 09/26/16 [History Last Taken 05/17/18] buspirone 10 mg tablet 10 mg PO TID anxiety 01/30/18 [History Last Taken 05/17/18] multivitamin (Daily Multiple tablet) 1 tab PO DAILY vitamin 01/30/18 [History Last Taken 05/17/18] omega-3 fatty acids-fish oil 340 mg-1,000 mg capsule (Fish Oil) 1 cap PO DAILY vitamin 01/30/18 [History Last Taken 05/17/18 ]] paliperidone palmitate 234 mg/1.5 mL intramuscular syringe (Invega Sustenna) 234 mg IM Q30D schizo 01/30/18 [History Last Taken 01/05/18] risperidone 3 mg tablet (Risperdal) 3 mg PO BID psych 01/30/18 [History Last Taken 05/17/18] albuterol sulfate 90 mcg/actuation aerosol inhaler (Ventolin HFA) 2 puff inhalation 4X/DAY PRN PRN Sob &/Or Wheezing 05/18/18 [History Last Taken Unknown] potassium chloride 10 mEq tablet,extended release(part/cryst) 10 meq PO DAILY supplement #90 tabs 02/28/20 [Rx Last Taken Unknown] Incruse Ellipta Inhaler 62.5 mcg inhalation DAILY COPD 10/21/20 [History Last Taken Unknown] atorvastatin 80 mg tablet 80 mg PO QHS cholesterol 05/21/22 [History Last Taken Unknown] fenofibrate micronized 200 mg capsule 200 mg PO DAILY high triglycerides 05/21/22 [History Last Taken Unknown] isosorbide mononitrate 30 mg tablet,extended release 24 hr 30 mg PO DAILY Heart 05/21/22 [History Last Taken Unknown] benztropine 1 mg tablet 1 mg PO BID sedation 05/23/22 [History Last Taken Unknown] fluticasone furoate 100 mcg-vilanterol 25 mcg/dose inhalation powder (Breo Ellipta) 1 ea inhalation TID PRN Sedation 05/23/22 [History Last Taken Unknown] tiotropium bromide 2.5 mcg/actuation mist for inhalation (Spiriva Respimat) 2 inh inhalation DAILY breathing 05/23/22 [History Last Taken Unknown] aspirin 81 mg tablet,delayed release 81 mg PO DAILY Heart Health #30 tabs 05/25/22 [Rx Last Taken 05/17/18] clopidogrel 75 mg tablet 75 mg PO DAILY ANTIPLATELET #90 tabs 05/25/22 [Rx Last Taken Unknown] pantoprazole 40 mg tablet,delayed release 40 mg PO BIDCM #60 tabs 05/25/22 [Rx Last Taken Unknown] sucralfate 1 gram tablet 1 g PO BID #60 tabs 05/25/22 [Rx Last Taken Unknown] Allergy/AdvReac Type Severity Reaction Status Date / Time haloperidol [From Haldol] AdvReac Other Verified 05/26/22 10:45 Family History Mother CAD (coronary artery disease) Brother CAD (coronary artery disease) Myocardial infarction Sister Cancer lung cancer Son COPD (chronic obstructive pulmonary disease) Son COPD (chronic obstructive pulmonary disease) Daughter COPD (chronic obstructive pulmonary disease) Surgical History H/O percutaneous transluminal coronary angioplasty History of abdominal aortic aneurysm repair (~05/25/12) History of tubal ligation Presence of coronary angioplasty implant and graft (~01/08/15) S/P AAA repair Social History Smoking Status: Current every day smoker tobacco type: cigarettes alcohol intake: never substance use type: does not use caffeine: Yes Type: tea what type of physical activity do you participate in: walking frequency: daily duration: < 15 minutes/day seatbelt use: always do you feel safe at home: Yes ROS ROS ED Review of Systems ROS Unobtainable: due to encephalopathy and due to mental status EXAM Physical Exam Const Vital Signs: 05/26/22 10:00 05/26/22 10:19 05/26/22 10:22 Temperature 96 F L 89.5 F L Temperature Source Temporal Core Pulse Rate 88 87 Respiratory Rate 16 17 Respiratory Pattern Blood Pressure 132/62 H 151/69 H Blood Pressure Mean 85 96 Pulse Ox 85 98 99 Oxygen Delivery Method Ambu-Bag Mechanical Ventilator Mechanical Ventilator Fraction of Inspired Oxygen (FIO2) 05/26/22 10:42 05/26/22 10:50 05/26/22 10:21 Temperature 91.2 F L Temperature Source Core Pulse Rate 84 84 91 Respiratory Rate 23 H 14 36 H Respiratory Pattern Tachypnea Blood Pressure 121/27 H 123/83 H Blood Pressure Mean 58 96 Pulse Ox 100 100 97 Oxygen Delivery Method Mechanical Ventilator Mechanical Ventilator Fraction of Inspired Oxygen (FIO2) 100 05/26/22 11:00 05/26/22 12:00 05/26/22 11:23 Temperature 91.3 F L 92.4 F L Temperature Source Core Core Pulse Rate 85 83 85 Respiratory Rate 16 19 H 18 Respiratory Pattern Blood Pressure 109/57 L 113/95 H Blood Pressure Mean 74 101 Pulse Ox 100 99 100 Oxygen Delivery Method Mechanical Ventilator Mechanical Ventilator Fraction of Inspired Oxygen (FIO2) 75 05/26/22 11:50 05/26/22 11:50 05/26/22 10:50 Temperature Temperature Source Pulse Rate 85 88 Respiratory Rate 25 H 24 H Respiratory Pattern Blood Pressure Blood Pressure Mean Pulse Ox 100 Oxygen Delivery Method Fraction of Inspired Oxygen (FIO2) 75 75 05/26/22 12:22 Temperature Temperature Source Pulse Rate Respiratory Rate Respiratory Pattern Blood Pressure Blood Pressure Mean Pulse Ox 98 Oxygen Delivery Method Fraction of Inspired Oxygen (FIO2) 60 Positive obese and unkempt General Appearance ED: unkempt and pallor Nutritional Appearance: obese HEENT Reports dry mucous membranes Mouth ED: Yes dry mucous membranes Mouth: dry mucous membranes Eyes Eyes Narrative: Pinpoint symmetric pupils Neck no lymphadenopathy Chest Wall inspection of chest normal Resp Resp Narrative: I gel in place. Auscultation: diminished lung sounds Cardio regular rate and regular rhythm GI GI Narrative: No apparent tenderness Neuro Sensorium / Orientation: stuporous Psych Psych Narrative: Unresponsive to voice or physical stimuli Appearance: unkempt Skin Skin Narrative: Rosa and ashy General Skin Exam: pallor MDM MDM Lab Data Labs: Laboratory Results - last 24 hr 05/26/22 05/26/22 05/26/22 10:12 10:12 10:12 WBC 12.4 H RBC 3.26 L Hgb 9.7 L Hct 33.9 L MCV 104.0 H D MCH 29.8 MCHC 28.6 L D RDW Std Deviation 63.9 H RDW Coeff of Parviz 16.7 H Plt Count 228 MPV 11.4 Immature Gran % (Auto) 1.500 H Neut % (Auto) 83.1 H Lymph % (Auto) 5.5 L Hubbard % (Auto) 9.5 Eos % (Auto) 0.2 Baso % (Auto) 0.2 Absolute Neuts (auto) 10.3 H Absolute Lymphs (auto) 0.68 L Nucleated RBC % 0 PT 14.0 INR 1.1 APTT 26.0 Sodium 143 Potassium 6.9 H* Chloride 105 Carbon Dioxide 33.0 H Anion Gap 5 BUN 38 H Creatinine 1.67 H Estim Creat Clear Calc 26.59 Est GFR (MDRD) Af Amer 39 L Est GFR (MDRD) Non-Af 32 L BUN/Creatinine Ratio 22.8 H Glucose 154 H Lactic Acid Calcium 8.5 Total Bilirubin 0.30 AST 27 ALT 33 Alkaline Phosphatase 55 Ammonia Total Creatine Kinase 98 Troponin I High Sens 85 H Total Protein 5.8 L Albumin 2.5 L Globulin 3.3 Albumin/Globulin Ratio 0.8 L Triglycerides Urine Color Urine Clarity Urine pH Ur Specific [place] Urine Protein Urine Glucose (UA) Urine Ketones Urine Occult Blood Urine Nitrite Urine Bilirubin Urine Urobilinogen Ur Leukocyte Esterase Urine RBC Urine WBC Ur Squamous Epith Cells Urine Bacteria Urine Mucus Urine Opiates Screen Urine Methadone Screen Ur Barbiturates Screen Ur Phencyclidine Scrn Ur Amphetamines Screen MDMA (Ecstasy) Screen U Benzodiazepines Scrn Urine Cocaine Screen U Cannabinoids Screen Ur Drug Screen Comment Ethyl Alcohol Blood Type Antibody Screen 05/26/22 05/26/22 05/26/22 10:12 10:12 10:12 WBC RBC Hgb Hct MCV MCH MCHC RDW Std Deviation RDW Coeff of Parviz Plt Count MPV Immature Gran % (Auto) Neut % (Auto) Lymph % (Auto) Hubbard % (Auto) Eos % (Auto) Baso % (Auto) Absolute Neuts (auto) Absolute Lymphs (auto) Nucleated RBC % PT INR APTT Sodium Potassium Chloride Carbon Dioxide Anion Gap BUN Creatinine Estim Creat Clear Calc Est GFR (MDRD) Af Amer Est GFR (MDRD) Non-Af BUN/Creatinine Ratio Glucose Lactic Acid 5.2 H* Calcium Total Bilirubin AST ALT Alkaline Phosphatase Ammonia Total Creatine Kinase Troponin I High Sens Total Protein Albumin Globulin Albumin/Globulin Ratio Triglycerides 41 Urine Color Urine Clarity Urine pH Ur Specific [place] Urine Protein Urine Glucose (UA) Urine Ketones Urine Occult Blood Urine Nitrite Urine Bilirubin Urine Urobilinogen Ur Leukocyte Esterase Urine RBC Urine WBC Ur Squamous Epith Cells Urine Bacteria Urine Mucus Urine Opiates Screen Urine Methadone Screen Ur Barbiturates Screen Ur Phencyclidine Scrn Ur Amphetamines Screen MDMA (Ecstasy) Screen U Benzodiazepines Scrn Urine Cocaine Screen U Cannabinoids Screen Ur Drug Screen Comment Ethyl Alcohol Blood Type A POSITIVE Antibody Screen NEGATIVE 05/26/22 05/26/22 05/26/22 10:12 10:30 10:30 WBC RBC Hgb Hct MCV MCH MCHC RDW Std Deviation RDW Coeff of Parviz Plt Count MPV Immature Gran % (Auto) Neut % (Auto) Lymph % (Auto) Hubbard % (Auto) Eos % (Auto) Baso % (Auto) Absolute Neuts (auto) Absolute Lymphs (auto) Nucleated RBC % PT INR APTT Sodium Potassium Chloride Carbon Dioxide Anion Gap BUN Creatinine Estim Creat Clear Calc Est GFR (MDRD) Af Amer Est GFR (MDRD) Non-Af BUN/Creatinine Ratio Glucose Lactic Acid Calcium Total Bilirubin AST ALT Alkaline Phosphatase Ammonia 15.0 Total Creatine Kinase Troponin I High Sens Total Protein Albumin Globulin Albumin/Globulin Ratio Triglycerides Urine Color Yellow Urine Clarity Clear Urine pH 7.0 Ur Specific [place] 1.010 Urine Protein 100 H Urine Glucose (UA) 50 H Urine Ketones Negative Urine Occult Blood 150 H Urine Nitrite Negative Urine Bilirubin Negative Urine Urobilinogen Normal Ur Leukocyte Esterase Negative Urine RBC 5-10 SEEN Urine WBC 0-5 SEEN Ur Squamous Epith Cells 0-5 SEEN Urine Bacteria RARE Urine Mucus 0 SEEN Urine Opiates Screen Urine Methadone Screen Ur Barbiturates Screen Ur Phencyclidine Scrn Ur Amphetamines Screen MDMA (Ecstasy) Screen U Benzodiazepines Scrn Urine Cocaine Screen U Cannabinoids Screen Ur Drug Screen Comment Ethyl Alcohol 4.0 Blood Type Antibody Screen 05/26/22 10:30 WBC RBC Hgb Hct MCV MCH MCHC RDW Std Deviation RDW Coeff of Parviz Plt Count MPV Immature Gran % (Auto) Neut % (Auto) Lymph % (Auto) Hubbard % (Auto) Eos % (Auto) Baso % (Auto) Absolute Neuts (auto) Absolute Lymphs (auto) Nucleated RBC % PT INR APTT Sodium Potassium Chloride Carbon Dioxide Anion Gap BUN Creatinine Estim Creat Clear Calc Est GFR (MDRD) Af Amer Est GFR (MDRD) Non-Af BUN/Creatinine Ratio Glucose Lactic Acid Calcium Total Bilirubin AST ALT Alkaline Phosphatase Ammonia Total Creatine Kinase Troponin I High Sens Total Protein Albumin Globulin Albumin/Globulin Ratio Triglycerides Urine Color Urine Clarity Urine pH Ur Specific [place] Urine Protein Urine Glucose (UA) Urine Ketones Urine Occult Blood Urine Nitrite Urine Bilirubin Urine Urobilinogen Ur Leukocyte Esterase Urine RBC Urine WBC Ur Squamous Epith Cells Urine Bacteria Urine Mucus Urine Opiates Screen NEGATIVE Urine Methadone Screen NEGATIVE Ur Barbiturates Screen NEGATIVE Ur Phencyclidine Scrn NEGATIVE Ur Amphetamines Screen NEGATIVE MDMA (Ecstasy) Screen NEGATIVE U Benzodiazepines Scrn NEGATIVE Urine Cocaine Screen NEGATIVE U Cannabinoids Screen NEGATIVE Ur Drug Screen Comment Ethyl Alcohol Blood Type Antibody Screen ABG Data ABG results: ABG 05/26/22 10:35 Specimen Type ART Sample Site R Radial pH 7.17 L* Bicarbonate Actual 31.7 H Total CO2 34 Base Excess 3 H O2 Saturation 89 L O2 % 100 ABG pCO2 86.9 H* ABG pO2 73 L Zachary Test Positive Respiration Rate 14 O2 Delivery Device Adult Vent Vent Mode AC Tidal Volume 400 POC PEEP 5 Crit Call To/Read Back Yes Blood Gas Notified Whom uma Radiography Diagnostic Testing: Clinical Impression(s) from Imaging Studies Brain CT 05/26/22 10:08 IMPRESSION: Chronic involutional changes of the brain. There has been no change since prior study. Electronically Signed: Smith Chau MD at 12:13 EDT , Cervical Spine CT 05/26/22 10:08 IMPRESSION: Multilevel degenerative changes, as described above. Electronically Signed: Smith Chau MD at 12:11 EDT , Chest X-Ray 05/26/22 10:20 IMPRESSION: The tip of the endotracheal tube is at 1.9 cm proximal to the rose. The tip of the orogastric tube is in the body of the stomach. Increased markings at the lung bases slightly more prominent on the right side suggestive of bibasilar atelectasis. Electronically Signed: Smith Chau MD at 10:43 EDT , KUB X-Ray 05/26/22 10:20 IMPRESSION: The tip of the orogastric tube is in the body of the stomach. Electronically Signed: Smith Chau MD at 10:41 EDT , Knee X-Ray 05/26/22 10:20 IMPRESSION: Normal x-ray examination of the knee. Electronically Signed: Smith Chau MD at 10:43 EDT , Chest CTA 05/26/22 11:33 IMPRESSION: No evidence of pleural embolism. Small bilateral effusions left greater than right with bibasilar atelectasis. Atelectasis also seen in the posterior aspect of the left upper lobe. Stable appearance of the bilateral pulmonary nodules. Electronically Signed: Smith Chau MD at 12:19 EDT , Discharge Plan Triage Chief Complaint: Unresponsive ED Provider: Flakito Baker Dx/Rx/DC Orders Primary Care Provider: Mine Bojorquez
[2022-05-26] MEDS: Succinylcholine Chloride 200 MG/10 ML SYRINGE 100 MG IV (10:20)
--- NOTE | 2022-05-26 10:20 | RAD_ITS ---
STUDY: X-RAY CHEST REASON FOR EXAM: Female, 72 years old. Altered mental status TECHNIQUE: Single AP portable view of the chest. COMPARISON: Comparison is made with prior chest radiograph dated 05/20/2022. FINDINGS: The tip of the endotracheal tube is at 1.9 cm proximal to the rose. An orogastric tube is seen with the tip in the body of the stomach. EKG electrodes are seen. Increased markings at the lung bases slightly more prominent on the right lung base suggests some bibasilar atelectasis. There is no demonstrated pleural abnormality. There is mild cardiac enlargement. Normal mediastinum and cynthia. Normal visualized pulmonary arteries. There is atherosclerotic calcification of the aortic arch with tortuosity. Normal visualized thoracic spine. Normal visualized ribs, clavicles, and shoulders. There is no demonstrated abnormality of the visualized soft tissue structures of the upper abdomen. RAD/Chest 1 View (Portable) IMPRESSION: The tip of the endotracheal tube is at 1.9 cm proximal to the rose. The tip of the orogastric tube is in the body of the stomach. Increased markings at the lung bases slightly more prominent on the right side suggestive of bibasilar atelectasis. Electronically Signed: Smith Chau MD at 10:43 EDT ,
--- NOTE | 2022-05-26 10:20 | RAD_ITS ---
STUDY: X-RAY - ABDOMEN/PELVIS REASON FOR EXAM: Female, 72 years old. og tube TECHNIQUE: Single AP view of the abdomen / pelvis. COMPARISON: None. FINDINGS: Mild increased markings at the lung bases suggestive of atelectasis. The tip of the orogastric tube is in the body of the stomach. Aortic stent grafting is seen in the abdominal aorta. RAD/Abdomen Single View (Portable) IMPRESSION: The tip of the orogastric tube is in the body of the stomach. Electronically Signed: Smith Chau MD at 10:41 EDT ,
--- NOTE | 2022-05-26 10:20 | RAD_ITS ---
STUDY: X-RAY - RIGHT KNEE REASON FOR EXAM: Female, 72 years old. Knee pain. The patient is unresponsive. TECHNIQUE: 2 view(s) of the knee. COMPARISON: None. FINDINGS: Normal visualized distal femur. Normal visualized proximal tibia and fibula. Normal proximal tibiofibular articulation. Normal medial femorotibial compartment. Normal lateral femorotibial compartment. Normal patellofemoral articulation. The soft tissue structures are unremarkable. RAD/Knee 1 or 2 Views IMPRESSION: Normal x-ray examination of the knee. Electronically Signed: Smith Chau MD at 10:43 EDT ,
[2022-05-26 10:34] LABS: Absolute Lymphocyte Count 0.68 X10^3/uL (0.83-4.51); Absolute Neutrophil Count 10.3 X10^3/uL (2.0-7.7); Basophil# 0.03 X10^3/uL; Basophil% 0.2 % (0-1); Eosinophil# 0.02 X10^3/uL; Eosinophils% 0.2 % (0-5); Hematocrit 33.9 % (37-47); Hemoglobin 9.7 g/dL (12.0-15.0); Lymphocyte # 0.68 X10^3/ul (0.83-4.51); Lymphocyte % 5.5 % (19-41); Mean Corp Hgb Conc 28.6 g/dL (32-36); Mean Corpuscular Hgb 29.8 pg (27.0-32.0); Mean Platelet Vol. 11.4 fl (6.2-12.0); Monocyte# 1.17 X10^3/uL; Monocyte% 9.5 % (0-10); NRBC Flagged by Analyzer 0 % (0-5); Neutrophil % 83.1 % (47-70); Platelet Count 228 K/mm3 (150-450); RBC Distribution Width CV 16.7 % (11.6-14.6); RBC Distribution Width SD 63.9 fl (35.1-43.9); Red Blood Count 3.26 M/mm3 (4.2-5.4); White Blood Count 12.4 K/mm3 (4.4-11.0)
[2022-05-26] MEDS: Propofol 10MG/Ml 1,000 MG/100 ML Bottle 4.6 MG CONT INF (10:38)
[2022-05-26] MEDS: 0.9% Normal Saline 1,000 ML 150 ML IV ×2 (10:39→17:31)
--- NOTE | 2022-05-26 10:40 | CPS ---
critical values on abg. Dr eaton notified of critical shayna
[2022-05-26 10:42] LABS: Mucous, Urine 0 SEEN /hpf (<or=2+)
[2022-05-26 10:42] LABS: Allen Test Positive; Base Excess 3 mmol/L (-2 to +2); Bicarbonate 31.7 mmol/L (22-26); Blood Gas Specimen Type ART; FI02 100; Mode AC; O2 Delivery Device Adult Vent; PEEP 5; PO2 73 mmHG (75-100); RR 14; SITE R Radial; SO2 89 % (95-99); Total Carbon Dioxide 34 mmol/L; Vt 400; pCO2 86.9 mmHg (35-45); pH 7.17 (7.35-7.45)
--- NOTE | 2022-05-26 10:42 | CM.ED ---
Referral: self referral JAYA is familiar with patient from recent hospitalization. SW contacted patient's case management social worker with [facility] (Claire Alba). Claire said she found patient this am. She went to potato picker patient to take her to get her Abilify injection and she found patient unresponsive. Claire said the link trainer maintenance worker said that patient called crisis around midnight and said she thinks she had too much caffeine. JAYA notified patient's RN in the ED of this information and she will pass it along to the physician. JAYA did complete Healthcare Power of Rubbish Collector papers with patient yesterday while a patient on PCU. Patient named her son, Robert Ojeda ([phone]) as her Healthcare Power of Rubbish Collector. Isaura Leiva SPA THERAPIST [facility]
[2022-05-26 10:45] LABS: Color, Urine Yellow (Yellow); Glucose, Dipstick 50 mg/dl (Normal); Ketone-Dipstick Negative (Negative); Leukocyte Esterase-Dipstick Negative /ul (Negative); Nitrite-Dipstick Negative (Negative); Occult Blood-Urine 150 /ul (Negative); Protein-Dipstick 100 mg/dl (Negative); Urine Bilirubin Dipstick Negative (Negative); Urine Clarity Clear (Clear); Urine Urobilinogen Normal (Normal)
--- NOTE | 2022-05-26 10:45 | ED.RN ---
PAINT AND TABLE EDGER TO BEDSIDE TO UPDATE RN. PATIENT SLAB INSTALLER IS THE ONE WHO FOUND PATIENT UNRESPONSIVE THIS MORNING AT 0930. PER SLAB INSTALLER PATIENT HAD CALLED AND TALKED TO CRISIS ON THE PHONE LAST NIGHT AT MIDNIGHT AND STATED SHE FEELS LIKE SHE DRANK TOO MUCH COFFEE. DR. KWON NOTIFIED.
[2022-05-26 10:47] LABS: International Normalized Ratio 1.1
[2022-05-26 10:56] LABS: ALB/GLOB Ratio 0.8 RATIO (0.9-2.4); AST(SGOT) 27 U/L (15-37); Alanine Aminotransfer ALT/SGPT 33 U/L (13-56); Albumin, Serum 2.5 g/dL (3.2-5.0); Alkaline Phosphatase 55 U/L (45-117); Anion Gap 5 (5-15); BUN 38 mg/dL (7-18); BUN/Creat Ratio 22.8 RATIO (10-20); CPK Total, Creatine Kinase 98 U/L (26-192); Calcium,Total 8.5 mg/dL (8.5-10.1); Chloride 105 mmol/L (98-107); Creatinine, Serum 1.67 mg/dL (0.55-1.02); EST Glomerular Filtration Rate 32 mL/min (>60); Est Glom Filt Rate - Afr Amer 39 mL/min (>60); Estimated Creatinine Clearance 26.59 ml/min; Globulin 3.3 g/dL (2.2-4.2); Glucose 154 mg/dL (74-106); Potassium 6.9 mmol/L (3.5-5.1); Protein, Total 5.8 g/dL (6.4-8.2); Sodium Level 143 mmol/L (136-145); Troponin-I HS 85 pg/mL (3.0-54.0)
[2022-05-26 11:01] LABS: Red Blood Cells-Urine 5-10 SEEN /hpf (0-5); Squamous Epithelial Cells - UA 0-5 SEEN /hpf (5-10); White Blood Cells 0-5 SEEN /hpf (0-5)
[2022-05-26 11:02] LABS: Bacteria RARE /hpf (None Seen)
--- NOTE | 2022-05-26 11:02 | CASEMGMT ---
SW also called Joyce at [facility] and notified her of patient's situation. ([facility] has been involved with patient). Isaura Leiva MSW [facility]
[2022-05-26 11:15] LABS: Triglycerides 41 mg/dL
[2022-05-26 11:16] LABS: Lactic Acid 5.2 mmol/L (0.4-1.9)
--- NOTE | 2022-05-26 11:23 | HP.PCM.HOS_ITS ---
HPI - General General Date of Admission: 05/26/22 Date of Service: 05/26/22 Chief Complaint: found unresponsive HPI Narrative RAFAL SR, is a 72 F with an extensive PMH as outlined who presents via the ED on 05/26/2022 after being found unresponsive by her home health aide. She was just discharged on 05/25/2022 after she was admitted and managed for acute metabolic encephalopathy. SHe was treated for acute COPD exacerbation and was admitted other prior presentation in the ED but subsequently extubated. 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 She was weaned down to have 4 L of oxygen. Placement was recommended but patient adamantly refused and Adult Protective Services was consulted to follow up with patient. She went home and apparently called the [facility] team because she was having palpitations. She was found unresponsive this morning. No further history was obtained. She was emergently intubated in the ED. Vitals showed Bp of 109/57, AL of 85 and RR of 16. Temp was 91.3 and oxygen sats was 100% on the ventilator. CBC showed hb of 9.7, wbc of 12.4, platelets of 228. Chemistry showed sodium of 143, potassium of 6.9 and bicarb of 33, as well as Cr of 1.67. Lactic acid was 5.2 and initial troponin was 85. Urinalysis showed no evidence of UTI, and urine tox was pending. She is being admitted to be managed for acute hypoxic respiratory failure and acute metabolic encephalopathy. [facility]LY [facility] Medical History AAA (abdominal aortic aneurysm) Abdominal aortic aneurysm, ruptured (~05/25/12) Acute and chronic respiratory failure Altered mental status Altered mental status Anemia Atherosclerosis of [place] coronary artery of [place] heart without angina pectoris Chronic respiratory failure COPD COPD (chronic obstructive pulmonary disease) Cor pulmonale Cor pulmonale, chronic Diabetes mellitus type II Essential (primary) hypertension Fever History of psychosis Hypoglycemia NSTEMI (non-ST elevated myocardial infarction) Obesity Old myocardial infarction Other medical terminologist (current) drug therapy PAD (peripheral artery disease) Presence of stent in coronary artery (~01/08/15) Pulmonary hypertension Pure hypercholesterolemia Rhabdomyolysis Tobacco use disorder Type 2 diabetes mellitus Home Medications metoprolol succinate 50 mg tablet,extended release 24 hr 50 mg PO DAILY Heart/BP 09/26/16 [History Last Taken 05/17/18] buspirone 10 mg tablet 10 mg PO TID anxiety 01/30/18 [History Last Taken 05/17/18] multivitamin (Daily Multiple tablet) 1 tab PO DAILY vitamin 01/30/18 [History Last Taken 05/17/18] omega-3 fatty acids-fish oil 340 mg-1,000 mg capsule (Fish Oil) 1 cap PO DAILY vitamin 01/30/18 [History Last Taken 05/17/18 ]] paliperidone palmitate 234 mg/1.5 mL intramuscular syringe (Invega Sustenna) 234 mg IM Q30D schizo 01/30/18 [History Last Taken 01/05/18] risperidone 3 mg tablet (Risperdal) 3 mg PO BID psych 01/30/18 [History Last Taken 05/17/18] albuterol sulfate 90 mcg/actuation aerosol inhaler (Ventolin HFA) 2 puff inhalation 4X/DAY PRN PRN Sob &/Or Wheezing 05/18/18 [History Last Taken Unknown] potassium chloride 10 mEq tablet,extended release(part/cryst) 10 meq PO DAILY supplement #90 tabs 02/28/20 [Rx Last Taken Unknown] Incruse Ellipta Inhaler 62.5 mcg inhalation DAILY COPD 10/21/20 [History Last Taken Unknown] atorvastatin 80 mg tablet 80 mg PO QHS cholesterol 05/21/22 [History Last Taken Unknown] fenofibrate micronized 200 mg capsule 200 mg PO DAILY high triglycerides 05/21/22 [History Last Taken Unknown] isosorbide mononitrate 30 mg tablet,extended release 24 hr 30 mg PO DAILY Heart 05/21/22 [History Last Taken Unknown] benztropine 1 mg tablet 1 mg PO BID sedation 05/23/22 [History Last Taken Unknown] fluticasone furoate 100 mcg-vilanterol 25 mcg/dose inhalation powder (Breo Ellipta) 1 ea inhalation TID PRN Sedation 05/23/22 [History Last Taken Unknown] tiotropium bromide 2.5 mcg/actuation mist for inhalation (Spiriva Respimat) 2 inh inhalation DAILY breathing 05/23/22 [History Last Taken Unknown] aspirin 81 mg tablet,delayed release 81 mg PO DAILY Heart Health #30 tabs 05/25/22 [Rx Last Taken 05/17/18] clopidogrel 75 mg tablet 75 mg PO DAILY ANTIPLATELET #90 tabs 05/25/22 [Rx Last Taken Unknown] pantoprazole 40 mg tablet,delayed release 40 mg PO BIDCM #60 tabs 05/25/22 [Rx Last Taken Unknown] sucralfate 1 gram tablet 1 g PO BID #60 tabs 05/25/22 [Rx Last Taken Unknown] Allergy/AdvReac Type Severity Reaction Status Date / Time haloperidol [From Haldol] AdvReac Other Verified 05/26/22 10:45 Family History Mother CAD (coronary artery disease) Brother CAD (coronary artery disease) Myocardial infarction Sister Cancer lung cancer Son COPD (chronic obstructive pulmonary disease) Son COPD (chronic obstructive pulmonary disease) Daughter COPD (chronic obstructive pulmonary disease) Surgical History H/O percutaneous transluminal coronary angioplasty History of abdominal aortic aneurysm repair (~05/25/12) History of tubal ligation Presence of coronary angioplasty implant and graft (~01/08/15) S/P AAA repair Social History Smoking Status: Current every day smoker tobacco type: cigarettes alcohol intake: never substance use type: does not use caffeine: Yes Type: tea what type of physical activity do you participate in: walking frequency: daily duration: < 15 minutes/day seatbelt use: always do you feel safe at home: Yes ROS ROS Narrative patient intubated and sedated Review of Systems ROS Unobtainable: due to encephalopathy Vital Signs Vital Signs Vital Signs: 05/26/22 10:00 05/26/22 10:19 05/26/22 10:22 Temperature 96 F L 89.5 F L Temperature Source Temporal Core Pulse Rate 88 87 Respiratory Rate 16 17 Respiratory Pattern Blood Pressure 132/62 H 151/69 H Blood Pressure Mean 85 96 Pulse Ox 85 98 99 Oxygen Delivery Method Ambu-Bag Mechanical Ventilator Mechanical Ventilator Fraction of Inspired Oxygen (FIO2) 05/26/22 10:42 05/26/22 10:50 05/26/22 10:21 Temperature 91.2 F L Temperature Source Core Pulse Rate 84 84 91 Respiratory Rate 23 H 14 36 H Respiratory Pattern Tachypnea Blood Pressure 121/27 H 123/83 H Blood Pressure Mean 58 96 Pulse Ox 100 100 97 Oxygen Delivery Method Mechanical Ventilator Mechanical Ventilator Fraction of Inspired Oxygen (FIO2) 100 05/26/22 11:00 Temperature 91.3 F L Temperature Source Core Pulse Rate 85 Respiratory Rate 16 Respiratory Pattern Blood Pressure 109/57 L Blood Pressure Mean 74 Pulse Ox 100 Oxygen Delivery Method Mechanical Ventilator Fraction of Inspired Oxygen (FIO2) Weight Weight: 167 lb 12.348 oz Body Mass Index (BMI) 27.9 Physical Exam Const Constitutional Narrative: intubated, sedated, RASS score is +1 HEENT normocephalic and head/scalp atraumatic Mouth: oral and palatal mucosa normal Eyes Eyes Narrative: pupils pinpoint Resp Resp Narrative: intubated, diminished breath sounds bibasally, no wheezes or crackles. Cardio regular rate, regular rhythm, S1 normal heart sound, S2 normal heart sound and no murmurs Extremity normal to inspection Neuro Neuro Narrative: intubated, sedated, RASS score is +1 Results Lab / Micro Data Result Diagrams: 05/26/22 10:12 05/26/22 10:12 Labs: Laboratory Results - last 24 hr 05/26/22 10:12: WBC 12.4 H, RBC 3.26 L, Hgb 9.7 L, Hct 33.9 L, MCV 104.0 H D, MCH 29.8, MCHC 28.6 L D, RDW Std Deviation 63.9 H, RDW Coeff of Parviz 16.7 H, Plt Count 228, MPV 11.4, Immature Gran % (Auto) 1.500 H, Neut % (Auto) 83.1 H, Lymph % (Auto) 5.5 L, [place] % (Auto) 9.5, Eos % (Auto) 0.2, Baso % (Auto) 0.2, Absolute Neuts (auto) 10.3 H, Absolute Lymphs (auto) 0.68 L, Nucleated RBC % 0 05/26/22 10:12: PT 14.0, INR 1.1, APTT 26.0 05/26/22 10:12: Sodium 143, Potassium 6.9 H*, Chloride 105, Carbon Dioxide 33.0 H, Anion Gap 5, BUN 38 H, Creatinine 1.67 H, Estim Creat Clear Calc 26.59, Est GFR (MDRD) Af Amer 39 L, Est GFR (MDRD) Non-Af 32 L, BUN/Creatinine Ratio 22.8 H , Glucose 154 H, Calcium 8.5, Total Bilirubin 0.30, AST 27, ALT 33, Alkaline Phosphatase 55, Total Creatine Kinase 98, Troponin I High Sens 85 H, Total Protein 5.8 L, Albumin 2.5 L, Globulin 3.3, Albumin/Globulin Ratio 0.8 L 05/26/22 10:12: Lactic Acid 5.2 H* 05/26/22 10:12: Blood Type A POSITIVE, Antibody Screen NEGATIVE 05/26/22 10:12: Triglycerides 41 05/26/22 10:30: Ammonia 15.0 05/26/22 10:30: Urine Color Yellow, Urine Clarity Clear, Urine pH 7.0, Ur Specific [place] 1.010, Urine Protein 100 H, Urine Glucose (UA) 50 H, Urine Ketones Negative, Urine Occult Blood 150 H, Urine Nitrite Negative, Urine Bilirubin Negative, Urine Urobilinogen Normal, Ur Leukocyte Esterase Negative, Urine RBC 5-10 SEEN, Urine WBC 0-5 SEEN, Ur Squamous Epith Cells 0-5 SEEN, Urine Bacteria RARE, Urine Mucus 0 SEEN Micro: Microbiology 05/26/22 10:30 Nasal Secretion SARS-CoV-2 Antigen (Rapid) - Final 05/26/22 10:20 Gastric Fluid/Contents Gastric Occult Blood - Final ABG Data ABG results: ABG 05/26/22 10:35 Specimen Type ART Sample Site R Radial pH 7.17 L* Bicarbonate Actual 31.7 H Total CO2 34 Base Excess 3 H O2 Saturation 89 L O2 % 100 ABG pCO2 86.9 H* ABG pO2 73 L Zachary Test Positive Respiration Rate 14 O2 Delivery Device Adult Vent Vent Mode AC Tidal Volume 400 POC PEEP 5 Crit Call To/Read Back Yes Blood Gas Notified Whom uma Radiology Impression Chest X-Ray 05/26/22 10:20 IMPRESSION: The tip of the endotracheal tube is at 1.9 cm proximal to the rose. The tip of the orogastric tube is in the body of the stomach. Increased markings at the lung bases slightly more prominent on the right side suggestive of bibasilar atelectasis. Electronically Signed: Smith Chau MD at 10:43 EDT , KUB X-Ray 05/26/22 10:20 IMPRESSION: The tip of the orogastric tube is in the body of the stomach. Electronically Signed: Smith Chau MD at 10:41 EDT , Knee X-Ray 05/26/22 10:20 IMPRESSION: Normal x-ray examination of the knee. Electronically Signed: Smith Chau MD at 10:43 EDT , Assessment & Plan Assessment/Plan (1) Acute hypoxemic respiratory failure: (2) Elevated lactic acid level: PLAN: Plan #Acute hypoxic and hypercapnic respiratory failure * was found unresponsive at home. * was found to be hypoxic with pinpoint pupils. * ABG shwoed ph of 7.17 with pCO2 of 86.9 and pO2 of 73 * was emergently intubated in the ED * admit to ICU * consult critical care * started on IV vancomycin and Zosyn empirically for possible pneumonia and sepsis. * Urinalysis showed no evidence of UTI. Urine tox was also negative. * CTA of the chest was negative for PE and showed small bilateral pleural effusions left greater than right with bibasal atelectasis and stable appearance of bilateral pulmonary nodules. * Was started on IV Solu-Medrol as well due to history of COPD and recent admission for COPD exacerbation. * 2D echo ordered. * #Lactic acidosis * Lactic acid was 5.2 on admission. This was likely due to her long period of unresponsiveness. * She meets sepsis criteria. Lactic acid with no clear evidence of infection. Being covered empirically with IV vancomycin and Zosyn and blood cultures ordered. * CTA showed no evidence of pneumonia. * She was hydrated with IV fluids per sepsis protocol. * #Acute metabolic encephalopathy likely due to acute respiratory failure * CT of the brain showed no acute intracranial pathology. Management as above. * #RAMANDEEP with hyperkalemia * Creatinine is 1.67 but potassium was markedly elevated at 6.9. No evidence of hemolysis. * Patient given Kayexalate rectally x1. Also given potassium depleting cocktail in the ED * Will trend potassium and repeat BMP this evening. * #CAD: * On aspirin and Plavix. * These were held during her most recent admission and she was due to restart them on 05/29/2022. * Also on statin #Anemia: * Had anemia during her recent admission with evidence of iron deficiency. * Stool for occult blood was also positive. 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 * Will place on IV pantoprazole 40 mg twice daily as she is currently intubated. #Hyperlipidemia: On statin #HIstory of schizophrenia: on Invega DVT prophylaxis: lovenox Charges/Coding Visit Charges Inpatient E&M: 25807 Init Hosp L3
--- NOTE | 2022-05-26 11:33 | CT_ITS ---
STUDY: CTA CHEST REASON FOR EXAM: Female, 72 years old. Hypoxic respiratory failure. The patient is unresponsive. RADIATION DOSAGE (If Supplied By Facility): CTDIvol = ( 15.99 ) mGy, DLP = ( 455.84 ) mGycm TECHNIQUE: The examination was performed with the intravenous administration of IV 100mL Isovue-370. Post-processing of the angiographic images was performed, with multiplanar reformation and 3D reconstruction. Individualized dose optimization techniques were used for this CT. COMPARISON: None. FINDINGS: The endotracheal tube is in situ. An orogastric tube is seen within the esophagus. Normal enhancement of the main pulmonary artery and right and left pulmonary arteries. Normal enhancement of the bilateral peripheral pulmonary arteries. There is no demonstrated pulmonary embolism. There is atherosclerotic calcification of the aortic arch with tortuosity. There is no demonstrated aortic dissection. There are calcifications of the coronary arteries. Normal mediastinum. Normal hilar regions. Normal visualized trachea and bronchi. Hyperinflation. Stable 4 mm noncalcified nodule in the right upper lobe as well as a 4 mm noncalcified nodule. 6 mm noncalcified nodule in the right upper lobe as seen on axial image #184. Emphysematous changes. Small bilateral pleural effusions worse on the left side. Increased markings in the posterior aspect of the left upper lobe suggestive of atelectasis. There is also evidence of bilateral atelectasis at both lung bases worse on the left side. Old right lower rib fracture. There are degenerative changes of thoracic spine. Mild degree of the right perinephric stranding. CT/CTA Chest W/WO Contrast IMPRESSION: No evidence of pleural embolism. Small bilateral effusions left greater than right with bibasilar atelectasis. Atelectasis also seen in the posterior aspect of the left upper lobe. Stable appearance of the bilateral pulmonary nodules. Electronically Signed: Smith Chau MD at 12:19 EDT ,
[2022-05-26] MEDS: 0.9% Normal Saline 1,000 ML 999 ML IV ×2 (11:49→12:10)
[2022-05-26 11:51] LABS: Amphetamine Urine VISTA NEGATIVE (<1000 ng/mL); Barbiturate Urine VISTA NEGATIVE (< 200 ng/mL); Benzodiazepine Urine VISTA NEGATIVE (< 200 ng/mL); Cocaine Urine VISTA NEGATIVE (< 300 ng/mL); Ecstacy Urine VISTA NEGATIVE (< 500 ng/mL); Methadone Urine VISTA NEGATIVE (< 300 ng/mL); PCP Urine VISTA NEGATIVE (< 25 ng/mL); THC Urine VISTA NEGATIVE (< 50 ng/mL); Vista UDS pH Range 8
[2022-05-26] MEDS: Albuterol 2.5 MG/3 ML VIAL.NEB. INHALATION ×2 (11:52→12:11)
[2022-05-26] MEDS: Dextrose 50%-Water 25 GM/50 ML DISP.SYRIN IV (11:56)
[2022-05-26] MEDS: Insulin Lispro 10 UNIT in Syringe 0 ML 6 UNIT IV (11:56)
[2022-05-26] MEDS: Calcium Chloride 1 GM/10 ML Syringe IV (11:59)
[2022-05-26] MEDS: Sodium Bicarbonate 8.4% 50 ML Syringe 50 MEQ IV (12:02)
--- NOTE | 2022-05-26 12:27 | EDS_ITS ---
HPI History of Present Illness Chief Complaint: Unresponsive [facility] Medical History AAA (abdominal aortic aneurysm) Abdominal aortic aneurysm, ruptured (~05/25/12) Acute and chronic respiratory failure Altered mental status Altered mental status Anemia Atherosclerosis of [place] coronary artery of [place] heart without angina pectoris Chronic respiratory failure COPD COPD (chronic obstructive pulmonary disease) Cor pulmonale Cor pulmonale, chronic Diabetes mellitus type II Essential (primary) hypertension Fever History of psychosis Hypoglycemia NSTEMI (non-ST elevated myocardial infarction) Obesity Old myocardial infarction Other group home (current) drug therapy PAD (peripheral artery disease) Presence of stent in coronary artery (~01/08/15) Pulmonary hypertension Pure hypercholesterolemia Rhabdomyolysis Tobacco use disorder Type 2 diabetes mellitus Home Medications metoprolol succinate 50 mg tablet,extended release 24 hr 50 mg PO DAILY Heart/BP 09/26/16 [History Last Taken 05/17/18] buspirone 10 mg tablet 10 mg PO TID anxiety 01/30/18 [History Last Taken 05/17/18] multivitamin (Daily Multiple tablet) 1 tab PO DAILY vitamin 01/30/18 [History Last Taken 05/17/18] omega-3 fatty acids-fish oil 340 mg-1,000 mg capsule (Fish Oil) 1 cap PO DAILY vitamin 01/30/18 [History Last Taken 05/17/18 ]] paliperidone palmitate 234 mg/1.5 mL intramuscular syringe (Invega Sustenna) 234 mg IM Q30D schizo 01/30/18 [History Last Taken 01/05/18] risperidone 3 mg tablet (Risperdal) 3 mg PO BID psych 01/30/18 [History Last Taken 05/17/18] albuterol sulfate 90 mcg/actuation aerosol inhaler (Ventolin HFA) 2 puff inhalation 4X/DAY PRN PRN Sob &/Or Wheezing 05/18/18 [History Last Taken Unknown] potassium chloride 10 mEq tablet,extended release(part/cryst) 10 meq PO DAILY supplement #90 tabs 02/28/20 [Rx Last Taken Unknown] Incruse Ellipta Inhaler 62.5 mcg inhalation DAILY COPD 10/21/20 [History Last Taken Unknown] atorvastatin 80 mg tablet 80 mg PO QHS cholesterol 05/21/22 [History Last Taken Unknown] fenofibrate micronized 200 mg capsule 200 mg PO DAILY high triglycerides 05/21/22 [History Last Taken Unknown] isosorbide mononitrate 30 mg tablet,extended release 24 hr 30 mg PO DAILY Heart 05/21/22 [History Last Taken Unknown] benztropine 1 mg tablet 1 mg PO BID sedation 05/23/22 [History Last Taken Unknown] fluticasone furoate 100 mcg-vilanterol 25 mcg/dose inhalation powder (Breo Ellipta) 1 ea inhalation TID PRN Sedation 05/23/22 [History Last Taken Unknown] tiotropium bromide 2.5 mcg/actuation mist for inhalation (Spiriva Respimat) 2 inh inhalation DAILY breathing 05/23/22 [History Last Taken Unknown] aspirin 81 mg tablet,delayed release 81 mg PO DAILY Heart Health #30 tabs 05/25/22 [Rx Last Taken 05/17/18] clopidogrel 75 mg tablet 75 mg PO DAILY ANTIPLATELET #90 tabs 05/25/22 [Rx Last Taken Unknown] pantoprazole 40 mg tablet,delayed release 40 mg PO BIDCM #60 tabs 05/25/22 [Rx Last Taken Unknown] sucralfate 1 gram tablet 1 g PO BID #60 tabs 05/25/22 [Rx Last Taken Unknown] Allergy/AdvReac Type Severity Reaction Status Date / Time haloperidol [From Haldol] AdvReac Other Verified 05/26/22 10:45 Family History Mother CAD (coronary artery disease) Brother CAD (coronary artery disease) Myocardial infarction Sister Cancer lung cancer Son COPD (chronic obstructive pulmonary disease) Son COPD (chronic obstructive pulmonary disease) Daughter COPD (chronic obstructive pulmonary disease) Surgical History H/O percutaneous transluminal coronary angioplasty History of abdominal aortic aneurysm repair (~05/25/12) History of tubal ligation Presence of coronary angioplasty implant and graft (~01/08/15) S/P AAA repair Social History Smoking Status: Current every day smoker tobacco type: cigarettes alcohol intake: never substance use type: does not use caffeine: Yes Type: tea what type of physical activity do you participate in: walking frequency: daily duration: < 15 minutes/day seatbelt use: always do you feel safe at home: Yes EXAM Physical Exam Const Vital Signs: 05/26/22 10:00 05/26/22 10:19 05/26/22 10:22 Temperature 96 F L 89.5 F L Temperature Source Temporal Core Pulse Rate 88 87 Respiratory Rate 16 17 Respiratory Pattern Blood Pressure 132/62 H 151/69 H Blood Pressure Mean 85 96 Pulse Ox 85 98 99 Oxygen Delivery Method Ambu-Bag Mechanical Ventilator Mechanical Ventilator Fraction of Inspired Oxygen (FIO2) 05/26/22 10:42 05/26/22 10:50 05/26/22 10:21 Temperature 91.2 F L Temperature Source Core Pulse Rate 84 84 91 Respiratory Rate 23 H 14 36 H Respiratory Pattern Tachypnea Blood Pressure 121/27 H 123/83 H Blood Pressure Mean 58 96 Pulse Ox 100 100 97 Oxygen Delivery Method Mechanical Ventilator Mechanical Ventilator Fraction of Inspired Oxygen (FIO2) 100 05/26/22 11:00 05/26/22 12:00 05/26/22 11:23 Temperature 91.3 F L 92.4 F L Temperature Source Core Core Pulse Rate 85 83 85 Respiratory Rate 16 19 H 18 Respiratory Pattern Blood Pressure 109/57 L 113/95 H Blood Pressure Mean 74 101 Pulse Ox 100 99 100 Oxygen Delivery Method Mechanical Ventilator Mechanical Ventilator Fraction of Inspired Oxygen (FIO2) 75 05/26/22 11:50 05/26/22 11:50 05/26/22 10:50 Temperature Temperature Source Pulse Rate 85 88 Respiratory Rate 25 H 24 H Respiratory Pattern Blood Pressure Blood Pressure Mean Pulse Ox 100 Oxygen Delivery Method Fraction of Inspired Oxygen (FIO2) 75 75 05/26/22 12:22 Temperature Temperature Source Pulse Rate Respiratory Rate Respiratory Pattern Blood Pressure Blood Pressure Mean Pulse Ox 98 Oxygen Delivery Method Fraction of Inspired Oxygen (FIO2) 60 Sepsis Attestation Sepsis Alert: Yes Date exam was performed: 05/26/22 Possible Source of Sepsis: Pulmonary and Unknown Sepsis Organ Dysfunction Criteria Present: Acute Respiratory Failure (New need for BiPAP/CPAP or MV) and Lactic Acid > 2 mmol/L Fluid Resuscitation Fluid resuscitation indicated?: Yes Fluid Resuscitation ordered: 30 ml/kg fluid bolus ordered MDM MDM MDM Narrative Medical decision making narrative: [id number] female presenting with unknown downtime. An eye gel was placed prior to arrival as she was being bagged she came into the ER. It does appear that she presented this way previously and actually came off of the ventilator in the ER and was still admitted to the hospital and monitored. Patient has not done this today. 100 succinylcholine was given and she was intubated with a 7.0 ET tube using the glide scope. This was 23 cm at the lip. Good color change noted on capnography. Equal bilateral breath sounds. She has remained normotensive on a propofol drip for sedation. Blood work shows she has a leukocytosis of 12.4. Hemoglobin stable at 9.7. She did have some pinkish drainage from her OG tube when this was placed and this was sent for Gastroccult and was negative. KUB confirms placement of the OG tube in the stomach on my interpretation and radiologist agree. All she was getting imaging I did image her right knee because there appears to be bruising and swelling to this. This is interpreted by myself and is negative for acute fracture or subluxation. Creatinine is elevated at 1.67.. Patient potassium was elevated at 6.9 without hemolysis. Patient was given an amp of sodium bicarb, calcium. Chloride, insulin 6 units IV with an amp of D50, albuterol treatments, Kayexalate 15 mg through her OG tube. This was specifically for her hyperkalemia. She was also given 30 cc/kg of IV fluids. PT/INR normal. Lactic acid elevated at 5.2. Urinalysis does not appear to be consistent with infection. Her ammonia level is normal. Her CPK was normal. EtOH was negative. Urine drug screen negative. After the patient was intubated and ABG was performed which shows a pH of 7.17, bicarb 31.7, O2 sat 89%, PCO2 86.9. Chest x-ray interpreted by myself is concerning for a possible right lower lobe infiltrate and the ET tube appears to be in place. Patient was empirically covered for hospital-acquired pneumonia physical additional admission. This will cover her for aspiration as well as this is likely in this scenario. CT of the brain and cervical spine were negative. The hospitalist requested a CTA of the chest which was performed in the ER. There is no evidence of PE or dissection. Radiology interpreted as has pleural effusions. She has stable pulmonary nodules. Patient discussed with the hospitalist and will be admitted to the ICU. Impression: 1. Acute hypoxic hypercapnic respiratory failure 2. Acute kidney injury 3. Lactic acidosis 4. Right knee contusion 5. Septic shock Lab Data Attestation: I reviewed the patient's lab results. Labs: Laboratory Results - last 24 hr 05/26/22 05/26/22 05/26/22 10:12 10:12 10:12 WBC 12.4 H RBC 3.26 L Hgb 9.7 L Hct 33.9 L MCV 104.0 H D MCH 29.8 MCHC 28.6 L D RDW Std Deviation 63.9 H RDW Coeff of Parviz 16.7 H Plt Count 228 MPV 11.4 Immature Gran % (Auto) 1.500 H Neut % (Auto) 83.1 H Lymph % (Auto) 5.5 L [place] % (Auto) 9.5 Eos % (Auto) 0.2 Baso % (Auto) 0.2 Absolute Neuts (auto) 10.3 H Absolute Lymphs (auto) 0.68 L Nucleated RBC % 0 PT 14.0 INR 1.1 APTT 26.0 Sodium 143 Potassium 6.9 H* Chloride 105 Carbon Dioxide 33.0 H Anion Gap 5 BUN 38 H Creatinine 1.67 H Estim Creat Clear Calc 26.59 Est GFR (MDRD) Af Amer 39 L Est GFR (MDRD) Non-Af 32 L BUN/Creatinine Ratio 22.8 H Glucose 154 H Lactic Acid Calcium 8.5 Total Bilirubin 0.30 AST 27 ALT 33 Alkaline Phosphatase 55 Ammonia Total Creatine Kinase 98 Troponin I High Sens 85 H Total Protein 5.8 L Albumin 2.5 L Globulin 3.3 Albumin/Globulin Ratio 0.8 L Triglycerides Urine Color Urine Clarity Urine pH Ur Specific [place] Urine Protein Urine Glucose (UA) Urine Ketones Urine Occult Blood Urine Nitrite Urine Bilirubin Urine Urobilinogen Ur Leukocyte Esterase Urine RBC Urine WBC Ur Squamous Epith Cells Urine Bacteria Urine Mucus Urine Opiates Screen Urine Methadone Screen Ur Barbiturates Screen Ur Phencyclidine Scrn Ur Amphetamines Screen MDMA (Ecstasy) Screen U Benzodiazepines Scrn Urine Cocaine Screen U Cannabinoids Screen Ur Drug Screen Comment Ethyl Alcohol Blood Type Antibody Screen 05/26/22 05/26/22 05/26/22 10:12 10:12 10:12 WBC RBC Hgb Hct MCV MCH MCHC RDW Std Deviation RDW Coeff of [place]viz Plt Count MPV Immature Gran % (Auto) Neut % (Auto) Lymph % (Auto) [place] % (Auto) Eos % (Auto) Baso % (Auto) Absolute Neuts (auto) Absolute Lymphs (auto) Nucleated RBC % PT INR APTT Sodium Potassium Chloride Carbon Dioxide Anion Gap BUN Creatinine Estim Creat Clear Calc Est GFR (MDRD) Af Amer Est GFR (MDRD) Non-Af BUN/Creatinine Ratio Glucose Lactic Acid 5.2 H* Calcium Total Bilirubin AST ALT Alkaline Phosphatase Ammonia Total Creatine Kinase Troponin I High Sens Total Protein Albumin Globulin Albumin/Globulin Ratio Triglycerides 41 Urine Color Urine Clarity Urine pH Ur Specific [place] Urine Protein Urine Glucose (UA) Urine Ketones Urine Occult Blood Urine Nitrite Urine Bilirubin Urine Urobilinogen Ur Leukocyte Esterase Urine RBC Urine WBC Ur Squamous Epith Cells Urine Bacteria Urine Mucus Urine Opiates Screen Urine Methadone Screen Ur Barbiturates Screen Ur Phencyclidine Scrn Ur Amphetamines Screen MDMA (Ecstasy) Screen U Benzodiazepines Scrn Urine Cocaine Screen U Cannabinoids Screen Ur Drug Screen Comment Ethyl Alcohol Blood Type A POSITIVE Antibody Screen NEGATIVE 05/26/22 05/26/22 05/26/22 10:12 10:30 10:30 WBC RBC Hgb Hct MCV MCH MCHC RDW Std Deviation RDW Coeff of Parviz Plt Count MPV Immature Gran % (Auto) Neut % (Auto) Lymph % (Auto) [place] % (Auto) Eos % (Auto) Baso % (Auto) Absolute Neuts (auto) Absolute Lymphs (auto) Nucleated RBC % PT INR APTT Sodium Potassium Chloride Carbon Dioxide Anion Gap BUN Creatinine Estim Creat Clear Calc Est GFR (MDRD) Af Amer Est GFR (MDRD) Non-Af BUN/Creatinine Ratio Glucose Lactic Acid Calcium Total Bilirubin AST ALT Alkaline Phosphatase Ammonia 15.0 Total Creatine Kinase Troponin I High Sens Total Protein Albumin Globulin Albumin/Globulin Ratio Triglycerides Urine Color Yellow Urine Clarity Clear Urine pH 7.0 Ur Specific [place] 1.010 Urine Protein 100 H Urine Glucose (UA) 50 H Urine Ketones Negative Urine Occult Blood 150 H Urine Nitrite Negative Urine Bilirubin Negative Urine Urobilinogen Normal Ur Leukocyte Esterase Negative Urine RBC 5-10 SEEN Urine WBC 0-5 SEEN Ur Squamous Epith Cells 0-5 SEEN Urine Bacteria RARE Urine Mucus 0 SEEN Urine Opiates Screen Urine Methadone Screen Ur Barbiturates Screen Ur Phencyclidine Scrn Ur Amphetamines Screen MDMA (Ecstasy) Screen U Benzodiazepines Scrn Urine Cocaine Screen U Cannabinoids Screen Ur Drug Screen Comment Ethyl Alcohol 4.0 Blood Type Antibody Screen 05/26/22 10:30 WBC RBC Hgb Hct MCV MCH MCHC RDW Std Deviation RDW Coeff of Parviz Plt Count MPV Immature Gran % (Auto) Neut % (Auto) Lymph % (Auto) [place] % (Auto) Eos % (Auto) Baso % (Auto) Absolute Neuts (auto) Absolute Lymphs (auto) Nucleated RBC % PT INR APTT Sodium Potassium Chloride Carbon Dioxide Anion Gap BUN Creatinine Estim Creat Clear Calc Est GFR (MDRD) Af Amer Est GFR (MDRD) Non-Af BUN/Creatinine Ratio Glucose Lactic Acid Calcium Total Bilirubin AST ALT Alkaline Phosphatase Ammonia Total Creatine Kinase Troponin I High Sens Total Protein Albumin Globulin Albumin/Globulin Ratio Triglycerides Urine Color Urine Clarity Urine pH Ur Specific [place] Urine Protein Urine Glucose (UA) Urine Ketones Urine Occult Blood Urine Nitrite Urine Bilirubin Urine Urobilinogen Ur Leukocyte Esterase Urine RBC Urine WBC Ur Squamous Epith Cells Urine Bacteria Urine Mucus Urine Opiates Screen NEGATIVE Urine Methadone Screen NEGATIVE Ur Barbiturates Screen NEGATIVE Ur Phencyclidine Scrn NEGATIVE Ur Amphetamines Screen NEGATIVE MDMA (Ecstasy) Screen NEGATIVE U Benzodiazepines Scrn NEGATIVE Urine Cocaine Screen NEGATIVE U Cannabinoids Screen NEGATIVE Ur Drug Screen Comment Ethyl Alcohol Blood Type Antibody Screen ABG Data ABG results: ABG 05/26/22 10:35 Specimen Type ART Sample Site R Radial pH 7.17 L* Bicarbonate Actual 31.7 H Total CO2 34 Base Excess 3 H O2 Saturation 89 L O2 % 100 ABG pCO2 86.9 H* ABG pO2 73 L Zachary Test Positive Respiration Rate 14 O2 Delivery Device Adult Vent Vent Mode AC Tidal Volume 400 POC PEEP 5 Crit Call To/Read Back Yes Blood Gas Notified Whom uma Radiography Diagnostic Testing: Clinical Impression(s) from Imaging Studies Brain CT 05/26/22 10:08 IMPRESSION: Chronic involutional changes of the brain. There has been no change since prior study. Electronically Signed: Smith Chau MD at 12:13 EDT , Cervical Spine CT 05/26/22 10:08 IMPRESSION: Multilevel degenerative changes, as described above. Electronically Signed: Smith Chau MD at 12:11 EDT , Chest X-Ray 05/26/22 10:20 IMPRESSION: The tip of the endotracheal tube is at 1.9 cm proximal to the rose. The tip of the orogastric tube is in the body of the stomach. Increased markings at the lung bases slightly more prominent on the right side suggestive of bibasilar atelectasis. Electronically Signed: Smith Chau MD at 10:43 EDT , KUB X-Ray 05/26/22 10:20 IMPRESSION: The tip of the orogastric tube is in the body of the stomach. Electronically Signed: Smith Chau MD at 10:41 EDT , Knee X-Ray 05/26/22 10:20 IMPRESSION: Normal x-ray examination of the knee. Electronically Signed: Smith Chau MD at 10:43 EDT , Chest CTA 05/26/22 11:33 IMPRESSION: No evidence of pleural embolism. Small bilateral effusions left greater than right with bibasilar atelectasis. Atelectasis also seen in the posterior aspect of the left upper lobe. Stable appearance of the bilateral pulmonary nodules. Electronically Signed: Smith Chau MD at 12:19 EDT , Discharge Plan Triage Chief Complaint: Unresponsive ED Provider: Flakito Baker Dx/Rx/DC Orders Primary Care Provider: Mine Bojorquez
--- NOTE | 2022-05-26 13:00 | NURSING ---
Pt arrives to ICU 1 from ER in soft wrist restraints. No documentation or order present.
--- NOTE | 2022-05-26 13:07 | EX.PCM.CONCC ---
Assessment & Plan Assessment/Plan (1) Sepsis: PLAN: Plan RECOMMENDATIONS: 1. Continue assist-control mode mechanical ventilation. Wean FiO2/PEEP to maintain saturations 88 to 92%. 2. Continue empiric antimicrobials. 3. Additional fluid resuscitation to achieve 30 cc/kg. 4. Medical management of hyperkalemia. 5. Start scheduled bronchodilators and IV steroids. 6. Obtain echocardiogram. 7. Initiate appropriate ICU prophylaxis. IMPRESSIONS: 1. Sepsis The patient presented with sepsis due to possible pneumonia with acute sepsis related organ dysfunction as evidenced by altered mentation, lactic acidemia and acute kidney injury. The patient did receive supplemental IV fluid hydration. At the present time, she is hemodynamically stable. Broad-spectrum antimicrobials have been initiated. Repeat lactate is pending. 2. Metabolic encephalopathy Likely related to hypercarbia noted at presentation. Anticipate improvement with invasive mechanical ventilatory support. Continue supportive measures as noted below. 3. Acute combined respiratory failure Unclear precipitating etiology. It is certainly plausible that the patient has underlying obstructive lung disease, with questionable outpatient compliance with prescribed medical therapy leading to her acute presentation. There is no evidence of pulmonary embolism on CT imaging. I agree with continuing empiric antimicrobials. In addition, the patient will be started on scheduled bronchodilators and IV steroids. Recommend weaning FiO2 to maintain oxygen saturations 88 to 92%. Based upon her arterial blood gas results, respiratory rate will be increased on the ventilator. Limit sedation if feasible to maintain a goal RASS of -1 to 1. 4. Acute kidney injury/hyperkalemia Likely prerenal in etiology in the setting #1. Administer supplemental IV fluid hydration and continue to monitor urine output. No current indication for renal replacement therapy. Kayexalate has already been administered. Repeat potassium level this evening. 5. History of coronary artery disease/anemia/hypertension/hyperlipidemia Complicates care, management, recovery and prognosis. In light of the patient's acute presentation, will obtain echocardiogram. Recommend holding baseline antihypertensives at this time. TIME: 36 minutes of critical care time, independent of procedures, was spent addressing the patient's sepsis, metabolic encephalopathy, acute combined respiratory failure, acute kidney injury, review of all data and collaboration with the care team. HPI Consult Data Date of Consult: 05/27/22 HPI Narrative Reason for Consultation: Acute respiratory failure HPI Narrative: The patient is a 72-year-old female, with a history as outlined below, who presented to the emergency department on May 26 after being found unresponsive by her home health aide. The patient was just discharged from the hospital yesterday after having been admitted on May 20 with acute encephalopathy and acute hypoxemic respiratory failure. During her prior hospitalization, she was managed for acute COPD exacerbation and anemia, which required transfusion of blood products and an EGD. It was recommended that the patient be placed at the time of her discharge. However, she refused placement and Adult Protective Services was consulted to follow-up with the patient after discharge. On presentation to the emergency department, the patient was noted to be hypothermic but otherwise hemodynamically stable. Laboratory evaluation revealed a white blood cell count of 12,000. Coagulation profile was within normal limits. Chemistry profile was notable for a potassium of 6.9, bicarbonate of 33 and creatinine of 1.67. Lactate was elevated at 5.2. Troponin was increased at 85. Toxicology screen was negative. CTA chest showed no evidence for pulmonary embolism, but did demonstrate hyperinflated lung dubois with subcentimeter pulmonary nodules, basilar atelectasis and small effusions. Rapid COVID testing was negative. Due to her tenuous respiratory status, the patient ultimately required intubation. She received supplemental IV fluid hydration and was placed on empiric antimicrobials. The patient was admitted to the medical intensive care unit for further management. 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 PAD (peripheral artery disease) Presence of stent in coronary artery (~01/08/15) Pulmonary hypertension Pure hypercholesterolemia Rhabdomyolysis Tobacco use disorder Type 2 diabetes mellitus Home Medications metoprolol succinate 50 mg tablet,extended release 24 hr 50 mg PO DAILY Heart/BP 09/26/16 [History Last Taken 05/17/18] buspirone 10 mg tablet 10 mg PO TID anxiety 01/30/18 [History Last Taken 05/17/18] multivitamin (Daily Multiple tablet) 1 tab PO DAILY vitamin 01/30/18 [History Last Taken 05/17/18] omega-3 fatty acids-fish oil 340 mg-1,000 mg capsule (Fish Oil) 1 cap PO DAILY vitamin 01/30/18 [History Last Taken 05/17/18 ]] paliperidone palmitate 234 mg/1.5 mL intramuscular syringe (Invega Sustenna) 234 mg IM Q30D schizo 01/30/18 [History Last Taken 01/05/18] risperidone 3 mg tablet (Risperdal) 3 mg PO BID psych 01/30/18 [History Last Taken 05/17/18] albuterol sulfate 90 mcg/actuation aerosol inhaler (Ventolin HFA) 2 puff inhalation 4X/DAY PRN PRN Sob &/Or Wheezing 05/18/18 [History Last Taken Unknown] potassium chloride 10 mEq tablet,extended release(part/cryst) 10 meq PO DAILY supplement #90 tabs 02/28/20 [Rx Last Taken Unknown] Incruse Ellipta Inhaler 62.5 mcg inhalation DAILY COPD 10/21/20 [History Last Taken Unknown] atorvastatin 80 mg tablet 80 mg PO QHS cholesterol 05/21/22 [History Last Taken Unknown] fenofibrate micronized 200 mg capsule 200 mg PO DAILY high triglycerides 05/21/22 [History Last Taken Unknown] isosorbide mononitrate 30 mg tablet,extended release 24 hr 30 mg PO DAILY Heart 05/21/22 [History Last Taken Unknown] benztropine 1 mg tablet 1 mg PO BID sedation 05/23/22 [History Last Taken Unknown] fluticasone furoate 100 mcg-vilanterol 25 mcg/dose inhalation powder (Breo Ellipta) 1 ea inhalation TID PRN Sedation 05/23/22 [History Last Taken Unknown] tiotropium bromide 2.5 mcg/actuation mist for inhalation (Spiriva Respimat) 2 inh inhalation DAILY breathing 05/23/22 [History Last Taken Unknown] aspirin 81 mg tablet,delayed release 81 mg PO DAILY Heart Health #30 tabs 05/25/22 [Rx Last Taken 05/17/18] clopidogrel 75 mg tablet 75 mg PO DAILY ANTIPLATELET #90 tabs 05/25/22 [Rx Last Taken Unknown] pantoprazole 40 mg tablet,delayed release 40 mg PO BIDCM #60 tabs 05/25/22 [Rx Last Taken Unknown] sucralfate 1 gram tablet 1 g PO BID #60 tabs 05/25/22 [Rx Last Taken Unknown] Allergy/AdvReac Type Severity Reaction Status Date / Time haloperidol [From Haldol] AdvReac Other Verified 05/26/22 10:45 Family History Mother CAD (coronary artery disease) Brother CAD (coronary artery disease) Myocardial infarction Sister Cancer lung cancer Son COPD (chronic obstructive pulmonary disease) Son COPD (chronic obstructive pulmonary disease) Daughter COPD (chronic obstructive pulmonary disease) Surgical History H/O percutaneous transluminal coronary angioplasty History of abdominal aortic aneurysm repair (~05/25/12) History of tubal ligation Presence of coronary angioplasty implant and graft (~01/08/15) S/P AAA repair Social History Smoking Status: Current every day smoker tobacco type: cigarettes alcohol intake: never substance use type: does not use caffeine: Yes Type: tea what type of physical activity do you participate in: walking frequency: daily duration: < 15 minutes/day seatbelt use: always do you feel safe at home: Yes ROS Review of Systems ROS Unobtainable: due to endotracheal tube and due to mental status Physical Exam Const no apparent distress Constitutional Narrative: Rather unkempt in appearance. General Appearance: intubated and patient mechanically ventilated HEENT normocephalic and head/scalp atraumatic Mouth: endotracheal tube in place and OG tube in place Eyes PERRL and EOMs intact bilaterally Neck supple General: trachea midline Chest inspection of chest normal Resp Auscultation: diminished lung sounds; Negative for rales, rhonchi or wheezes Cardio regular rate and regular rhythm GI normal to inspection, nondistended, normoactive bowel sounds Extremity no clubbing, cyanosis or edema Skin no rashes or lesions noted Neuro Sensorium / Orientation: sedated on vent Lab / Micro Data Result Diagrams: 05/27/22 03:30 05/27/22 03:30 Labs: Laboratory Results - last 24 hr 05/26/22 10:12: WBC 12.4 H, RBC 3.26 L, Hgb 9.7 L, Hct 33.9 L, MCV 104.0 H D, MCH 29.8, MCHC 28.6 L D, RDW Std Deviation 63.9 H, RDW Coeff of [place] 16.7 H, Plt Count 228, MPV 11.4, Immature Gran % (Auto) 1.500 H, Neut % (Auto) 83.1 H, Lymph % (Auto) 5.5 L, [place] % (Auto) 9.5, Eos % (Auto) 0.2, Baso % (Auto) 0.2, Absolute Neuts (auto) 10.3 H, Absolute Lymphs (auto) 0.68 L, Nucleated RBC % 0 05/26/22 10:12: PT 14.0, INR 1.1, APTT 26.0 05/26/22 10:12: Sodium 143, Potassium 6.9 H*, Chloride 105, Carbon Dioxide 33.0 H, Anion Gap 5, BUN 38 H, Creatinine 1.67 H, Estim Creat Clear Calc 26.59, Est GFR (MDRD) Af Amer 39 L, Est GFR (MDRD) Non-Af 32 L, BUN/Creatinine Ratio 22.8 H, Glucose 154 H, Calcium 8.5, Total Bilirubin 0.30, AST 27, ALT 33, Alkaline Phosphatase 55, Total Creatine Kinase 98, Troponin I High Sens 85 H, Total Protein 5.8 L, Albumin 2.5 L, Globulin 3.3, Albumin/Globulin Ratio 0.8 L 05/26/22 10:12: Lactic Acid 5.2 H* 05/26/22 10:12: Blood Type A POSITIVE, Antibody Screen NEGATIVE 05/26/22 10:12: Triglycerides 41 05/26/22 10:12: Ethyl Alcohol 4.0 05/26/22 10:30: Ammonia 15.0 05/26/22 10:30: Urine Color Yellow, Urine Clarity Clear, Urine pH 7.0, Ur Specific [place] 1.010, Urine Protein 100 H, Urine Glucose (UA) 50 H, Urine Ketones Negative, Urine Occult Blood 150 H, Urine Nitrite Negative, Urine Bilirubin Negative, Urine Urobilinogen Normal, Ur Leukocyte Esterase Negative, Urine RBC 5-10 SEEN, Urine WBC 0-5 SEEN, Ur Squamous Epith Cells 0-5 SEEN, Urine Bacteria RARE, Urine Mucus 0 SEEN 05/26/22 10:30: Urine Opiates Screen NEGATIVE, Urine Methadone Screen NEGATIVE, Ur Barbiturates Screen NEGATIVE, Ur Phencyclidine Scrn NEGATIVE, Ur Amphetamines Screen NEGATIVE, MDMA (Ecstasy) Screen NEGATIVE, U Benzodiazepines Scrn NEGATIVE, Urine Cocaine Screen NEGATIVE, U Cannabinoids Screen NEGATIVE, Ur Drug Screen Comment Micro: Microbiology 05/26/22 10:30 Nasal Secretion SARS-CoV-2 Antigen (Rapid) - Final 05/26/22 10:20 Gastric Fluid/Contents Gastric Occult Blood - Final ABG Data ABG results: ABG 05/26/22 10:35 Specimen Type ART Sample Site R Radial pH 7.17 L* Bicarbonate Actual 31.7 H Total CO2 34 Base Excess 3 H O2 Saturation 89 L O2 % 100 ABG pCO2 86.9 H* ABG pO2 73 L Zachary Test Positive Respiration Rate 14 O2 Delivery Device Adult Vent Vent Mode AC Tidal Volume 400 POC PEEP 5 Crit Call To/Read Back Yes Blood Gas Notified Whom uma Radiology Impression Brain CT 05/26/22 10:08 IMPRESSION: Chronic involutional changes of the brain. There has been no change since prior study. Electronically Signed: Smith Chau MD at 12:13 EDT , Cervical Spine CT 05/26/22 10:08 IMPRESSION: Multilevel degenerative changes, as described above. Electronically Signed: Smith Chau MD at 12:11 EDT , Chest X-Ray 05/26/22 10:20 IMPRESSION: The tip of the endotracheal tube is at 1.9 cm proximal to the rose. The tip of the orogastric tube is in the body of the stomach. Increased markings at the lung bases slightly more prominent on the right side suggestive of bibasilar atelectasis. Electronically Signed: Smith Chau MD at 10:43 EDT , KUB X-Ray 05/26/22 10:20 IMPRESSION: The tip of the orogastric tube is in the body of the stomach. Electronically Signed: Smith Chau MD at 10:41 EDT , Knee X-Ray 05/26/22 10:20 IMPRESSION: Normal x-ray examination of the knee. Electronically Signed: Smith Chau MD at 10:43 EDT , Chest CTA 05/26/22 11:33 IMPRESSION: No evidence of pleural embolism. Small bilateral effusions left greater than right with bibasilar atelectasis. Atelectasis also seen in the posterior aspect of the left upper lobe. Stable appearance of the bilateral pulmonary nodules. Electronically Signed: Smith Chau MD at 12:19 EDT , Charges/Coding Procedures Hospitalists Procedures: [id number] [facility]
--- NOTE | 2022-05-26 13:15 | NURSING ---
Dr. Peralta at bedside, ordered additional 500 cc bolus. Lactic redrawn and sent. Felix fajardo placed on pt.
[2022-05-26] MEDS: Sodium Polystyrene Sulfonate 15 GM/60 ML UDC PO (13:22)
--- NOTE | 2022-05-26 13:30 | ECHOD_ITS ---
Reason For Study: DYSPNEA Procedure This was a 2D Doppler, Color Flow transthoracic echocardiogram. Exam performed portable in ICU/CCU. Left Ventricle Normal LV size. Moderate to severe LVH. Inferior and inferoseptal hypokinesis. Estimated EF 45-50%. Diastolic function is indeterminate. Right Ventricle Severely dilated right ventricle. Moderately severe global right ventricular systolic dysfunction. Atria Normal left atrium. The right atrium is severely enlarged. Mitral Valve Trivial mitral valve insufficiency. Tricuspid Valve Severe (4+) tricuspid valve insufficiency. Pulmonary artery systolic pressure is 51 mmHg. Aortic Valve Aortic sclerosis, no stenosis. Moderate focal aortic valve calcification. Pulmonic Valve The pulmonic valve is not well visualized. Great Vessels Normal sized aortic root. Pericardium/Pleural Trivial pericardial effusion. MMode/2D Measurements & Calculations LVIDd: 3.6 cm IVSd: 1.3 cm LAV(MOD-bp): 70.8 ml LVPWd: 1.5 cm LAV(MOD-bp) Indexed: 38.6 ml/m2 LAV(MOD-sp2): 84.1 ml LAV(MOD-sp4): 59.9 ml SV(MOD-sp4): 29.5 ml LVAd ap4: 25.3 cm2 LVAd ap2: 28.2 cm2 LVLd ap4: 7.7 cm LVLd ap2: 8.3 cm EDV(MOD-sp4): 70.7 ml EDV(MOD-sp2): 81.9 ml EDV(sp4-el): 71.0 ml EDV(sp2-el): 81.1 ml LVAs ap4: 17.2 cm2 LVAs ap2: 19.0 cm2 LVLs ap4: 6.0 cm LVLs ap2: 7.3 cm ESV(MOD-sp4): 41.2 ml ESV(MOD-sp2): 43.1 ml ESV(sp4-el): 41.8 ml ESV(sp2-el): 42.3 ml EF(MOD-sp4): 41.7 % EF(MOD-sp2): 47.4 % EF(sp4-el): 41.2 % SV(MOD-sp2): 38.8 ml SV(sp4-el): 29.3 ml LA A4 area: 20.8 cm2 LA dimension(2D): 3.9 cm RA A4 area: 22.5 cm2 Doppler Measurements & Calculations MV E max shailesh: 45.4 cm/sec Lat Peak E' Shailesh: 4.2 cm/sec Med Peak E' Shailesh: 4.1 cm/sec MV A max shailesh: 86.3 cm/sec E/E' lat: 10.8 E/E' med: 11.0 MV E/A: 0.53 MV V2 max: 96.4 cm/sec MV P1/2t max shailesh: 49.9 cm/sec Ao V2 max: 122.4 cm/sec MV max P.7 mmHg MV P1/2t: 81.4 msec Ao max P.0 mmHg MV V2 mean: 42.5 cm/sec MV dec slope: 179.5 cm/sec2 MV mean P.93 mmHg MV V2 VTI: 22.2 cm MVA(P1/2t): 2.7 cm2 LV V1 max: 107.7 cm/sec PA V2 max: 110.8 cm/sec TR max shailesh: 301.5 cm/sec LV V1 max P.6 mmHg TR max P.4 mmHg ECHO/Echo Complete Interpretation Summary Moderate to severe LVH Inferior and inferoseptal hypokinesis. Estimated EF 45-50% Severely dilated right ventricle. Moderately severe global right ventricular systolic dysfunction. The right atrium is severely enlarged. Severe (4+) tricuspid valve insufficiency. Diastolic function is indeterminate. Aortic sclerosis, no stenosis. Pulmonary artery systolic pressure is 51 mmHg.. Ordering Physician: Clark Peralta Referring Physician: Mine Bojorquez Performed By: Mona Figueroa RCS
--- NOTE | 2022-05-26 13:35 | SEPSISATNOTE ---
Sepsis Attestation Sepsis Attestation: Agree w/Sepsis Date exam was performed: 05/26/22 Time exam was performed: 13:35 Possible Source of Sepsis: Pulmonary Sepsis Organ Dysfunction Criteria Present: Acute Respiratory Failure (New need for BiPAP/CPAP or MV), Lactic Acid > 2 mmol/L and New/Unexplained change in mental status Fluid Resuscitation Fluid resuscitation indicated?: Yes Fluid Resuscitation ordered: 30 ml/kg fluid bolus ordered Sepsis Note Sepsis Attestation: Sepsis re-evaluation was performed
--- NOTE | 2022-05-26 13:38 | PCM.RX.CS ---
Consult Pharmacy has been consulted to manage selected antiobiotic: Vancomycin Type of Consult: New start Suspected Infection: Other Labs: Sodium 143 mmol/L (136-145) 05/26/22 10:12 Potassium 6.9 mmol/L (3.5-5.1) H* 05/26/22 10:12 Chloride 105 mmol/L (98-107) 05/26/22 10:12 Carbon Dioxide 33.0 mmol/L (21.0-32.0) H 05/26/22 10:12 Anion Gap 5 (5-15) 05/26/22 10:12 BUN 38 mg/dL (7-18) H 05/26/22 10:12 Creatinine 1.67 mg/dL (0.55-1.02) H 05/26/22 10:12 Est GFR (MDRD) Af Amer 39 mL/min (>60) L 05/26/22 10:12 Est GFR (MDRD) Non-Af 32 mL/min (>60) L 05/26/22 10:12 BUN/Creatinine Ratio 22.8 RATIO (10-20) H 05/26/22 10:12 Glucose 154 mg/dL (74-106) H 05/26/22 10:12 Microbiology: Microbiology 05/26/22 10:30 Nasal Secretion SARS-CoV-2 Antigen (Rapid) - Final 05/26/22 10:20 Gastric Fluid/Contents Gastric Occult Blood - Final Goal Trough: 15-20 mcg/mL Pharmacy Plan for Drug Dosing: NEW START IV VANCOMYCIN Consulting Physician: Dr. Babb Indication: respiratory Failure Goal Trough: 15-20 SrCr: 1.67 CrCl: 26 mL/min Comments: ED dose of 1250mg IV x1 ordered and administered 05/26/22 @1320 Vancomycin Dose: 750mg IV Q24hr to start 05/27/22 @0700. NOTE: starting vancomycin 18hrs after 1st administered dose d/t loading dose being ordered in lieu of giving the patient a supplemental dose, as the patient's loading dose would have been 2g IV x1 Pending Level: 05/28/22 @0630, prior to 3rd total dose per protocol Pharmacy Service will continue to monitor and adjust dosing as required.
[2022-05-26 14:28] LABS: Reflex Lactate? Y
[2022-05-26] MEDS: Ipratropium/Albuterol Sulfate 3 ML AMPUL.NEB INHALATION ×3 (15:19→22:25)
[2022-05-26 15:24] LABS: Lactic Acid 3.3 mmol/L (0.4-1.9)
[2022-05-26 17:58] LABS: Troponin-I HS 1249 pg/mL (3.0-54.0)
[2022-05-26 18:33] LABS: Anion Gap 6 (5-15); BUN 42 mg/dL (7-18); BUN/Creat Ratio 32.1 RATIO (10-20); Calcium,Total 8.2 mg/dL (8.5-10.1); Chloride 112 mmol/L (98-107); Creatinine, Serum 1.31 mg/dL (0.55-1.02); EST Glomerular Filtration Rate 42 mL/min (>60); Est Glom Filt Rate - Afr Amer 51 mL/min (>60); Estimated Creatinine Clearance 32.53 ml/min; Glucose 67 mg/dL (74-106); Potassium 4.2 mmol/L (3.5-5.1); Sodium Level 148 mmol/L (136-145)
[2022-05-26] MEDS: Chlorhexidine 15 ML PO (21:59)
[2022-05-26 22:08] LABS: Magnesium 1.7 mg/dL (1.6-2.6)
[2022-05-26 22:51] LABS: Troponin-I HS 2319 pg/mL (3.0-54.0)
[2022-05-26] MEDS: Propofol 10MG/Ml 1,000 MG/100 ML Bottle 9.1 MG CONT INF (23:42)
[2022-05-27] VITALS (37 sets, daily range): BP systolic 112–172; BP diastolic 53–73; PULSE 54–97; RESP 17–32; TEMP 37.4–37.7; O2SAT 88–94
[2022-05-27 00:06] LABS: Troponin-I HS 493 pg/mL (3.0-54.0)
[2022-05-27] MEDS: 0.9% Saline Lock 10 ML Syringe IV ×2 (00:18→21:18)
[2022-05-27] MEDS: Ipratropium/Albuterol Sulfate 3 ML AMPUL.NEB INHALATION ×6 (03:25→23:50)
[2022-05-27 03:45] LABS: Absolute Lymphocyte Count 0.45 X10^3/uL (0.83-4.51); Absolute Neutrophil Count 8.6 X10^3/uL (2.0-7.7); Basophil# 0.02 X10^3/uL; Basophil% 0.2 % (0-1); Hematocrit 30.1 % (37-47); Hemoglobin 9.3 g/dL (12.0-15.0); Lymphocyte # 0.45 X10^3/ul (0.83-4.51); Lymphocyte % 4.9 % (19-41); Mean Corp Hgb Conc 30.9 g/dL (32-36); Mean Corpuscular Volume 97.1 fL (81-99); Mean Platelet Vol. 12.1 fl (6.2-12.0); Monocyte# 0.17 X10^3/uL; Monocyte% 1.8 % (0-10); NRBC Flagged by Analyzer 0 % (0-5); Neutrophil # 8.55 X10^3/uL (2.7-7.7); Neutrophil % 92.8 % (47-70); POSITIVE DIFFERENTIAL YES; Platelet Count 210 K/mm3 (150-450); RBC Distribution Width CV 16.7 % (11.6-14.6); RBC Distribution Width SD 58.3 fl (35.1-43.9); White Blood Count 9.2 K/mm3 (4.4-11.0)
[2022-05-27 03:49] LABS: Differential Indicated SCAN CRITERIA MET
[2022-05-27 03:59] LABS: Anion Gap 6 (5-15); BUN 43 mg/dL (7-18); BUN/Creat Ratio 32.6 RATIO (10-20); Calcium,Total 8.1 mg/dL (8.5-10.1); Chloride 112 mmol/L (98-107); Creatinine, Serum 1.32 mg/dL (0.55-1.02); EST Glomerular Filtration Rate 42 mL/min (>60); Est Glom Filt Rate - Afr Amer 51 mL/min (>60); Estimated Creatinine Clearance 32.29 ml/min; Glucose 91 mg/dL (74-106); Sodium Level 147 mmol/L (136-145)
[2022-05-27 04:09] LABS: Differential Comment SCANNED
[2022-05-27] MEDS: 0.9% Normal Saline 1,000 ML 150 ML IV ×3 (04:20→18:09)
--- NOTE | 2022-05-27 06:26 | PN.CC_ITS ---
Assessment & Plan Assessment/Plan (1) Sepsis: PLAN: Plan RECOMMENDATIONS: 1. Continue assist-control mode mechanical ventilation. Wean FiO2/PEEP to maintain saturations 88 to 92%. 2. Continue empiric antimicrobials. 3. Okay to initiate tube feeds today. 4. Continue scheduled bronchodilators and IV steroids. 5. Continue appropriate ICU prophylaxis. IMPRESSIONS: 1. Sepsis The patient presented with sepsis due to possible pneumonia with acute sepsis related organ dysfunction as evidenced by altered mentation, lactic acidemia and acute kidney injury. The patient did receive supplemental IV fluid hydration. The patient remains hemodynamically stable. Plan to continue empiric antimicrobials as ordered. 2. Metabolic encephalopathy Likely related to hypercarbia noted at presentation. Anticipate improvement with invasive mechanical ventilatory support. Continue supportive measures as noted below. 3. Acute combined respiratory failure Unclear precipitating etiology. It is certainly plausible that the patient has underlying obstructive lung disease, with questionable outpatient compliance with prescribed medical therapy leading to her acute presentation. There is no evidence of pulmonary embolism on CT imaging. I agree with continuing empiric antimicrobials. In addition, the patient will be started on scheduled bronchodilators and IV steroids. Recommend weaning FiO2 to maintain oxygen saturations 88 to 92%. Limit sedation if feasible to maintain a goal RASS of -1 to 1. 4. Acute kidney injury Likely prerenal in etiology in the setting #1. No current indication for renal replacement therapy. Continue to monitor urine output. 5. History of coronary artery disease/anemia/hypertension/hyperlipidemia Complicates care, management, recovery and prognosis. Continue to hold baseline antihypertensives at this time. Okay to initiate tube feeds today. TIME: 33 minutes of critical care time, independent of procedures, was spent addressing the patient's sepsis, metabolic encephalopathy, acute combined respiratory failure, acute kidney injury, review of all data and collaboration with the care team. Subjective Subjective The patient was seen and examined at the bedside this morning. Events from the last 24 hours have been reviewed. The patient is currently afebrile, hemodynamically stable and maintaining appropriate oxygen saturations on assist control mode mechanical ventilation with an FiO2 requirement of 40%. The patient is currently documented to be overall net +3.5 L for the hospitalization. Creatinine has improved to 1.32. Troponins are elevated at 2319. The patient failed her spontaneous breathing/awakening trial this morning due to agitation and copious secretions. Objective Data Objective Data The patient's most recent lab work, culture data and imaging studies have all been personally reviewed. Surface echocardiogram demonstrated an ejection fraction of approximately 45 to 50%. The RV was noted to be severely dilated with moderately severe global RV systolic dysfunction and a pulmonary artery systolic pressure estimated to be 51 mmHg. Rapid COVID testing was negative. B lood, urine and sputum cultures are pending. Vital Signs: Vital Signs Temp Pulse Resp BP Pulse Ox O2 Del Method FiO2 99.9 F H 80 18 158/64 H 92 Mechanical Ventilator 40 05/27/22 06:00 05/27/22 06:00 05/27/22 06:00 05/27/22 06:00 05/27/22 06:00 05/27/22 06:00 05/27/22 06:00 Oxygen Delivery Method Mechanical Ventilator Weight: 169 lb 12.095 oz Body Mass Index (BMI) 27.3 Intake & Output: Intake and Output for Last 24 Hours 05/25/22 05/26/22 05/27/22 23:59 23:59 23:59 Intake Total 3351.26 / 3363.99 1238.51 / 1238.51 Output Total 575 / 650 490 / 490 Balance 2776.26 / 2713.99 748.51 / 748.51 Lab / Micro Data Result Diagrams: 05/27/22 03:30 05/27/22 03:30 Labs: Laboratory Results - last 24 hr 05/26/22 10:12: WBC 12.4 H, RBC 3.26 L, Hgb 9.7 L, Hct 33.9 L, MCV 104.0 H D, MCH 29.8, MCHC 28.6 L D, RDW Std Deviation 63.9 H, RDW Coeff of Parviz 16.7 H, Plt Count 228, MPV 11.4, Immature Gran % (Auto) 1.500 H, Neut % (Auto) 83.1 H, Lymph % (Auto) 5.5 L, [place] % (Auto) 9.5, Eos % (Auto) 0.2, Baso % (Auto) 0.2, Absolute Neuts (auto) 10.3 H, Absolute Lymphs (auto) 0.68 L, Nucleated RBC % 0 05/26/22 10:12: PT 14.0, INR 1.1, APTT 26.0 05/26/22 10:12: Sodium 143, Potassium 6.9 H*, Chloride 105, Carbon Dioxide 33.0 H, Anion Gap 5, BUN 38 H, Creatinine 1.67 H, Estim Creat Clear Calc 26.59, Est GFR (MDRD) Af Amer 39 L, Est GFR (MDRD) Non-Af 32 L, BUN/Creatinine Ratio 22.8 H , Glucose 154 H, Calcium 8.5, Total Bilirubin 0.30, AST 27, ALT 33, Alkaline Phosphatase 55, Total Creatine Kinase 98, Troponin I High Sens 85 H, Total Protein 5.8 L, Albumin 2.5 L, Globulin 3.3, Albumin/Globulin Ratio 0.8 L 05/26/22 10:12: Lactic Acid 5.2 H* 05/26/22 10:12: Blood Type A POSITIVE, Antibody Screen NEGATIVE 05/26/22 10:12: Triglycerides 41 05/26/22 10:12: Ethyl Alcohol 4.0 05/26/22 10:30: Ammonia 15.0 05/26/22 10:30: Urine Color Yellow, Urine Clarity Clear, Urine pH 7.0, Ur Specific [place] 1.010, Urine Protein 100 H, Urine Glucose (UA) 50 H, Urine Ketones Negative, Urine Occult Blood 150 H, Urine Nitrite Negative, Urine Bilirubin Negative, Urine Urobilinogen Normal, Ur Leukocyte Esterase Negative, Urine RBC 5-10 SEEN, Urine WBC 0-5 SEEN, Ur Squamous Epith Cells 0-5 SEEN, Urine Bacteria RARE, Urine Mucus 0 SEEN 05/26/22 10:30: Urine Opiates Screen NEGATIVE, Urine Methadone Screen NEGATIVE, Ur Barbiturates Screen NEGATIVE, Ur Phencyclidine Scrn NEGATIVE, Ur Amphetamines Screen NEGATIVE, MDMA (Ecstasy) Screen NEGATIVE, U Benzodiazepines Scrn NEGATIVE, Urine Cocaine Screen NEGATIVE, U Cannabinoids Screen NEGATIVE, Ur Drug Screen Comment 05/26/22 13:15: Lactic Acid 3.3 H* 05/26/22 14:20: Troponin I High Sens 493 H* 05/26/22 17:15: Troponin I High Sens 1249 H* 05/26/22 17:15: Sodium 148 H, Potassium 4.2, Chloride 112 H, Carbon Dioxide 30.0, Anion Gap 6, BUN 42 H, Creatinine 1.31 H, Estim Creat Clear Calc 32.53, Est GFR (MDRD) Af Amer 51 L, Est GFR (MDRD) Non-Af 42 L, BUN/Creatinine Ratio 32.1 H, Glucose 67 L, Calcium 8.2 L 05/26/22 21:35: Magnesium 1.7 05/26/22 21:35: Troponin I High Sens 2319 H* 05/27/22 03:30: Sodium 147 H, Potassium 4.0, Chloride 112 H, Carbon Dioxide 2 9.0, Anion Gap 6, BUN 43 H, Creatinine 1.32 H, Estim Creat Clear Calc 32.29, Est GFR (MDRD) Af Amer 51 L, Est GFR (MDRD) Non-Af 42 L, BUN/Creatinine Ratio 32.6 H , Glucose 91, Calcium 8.1 L 05/27/22 03:30: WBC 9.2, RBC 3.10 L, Hgb 9.3 L, Hct 30.1 L, MCV 97.1 D, MCH 30.0, MCHC 30.9 L D, RDW Std Deviation 58.3 H, RDW Coeff of Parviz 16.7 H, Plt Count 210, MPV 12.1 H, Immature Gran % (Auto) 0.300, Neut % (Auto) 92.8 H, Lymph % (Auto) 4.9 L, [place] % (Auto) 1.8, Eos % (Auto) 0.0, Baso % (Auto) 0.2, Absolute Neuts (auto) 8.6 H, Absolute Lymphs (auto) 0.45 L, Nucleated RBC % 0, Differential Comment SCANNED Micro: Microbiology 05/26/22 10:41 Sputum, Induced/Lukens Gram Stain - Final 05/26/22 10:30 Nasal Secretion SARS-CoV-2 Antigen (Rapid) - Final 05/26/22 10:20 Gastric Fluid/Contents Gastric Occult Blood - Final ABG Data ABG results: ABG 05/26/22 10:35 Specimen Type ART Sample Site R Radial pH 7.17 L* Bicarbonate Actual 31.7 H Total CO2 34 Base Excess 3 H O2 Saturation 89 L O2 % 100 ABG pCO2 86.9 H* ABG pO2 73 L Zachary Test Positive Respiration Rate 14 O2 Delivery Device Adult Vent Vent Mode AC Tidal Volume 400 POC PEEP 5 Crit Call To/Read Back Yes Blood Gas Notified Whom uma Radiography Diagnostic Testing: Radiology Impression Brain CT 05/26/22 10:08 IMPRESSION: Chronic involutional changes of the brain. There has been no change since prior study. Electronically Signed: Smith Chau MD at 12:13 EDT , Cervical Spine CT 05/26/22 10:08 IMPRESSION: Multilevel degenerative changes, as described above. Electronically Signed: Smith Chau MD at 12:11 EDT , Chest X-Ray 05/26/22 10:20 IMPRESSION: The tip of the endotracheal tube is at 1.9 cm proximal to the rose. The tip of the orogastric tube is in the body of the stomach. Increased markings at the lung bases slightly more prominent on the right side suggestive of bibasilar atelectasis. Electronically Signed: Smith Chau MD at 10:43 EDT , KUB X-Ray 05/26/22 10:20 IMPRESSION: The tip of the orogastric tube is in the body of the stomach. Electronically Signed: Smith Chau MD at 10:41 EDT , Knee X-Ray 05/26/22 10:20 IMPRESSION: Normal x-ray examination of the knee. Electronically Signed: Smith Chau MD at 10:43 EDT , Chest CTA 05/26/22 11:33 IMPRESSION: No evidence of pleural embolism. Small bilateral effusions left greater than right with bibasilar atelectasis. Atelectasis also seen in the posterior aspect of the left upper lobe. Stable appearance of the bilateral pulmonary nodules. Electronically Signed: Smith Chau MD at 12:19 EDT , Echocardiogram 05/26/22 13:30 Interpretation Summary Moderate to severe LVH Inferior and inferoseptal hypokinesis. Estimated EF 45-50% Severely dilated right ventricle. Moderately severe global right ventricular systolic dysfunction. The right atrium is severely enlarged. Severe (4+) tricuspid valve insufficiency. Diastolic function is indeterminate. Aortic sclerosis, no stenosis. Pulmonary artery systolic pressure is 51 mmHg.. Ordering Physician: Clark Peralta Referring Physician: Mine Bojorquez Performed By: Mona Figueroa RCS Physical Exam Const Constitutional Narrative: Rather unkempt in appearance. General Appearance: intubated and patient mechanically ventilated HEENT normocephalic and head/scalp atraumatic Mouth: endotracheal tube in place and OG tube in place Eyes PERRL and EOMs intact bilaterally Neck supple General: trachea midline Chest inspection of chest normal Resp Auscultation: diminished lung sounds; Negative for rales, rhonchi or wheezes Cardio regular rate and regular rhythm GI normal to inspection, nondistended, normoactive bowel sounds Extremity no clubbing, cyanosis or edema Skin no rashes or lesions noted Neuro Sensorium / Orientation: sedated on vent Charges/Coding Procedures Hospitalists Procedures: [id number] Critial Care 1st Hr
[2022-05-27] MEDS: CHLORHEXIDINE GLUC 2% CLOTH 1 EACH TOWELETTE TOPICAL (07:24)
[2022-05-27] MEDS: Propofol 10MG/Ml 1,000 MG/100 ML Bottle 13.7 MG CONT INF (08:03)
[2022-05-27 09:26] LABS: Allen Test Positive; Base Excess 3 mmol/L (-2 to +2); Bicarbonate 27.6 mmol/L (22-26); Blood Gas Specimen Type ART; FI02 45; Mode AC; O2 Delivery Device Adult Vent; PEEP 5; PO2 58 mmHG (75-100); RR 18; SITE R Radial; SO2 90 % (95-99); Total Carbon Dioxide 29 mmol/L; Vt 400; pCO2 44.1 mmHg (35-45); pH 7.41 (7.35-7.45)
--- NOTE | 2022-05-27 09:55 | PN.HOSP_ITS ---
Subjective Subjective Patient seen and examined. She remains intubated and sedated. RASS goal is -3. Her troponins trended upwards to a peak over thousand 200 yesterday so cardiology was consulted. Objective Data Objective Data Vital Signs: Vital Signs Temp Pulse Resp BP Pulse Ox O2 Del Method FiO2 99.6 F H 73 18 151/64 H 91 Mechanical Ventilator 45 05/27/22 08:00 05/27/22 09:00 05/27/22 09:00 05/27/22 09:00 05/27/22 09:00 05/27/22 09:00 05/27/22 09:00 Oxygen Delivery Method Mechanical Ventilator Weight: 169 lb 12.095 oz Body Mass Index (BMI) 27.3 Intake & Output: Intake and Output for Last 24 Hours 05/25/22 05/26/22 05/27/22 23:59 23:59 23:59 Intake Total 3351.26 / 3363.99 2196.49 / 2196.49 Output Total 575 / 650 490 / 490 Balance 2776.26 / 2713.99 1706.49 / 1706.49 Lab / Micro Data Result Diagrams: 05/27/22 03:30 05/27/22 03:30 Labs: Laboratory Results - last 24 hr 05/26/22 10:12: WBC 12.4 H, RBC 3.26 L, Hgb 9.7 L, Hct 33.9 L, MCV 104.0 H D, MCH 29.8, MCHC 28.6 L D, RDW Std Deviation 63.9 H, RDW Coeff of Parviz 16.7 H, Plt Count 228, MPV 11.4, Immature Gran % (Auto) 1.500 H, Neut % (Auto) 83.1 H, Lymph % (Auto) 5.5 L, [place] % (Auto) 9.5, Eos % (Auto) 0.2, Baso % (Auto) 0.2, Absolute Neuts (auto) 10.3 H, Absolute Lymphs (auto) 0.68 L, Nucleated RBC % 0 05/26/22 10:12: PT 14.0, INR 1.1, APTT 26.0 05/26/22 10:12: Sodium 143, Potassium 6.9 H*, Chloride 105, Carbon Dioxide 33.0 H, Anion Gap 5, BUN 38 H, Creatinine 1.67 H, Estim Creat Clear Calc 26.59, Est GFR (MDRD) Af Amer 39 L, Est GFR (MDRD) Non-Af 32 L, BUN/Creatinine Ratio 22.8 H , Glucose 154 H, Calcium 8.5, Total Bilirubin 0.30, AST 27, ALT 33, Alkaline Phosphatase 55, Total Creatine Kinase 98, Troponin I High Sens 85 H, Total Protein 5.8 L, Albumin 2.5 L, Globulin 3.3, Albumin/Globulin Ratio 0.8 L 05/26/22 10:12: Lactic Acid 5.2 H* 05/26/22 10:12: Blood Type A POSITIVE, Antibody Screen NEGATIVE 05/26/22 10:12: Triglycerides 41 05/26/22 10:12: Ethyl Alcohol 4.0 05/26/22 10:30: Ammonia 15.0 05/26/22 10:30: Urine Color Yellow, Urine Clarity Clear, Urine pH 7.0, Ur Specific [place] 1.010, Urine Protein 100 H, Urine Glucose (UA) 50 H, Urine Ketones Negative, Urine Occult Blood 150 H, Urine Nitrite Negative, Urine Bilirubin Negative, Urine Urobilinogen Normal, Ur Leukocyte Esterase Negative, Urine RBC 5-10 SEEN, Urine WBC 0-5 SEEN, Ur Squamous Epith Cells 0-5 SEEN, Urine Bacteria RARE, Urine Mucus 0 SEEN 05/26/22 10:30: Urine Opiates Screen NEGATIVE, Urine Methadone Screen NEGATIVE, Ur Barbiturates Screen NEGATIVE, Ur Phencyclidine Scrn NEGATIVE, Ur Amphetamines Screen NEGATIVE, MDMA (Ecstasy) Screen NEGATIVE, U Benzodiazepines Scrn NEGATIVE, Urine Cocaine Screen NEGATIVE, U Cannabinoids Screen NEGATIVE, Ur Drug Screen Comment 05/26/22 13:15: Lactic Acid 3.3 H* 05/26/22 14:20: Troponin I High Sens 493 H* 05/26/22 17:15: Troponin I High Sens 1249 H* 05/26/22 17:15: Sodium 148 H, Potassium 4.2, Chloride 112 H, Carbon Dioxide 30.0, Anion Gap 6, BUN 42 H, Creatinine 1.31 H, Estim Creat Clear Calc 32.53, Est GFR (MDRD) Af Amer 51 L, Est GFR (MDRD) Non-Af 42 L, BUN/Creatinine Ratio 32.1 H, Glucose 67 L, Calcium 8.2 L 05/26/22 21:35: Magnesium 1.7 05/26/22 21:35: Troponin I High Sens 2319 H* 05/27/22 03:30: Sodium 147 H, Potassium 4.0, Chloride 112 H, Carbon Dioxide 2 9.0, Anion Gap 6, BUN 43 H, Creatinine 1.32 H, Estim Creat Clear Calc 32.29, Est GFR (MDRD) Af Amer 51 L, Est GFR (MDRD) Non-Af 42 L, BUN/Creatinine Ratio 32.6 H , Glucose 91, Calcium 8.1 L 05/27/22 03:30: WBC 9.2, RBC 3.10 L, Hgb 9.3 L, Hct 30.1 L, MCV 97.1 D, MCH 30.0, MCHC 30.9 L D, RDW Std Deviation 58.3 H, RDW Coeff of Parvzi 16.7 H, Plt Count 210, MPV 12.1 H, Immature Gran % (Auto) 0.300, Neut % (Auto) 92.8 H, Lymph % (Auto) 4.9 L, [place] % (Auto) 1.8, Eos % (Auto) 0.0, Baso % (Auto) 0.2, Absolute Neuts (auto) 8.6 H, Absolute Lymphs (auto) 0.45 L, Nucleated RBC % 0, Differential Comment SCANNED Micro: Microbiology 05/26/22 10:41 Sputum, Induced/Lukens Gram Stain - Final 05/26/22 10:30 Nasal Secretion SARS-CoV-2 Antigen (Rapid) - Final 05/26/22 10:20 Gastric Fluid/Contents Gastric Occult Blood - Final ABG Data ABG results: ABG 05/26/22 05/27/22 10:35 09:19 Specimen Type ART ART Sample Site R Radial R Radial pH 7.17 L* 7.41 Bicarbonate Actual 31.7 H 27.6 H Total CO2 34 29 Base Excess 3 H 3 H O2 Saturation 89 L 90 L O2 % 100 45 ABG pCO2 86.9 H* 44.1 ABG pO2 73 L 58 L Zachary Test Positive Positive Respiration Rate 14 18 O2 Delivery Device Adult Vent Adult Vent Vent Mode AC AC Tidal Volume 400 400 POC PEEP 5 5 Crit Call To/Read Back Yes Blood Gas Notified Whom uma Radiography Diagnostic Testing: Radiology Impression Brain CT 05/26/22 10:08 IMPRESSION: Chronic involutional changes of the brain. There has been no change since prior study. Electronically Signed: Smith Chau MD at 12:13 EDT , Cervical Spine CT 05/26/22 10:08 IMPRESSION: Multilevel degenerative changes, as described above. Electronically Signed: Smith Chau MD at 12:11 EDT , Chest X-Ray 05/26/22 10:20 IMPRESSION: The tip of the endotracheal tube is at 1.9 cm proximal to the rose. The tip of the orogastric tube is in the body of the stomach. Increased markings at the lung bases slightly more prominent on the right side suggestive of bibasilar atelectasis. Electronically Signed: Smith Chau MD at 10:43 EDT , KUB X-Ray 05/26/22 10:20 IMPRESSION: The tip of the orogastric tube is in the body of the stomach. Electronically Signed: Smith Chau MD at 10:41 EDT , Knee X-Ray 05/26/22 10:20 IMPRESSION: Normal x-ray examination of the knee. Electronically Signed: Smith Chau MD at 10:43 EDT , Chest CTA 10/06/22 11:33 IMPRESSION: No evidence of pleural embolism. Small bilateral effusions left greater than right with bibasilar atelectasis. Atelectasis also seen in the posterior aspect of the left upper lobe. Stable appearance of the bilateral pulmonary nodules. Electronically Signed: Smith Chau MD at 12:19 EDT , Echocardiogram 05/26/22 13:30 Interpretation Summary Moderate to severe LVH Inferior and inferoseptal hypokinesis. Estimated EF 45-50% Severely dilated right ventricle. Moderately severe global right ventricular systolic dysfunction. The right atrium is severely enlarged. Severe (4+) tricuspid valve insufficiency. Diastolic function is indeterminate. Aortic sclerosis, no stenosis. Pulmonary artery systolic pressure is 51 mmHg.. Ordering Physician: Clark Peralta Referring Physician: Mine Bojorquez Performed By: Mona Figueroa RCS Physical Exam Const Constitutional Narrative: intubated, sedated, RASS score is -3 HEENT normocephalic and head/scalp atraumatic Eyes PERRL Neck no lymphadenopathy Resp Resp Narrative: intubated, sedated. Diminished breath sounds bibasally, no wheezes or crackles. Cardio regular rate, regular rhythm, S1 normal heart sound, S2 normal heart sound and no murmurs GI normal to inspection, nondistended, normoactive bowel sounds, soft to palpation and non-tender Extremity normal to inspection Neuro Neuro Narrative: intubated, sedated, RASS score is -3 Assessment & Plan Assessment/Plan (1) Acute hypoxemic respiratory failure: (2) Elevated lactic acid level: PLAN: Plan #Acute hypoxic and hypercapnic respiratory failure * remains intubated and sedated. * on IV vancomycin and zosyn for sepsis and probable pneumonia * CTA chest negative for PE * 2D echo showed EF of 45 to 50% with indeterminate diastolic dysfunction and moderate to severe left ventricular hypertrophy with inferior and inferoseptal hypokinesis. Severely dilated right ventricle and moderately severe right global ventricular systolic dysfunction with 4+ tricuspid valve insufficiency and pulmonary artery systolic pressure of 51 mmHg. Right atrium is severely enlarged. * Cardiology consulted on account of non-STEMI. * Continue IV vancomycin and Zosyn as well as IV Solu-Medrol. * Breathing treatments of bronchodilators. 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 Management as above. * #RAMANDEEP with hyperkalemia * CR is down to 1.32 today. * potassium has also trended downwards and normalised. It is 4 today. * will monitor * #CAD: * On aspirin and Plavix. * will reach out to GI about whether she can resume it today in light of her nonstemi * on high intensity statin * #Anemia: * Had anemia during her recent admission with evidence of iron deficiency. * Stool for occult blood was also positive. 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 * Will place on IV pantoprazole 40 mg twice daily as she is currently intubated. #Hyperlipidemia: On statin #HIstory of schizophrenia: on Invega DVT prophylaxis: lovenox Charges/Coding Visit Charges Inpatient E&M: 33237 [facility] L[facility]
[2022-05-27] MEDS: Enoxaparin 40 MG/0.4 ML Syringe SC (10:17)
[2022-05-27] MEDS: Chlorhexidine 15 ML PO ×2 (10:17→21:20)
--- NOTE | 2022-05-27 11:40 | PCM.CONS.C ---
Assessment & Plan Assessment/Plan (1) NSTEMI (non-ST elevated myocardial infarction): PLAN: Most likely type II. Patient is not a candidate for invasive work-up at present. For medical management. Start aspirin/Plavix when okay with GI. If the blood pressure remained stable, start on low-dose beta-blockers and titrate dose upwards as needed. (2) Cor pulmonale, chronic: PLAN: As per pulmonology. (3) Sepsis: PLAN: Patient has successfully been weaned off vasopressor agents. Continue as per critical care. (4) Acute hypoxemic respiratory failure: PLAN: Remains ventilator dependent. Pulmonary/critical care following. (5) History of abdominal aortic aneurysm repair: (6) Tobacco use disorder: (7) PAD (peripheral artery disease): PLAN: Plan This patient has history of coronary artery disease. She did show upward trend of troponins in the setting of sepsis/septic shock. She has history of GI bleed. For medical management only at present. Start aspirin/Plavix when okay with gastroenterology. Discussed with hospitalist. Also start low-dose beta-clayton and titrate upwards as needed. HPI Consult Data Date of Consult: 05/27/22 HPI Narrative Reason for Consultation: NSTEMI HPI Narrative: RAFAL SR, is a 72-year-old female with past medical history significant for COPD, coronary artery disease, peptic ulcer disease, peripheral arterial disease and diabetes mellitus. She was brought to the emergency room by EMS after finding her unresponsive at home. She was noted to be in hypoxemic respiratory failure in the emergency room. She was emergently intubated. She is since being treated in the ICU for sepsis, pneumonia and septic shock. Troponins were checked on her. These showed an upward trend. Subsequently we have been asked for evaluation and management. History is obtained from the chart. Patient is intubated and sedated on the ventilator. Patient has not been requiring any pressor support since yesterday. Patient was only recently discharged from the hospital. She was noted to have GI blood loss. An EGD was done which showed some bleeders which were heat probe treated. [facility] Medical History AAA (abdominal aortic aneurysm) Abdominal aortic aneurysm, ruptured (~05/25/12) Acute and chronic respiratory failure Altered mental status Altered mental status Anemia Atherosclerosis of [place] coronary artery of [place] heart without angina pectoris Chronic respiratory failure COPD COPD (chronic obstructive pulmonary disease) Cor pulmonale Cor pulmonale, chronic Diabetes mellitus type II Essential (primary) hypertension Fever History of psychosis Hypoglycemia NSTEMI (non-ST elevated myocardial infarction) Obesity Old myocardial infarction Other long term care pharmacist (current) drug therapy PAD (peripheral artery disease) Presence of stent in coronary artery (~01/08/15) Pulmonary hypertension Pure hypercholesterolemia Rhabdomyolysis Tobacco use disorder Type 2 diabetes mellitus Home Medications metoprolol succinate 50 mg tablet,extended release 24 hr 50 mg PO DAILY Heart/BP 09/26/16 [History Last Taken 05/17/18] buspirone 10 mg tablet 10 mg PO TID anxiety 01/30/18 [History Last Taken 05/17/18] multivitamin (Daily Multiple tablet) 1 tab PO DAILY vitamin 01/30/18 [History Last Taken 05/17/18] omega-3 fatty acids-fish oil 340 mg-1,000 mg capsule (Fish Oil) 1 cap PO DAILY vitamin 01/30/18 [History Last Taken 05/17/18 ]] paliperidone palmitate 234 mg/1.5 mL intramuscular syringe (Invega Sustenna) 234 mg IM Q30D schizo 01/30/18 [History Last Taken 01/05/18] risperidone 3 mg tablet (Risperdal) 3 mg PO BID psych 01/30/18 [History Last Taken 05/17/18] albuterol sulfate 90 mcg/actuation aerosol inhaler (Ventolin HFA) 2 puff inhalation 4X/DAY PRN PRN Sob &/Or Wheezing 05/18/18 [History Last Taken Unknown] potassium chloride 10 mEq tablet,extended release(part/cryst) 10 meq PO DAILY supplement #90 tabs 02/28/20 [Rx Last Taken Unknown] Incruse Ellipta Inhaler 62.5 mcg inhalation DAILY COPD 10/21/20 [History Last Taken Unknown] atorvastatin 80 mg tablet 80 mg PO QHS cholesterol 05/21/22 [History Last Taken Unknown] fenofibrate micronized 200 mg capsule 200 mg PO DAILY high triglycerides 05/21/22 [History Last Taken Unknown] isosorbide mononitrate 30 mg tablet,extended release 24 hr 30 mg PO DAILY Heart 05/21/22 [History Last Taken Unknown] benztropine 1 mg tablet 1 mg PO BID sedation 05/23/22 [History Last Taken Unknown] fluticasone furoate 100 mcg-vilanterol 25 mcg/dose inhalation powder (Breo Ellipta) 1 ea inhalation TID PRN Sedation 05/23/22 [History Last Taken Unknown] tiotropium bromide 2.5 mcg/actuation mist for inhalation (Spiriva Respimat) 2 inh inhalation DAILY breathing 05/23/22 [History Last Taken Unknown] aspirin 81 mg tablet,delayed release 81 mg PO DAILY Heart Health #30 tabs 05/25/22 [Rx Last Taken 05/17/18] clopidogrel 75 mg tablet 75 mg PO DAILY ANTIPLATELET #90 tabs 05/25/22 [Rx Last Taken Unknown] pantoprazole 40 mg tablet,delayed release 40 mg PO BIDCM #60 tabs 05/25/22 [Rx Last Taken Unknown] sucralfate 1 gram tablet 1 g PO BID #60 tabs 05/25/22 [Rx Last Taken Unknown] Allergy/AdvReac Type Severity Reaction Status Date / Time haloperidol [From Haldol] AdvReac Other Verified 05/26/22 10:45 Family History Mother CAD (coronary artery disease) Brother CAD (coronary artery disease) Myocardial infarction Sister Cancer lung cancer Son COPD (chronic obstructive pulmonary disease) Son COPD (chronic obstructive pulmonary disease) Daughter COPD (chronic obstructive pulmonary disease) Surgical History H/O percutaneous transluminal coronary angioplasty History of abdominal aortic aneurysm repair (~05/25/12) History of tubal ligation Presence of coronary angioplasty implant and graft (~01/08/15) S/P AAA repair Social History Smoking Status: Current every day smoker tobacco type: cigarettes alcohol intake: never substance use type: does not use caffeine: Yes Type: tea what type of physical activity do you participate in: walking frequency: daily duration: < 15 minutes/day seatbelt use: always do you feel safe at home: Yes Physical Exam Narrative Sedated on the ventilator. Heart sounds 1 and 2 are noted. Chest examination shows decreased air entry at bases bilaterally. Abdomen is soft. No ankle edema is noted. Risk Stratification Risk Stratification Applicable: No Objective Data Vital Signs: Vital Signs Temp Pulse Resp BP Pulse Ox O2 Del Method FiO2 99.7 F H 69 18 152/64 H 90 Mechanical Ventilator 45 05/27/22 10:00 05/27/22 10:59 05/27/22 10:59 05/27/22 10:00 05/27/22 10:55 05/27/22 10:00 05/27/22 10:55 Oxygen Delivery Method Mechanical Ventilator Weight: 169 lb 12.095 oz Body Mass Index (BMI) 27.3 Intake & Output: Intake and Output for Last 24 Hours 05/25/22 05/26/22 05/27/22 23:59 23:59 23:59 Intake Total 3351.26 / 3363.99 2435.74 / 2435.74 Output Total 575 / 650 490 / 490 Balance 2776.26 / 2713.99 1945.74 / 1945.74 Lab / Micro Data Attestation: I reviewed the patient's lab results. Result Diagrams: 05/27/22 03:30 05/27/22 03:30 Labs: Laboratory Results - last 24 hr 05/26/22 10:30: Urine Opiates Screen NEGATIVE, Urine Methadone Screen NEGATIVE, Ur Barbiturates Screen NEGATIVE, Ur Phencyclidine Scrn NEGATIVE, Ur Amphetamines Screen NEGATIVE, MDMA (Ecstasy) Screen NEGATIVE, U Benzodiazepines Scrn NEGATIVE, Urine Cocaine Screen NEGATIVE, U Cannabinoids Screen NEGATIVE 05/26/22 13:15: Lactic Acid 3.3 H* 05/26/22 14:20: Troponin I High Sens 493 H* 05/26/22 17:15: Troponin I High Sens 1249 H* 05/26/22 17:15: Sodium 148 H, Potassium 4.2, Chloride 112 H, Carbon Dioxide 30.0, Anion Gap 6, BUN 42 H, Creatinine 1.31 H, Estim Creat Clear Calc 32.53, Est GFR (MDRD) Af Amer 51 L, Est GFR (MDRD) Non-Af 42 L, BUN/Creatinine Ratio 32.1 H, Glucose 67 L, Calcium 8.2 L 05/26/22 21:35: Magnesium 1.7 05/26/22 21:35: Troponin I High Sens 2319 H* 05/27/22 03:30: Sodium 147 H, Potassium 4.0, Chloride 112 H, Carbon Dioxide 29.0, Anion Gap 6, BUN 43 H, Creatinine 1.32 H, Estim Creat Clear Calc 32.29, Est GFR (MDRD) Af Amer 51 L, Est GFR (MDRD) Non-Af 42 L, BUN/Creatinine Ratio 32.6 H, Glucose 91, Calcium 8.1 L 05/27/22 03:30: WBC 9.2, RBC 3.10 L, Hgb 9.3 L, Hct 30.1 L, MCV 97.1 D, MCH 30.0, MCHC 30.9 L D, RDW Std Deviation 58.3 H, RDW Coeff of Parviz 16.7 H, Plt Count 210, MPV 12.1 H, Immature Gran % (Auto) 0.300, Neut % (Auto) 92.8 H, Lymph % (Auto) 4.9 L, Randall % (Auto) 1.8, Eos % (Auto) 0.0, Baso % (Auto) 0.2, Absolute Neuts (auto) 8.6 H, Absolute Lymphs (auto) 0.45 L, Nucleated RBC % 0, Differential Comment SCANNED Micro: Microbiology 05/26/22 10:41 Sputum, Induced/Lukens Gram Stain - Final 05/26/22 10:30 Nasal Secretion SARS-CoV-2 Antigen (Rapid) - Final 05/26/22 10:20 Gastric Fluid/Contents Gastric Occult Blood - Final ABG Data ABG results: ABG 05/27/22 09:19 Specimen Type ART Sample Site R Radial pH 7.41 Bicarbonate Actual 27.6 H Total CO2 29 Base Excess 3 H O2 Saturation 90 L O2 % 45 ABG pCO2 44.1 ABG pO2 58 L Zachary Test Positive Respiration Rate 18 O2 Delivery Device Adult Vent Vent Mode AC Tidal Volume 400 POC PEEP 5 Rhythm Strip Rhythm Strip: Sinus Rhythm Cardiology Labs/Tests 05/26/22 13:15: Lactic Acid 3.3 H* 05/26/22 17:15: Sodium 148 H, Potassium 4.2, Chloride 112 H, Carbon Dioxide 30.0, Anion Gap 6, BUN 42 H, Creatinine 1.31 H, Est GFR (MDRD) Af Amer 51 L, Est GFR (MDRD) Non-Af 42 L, BUN/Creatinine Ratio 32.1 H, Glucose 67 L, Calcium 8.2 L 05/26/22 21:35: Magnesium 1.7 05/27/22 03:30: Sodium 147 H, Potassium 4.0, Chloride 112 H, Carbon Dioxide 29.0, Anion Gap 6, BUN 43 H, Creatinine 1.32 H, Est GFR (MDRD) Af Amer 51 L, Est GFR (MDRD) Non-Af 42 L, BUN/Creatinine Ratio 32.6 H, Glucose 91, Calcium 8.1 L 05/27/22 03:30: WBC 9.2, RBC 3.10 L, Hgb 9.3 L, Hct 30.1 L, MCV 97.1 D, MCH 30.0, MCHC 30.9 L D, Plt Count 210, MPV 12.1 H, Immature Gran % (Auto) 0.300, Neut % (Auto) 92.8 H, Lymph % (Auto) 4.9 L, Randall % (Auto) 1.8, Eos % (Auto) 0.0, Baso % (Auto) 0.2, Absolute Neuts (auto) 8.6 H, Nucleated RBC % 0 05/27/22 09:19: pH 7.41, Bicarbonate Actual 27.6 H, Base Excess 3 H, O2 Saturation 90 L, ABG pCO2 44.1, ABG pO2 58 L, Zachary Test Positive Rhythm: EKG: Normal sinus rhythm. ECHO: EF around 45%. Inferior and inferior septal hypokinesis. Markedly dilated right ventricle with RV systolic dysfunction. Severe tricuspid regurgitation. Moderate pulmonary hypertension. Stress Test: Cardiac Cath: PCI: CT Surgery: Holter monitor: EPS: PPM: CXR: Chest CT Scan: Radiography Diagnostic Testing: Radiology Impression Brain CT 05/26/22 10:08 IMPRESSION: Chronic involutional changes of the brain. There has been no change since prior study. Electronically Signed: Smith Chau MD at 12:13 EDT , Cervical Spine CT 05/26/22 10:08 IMPRESSION: Multilevel degenerative changes, as described above. Electronically Signed: Smith Chau MD at 12:11 EDT , Chest CTA 05/26/22 11:33 IMPRESSION: No evidence of pleural embolism. Small bilateral effusions left greater than right with bibasilar atelectasis. Atelectasis also seen in the posterior aspect of the left upper lobe. Stable appearance of the bilateral pulmonary nodules. Electronically Signed: Smith Chau MD at 12:19 EDT , Echocardiogram 05/26/22 13:30 Interpretation Summary Moderate to severe LVH Inferior and inferoseptal hypokinesis. Estimated EF 45-50% Severely dilated right ventricle. Moderately severe global right ventricular systolic dysfunction. The right atrium is severely enlarged. Severe (4+) tricuspid valve insufficiency. Diastolic function is indeterminate. Aortic sclerosis, no stenosis. Pulmonary artery systolic pressure is 51 mmHg.. Ordering Physician: Clark Peralta Referring Physician: Mine Bojorquez Performed By: Mona Figueroa RCS
[2022-05-27] MEDS: Vital AF 1.2 Cal Liquid 1,000 ML 15 ML GT (11:49)
[2022-05-27 12:20] LABS: Bedside Glucose 149 mg/dL (74-106)
--- NOTE | 2022-05-27 15:06 | CASEMGMT ---
[facility] CM Readmission Note Previous Admission:05/20/22-05/25/2022 Diagnosis:? acute encephalopathy, acute hypoxemic respiratory failure DC Disposition: Home, pt declined any services offered. Pt did complete DPOA papers at this admission, naming her son as DPOA. Robert Ojeda. Current Admission? Current Diagnosis: hypoxic respiratory failure Pt presented to ER from home after being found by case liner unresponsive. Pt is vented currently at 45%. Pt had increased troponins and a cardiology c/s who recommended a low dose beta clayton and to be medically managed for NSTEMI. Pt currently lives at home alone. APS is involved with patient. [facility] also [facility] and active with [facility]. Pt has oxygen through [facility] at 2-3L NC. Plan: TBD pending pt progress.
[2022-05-27] MEDS: Propofol 10MG/Ml 1,000 MG/100 ML Bottle 11.4 MG CONT INF (15:25)
[2022-05-27] MEDS: Metoprolol Tartrate 25 MG Tablet PO ×2 (17:25→21:31)
[2022-05-27] MEDS: Insulin Lispro 100 UNIT/ML INSULN.PEN SC ×2 (17:26→23:24)
[2022-05-27 17:37] LABS: Magnesium 2.1 mg/dL (1.6-2.6)
[2022-05-27 17:56] LABS: Bedside Glucose 163 mg/dL (74-106)
[2022-05-27] MEDS: TITRATION PARAMETER CHANGE 1 EACH IV (21:40)
[2022-05-27] MEDS: Propofol 10MG/Ml 1,000 MG/100 ML Bottle 11.6 MG CONT INF (23:24)
[2022-05-27 23:46] LABS: Bedside Glucose 177 mg/dL (74-106)
[2022-05-28] VITALS (36 sets, daily range): BP systolic 137–186; BP diastolic 60–92; PULSE 59–107; RESP 16–31; TEMP 36.1–37.7; O2SAT 74–98
[2022-05-28] MEDS: 0.9% Normal Saline 1,000 ML 150 ML IV (00:50)
[2022-05-28] MEDS: Ipratropium/Albuterol Sulfate 3 ML AMPUL.NEB INHALATION ×5 (03:13→19:05)
[2022-05-28 04:10] LABS: Absolute Lymphocyte Count 0.53 X10^3/uL (0.83-4.51); Absolute Neutrophil Count 6.6 X10^3/uL (2.0-7.7); Hematocrit 29.2 % (37-47); Lymphocyte # 0.53 X10^3/ul (0.83-4.51); Lymphocyte % 7.1 % (19-41); Mean Corp Hgb Conc 30.8 g/dL (32-36); Mean Corpuscular Hgb 29.9 pg (27.0-32.0); Mean Platelet Vol. 12.4 fl (6.2-12.0); Monocyte# 0.26 X10^3/uL; Monocyte% 3.5 % (0-10); NRBC Flagged by Analyzer 0 % (0-5); Neutrophil # 6.57 X10^3/uL (2.7-7.7); Neutrophil % 88.5 % (47-70); POSITIVE DIFFERENTIAL YES; Platelet Count 233 K/mm3 (150-450); RBC Distribution Width CV 17.3 % (11.6-14.6); RBC Distribution Width SD 60.9 fl (35.1-43.9); Red Blood Count 3.01 M/mm3 (4.2-5.4); White Blood Count 7.4 K/mm3 (4.4-11.0)
[2022-05-28 04:12] LABS: Differential Indicated SCAN CRITERIA MET
[2022-05-28 04:32] LABS: Differential Comment SCANNED
[2022-05-28 04:50] LABS: Anion Gap 5 (5-15); BUN 36 mg/dL (7-18); Calcium,Total 7.6 mg/dL (8.5-10.1); Chloride 118 mmol/L (98-107); EST Glomerular Filtration Rate 58 mL/min (>60); Est Glom Filt Rate - Afr Amer 70 mL/min (>60); Estimated Creatinine Clearance 42.62 ml/min; Glucose 182 mg/dL (74-106); Potassium 3.5 mmol/L (3.5-5.1); Sodium Level 150 mmol/L (136-145)
[2022-05-28] MEDS: 0.9% Saline Lock 10 ML Syringe IV ×3 (05:35→17:17)
[2022-05-28] MEDS: Insulin Lispro 100 UNIT/ML INSULN.PEN SC ×2 (05:40→20:33)
--- NOTE | 2022-05-28 06:10 | PN.CC_ITS ---
Assessment & Plan Assessment/Plan (1) Sepsis: PLAN: Plan RECOMMENDATIONS: 1. Proceed with a trial of extubation this morning. 2. Once extubated, wean supplemental oxygen to maintain saturations 88 to 92%. 3. Perform bedside swallow evaluation and advance diet accordingly. 4. Continue empiric antimicrobials. 5. Continue scheduled bronchodilators and IV steroids. 6. Continue appropriate ICU prophylaxis. 7. Encourage incentive spirometer use and mobilize patient as tolerated. IMPRESSIONS: 1. Sepsis The patient presented with sepsis due to gram-negative pneumonia with acute sepsis related organ dysfunction as evidenced by altered mentation, lactic acidemia and acute kidney injury. The patient did receive supplemental IV fluid hydration. The patient remains hemodynamically stable. Plan to continue antimicrobials as ordered. 2. Metabolic encephalopathy Improved. Likely related to hypercarbia noted at presentation. Improvement was noted with invasive mechanical ventilatory support. Continue supportive measures as noted below. 3. Acute combined respiratory failure Likely secondary to gram-negative pneumonia leading to COPD exacerbation. It is certainly plausible that the patient has underlying obstructive lung disease, with questionable outpatient compliance with prescribed medical therapy leading to her acute presentation. There is no evidence of pulmonary embolism on CT imaging. I agree with continuing antimicrobials. In addition, the patient will be continued on scheduled bronchodilators and IV steroids. In light of her clinical improvement, plan to proceed with extubation this morning. 4. Acute kidney injury Improved. Likely prerenal in etiology in the setting #1. No current indication for renal replacement therapy. Continue to monitor urine output. 5. History of coronary artery disease/anemia/hypertension/hyperlipidemia Complicates care, management, recovery and prognosis. Continue to hold baseline antihypertensives at this time. TIME: 32 minutes of critical care time, independent of procedures, was spent addressing the patient's sepsis, metabolic encephalopathy, acute combined respiratory failure, acute kidney injury, review of all data and collaboration with the care team. Subjective Subjective The patient was seen and examined at the bedside this morning. Events from the last 24 hours have been reviewed. The patient is currently afebrile, hemodyna mically stable and maintaining appropriate oxygen saturations on assist control mode of mechanical ventilation with an FiO2 requirement of 35%. Secretion output from the patient's endotracheal tube has improved. She is currently alert and appropriately interactive. She passed her spontaneous breathing trial this morning. Objective Data Objective Data The patient's most recent lab work, culture data and imaging studies have all been personally reviewed. Surface echocardiogram demonstrated an ejection fraction of approximately 45 to 50%. The RV was noted to be severely dilated with moderately severe global RV systolic dysfunction and a pulmonary artery systolic pressure estimated to be 51 mmHg. Rapid COVID testing was negative. Blood, urine and sputum cultures are pending. Vital Signs: Vital Signs Temp Pulse Resp BP Pulse Ox O2 Del Method FiO2 99.3 F H 77 20 H 156/74 H 93 Mechanical Ventilator 35 05/28/22 06:00 05/28/22 06:00 05/28/22 06:00 05/28/22 06:00 05/28/22 06:00 05/28/22 06:00 05/28/22 06:00 Oxygen Delivery Method Mechanical Ventilator Weight: 174 lb 13.225 oz Body Mass Index (BMI) 27.3 Intake & Output: Intake and Output for Last 24 Hours 05/26/22 05/27/22 05/28/22 23:59 23:59 23:59 Intake Total 3351.26 / 3363.99 4215.91 / 4458.37 1597.42 / 1597.42 Output Total 575 / 650 940 / 1190 475 / 475 Balance 2776.26 / 2713.99 3275.91 / 3268.37 1122.42 / 1122.42 Lab / Micro Data Attestation: I reviewed the patient's lab results. Result Diagrams: 05/28/22 04:00 05/28/22 04:32 Labs: Laboratory Results - last 24 hr 05/27/22 11:58: POC Glucose 149 H 05/27/22 17:20: Magnesium 2.1 05/27/22 17:22: POC Glucose 163 H 05/27/22 23:22: POC Glucose 177 H 05/28/22 04:00: Sodium Cancelled, Potassium Cancelled, Chloride Cancelled, Carbon Dioxide Cancelled, Anion Gap Cancelled, BUN Cancelled, Creatinine Cancelled, Estim Creat Clear Calc Cancelled, Est GFR (MDRD) Af Amer Cancelled, Est GFR (MDRD) Non-Af Cancelled, BUN/Creatinine Ratio Cancelled, Glucose Cancelled, Calcium Cancelled 05/28/22 04:00: WBC 7.4, RBC 3.01 L, Hgb 9.0 L, Hct 29.2 L, MCV 97.0, MCH 29.9, MCHC 30.8 L, RDW Std Deviation 60.9 H, RDW Coeff of Parviz 17.3 H, Plt Count 233, MPV 12.4 H, Immature Gran % (Auto) 0.900, Neut % (Auto) 88.5 H, Lymph % (Auto) 7.1 L, [place] % (Auto) 3.5, Eos % (Auto) 0.0, Baso % (Auto) 0.0, Absolute Neuts (auto) 6.6, Absolute Lymphs (auto) 0.53 L, Nucleated RBC % 0, Differential Comment SCANNED 05/28/22 04:32: Sodium 150 H, Potassium 3.5, Chloride 118 H, Carbon Dioxide 27.0, Anion Gap 5, BUN 36 H, Creatinine 1.00, Estim Creat Clear Calc 42.62, Est GFR (MDRD) Af Amer 70, Est GFR (MDRD) Non-Af 58 L, BUN/Creatinine Ratio 36.0 H, Glucose 182 H, Calcium 7.6 L Micro: Microbiology 05/26/22 10:41 Sputum, Induced/Lukens Gram Stain - Final 05/26/22 10:41 Sputum, Induced/Lukens Respiratory Culture - Preliminary GNR lactose varnisher apprentice 05/26/22 10:30 Urine Catheter - Catheter Urine Culture - Preliminary Streptococcus agalactiae (B) 05/26/22 10:30 Nasal Secretion SARS-CoV-2 Antigen (Rapid) - Final 05/26/22 10:20 Gastric Fluid/Contents Gastric Occult Blood - Final ABG Data ABG results: ABG 05/27/22 09:19 Specimen Type ART Sample Site R Radial pH 7.41 Bicarbonate Actual 27.6 H Total CO2 29 Base Excess 3 H O2 Saturation 90 L O2 % 45 ABG pCO2 44.1 ABG pO2 58 L Zachary Test Positive Respiration Rate 18 O2 Delivery Device Adult Vent Vent Mode AC Tidal Volume 400 POC PEEP 5 Radiography Diagnostic Testing: Radiology Impression Brain CT 05/26/22 10:08 IMPRESSION: Chronic involutional changes of the brain. There has been no change since prior study. Electronically Signed: Smith Chau MD at 12:13 EDT , Cervical Spine CT 05/26/22 10:08 IMPRESSION: Multilevel degenerative changes, as described above. Electronically Signed: Smith Chau MD at 12:11 EDT , Chest X-Ray 05/26/22 10:20 IMPRESSION: The tip of the endotracheal tube is at 1.9 cm proximal to the rose. The tip of the orogastric tube is in the body of the stomach. Increased markings at the lung bases slightly more prominent on the right side suggestive of bibasilar atelectasis. Electronically Signed: Smith Chau MD at 10:43 EDT , KUB X-Ray 05/26/22 10:20 IMPRESSION: The tip of the orogastric tube is in the body of the stomach. Electronically Signed: Smith Chau MD at 10:41 EDT , Knee X-Ray 05/26/22 10:20 IMPRESSION: Normal x-ray examination of the knee. Electronically Signed: Smith Chau MD at 10:43 EDT , Chest CTA 05/26/22 11:33 IMPRESSION: No evidence of pleural embolism. Small bilateral effusions left greater than right with bibasilar atelectasis. Atelectasis also seen in the posterior aspect of the left upper lobe. Stable appearance of the bilateral pulmonary nodules. Electronically Signed: Smith Chau MD at 12:19 EDT , Echocardiogram 05/26/22 13:30 Interpretation Summary Moderate to severe LVH Inferior and inferoseptal hypokinesis. Estimated EF 45-50% Severely dilated right ventricle. Moderately severe global right ventricular systolic dysfunction. The right atrium is severely enlarged. Severe (4+) tricuspid valve insufficiency. Diastolic function is indeterminate. Aortic sclerosis, no stenosis. Pulmonary artery systolic pressure is 51 mmHg.. Ordering Physician: Clark Peralta Referring Physician: Mine Bojorquez Performed By: Mona Figueroa RCS Rhythm Strip Rhythm Strip: Sinus Rhythm Physical Exam Const alert and no apparent distress Constitutional Narrative: Rather unkempt in appearance. General Appearance: intubated and patient mechanically ventilated HEENT normocephalic and head/scalp atraumatic Mouth: endotracheal tube in place and OG tube in place Eyes PERRL and EOMs intact bilaterally Neck supple General: trachea midline Chest inspection of chest normal Resp Auscultation: diminished lung sounds; Negative for rales, rhonchi or wheezes Cardio regular rate and regular rhythm GI normal to inspection, nondistended, normoactive bowel sounds Extremity no clubbing, cyanosis or edema Skin no rashes or lesions noted Neuro moves all extremities Neuro Narrative: Able to follow commands without issue. Charges/Coding Procedures Hospitalists Procedures: [id number] Critial Care 1st Hr
[2022-05-28 06:11] LABS: Bedside Glucose 160 mg/dL (74-106)
[2022-05-28 06:53] LABS: Vancomycin, Trough Level 7.1 ug/mL (5.0-15.0)
--- NOTE | 2022-05-28 06:59 | NURSING ---
Pt extubated @ 0645, currently on 4 L NC and tolerating well.
[2022-05-28] MEDS: Enoxaparin 40 MG/0.4 ML Syringe SC (09:29)
[2022-05-28] MEDS: Metoprolol Tartrate 50 MG Tablet PO ×2 (09:31→20:34)
--- NOTE | 2022-05-28 09:34 | PN.HOSP_ITS ---
Subjective Subjective Patient seen and Ament. She was extubated this morning and is on 4 L of oxygen by nasal cannula. She complains of feeling hungry. She has no other complaints and review of systems otherwise negative. Blood pressure is a bit elevated at 185/71 this morning. Labs are significant for sodium of 158 this morning. Objective Data Objective Data Vital Signs: Vital Signs Temp Pulse Resp BP Pulse Ox O2 Del Method O2 Flow Rate 98.9 F 75 19 H 185/71 H 92 Nasal Cannula 4 05/28/22 08:00 05/28/22 08:00 05/28/22 08:00 05/28/22 08:00 05/28/22 08:00 05/28/22 08:00 05/28/22 08:00 FiO2 35 05/28/22 06:00 Oxygen Flow Rate (L/min) 4 Oxygen Delivery Method Nasal Cannula Weight: 174 lb 13.225 oz Body Mass Index (BMI) 27.3 Intake & Output: Intake and Output for Last 24 Hours 05/26/22 05/27/22 05/28/22 23:59 23:59 23:59 Intake Total 3351.26 / 3363.99 4215.91 / 4458.37 2669.92 / 2669.92 Output Total 575 / 650 940 / 1190 475 / 475 Balance 2776.26 / 2713.99 3275.91 / 3268.37 2194.92 / 2194.92 Lab / Micro Data Result Diagrams: 05/28/22 04:00 05/28/22 04:32 Labs: Laboratory Results - last 24 hr 05/27/22 11:58: POC Glucose 149 H 05/27/22 17:20: Magnesium 2.1 05/27/22 17:22: POC Glucose 163 H 05/27/22 23:22: POC Glucose 177 H 05/28/22 04:00: Sodium Cancelled, Potassium Cancelled, Chloride Cancelled, Carbon Dioxide Cancelled, Anion Gap Cancelled, BUN Cancelled, Creatinine Cancelled, Estim Creat Clear Calc Cancelled, Est GFR (MDRD) Af Amer Cancelled, Est GFR (MDRD) Non-Af Cancelled, BUN/Creatinine Ratio Cancelled, Glucose Cancelled, Calcium Cancelled 05/28/22 04:00: WBC 7.4, RBC 3.01 L, Hgb 9.0 L, Hct 29.2 L, MCV 97.0, MCH 29.9, MCHC 30.8 L, RDW Std Deviation 60.9 H, RDW Coeff of Parviz 17.3 H, Plt Count 233, MPV 12.4 H, Immature Gran % (Auto) 0.900, Neut % (Auto) 88.5 H, Lymph % (Auto) 7.1 L, [place] % (Auto) 3.5, Eos % (Auto) 0.0, Baso % (Auto) 0.0, Absolute Neuts (auto) 6.6, Absolute Lymphs (auto) 0.53 L, Nucleated RBC % 0, Differential Comment SCANNED 05/28/22 04:32: Sodium 150 H, Potassium 3.5, Chloride 118 H, Carbon Dioxide 27.0, Anion Gap 5, BUN 36 H, Creatinine 1.00, Estim Creat Clear Calc 42.62, Est GFR (MDRD) Af Amer 70, Est GFR (MDRD) Non-Af 58 L, BUN/Creatinine Ratio 36.0 H, Glucose 182 H, Calcium 7.6 L 05/28/22 05:37: POC Glucose 160 H 05/28/22 06:20: Vancomycin Trough 7.1 Micro: Microbiology 05/26/22 10:41 Sputum, Induced/Lukens Gram Stain - Final 05/26/22 10:41 Sputum, Induced/Lukens Respiratory Culture - Preliminary GNR lactose fiber analyst 05/26/22 10:30 Urine Catheter - Catheter Urine Culture - Preliminary Streptococcus agalactiae (B) 05/26/22 10:30 Nasal Secretion SARS-CoV-2 Antigen (Rapid) - Final 05/26/22 10:20 Gastric Fluid/Contents Gastric Occult Blood - Final Rhythm Strip Rhythm Strip: Sinus Rhythm Physical Exam Const alert and no apparent distress HEENT normocephalic, head/scalp atraumatic and moist oral mucous membranes Head and Scalp: normocephalic Mouth: oral and palatal mucosa normal and dry mucous membranes Eyes PERRL, EOMs intact bilaterally and conjunctivae normal Neck no lymphadenopathy and supple Resp normal respiratory effort and no retractions Resp Narrative: diminished breath sounds bibasally, no wheezes or crackles. on 4L of oxygen by nasal canula Cardio regular rate, regular rhythm, S1 normal heart sound, S2 normal heart sound and no murmurs GI normal to inspection, nondistended, normoactive bowel sounds, soft to palpation and non-tender Extremity normal to inspection, full ROM and no clubbing, cyanosis or edema Neuro oriented x3, CN's II-XII intact bilaterally, moves all extremities and no focal motor deficits Sensorium / Orientation: awake and alert Speech: speech normal Motor Exam: strength 5/5 throughout Assessment & Plan Assessment/Plan (1) Acute hypoxemic respiratory failure: (2) Elevated lactic acid level: PLAN: Plan #Acute hypoxic and hypercapnic respiratory failure * extubated to 4L of oxygen by nasal canula today * on IV vancomycin and zosyn for sepsis and probable pneumonia * CTA chest negative for PE * 2D echo showed EF of 45 to 50% with indeterminate diastolic dysfunction and moderate to severe left ventricular hypertrophy with inferior and inferoseptal hypokinesis. Severely dilated right ventricle and moderately severe right global ventricular systolic dysfunction with 4+ tricuspid valve insufficiency and pulmonary artery systolic pressure of 51 mmHg. Right atrium is severely enlarged. * Cardiology consulted on account of non-STEMI. recommends conservative management for now * vancomycin discontinued; now on zosyn due to culture results * Breathing treatments of bronchodilators. * #Sepsis * thought to be due to probable pneumonia * sputum culture growing E coli and urine culture growing Strep agalactiae. 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 * on metoprolol * #Acute metabolic encephalopathy likely due to acute respiratory failure * CT of the brain showed no acute intracranial pathology. Management as above. * #RAMANDEEP with hyperkalemia * resolved * #CAD: * On aspirin and Plavix. * aspirin and plavix resumed * on high intensity statin * #Anemia: * Had anemia during her recent admission with evidence of iron deficiency. * Stool for occult blood was also positive. 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 * Will place on IV pantoprazole 40 mg twice daily as she is currently intubated. #Hyperlipidemia: On statin #HIstory of schizophrenia: on Invega DVT prophylaxis: lovenox Charges/Coding Visit Charges Inpatient E&M: 91328 Subs Hosp L3
[2022-05-28] MEDS: CHLORHEXIDINE GLUC 2% CLOTH 1 EACH TOWELETTE TOPICAL (09:35)
--- NOTE | 2022-05-28 09:39 | PN.CARD_ITS ---
Subjective Subjective Extubated. Denies any complaints. Objective Data Vital Signs: Vital Signs Temp Pulse Resp BP Pulse Ox O2 Del Method O2 Flow Rate 98.9 F 83 19 H 186/76 H 92 Nasal Cannula 4 05/28/22 08:00 05/28/22 09:31 05/28/22 08:00 05/28/22 09:31 05/28/22 08:00 05/28/22 08:00 05/28/22 08:00 FiO2 35 05/28/22 06:00 Oxygen Flow Rate (L/min) 4 Oxygen Delivery Method Nasal Cannula Weight: 174 lb 13.225 oz Body Mass Index (BMI) 27.3 Intake & Output: Intake and Output for Last 24 Hours 05/26/22 05/27/22 05/28/22 23:59 23:59 23:59 Intake Total 3351.26 / 3363.99 4215.91 / 4458.37 2669.92 / 2669.92 Output Total 575 / 650 940 / 1190 475 / 475 Balance 2776.26 / 2713.99 3275.91 / 3268.37 2194.92 / 2194.92 Lab / Micro Data Result Diagrams: 05/28/22 04:00 05/28/22 04:32 Labs: Laboratory Results - last 24 hr 05/27/22 11:58: POC Glucose 149 H 05/27/22 17:20: Magnesium 2.1 05/27/22 17:22: POC Glucose 163 H 05/27/22 23:22: POC Glucose 177 H 05/28/22 04:00: Sodium Cancelled, Potassium Cancelled, Chloride Cancelled, Carbon Dioxide Cancelled, Anion Gap Cancelled, BUN Cancelled, Creatinine Cancelled, Estim Creat Clear Calc Cancelled, Est GFR (MDRD) Af Amer Cancelled, Est GFR (MDRD) Non-Af Cancelled, BUN/Creatinine Ratio Cancelled, Glucose Cancelled, Calcium Cancelled 05/28/22 04:00: WBC 7.4, RBC 3.01 L, Hgb 9.0 L, Hct 29.2 L, MCV 97.0, MCH 29.9, MCHC 30.8 L, RDW Std Deviation 60.9 H, RDW Coeff of Parviz 17.3 H, Plt Count 233, MPV 12.4 H, Immature Gran % (Auto) 0.900, Neut % (Auto) 88.5 H, Lymph % (Auto) 7.1 L, [place] % (Auto) 3.5, Eos % (Auto) 0.0, Baso % (Auto) 0.0, Absolute Neuts (auto) 6.6, Absolute Lymphs (auto) 0.53 L, Nucleated RBC % 0, Differential Comment SCANNED 05/28/22 04:32: Sodium 150 H, Potassium 3.5, Chloride 118 H, Carbon Dioxide 27.0, Anion Gap 5, BUN 36 H, Creatinine 1.00, Estim Creat Clear Calc 42.62, Est GFR (MDRD) Af Amer 70, Est GFR (MDRD) Non-Af 58 L, BUN/Creatinine Ratio 36.0 H, Glucose 182 H, Calcium 7.6 L 05/28/22 05:37: POC Glucose 160 H 05/28/22 06:20: Vancomycin Trough 7.1 Micro: Microbiology 05/26/22 10:41 Sputum, Induced/Lukens Gram Stain - Final 05/26/22 10:41 Sputum, Induced/Lukens Respiratory Culture - Final Escherichia coli 05/26/22 10:30 Urine Catheter - Catheter Urine Culture - Final Streptococcus agalactiae (B) Rhythm Strip Rhythm Strip: Sinus Rhythm Cardiology Labs/Tests 05/27/22 17:20: Magnesium 2.1 05/28/22 04:00: Sodium Cancelled, Potassium Cancelled, Chloride Cancelled, Carbon Dioxide Cancelled, Anion Gap Cancelled, BUN Cancelled, Creatinine Cancelled, Est GFR (MDRD) Af Amer Cancelled, Est GFR (MDRD) Non-Af Cancelled, BUN/Creatinine Ratio Cancelled, Glucose Cancelled, Calcium Cancelled 05/28/22 04:00: WBC 7.4, RBC 3.01 L, Hgb 9.0 L, Hct 29.2 L, MCV 97.0, MCH 29.9, MCHC 30.8 L, Plt Count 233, MPV 12.4 H, Immature Gran % (Auto) 0.900, Neut % (Auto) 88.5 H, Lymph % (Auto) 7.1 L, [place] % (Auto) 3.5, Eos % (Auto) 0.0, Baso % (Auto) 0.0, Absolute Neuts (auto) 6.6, Nucleated RBC % 0 05/28/22 04:32: Sodium 150 H, Potassium 3.5, Chloride 118 H, Carbon Dioxide 27.0, Anion Gap 5, BUN 36 H, Creatinine 1.00, Est GFR (MDRD) Af Amer 70, Est GFR (MDRD) Non-Af 58 L, BUN/Creatinine Ratio 36.0 H, Glucose 182 H, Calcium 7.6 L Rhythm: EKG: ECHO: Stress Test: Cardiac Cath: PCI: CT Surgery: Holter monitor: EPS: PPM: CXR: Chest CT Scan: Physical Exam Narrative Heart sounds 1 and 2 are normal. Decreased breath sounds bilateral bases. No edema. Assessment & Plan Assessment/Plan (1) NSTEMI (non-ST elevated myocardial infarction): PLAN: Most likely type II. Patient is not a candidate for invasive work-up at present. For medical management. Aspirin and Plavix started. Beta-blockers also started and being titrated upwards. Start on vasodilators, low-dose am lodipine. (2) Cor pulmonale, chronic: PLAN: As per pulmonology. (3) Sepsis: PLAN: Patient has successfully been weaned off vasopressor agents. Continue as per critical care. (4) Acute hypoxemic respiratory failure: PLAN: Remains ventilator dependent. Pulmonary/critical care following. (5) History of abdominal aortic aneurysm repair: (6) Tobacco use disorder: (7) PAD (peripheral artery disease): (8) HTN (hypertension): PLAN: Agree with increasing metoprolol. Titrate upwards as tolerated. PLAN: Plan This patient has history of coronary artery disease. She did show upward trend of troponins in the setting of sepsis/septic shock. She has history of GI bleed. For medical management only at present. Start aspirin/Plavix when okay with gastroenterology. Discussed with hospitalist. Also start low-dose beta- clayton and titrate upwards as needed. Start on amlodipine.
[2022-05-28] MEDS: Sucralfate 1 GM Tablet PO ×2 (10:32→17:17)
[2022-05-28] MEDS: amLODIPine 5 MG Tablet PO (10:32)
[2022-05-28] MEDS: RisperiDONE 1 MG Tablet 3 MG PO ×2 (10:58→20:34)
[2022-05-28] MEDS: Aspirin E.C. 81 MG Tablet PO (10:59)
[2022-05-28] MEDS: Isosorbide Mononitrate 30 MG Tablet PO (10:59)
[2022-05-28 11:30] LABS: Bedside Glucose 159 mg/dL (74-106)
--- NOTE | 2022-05-28 13:23 | NURSING ---
report called to pcu transferred per bed with belongings to room 129
--- NOTE | 2022-05-28 13:42 | NURSING ---
1320-Pt brought to PCU by [employer] COACH. Pt transferred to PCU bed. Pt noted to be very restless, constantly pulling at clothing, brief, and ruth. Multiple attempts made to calm pt and educate safety made. Noted while repositioning pt, that pt had pulled ruth out of urethra with balloon intact. Pt repositioned, lima care provided, call light in reach and bed alarm on.
[2022-05-28 16:55] LABS: Bedside Glucose 107 mg/dL (74-106)
--- NOTE | 2022-05-28 18:20 | CASEMGMT ---
SW was advised by REENA COHN that patient was transferred from ICU to PCU. RN inquired about discharge plan. SW went into patient's room. Patient is restless and asked about her purse. SW advised that this automatic typewriter inspector wanted to talk to her about SNF. Patient said no. SW tried to continue the conversation however, patient was nonresponsive to this automatic typewriter inspector and was exposing herself and scratching her vaginal and buttock region. Thus, due to patient's current condition the interview was discontinued. A full assessment will need to occur on Monday. Plan: To be determined Arelis ARIAS
[2022-05-28] MEDS: Atorvastatin Calcium 80 MG Tablet PO (20:34)
[2022-05-28 22:36] LABS: Bedside Glucose 225 mg/dL (74-106)
[2022-05-29] VITALS (17 sets, daily range): BP systolic 150–177; BP diastolic 65–77; PULSE 68–89; RESP 18–26; TEMP 36.2–37; O2SAT 93–99
[2022-05-29] MEDS: 0.9% Saline Lock 10 ML Syringe IV (00:15)
[2022-05-29] MEDS: Sucralfate 1 GM Tablet PO ×2 (06:26→15:29)
[2022-05-29 07:09] LABS: Absolute Lymphocyte Count 0.68 X10^3/uL (0.83-4.51); Absolute Neutrophil Count 8.7 X10^3/uL (2.0-7.7); Basophil# 0.02 X10^3/uL; Basophil% 0.2 % (0-1); Hematocrit 30.6 % (37-47); Hemoglobin 9.2 g/dL (12.0-15.0); Lymphocyte # 0.68 X10^3/ul (0.83-4.51); Lymphocyte % 6.7 % (19-41); Mean Corp Hgb Conc 30.1 g/dL (32-36); Mean Corpuscular Hgb 30.2 pg (27.0-32.0); Mean Corpuscular Volume 100.3 fL (81-99); Mean Platelet Vol. 11.2 fl (6.2-12.0); Monocyte# 0.44 X10^3/uL; Monocyte% 4.4 % (0-10); NRBC Flagged by Analyzer 0 % (0-5); Neutrophil # 8.73 X10^3/uL (2.7-7.7); Neutrophil % 86.5 % (47-70); Platelet Count 215 K/mm3 (150-450); RBC Distribution Width CV 16.7 % (11.6-14.6); RBC Distribution Width SD 60.9 fl (35.1-43.9); Red Blood Count 3.05 M/mm3 (4.2-5.4); White Blood Count 10.1 K/mm3 (4.4-11.0)
[2022-05-29] MEDS: Ipratropium/Albuterol Sulfate 3 ML AMPUL.NEB INHALATION ×4 (07:10→19:10)
--- NOTE | 2022-05-29 07:19 | PN.CC_ITS ---
Assessment & Plan Assessment/Plan (1) Sepsis: PLAN: Plan RECOMMENDATIONS: 1. Continue to wean supplemental oxygen to maintain saturations 88 to 92%. 2. Continue antimicrobials to complete 7 days of therapy. 3. Continue scheduled bronchodilators and steroids. 4. Continue appropriate prophylaxis. 5. Encourage incentive spirometer use and mobilize patient as tolerated. IMPRESSIONS: 1. Sepsis The patient presented with sepsis due to gram-negative pneumonia with acute sepsis related organ dysfunction as evidenced by altered mentation, lactic acidemia and acute kidney injury. The patient did receive supplemental IV fluid hydration. The patient remains hemodynamically stable. Plan to continue antimicrobials as ordered. 2. Metabolic encephalopathy Improved. Likely related to hypercarbia noted at presentation. Improvement was noted with invasive mechanical ventilatory support. Continue supportive measures as noted below. 3. Acute combined respiratory failure Likely secondary to gram-negative pneumonia leading to COPD exacerbation. It is certainly plausible that the patient has underlying obstructive lung disease, with questionable outpatient compliance with prescribed medical therapy leading to her acute presentation. There was no evidence of pulmonary embolism on CT imaging. I agree with continuing antimicrobials. In addition, the patient will be continued on scheduled bronchodilators and IV steroids. 4. Acute kidney injury Improved. Likely prerenal in etiology in the setting #1. No current indication for renal replacement therapy. Continue to monitor urine output. 5. History of coronary artery disease/anemia/hypertension/hyperlipidemia Complicates care, management, recovery and prognosis. Continue home medications as indicated. This note was generated with [employer] dictation software. It may contain incorrect words, spelling, and punctuation that were not noted in checking the note before signing. Subjective Subjective The patient was seen and examined at the bedside this morning. Events from the last 24 hours have been reviewed. The patient is currently afebrile, hemodynamically stable and maintaining appropriate oxygen saturations on 6 L/min via nasal cannula. The patient is currently receiving an aerosol treatment and denies any resting shortness of breath. She is questioning me as to when she can be discharged home. Objective Data Objective Data The patient's most recent lab work, culture data and imaging studies have all been personally reviewed. Surface echocardiogram demonstrated an ejection fract ion of approximately 45 to 50%. The RV was noted to be severely dilated with moderately severe global RV systolic dysfunction and a pulmonary artery systolic pressure estimated to be 51 mmHg. Rapid COVID testing was negative. Sputum culture was positive for E. coli. Vital Signs: Vital Signs Temp Pulse Resp BP Pulse Ox O2 Del Method O2 Flow Rate 97.2 F L 89 18 153/77 H 95 High Flow 6 05/29/22 03:00 05/29/22 03:00 05/29/22 04:05 05/29/22 03:00 05/29/22 04:05 05/29/22 04:05 05/29/22 04:05 FiO2 35 05/28/22 06:00 Oxygen Flow Rate (L/min) 6 Oxygen Delivery Method High Flow Weight: 177 lb 0.499 oz Body Mass Index (BMI) 27.3 Intake & Output: Intake and Output for Last 24 Hours 05/27/22 05/28/22 05/29/22 23:59 23:59 23:59 Intake Total 4215.91 / 4458.37 4079.92 / 4079.92 256.25 / 256.25 Output Total 940 / 1190 900 / 900 Balance 3275.91 / 3268.37 3179.92 / 3179.92 256.25 / 256.25 Lab / Micro Data Attestation: I reviewed the patient's lab results. Result Diagrams: 05/30/22 06:30 05/30/22 06:30 Labs: Laboratory Results - last 24 hr 05/28/22 11:03: POC Glucose 159 H 05/28/22 16:34: POC Glucose 107 H 05/28/22 20:32: POC Glucose 225 H 05/29/22 06:35: WBC 10.1, RBC 3.05 L, Hgb 9.2 L, Hct 30.6 L, MCV 100.3 H, MCH 30.2, MCHC 30.1 L, RDW Std Deviation 60.9 H, RDW Coeff of Parviz 16.7 H, Plt Count 215, MPV 11.2, Immature Gran % (Auto) 2.200 H, Neut % (Auto) 86.5 H, Lymph % (Auto) 6.7 L, [place] % (Auto) 4.4, Eos % (Auto) 0.0, Baso % (Auto) 0.2, Absolute Neuts (auto) 8.7 H, Absolute Lymphs (auto) 0.68 L, Nucleated RBC % 0 Micro: Microbiology 05/26/22 10:30 Blood Culture (Wb) - Anticubital Left Blood Culture - Preliminary No growth in 48 hours. 05/26/22 10:12 Blood Culture (Wb) - Right Wrist Blood Culture - Preliminary No growth in 48 hours. 05/26/22 10:41 Sputum, Induced/Lukens Gram Stain - Final 05/26/22 10:41 Sputum, Induced/Lukens Respiratory Culture - Final Escherichia coli 05/26/22 10:30 Urine Catheter - Catheter Urine Culture - Final Streptococcus agalactiae (B) 05/26/22 10:30 Nasal Secretion SARS-CoV-2 Antigen (Rapid) - Final 05/26/22 10:20 Gastric Fluid/Contents Gastric Occult Blood - Final ABG Data ABG results: ABG 05/27/22 09:19 Specimen Type ART Sample Site R Radial pH 7.41 Bicarbonate Actual 27.6 H Total CO2 29 Base Excess 3 H O2 Saturation 90 L O2 % 45 ABG pCO2 44.1 ABG pO2 58 L Zachary Test Positive Respiration Rate 18 O2 Delivery Device Adult Vent Vent Mode AC Tidal Volume 400 POC PEEP 5 Radiography Diagnostic Testing: Radiology Impression Brain CT 05/26/22 10:08 IMPRESSION: Chronic involutional changes of the brain. There has been no change since prior study. Electronically Signed: Smith Chau MD at 12:13 EDT , Cervical Spine CT 05/26/22 10:08 IMPRESSION: Multilevel degenerative changes, as described above. Electronically Signed: Smith Chau MD at 12:11 EDT , Chest X-Ray 05/26/22 10:20 IMPRESSION: The tip of the endotracheal tube is at 1.9 cm proximal to the rose. The tip of the orogastric tube is in the body of the stomach. Increased markings at the lung bases slightly more prominent on the right side suggestive of bibasilar atelectasis. Electronically Signed: Smith Chau MD at 10:43 EDT , KUB X-Ray 05/26/22 10:20 IMPRESSION: The tip of the orogastric tube is in the body of the stomach. Electronically Signed: Smith Chau MD at 10:41 EDT , Knee X-Ray 05/26/22 10:20 IMPRESSION: Normal x-ray examination of the knee. Electronically Signed: Smith Chau MD at 10:43 EDT Reading Location ID and State: [facility] / [place] , Service support , Chest CTA 05/26/22 11:33 IMPRESSION: No evidence of pleural embolism. Small bilateral effusions left greater than right with bibasilar atelectasis. Atelectasis also seen in the posterior aspect of the left upper lobe. Stable appearance of the bilateral pulmonary nodules. Electronically Signed: Smith Chau MD at 12:19 EDT , Echocardiogram 05/26/22 13:30 Interpretation Summary Moderate to severe LVH Inferior and inferoseptal hypokinesis. Estimated EF 45-50% Severely dilated right ventricle. Moderately severe global right ventricular systolic dysfunction. The right atrium is severely enlarged. Severe (4+) tricuspid valve insufficiency. Diastolic function is indeterminate. Aortic sclerosis, no stenosis. Pulmonary artery systolic pressure is 51 mmHg.. Ordering Physician: Clark Peralta Referring Physician: Mine Bojorquez Performed By: oMna Figueroa RCS Rhythm Strip Rhythm Strip: Sinus Rhythm Physical Exam Const alert and no apparent distress Constitutional Narrative: Rather unkempt in appearance. HEENT normocephalic and head/scalp atraumatic Eyes PERRL and EOMs intact bilaterally Neck supple General: trachea midline Chest inspection of chest normal Resp Effort and Inspection: tachypneic Auscultation: diminished lung sounds; Negative for rales, rhonchi or wheezes Cardio regular rate and regular rhythm GI normal to inspection, nondistended, normoactive bowel sounds Extremity no clubbing, cyanosis or edema Skin no rashes or lesions noted Neuro CN's II-XII intact bilaterally and moves all extremities Psych Mood & Affect: flat affect Charges/Coding Visit Charges Inpatient E&M: 79596 Subs Hosp L3
[2022-05-29 07:25] LABS: Bedside Glucose 140 mg/dL (74-106)
[2022-05-29 07:34] LABS: Anion Gap 3 (5-15); BUN 28 mg/dL (7-18); BUN/Creat Ratio 35.9 RATIO (10-20); Calcium,Total 8.3 mg/dL (8.5-10.1); Chloride 115 mmol/L (98-107); Creatinine, Serum 0.78 mg/dL (0.55-1.02); EST Glomerular Filtration Rate 77 mL/min (>60); Est Glom Filt Rate - Afr Amer 93 mL/min (>60); Estimated Creatinine Clearance 42.62 ml/min; Glucose 142 mg/dL (74-106); Potassium 4.4 mmol/L (3.5-5.1); Sodium Level 147 mmol/L (136-145)
[2022-05-29] MEDS: Metoprolol Tartrate 50 MG Tablet PO (08:29)
[2022-05-29] MEDS: Fenofibrate 145 MG Tablet PO (08:30)
[2022-05-29] MEDS: Enoxaparin 40 MG/0.4 ML Syringe SC (08:30)
[2022-05-29] MEDS: amLODIPine 5 MG Tablet PO (08:30)
[2022-05-29] MEDS: RisperiDONE 1 MG Tablet 3 MG PO ×2 (08:30→21:59)
[2022-05-29] MEDS: Isosorbide Mononitrate 30 MG Tablet PO (08:30)
[2022-05-29] MEDS: Aspirin E.C. 81 MG Tablet PO (08:31)
[2022-05-29] MEDS: Clopidogrel Bisulfate 75 MG Tablet PO (08:31)
--- NOTE | 2022-05-29 10:37 | PN.HOSP_ITS ---
Subjective Subjective Patient seen and examined. She is asking when she can go home. She is now on 6L of oxygen. She has no active complaints. REview of systems is otherwise negative. Objective Data Objective Data Vital Signs: Vital Signs Temp Pulse Resp BP Pulse Ox O2 Del Method O2 Flow Rate 97.9 F 68 20 H 177/73 H 96 Nasal Cannula 6 05/29/22 09:00 05/29/22 09:00 05/29/22 09:00 05/29/22 09:00 05/29/22 09:00 05/29/22 10:00 05/29/22 10:00 FiO2 35 05/28/22 06:00 Oxygen Flow Rate (L/min) 6 Oxygen Delivery Method Nasal Cannula Weight: 177 lb 0.499 oz Body Mass Index (BMI) 27.3 Intake & Output: Intake and Output for Last 24 Hours 05/27/22 05/28/22 05/29/22 23:59 23:59 23:59 Intake Total 4215.91 / 4458.37 4079.92 / 4079.92 356.25 / 356.25 Output Total 940 / 1190 900 / 900 Balance 3275.91 / 3268.37 3179.92 / 3179.92 356.25 / 356.25 Lab / Micro Data Result Diagrams: 05/29/22 06:35 05/29/22 06:35 Labs: Laboratory Results - last 24 hr 05/28/22 11:03: POC Glucose 159 H 05/28/22 16:34: POC Glucose 107 H 05/28/22 20:32: POC Glucose 225 H 05/29/22 06:25: POC Glucose 140 H 05/29/22 06:35: Sodium 147 H, Potassium 4.4, Chloride 115 H, Carbon Dioxide 29.0, Anion Gap 3 L, BUN 28 H, Creatinine 0.78, Estim Creat Clear Calc 42.62, Est GFR (MDRD) Af Amer 93, Est GFR (MDRD) Non-Af 77, BUN/Creatinine Ratio 35.9 H , Glucose 142 H, Calcium 8.3 L 05/29/22 06:35: WBC 10.1, RBC 3.05 L, Hgb 9.2 L, Hct 30.6 L, MCV 100.3 H, MCH 30.2, MCHC 30.1 L, RDW Std Deviation 60.9 H, RDW Coeff of Parviz 16.7 H, Plt Count 215, MPV 11.2, Immature Gran % (Auto) 2.200 H, Neut % (Auto) 86.5 H, Lymph % (Auto) 6.7 L, Steele % (Auto) 4.4, Eos % (Auto) 0.0, Baso % (Auto) 0.2, Absolute Neuts (auto) 8.7 H, Absolute Lymphs (auto) 0.68 L, Nucleated RBC % 0 Micro: Microbiology 05/26/22 10:30 Blood Culture (Wb) - Anticubital Left Blood Culture - Preliminary No growth in 48 hours. 05/26/22 10:12 Blood Culture (Wb) - Right Wrist Blood Culture - Preliminary No growth in 48 hours. 05/26/22 10:41 Sputum, Induced/Lukens Gram Stain - Final 05/26/22 10:41 Sputum, Induced/Lukens Respiratory Culture - Final Escherichia coli 05/26/22 10:30 Urine Catheter - Catheter Urine Culture - Final Streptococcus agalactiae (B) 05/26/22 10:30 Nasal Secretion SARS-CoV-2 Antigen (Rapid) - Final 05/26/22 10:20 Gastric Fluid/Contents Gastric Occult Blood - Final Rhythm Strip Rhythm Strip: Sinus Rhythm Physical Exam Const alert and no apparent distress HEENT normocephalic, head/scalp atraumatic and moist oral mucous membranes Head and Scalp: normocephalic Mouth: oral and palatal mucosa normal Eyes PERRL, EOMs intact bilaterally and conjunctivae normal Eyes Narrative: pupils pinpoint Neck no lymphadenopathy and supple Resp normal respiratory effort and no retractions Resp Narrative: diminished breath sounds bibasally, no wheezes or crackles. on 6L of oxygen by nasal canula Cardio regular rate, regular rhythm, S1 normal heart sound, S2 normal heart sound and no murmurs GI normal to inspection, nondistended, normoactive bowel sounds, soft to palpation and non-tender Extremity normal to inspection, full ROM and no clubbing, cyanosis or edema Neuro oriented x3, CN's II-XII intact bilaterally, moves all extremities and no focal motor deficits Sensorium / Orientation: awake and alert Speech: speech normal Motor Exam: strength 5/5 throughout Assessment & Plan Assessment/Plan (1) Acute hypoxemic respiratory failure: (2) Elevated lactic acid level: PLAN: Plan #Acute hypoxic and hypercapnic respiratory failure * on 6L of oxygen by nasal canula today * CTA chest negative for PE * 2D echo showed EF of 45 to 50% with indeterminate diastolic dysfunction and mo derate to severe left ventricular hypertrophy with inferior and inferoseptal hypokinesis. Severely dilated right ventricle and moderately severe right global ventricular systolic dysfunction with 4+ tricuspid valve insufficiency and pulmonary artery systolic pressure of 51 mmHg. Right atrium is severely enlarged. * Cardiology on board on account of non-STEMI. recommends conservative management for now * on IV zosyn as sputum culture grew E coli. * Breathing treatments with bronchodilators. * #Sepsis * due to pneumonia * sputum culture growing E coli and urine culture growing Strep agalactiae. blo od cultures are negative. 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 * on metoprolol * #Acute metabolic encephalopathy likely due to acute respiratory failure * CT of the brain showed no acute intracranial pathology. Management as above. * #RAMANDEEP with hyperkalemia * resolved * #CAD: * On aspirin and Plavix. * on aspirin and plavix * on high intensity statin * #Anemia: * Had anemia during her recent admission with evidence of iron deficiency. * Stool for occult blood was also positive. 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 * on IV pantoprazole 40mg bid #Hyperlipidemia: On statin #HIstory of schizophrenia: on Invega DVT prophylaxis: lovenox Charges/Coding Visit Charges Inpatient E&M: 84845 [facility] Hosp L3
--- NOTE | 2022-05-29 10:41 | PN.CARD_ITS ---
Subjective Subjective No complaints. Objective Data Vital Signs: Vital Signs Temp Pulse Resp BP Pulse Ox O2 Del Method O2 Flow Rate 97.9 F 68 20 H 177/73 H 96 Nasal Cannula 6 05/29/22 09:00 05/29/22 09:00 05/29/22 09:00 05/29/22 09:00 05/29/22 09:00 05/29/22 10:00 05/29/22 10:00 FiO2 35 05/28/22 06:00 Oxygen Flow Rate (L/min) 6 Oxygen Delivery Method Nasal Cannula Weight: 177 lb 0.499 oz Body Mass Index (BMI) 27.3 Intake & Output: Intake and Output for Last 24 Hours 05/27/22 05/28/22 05/29/22 23:59 23:59 23:59 Intake Total 4215.91 / 4458.37 4079.92 / 4079.92 356.25 / 356.25 Output Total 940 / 1190 900 / 900 Balance 3275.91 / 3268.37 3179.92 / 3179.92 356.25 / 356.25 Lab / Micro Data Result Diagrams: 05/29/22 06:35 05/29/22 06:35 Labs: Laboratory Results - last 24 hr 05/28/22 11:03: POC Glucose 159 H 05/28/22 16:34: POC Glucose 107 H 05/28/22 20:32: POC Glucose 225 H 05/29/22 06:25: POC Glucose 140 H 05/29/22 06:35: Sodium 147 H, Potassium 4.4, Chloride 115 H, Carbon Dioxide 29.0, Anion Gap 3 L, BUN 28 H, Creatinine 0.78, Estim Creat Clear Calc 42.62, Est GFR (MDRD) Af Amer 93, Est GFR (MDRD) Non-Af 77, BUN/Creatinine Ratio 35.9 H , Glucose 142 H, Calcium 8.3 L 05/29/22 06:35: WBC 10.1, RBC 3.05 L, Hgb 9.2 L, Hct 30.6 L, MCV 100.3 H, MCH 30.2, MCHC 30.1 L, RDW Std Deviation 60.9 H, RDW Coeff of Parviz 16.7 H, Plt Count 215, MPV 11.2, Immature Gran % (Auto) 2.200 H, Neut % (Auto) 86.5 H, Lymph % (Auto) 6.7 L, Falls % (Auto) 4.4, Eos % (Auto) 0.0, Baso % (Auto) 0.2, Absolute Neuts (auto) 8.7 H, Absolute Lymphs (auto) 0.68 L, Nucleated RBC % 0 Micro: Microbiology 05/26/22 10:30 Blood Culture (Wb) - Anticubital Left Blood Culture - Preliminary No growth in 48 hours. 05/26/22 10:12 Blood Culture (Wb) - Right Wrist Blood Culture - Preliminary No growth in 48 hours. 05/26/22 10:41 Sputum, Induced/Lukens Gram Stain - Final 05/26/22 10:41 Sputum, Induced/Lukens Respiratory Culture - Final Escherichia coli 05/26/22 10:30 Urine Catheter - Catheter Urine Culture - Final Streptococcus agalactiae (B) Rhythm Strip Rhythm Strip: Sinus Rhythm Cardiology Labs/Tests 05/29/22 06:35: Sodium 147 H, Potassium 4.4, Chloride 115 H, Carbon Dioxide 29.0, Anion Gap 3 L, BUN 28 H, Creatinine 0.78, Est GFR (MDRD) Af Amer 93, Est GFR (MDRD) Non-Af 77, BUN/Creatinine Ratio 35.9 H, Glucose 142 H, Calcium 8.3 L 05/29/22 06:35: WBC 10.1, RBC 3.05 L, Hgb 9.2 L, Hct 30.6 L, MCV 100.3 H, MCH 30.2, MCHC 30.1 L, Plt Count 215, MPV 11.2, Immature Gran % (Auto) 2.200 H, Neut % (Auto) 86.5 H, Lymph % (Auto) 6.7 L, Falls % (Auto) 4.4, Eos % (Auto) 0.0, Baso % (Auto) 0.2, Absolute Neuts (auto) 8.7 H, Nucleated RBC % 0 Rhythm: EKG: ECHO: Stress Test: Cardiac Cath: PCI: CT Surgery: Holter monitor: EPS: PPM: CXR: Chest CT Scan: Assessment & Plan Assessment/Plan (1) NSTEMI (non-ST elevated myocardial infarction): PLAN: Most likely type II. For medical management presently. Aspirin and Plavix started. Beta-blockers also started and being titrated upwards. Continue amlodipine. Will check Lexiscan stress Myoview. Short run of nonsustained VT noted on telemetry last night. Continue to increase beta-clayton as tolerated. (2) Cor pulmonale, chronic: PLAN: As per pulmonology. (3) Sepsis: PLAN: Resolved. Patient has successfully been weaned off vasopressor agents. Continue as per critical care. (4) Acute hypoxemic respiratory failure: PLAN: Successfully weaned off ventilator. Doing well. (5) History of abdominal aortic aneurysm repair: (6) Tobacco use disorder: (7) PAD (peripheral artery disease): (8) HTN (hypertension): PLAN: Increase metoprolol well as tolerated. PLAN: Plan This patient has history of coronary artery disease. She did show upward trend of troponins in the setting of sepsis/septic shock. She has history of GI bleed. For medical management only at present. Start aspirin/Plavix when okay with gastroenterology. Discussed with hospitalist. Also start low-dose beta-b locker and titrate upwards as needed. Start on amlodipine.
[2022-05-29] MEDS: Insulin Lispro 100 UNIT/ML INSULN.PEN SC (11:06)
[2022-05-29 11:30] LABS: Bedside Glucose 244 mg/dL (74-106)
[2022-05-29] MEDS: LORazepam 2 MG/ML Syringe 1 MG IV (14:20)
[2022-05-29] MEDS: busPIRone 5 MG Tablet 10 MG PO ×2 (15:30→22:02)
[2022-05-29 17:30] LABS: Bedside Glucose 126 mg/dL (74-106)
[2022-05-29] MEDS: Atorvastatin Calcium 80 MG Tablet PO (22:00)
[2022-05-29] MEDS: Benztropine Mesylate 0.5 MG TABLET 1 MG PO (22:02)
[2022-05-29] MEDS: Metoprolol Tartrate 100 MG Tablet PO (22:05)
[2022-05-29 22:31] LABS: Bedside Glucose 121 mg/dL (74-106)
[2022-05-30] VITALS (14 sets, daily range): BP systolic 128–157; BP diastolic 53–71; PULSE 51–84; RESP 16–20; TEMP 36.5–36.8; O2SAT 92–98
[2022-05-30] MEDS: busPIRone 5 MG Tablet 10 MG PO ×3 (05:03→21:57)
[2022-05-30] MEDS: Sucralfate 1 GM Tablet PO ×2 (06:17→15:23)
[2022-05-30 06:38] LABS: Absolute Lymphocyte Count 0.65 X10^3/uL (0.83-4.51); Absolute Neutrophil Count 7.7 X10^3/uL (2.0-7.7); Hematocrit 31.4 % (37-47); Hemoglobin 9.3 g/dL (12.0-15.0); Lymphocyte # 0.65 X10^3/ul (0.83-4.51); Lymphocyte % 7.3 % (19-41); Mean Corp Hgb Conc 29.6 g/dL (32-36); Mean Corpuscular Hgb 29.5 pg (27.0-32.0); Mean Corpuscular Volume 99.7 fL (81-99); Mean Platelet Vol. 11.4 fl (6.2-12.0); Monocyte# 0.48 X10^3/uL; Monocyte% 5.4 % (0-10); NRBC Flagged by Analyzer 0.2 % (0-5); Neutrophil # 7.68 X10^3/uL (2.7-7.7); Platelet Count 212 K/mm3 (150-450); RBC Distribution Width CV 16.3 % (11.6-14.6); Red Blood Count 3.15 M/mm3 (4.2-5.4); White Blood Count 8.9 K/mm3 (4.4-11.0)
[2022-05-30 06:40] LABS: Bedside Glucose 114 mg/dL (74-106)
[2022-05-30 07:06] LABS: Anion Gap 4 (5-15); BUN 25 mg/dL (7-18); BUN/Creat Ratio 35.1 RATIO (10-20); Calcium,Total 8.3 mg/dL (8.5-10.1); Chloride 113 mmol/L (98-107); Creatinine, Serum 0.71 mg/dL (0.55-1.02); EST Glomerular Filtration Rate 85 mL/min (>60); Est Glom Filt Rate - Afr Amer 103 mL/min (>60); Estimated Creatinine Clearance 42.62 ml/min; Glucose 115 mg/dL (74-106); Potassium 4.4 mmol/L (3.5-5.1); Sodium Level 147 mmol/L (136-145)
[2022-05-30] MEDS: Enoxaparin 40 MG/0.4 ML Syringe SC (08:51)
[2022-05-30] MEDS: RisperiDONE 1 MG Tablet 3 MG PO ×2 (08:51→21:58)
[2022-05-30] MEDS: Clopidogrel Bisulfate 75 MG Tablet PO (08:51)
[2022-05-30] MEDS: Metoprolol Tartrate 100 MG Tablet PO (08:51)
[2022-05-30] MEDS: amLODIPine 5 MG Tablet PO (08:52)
[2022-05-30] MEDS: Benztropine Mesylate 0.5 MG TABLET 1 MG PO ×2 (08:52→21:56)
[2022-05-30] MEDS: Fenofibrate 145 MG Tablet PO (08:52)
[2022-05-30] MEDS: Isosorbide Mononitrate 30 MG Tablet PO (08:52)
[2022-05-30] MEDS: Aspirin E.C. 81 MG Tablet PO (09:00)
--- NOTE | 2022-05-30 09:11 | PCM.PN.CARD ---
Subjective Subjective Patient still requiring high flow oxygen. On 7 L nasal cannula. Objective Data Vital Signs: Vital Signs Temp Pulse Resp BP Pulse Ox O2 Del Method O2 Flow Rate 98.0 F 66 18 140/63 H 94 Nasal Cannula 7 05/30/22 03:56 05/30/22 08:51 05/30/22 03:56 05/30/22 08:51 05/30/22 09:05 05/30/22 09:05 05/30/22 09:05 FiO2 35 05/28/22 06:00 Oxygen Flow Rate (L/min) 7 Oxygen Delivery Method Nasal Cannula Weight: 177 lb 4.026 oz Body Mass Index (BMI) 27.3 Intake & Output: Intake and Output for Last 24 Hours 05/28/22 05/29/22 05/30/22 23:59 23:59 23:59 Intake Total 4079.92 / 4079.92 1166.25 / 1166.25 100 / 100 Output Total 900 / 900 Balance 3179.92 / 3179.92 1166.25 / 1166.25 100 / 100 Lab / Micro Data Result Diagrams: 05/30/22 06:30 05/30/22 06:30 Labs: Laboratory Results - last 24 hr 05/29/22 11:05: POC Glucose 244 H 05/29/22 17:10: POC Glucose 126 H 05/29/22 21:54: POC Glucose 121 H 05/30/22 06:16: POC Glucose 114 H 05/30/22 06:30: Sodium 147 H, Potassium 4.4, Chloride 113 H, Carbon Dioxide 30.0, Anion Gap 4 L, BUN 25 H, Creatinine 0.71, Estim Creat Clear Calc 42.62, Est GFR (MDRD) Af Amer 103, Est GFR (MDRD) Non-Af 85, BUN/Creatinine Ratio 35.1 H, Glucose 115 H, Calcium 8.3 L 05/30/22 06:30: WBC 8.9, RBC 3.15 L, Hgb 9.3 L, Hct 31.4 L, MCV 99.7 H, MCH 29.5, MCHC 29.6 L, RDW Std Deviation 60.0 H, RDW Coeff of Parviz 16.3 H, Plt Count 212, MPV 11.4, Immature Gran % (Auto) 1.300 H, Neut % (Auto) 86.0 H, Lymph % (Auto) 7.3 L, Warrick % (Auto) 5.4, Eos % (Auto) 0.0, Baso % (Auto) 0.0, Absolute Neuts (auto) 7.7, Absolute Lymphs (auto) 0.65 L, Nucleated RBC % 0.2 Micro: Microbiology 05/26/22 10:30 Blood Culture (Wb) - Anticubital Left Blood Culture - Preliminary No growth in 48 hours. 05/26/22 10:12 Blood Culture (Wb) - Right Wrist Blood Culture - Preliminary No growth in 48 hours. Rhythm Strip Rhythm Strip: Sinus Rhythm Cardiology Labs/Tests 05/30/22 06:30: Sodium 147 H, Potassium 4.4, Chloride 113 H, Carbon Dioxide 30.0, Anion Gap 4 L, BUN 25 H, Creatinine 0.71, Est GFR (MDRD) Af Amer 103, Est GFR (MDRD) Non-Af 85, BUN/Creatinine Ratio 35.1 H, Glucose 115 H, Calcium 8.3 L 05/30/22 06:30: WBC 8.9, RBC 3.15 L, Hgb 9.3 L, Hct 31.4 L, MCV 99.7 H, MCH 29.5, MCHC 29.6 L, Plt Count 212, MPV 11.4, Immature Gran % (Auto) 1.300 H, Neut % (Auto) 86.0 H, Lymph % (Auto) 7.3 L, [place]rick % (Auto) 5.4, Eos % (Auto) 0.0, Baso % (Auto) 0.0, Absolute Neuts (auto) 7.7, Nucleated RBC % 0.2 Rhythm: EKG: ECHO: Stress Test: Cardiac Cath: PCI: CT Surgery: Holter monitor: EPS: PPM: CXR: Chest CT Scan: Physical Exam Narrative Sitting up in bed. No apparent distress. Assessment & Plan Assessment/Plan (1) NSTEMI (non-ST elevated myocardial infarction): PLAN: Most likely type II. For medical management presently. Aspirin and Plavix started. Beta-blockers also started and being titrated upwards. Continue amlodipine. For Lexiscan stress test when respiratory status stable. Likely as outpatient. No further runs of nonsustained VT (2) Cor pulmonale, chronic: PLAN: As per pulmonology. (3) Sepsis: PLAN: Resolved. Patient has successfully been weaned off vasopressor agents. Continue as per critical care. (4) Acute hypoxemic respiratory failure: PLAN: Successfully weaned off ventilator. Doing well. (5) History of abdominal aortic aneurysm repair: (6) Tobacco use disorder: (7) PAD (peripheral artery disease): (8) HTN (hypertension): PLAN: Increase metoprolol well as tolerated.
--- NOTE | 2022-05-30 09:35 | PN.CC_ITS ---
Assessment & Plan Assessment/Plan (1) Sepsis: PLAN: Plan RECOMMENDATIONS: 1. Continue to wean supplemental oxygen to maintain saturations 88 to 92%. 2. Continue antimicrobials to complete 7 days of therapy. 3. Continue scheduled bronchodilators and steroids. 4. Continue appropriate prophylaxis. 5. Encourage incentive spirometer use and mobilize patient as tolerated. 6. Initiate attempts at gentle diuresis today. IV Lasix has been ordered. IMPRESSIONS: 1. Sepsis The patient presented with sepsis due to gram-negative pneumonia with acute sepsis related organ dysfunction as evidenced by altered mentation, lactic acidemia and acute kidney injury. The patient did receive supplemental IV fluid hydration. The patient remains hemodynamically stable. Plan to continue antimicrobials as ordered. 2. Metabolic encephalopathy Improved. Likely related to hypercarbia noted at presentation. Improvement was noted with invasive mechanical ventilatory support. Continue supportive measures as noted below. 3. Acute combined respiratory failure Likely secondary to gram-negative pneumonia leading to COPD exacerbation. It is certainly plausible that the patient has underlying obstructive lung disease, with questionable outpatient compliance with prescribed medical therapy leading to her acute presentation. There was no evidence of pulmonary embolism on CT imaging. I agree with continuing antimicrobials. In addition, the patient will be continued on scheduled bronchodilators and IV steroids. In light of her volume status, will also start gentle diuresis today with IV Lasix. 4. Acute kidney injury Improved. Likely prerenal in etiology in the setting #1. No current indication for renal replacement therapy. Continue to monitor urine output. 5. History of coronary artery disease/anemia/hypertension/hyperlipidemia Complicates care, management, recovery and prognosis. Continue home medications as indicated. This note was generated with [employer] dictation software. It may contain incorrect words, spelling, and punctuation that were not noted in checking the note before signing. Subjective Subjective The patient was seen and examined at the bedside this morning. Events from the last 24 hours have been reviewed. The patient is currently afebrile, hemodynamically stable and maintaining appropriate oxygen saturations on 7 L/min via nasal cannula. The patient is currently documented to be overall net +11 L for the hospitalization. Objective Data Objective Data The patient's most recent lab work, culture data and imaging studies have all been personally reviewed. Surface echocardiogram demonstrated an ejection fraction of approximately 45 to 50%. The RV was noted to be severely dilated with moderately severe global RV systolic dysfunction and a pulmonary artery systolic pressure estimated to be 51 mmHg. Rapid COVID testing was negative. Sputum culture was positive for E. coli. Vital Signs: Vital Signs Temp Pulse Resp BP Pulse Ox O2 Del Method O2 Flow Rate 98.0 F 66 18 140/63 H 94 Nasal Cannula 7 05/30/22 03:56 05/30/22 08:51 05/30/22 03:56 05/30/22 08:51 05/30/22 09:05 05/30/22 09:05 05/30/22 09:05 FiO2 35 05/28/22 06:00 Oxygen Flow Rate (L/min) 7 Oxygen Delivery Method Nasal Cannula Weight: 177 lb 4.026 oz Body Mass Index (BMI) 27.3 Intake & Output: Intake and Output for Last 24 Hours 05/28/22 05/29/22 05/30/22 23:59 23:59 23:59 Intake Total 4079.92 / 4079.92 1166.25 / 1166.25 100 / 100 Output Total 900 / 900 Balance 3179.92 / 3179.92 1166.25 / 1166.25 100 / 100 Lab / Micro Data Attestation: I reviewed the patient's lab results. Result Diagrams: 05/30/22 06:30 05/30/22 06:30 Labs: Laboratory Results - last 24 hr 05/29/22 11:05: POC Glucose 244 H 05/29/22 17:10: POC Glucose 126 H 05/29/22 21:54: POC Glucose 121 H 05/30/22 06:16: POC Glucose 114 H 05/30/22 06:30: Sodium 147 H, Potassium 4.4, Chloride 113 H, Carbon Dioxide 30.0, Anion Gap 4 L, BUN 25 H, Creatinine 0.71, Estim Creat Clear Calc 42.62, Est GFR (MDRD) Af Amer 103, Est GFR (MDRD) Non-Af 85, BUN/Creatinine Ratio 35.1 H, Glucose 115 H, Calcium 8.3 L 05/30/22 06:30: WBC 8.9, RBC 3.15 L, Hgb 9.3 L, Hct 31.4 L, MCV 99.7 H, MCH 29.5, MCHC 29.6 L, RDW Std Deviation 60.0 H, RDW Coeff of Parviz 16.3 H, Plt Count 212, MPV 11.4, Immature Gran % (Auto) 1.300 H, Neut % (Auto) 86.0 H, Lymph % (Auto) 7.3 L, [place] % (Auto) 5.4, Eos % (Auto) 0.0, Baso % (Auto) 0.0, Absolute Neuts (auto) 7.7, Absolute Lymphs (auto) 0.65 L, Nucleated RBC % 0.2 Micro: Microbiology 05/26/22 10:30 Blood Culture (Wb) - Anticubital Left Blood Culture - Preliminary No growth in 48 hours. 05/26/22 10:12 Blood Culture (Wb) - Right Wrist Blood Culture - Preliminary No growth in 48 hours. 05/26/22 10:41 Sputum, Induced/Lukens Gram Stain - Final 05/26/22 10:41 Sputum, Induced/Lukens Respiratory Culture - Final Escherichia coli 05/26/22 10:30 Urine Catheter - Catheter Urine Culture - Final Streptococcus agalactiae (B) 05/26/22 10:30 Nasal Secretion SARS-CoV-2 Antigen (Rapid) - Final 05/26/22 10:20 Gastric Fluid/Contents Gastric Occult Blood - Final ABG Data ABG results: ABG 05/27/22 09:19 Specimen Type ART Sample Site R Radial pH 7.41 Bicarbonate Actual 27.6 H Total CO2 29 Base Excess 3 H O2 Saturation 90 L O2 % 45 ABG pCO2 44.1 ABG pO2 58 L Zachary Test Positive Respiration Rate 18 O2 Delivery Device Adult Vent Vent Mode AC Tidal Volume 400 POC PEEP 5 Radiography Diagnostic Testing: Radiology Impression Brain CT 05/26/22 10:08 IMPRESSION: Chronic involutional changes of the brain. There has been no change since prior study. Electronically Signed: Smith Chau MD at 12:13 EDT , Cervical Spine CT 05/26/22 10:08 IMPRESSION: Multilevel degenerative changes, as described above. Electronically Signed: Smith Chau MD at 12:11 EDT , Chest X-Ray 05/26/22 10:20 IMPRESSION: The tip of the endotracheal tube is at 1.9 cm proximal to the rose. The tip of the orogastric tube is in the body of the stomach. Increased markings at the lung bases slightly more prominent on the right side suggestive of bibasilar atelectasis. Electronically Signed: Smith Chau MD at 10:43 EDT , KUB X-Ray 05/26/22 10:20 IMPRESSION: The tip of the orogastric tube is in the body of the stomach. Electronically Signed: Smith Chau MD at 10:41 EDT , Knee X-Ray 05/26/22 10:20 IMPRESSION: Normal x-ray examination of the knee. Electronically Signed: Smith Chau MD at 10:43 EDT , Chest CTA 05/26/22 11:33 IMPRESSION: No evidence of pleural embolism. Small bilateral effusions left greater than right with bibasilar atelectasis. Atelectasis also seen in the posterior aspect of the left upper lobe. Stable appearance of the bilateral pulmonary nodules. Electronically Signed: Smith Chau MD at 12:19 EDT , Echocardiogram 05/26/22 13:30 Interpretation Summary Moderate to severe LVH Inferior and inferoseptal hypokinesis. Estimated EF 45-50% Severely dilated right ventricle. Moderately severe global right ventricular systolic dysfunction. The right atrium is severely enlarged. Severe (4+) tricuspid valve insufficiency. Diastolic function is indeterminate. Aortic sclerosis, no stenosis. Pulmonary artery systolic pressure is 51 mmHg.. Ordering Physician: Clark Peralta Referring Physician: Mine Bojorquez Performed By: Mona Figueroa RCS Rhythm Strip Rhythm Strip: Sinus Rhythm Physical Exam Const alert and no apparent distress Constitutional Narrative: Rather unkempt in appearance. HEENT normocephalic and head/scalp atraumatic Eyes PERRL and EOMs intact bilaterally Neck supple General: trachea midline Chest inspection of chest normal Resp Resp Narrative: Poor inspiratory effort Effort and Inspection: tachypneic Auscultation: diminished lung sounds; Negative for rales, rhonchi or wheezes Cardio regular rate and regular rhythm GI normal to inspection, nondistended, normoactive bowel sounds Extremity no clubbing, cyanosis or edema Skin no rashes or lesions noted Neuro CN's II-XII intact bilaterally and moves all extremities Psych Mood & Affect: flat affect Charges/Coding Visit Charges Inpatient E&M: 05852 Subs Hosp L3
--- NOTE | 2022-05-30 10:46 | CASEMGMT ---
JAYA received a call from Margarita, patient's outsole caser at [facility]. JAYA gave her an update. She asked that SW keep her updated on patient and d/c plan. Isaura WILLIS
[2022-05-30 11:45] LABS: Bedside Glucose 137 mg/dL (74-106)
[2022-05-30] MEDS: Furosemide 40 MG/4 ML Vial IV (13:05)
[2022-05-30] MEDS: 0.9% Saline Lock 10 ML Syringe IV ×3 (13:05→23:09)
--- NOTE | 2022-05-30 13:16 | PCM.PN.HOSP ---
Subjective Subjective Follow-up on acute respiratory failure/sepsis secondary to pneumonia/NSTEMI/RAMANDEEP: Patient was seen and examined. She wants to go home. She is on 8 L of oxygen. She stated that if she does not go home she will here. I asked why, she stated because I will give up. She lives alone with her parakeet. She denied any specific symptoms. She denied chest pain or dizziness or palpitations. Objective Data Objective Data Vital Signs: Vital Signs Temp Pulse Resp BP Pulse Ox O2 Del Method O2 Flow Rate 98.2 F 64 20 H 138/64 H 94 High Flow 8 05/30/22 09:56 05/30/22 09:56 05/30/22 09:56 05/30/22 09:56 05/30/22 09:56 05/30/22 09:56 05/30/22 09:56 FiO2 35 05/28/22 06:00 Oxygen Flow Rate (L/min) 8 Oxygen Delivery Method High Flow Weight: 80.4 kg Body Mass Index (BMI) 27.3 Intake & Output: Intake and Output for Last 24 Hours 05/28/22 05/29/22 05/30/22 23:59 23:59 23:59 Intake Total 4079.92 / 4079.92 1166.25 / 1166.25 740 / 740 Output Total 900 / 900 Balance 3179.92 / 3179.92 1166.25 / 1166.25 740 / 740 Lab / Micro Data Result Diagrams: 05/30/22 06:30 05/30/22 06:30 Labs: Laboratory Results - last 24 hr 05/29/22 17:10: POC Glucose 126 H 05/29/22 21:54: POC Glucose 121 H 05/30/22 06:16: POC Glucose 114 H 05/30/22 06:30: Sodium 147 H, Potassium 4.4, Chloride 113 H, Carbon Dioxide 30.0, Anion Gap 4 L, BUN 25 H, Creatinine 0.71, Estim Creat Clear Calc 42.62, Est GFR (MDRD) Af Amer 103, Est GFR (MDRD) Non-Af 85, BUN/Creatinine Ratio 35.1 H, Glucose 115 H, Calcium 8.3 L 05/30/22 06:30: WBC 8.9, RBC 3.15 L, Hgb 9.3 L, Hct 31.4 L, MCV 99.7 H, MCH 29.5, MCHC 29.6 L, RDW Std Deviation 60.0 H, RDW Coeff of Parviz 16.3 H, Plt Count 212, MPV 11.4, Immature Gran % (Auto) 1.300 H, Neut % (Auto) 86.0 H, Lymph % (Auto) 7.3 L, [place] % (Auto) 5.4, Eos % (Auto) 0.0, Baso % (Auto) 0.0, Absolute Neuts (auto) 7.7, Absolute Lymphs (auto) 0.65 L, Nucleated RBC % 0.2 05/30/22 11:18: POC Glucose 137 H Micro: Microbiology 05/26/22 10:30 Blood Culture (Wb) - Anticubital Left Blood Culture - Preliminary No growth in 48 hours. 05/26/22 10:12 Blood Culture (Wb) - Right Wrist Blood Culture - Preliminary No growth in 48 hours. 05/26/22 10:41 Sputum, Induced/Lukens Gram Stain - Final 05/26/22 10:41 Sputum, Induced/Lukens Respiratory Culture - Final Escherichia coli 05/26/22 10:30 Urine Catheter - Catheter Urine Culture - Final Streptococcus agalactiae (B) 05/26/22 10:30 Nasal Secretion SARS-CoV-2 Antigen (Rapid) - Final 05/26/22 10:20 Gastric Fluid/Contents Gastric Occult Blood - Final Rhythm Strip Rhythm Strip: Sinus Rhythm Physical Exam Narrative General: Alert, Oriented x3, Cooperative HEENT: Atraumatic, PERRLA, EOMI, Normocephalic Oral: Moist Mucosa Neck: Supple Lungs: Normal air movement, Diminished Cardiovascular: Regular rate, Regular Rhythm, Normal S1, Normal S2, No murmurs Abdomen: Bowel Sounds Present, Soft, Non Tender, Non-Distended, No Hepato-splenomegaly Extremities: No edema Skin: No rashes Neurological: Cranial nerves II-XII grossly intact, Neuro grossly intact Psych/Mental Status: Normal Affect, Appropriate Assessment & Plan Assessment/Plan (1) Acute hypoxemic respiratory failure: PLAN: Plan 1. Acute combined respiratory failure secondary to acute COPD exacerbation/E. coli pneumonia Patient is currently on 8 L of oxygen, Continue on treatment for both above Wean off for SPO2 more than 88 to 92% Patient is on IV Zosyn, will de-escalate to IV ceftriaxone (day 5 of antibiotics) 2. Sepsis secondary to E. coli pneumonia/strep agalactiae UTI, pansensitive Antibiotics de-escalated from IV Zosyn to IV ceftriaxone Continue to trend 3. Acute NSTEMI, likely secondary to type II/demand, medically being managed, Cardiology following. Patient has underlying CAD 2D echo showed EF of 45 to 50% with indeterminate diastolic dysfunction/moderate to severe left ventricular hypertrophy/inferior and septal hypokinesis/dilated right ventricule with severe global ventricular systolic dysfunction/pulmonary systolic pressure of 51 Continue aspirin, Plavix, statin, metoprolol Outpatient stress test planned when respiratory status stable 4. RAMANDEEP, pre-renal, resolved Patient presented with creatinine 1.67, creatinine today 0.71 5. 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 Acute blood loss anemia currently 2 #5, stable at 9.3 today 7. Hypertension, controlled, continue on amlodipine, metoprolol 8. Hyperlipidemia, continue statin, fenofibrate 9. Schizophrenia, continue on buspirone, benztropine 10. History of abdominal aortic aneurysm repair/PAD 11. Nicotine dependence, advised to quit, will continue on replacement 12. DVT prophylaxis with Lovenox subcu Charges/Coding Visit Charges Inpatient E&M: 20783 [facility] L3
[2022-05-30] MEDS: Ipratropium/Albuterol Sulfate 3 ML AMPUL.NEB INHALATION ×2 (13:37→18:43)
--- NOTE | 2022-05-30 13:45 | CASEMGMT ---
JAYA had received a voice mail from Claire Alba, patient's manager case management with [facility] requesting a return call at [phone]. JAYA called Claire and updated her on patient's status. JAYA let her know patient is still refusing care home. JAYA asked Claire about the dosage of patient's Abilify. She did not know as she was getting ready to transport one of her other clients. Claire said she may stop by the hospital to see patient. Isaura Leiva NETSUITE DEVELOPER ALBA
[2022-05-30 17:20] LABS: Bedside Glucose 145 mg/dL (74-106)
[2022-05-30] MEDS: Atorvastatin Calcium 80 MG Tablet PO (21:57)
[2022-05-31] VITALS (16 sets, daily range): BP systolic 134–165; BP diastolic 50–76; PULSE 57–98; RESP 18–22; TEMP 36–36.9; O2SAT 64–95
[2022-05-31 00:41] LABS: Bedside Glucose 140 mg/dL (74-106)
[2022-05-31] MEDS: busPIRone 5 MG Tablet 10 MG PO ×3 (05:07→21:30)
[2022-05-31] MEDS: Sucralfate 1 GM Tablet PO (06:01)
[2022-05-31 06:43] LABS: Absolute Lymphocyte Count 0.73 X10^3/uL (0.83-4.51); Basophil# 0.02 X10^3/uL; Basophil% 0.3 % (0-1); Eosinophil# 0.01 X10^3/uL; Eosinophils% 0.1 % (0-5); Hematocrit 33.3 % (37-47); Hemoglobin 10.1 g/dL (12.0-15.0); Lymphocyte # 0.73 X10^3/ul (0.83-4.51); Lymphocyte % 10.1 % (19-41); Mean Corp Hgb Conc 30.3 g/dL (32-36); Mean Corpuscular Hgb 29.4 pg (27.0-32.0); Mean Corpuscular Volume 96.8 fL (81-99); Mean Platelet Vol. 11.1 fl (6.2-12.0); Monocyte# 0.43 X10^3/uL; Monocyte% 5.9 % (0-10); NRBC Flagged by Analyzer 0 % (0-5); Neutrophil # 5.99 X10^3/uL (2.7-7.7); Neutrophil % 82.9 % (47-70); Platelet Count 234 K/mm3 (150-450); RBC Distribution Width CV 15.9 % (11.6-14.6); RBC Distribution Width SD 56.6 fl (35.1-43.9); Red Blood Count 3.44 M/mm3 (4.2-5.4); White Blood Count 7.2 K/mm3 (4.4-11.0)
[2022-05-31] MEDS: Ipratropium/Albuterol Sulfate 3 ML AMPUL.NEB INHALATION ×3 (06:46→19:23)
[2022-05-31 07:00] LABS: Bedside Glucose 119 mg/dL (74-106)
[2022-05-31 07:13] LABS: ALB/GLOB Ratio 0.8 RATIO (0.9-2.4); AST(SGOT) 23 U/L (15-37); Alanine Aminotransfer ALT/SGPT 37 U/L (13-56); Albumin, Serum 2.4 g/dL (3.2-5.0); Alkaline Phosphatase 40 U/L (45-117); Anion Gap 2 (5-15); BUN 28 mg/dL (7-18); BUN/Creat Ratio 33.3 RATIO (10-20); Calcium,Total 8.7 mg/dL (8.5-10.1); Chloride 110 mmol/L (98-107); Creatinine, Serum 0.84 mg/dL (0.55-1.02); EST Glomerular Filtration Rate 70 mL/min (>60); Est Glom Filt Rate - Afr Amer 85 mL/min (>60); Estimated Creatinine Clearance 50.74 ml/min; Globulin 2.9 g/dL (2.2-4.2); Glucose 125 mg/dL (74-106); Potassium 3.9 mmol/L (3.5-5.1); Protein, Total 5.3 g/dL (6.4-8.2); Sodium Level 147 mmol/L (136-145)
[2022-05-31] MEDS: Benztropine Mesylate 0.5 MG TABLET 1 MG PO ×2 (08:05→21:30)
[2022-05-31] MEDS: Aspirin E.C. 81 MG Tablet PO (08:05)
[2022-05-31] MEDS: Fenofibrate 145 MG Tablet PO (08:05)
[2022-05-31] MEDS: Isosorbide Mononitrate 30 MG Tablet PO (08:06)
[2022-05-31] MEDS: Metoprolol Tartrate 100 MG Tablet PO ×2 (08:07→21:30)
[2022-05-31] MEDS: Enoxaparin 40 MG/0.4 ML Syringe SC (08:07)
[2022-05-31] MEDS: amLODIPine 5 MG Tablet PO (08:07)
[2022-05-31] MEDS: Clopidogrel Bisulfate 75 MG Tablet PO (08:07)
[2022-05-31] MEDS: RisperiDONE 1 MG Tablet 3 MG PO ×2 (08:08→21:25)
[2022-05-31] MEDS: Ceftriaxone 1 GM/50 mL Premix Q24 IV (08:23)
--- NOTE | 2022-05-31 09:38 | ST.MBS ---
Modified Barium Swallow - Patient Information Study Date: 05/31/22 Study Time: 09:00 Direct Billable Minutes: 140 Total Minutes procedure & reportin Diagnosis: J96.01, I10, A41.9 Referring Physician: Gwen Castaneda Reason for Referral: Objectively assess swallow function, risk for aspiration, and determine recommendations for least restrictive diet textures and compensatory strategies to improve safety of swallow. Medical History: RAFAL SR, is a 72 F with an extensive PMH as outlined who presents via the ED on 05/26/2022 after being found unresponsive by her home health aide. She was just discharged on 05/25/2022 after she was admitted and managed for acute metabolic encephalopathy. She was treated for acute COPD exacerbation and was admitted other prior presentation in the ED but subsequently extubated. 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 Placement was recommended but patient adamantly refused and Adult Protective Services was consulted to follow up with patient. She went home and apparently called the [facility] team because she was having palpitations. She was found unresponsive this morning. No further history was obtained. She was emergently intubated in the ED. Urinalysis showed no evidence of UTI, and urine tox was pending. She is being admitted to be managed for acute hypoxic respiratory failure and acute metabolic encephalopathy. She required increased oxygen after her PO intake on 05/30/22. It is unknown whether this drop in oxygen was related to aspiration during her meal; however, Dr. Castaneda requested APPLIED MARINE PHYSICS PROFESSOR re-evaluate swallow function. Pt required 10L O2/min via nasal cannula as compared to 8L earlier in the day. RNMichaela, stated ~20 min after the patient's meal, she has decreasing SpO2, increasing supplemental oxygen needs, wet coughing, and crackles in LLL. Current Diet Ordered: NPO Dentition: Missing Teeth Mental Status: Impaired Respiratory Status: Oxygenating on 4L/M nasal cannula - 8L of O2 via nasal cannula - Penetration-Aspiration Scale Penetration-Aspiration Scale: OBJECTIVE ASSESSMENT OF SWALLOW FUNCTION (QUANTITATIVE ? PER TRIAL): PENETRATION / ASPIRATION SCALE (TADEO): 1 = does not enter airway 2 = enters airway/above vocal folds/ejected 3 = enters airway/above vocal folds/not ejected 4 = enters airway/contacts vocal folds/ejected 5 = enters airway/contacts vocal folds/not ejected 6 = enters airway/below vocal folds/ejected 7 = enters airway/below vocal folds/not ejected despite effort 8 = enters airway/below vocal folds/no effort VIDEOFLOROSCOPIC SCALE SCORE (TADEO): Grade I = aspiration of material that has penetrated into the laryngeal vestibule, intact cough reflex Grade II = aspiration < 10 % of the bolus, intact cough reflex Grade III = aspiration of < 10 % of the bolus, reduced cough reflex or aspiration of > 10 % of the bolus, intact cough reflex Grade IV = aspiration of > 10 % of the bolus, reduced cough reflex - Penetration-Aspiration Scale Score Thin Liquid via teaspoon Result: 1= does not enter airway Thin Liquid via teaspoon Trial 2 Result: 8= enters airway/below vocal folds/no effort Thin Liquid via sequential sips from cup Result: 3= enters airways/above vocal folds/not ejected Thin Liquid via small single sip from cup Result: 7= enters airways/below vocal folds/not ejected despite effort Waggaman Thick Liquid via teaspoon Result: 2= enter airway/above vocal folds/ejected [place] Thick Liquid via small single sip from cup Result: 2= enter airway/above vocal folds/ejected Honey Thick Liquid via teaspoon Result: 2= enter airway/above vocal folds/ejected Honey Thick Liquid via small single sip from cup Result: 2= enter airway/above vocal folds/ejected Pudding via teaspoon Result: 1= does not enter airway Pudding via teaspoon Trial 2 Result: 1= does not enter airway Cookie Result: 1= does not enter airway Thin Liquid via small single sip from cup Trial 2 Result: 5= enters airways/contacts vocal folds/not ejected [place]aman Thick Liquid via small single sip from cup Trial 2 Result: 1= does not enter airway - Oral Phase Labial Seal: No Labial Escape Tongue Control During Bolus Hold: Posterior escape of greater than half of bolus Bolus Preparation/Mastication: Disorganized chewing/mashing with solid pieces of bolus unchewed Bolus Transport/Lingual Motion: Delayed initiation of tongue motion Oral Residue: Residue collection on oral structures - Pharyngeal Phase Initiation of Pharyngeal Swallow: Bolus head in pyriforms Soft Palate Elevation: No bolus between soft palate and pharyngeal wall Laryngeal Elevation: Partial superior movement thyroid cart/partial apprx aryt-epig petiole Anterior Hyoid Excursion: Partial anterior movement Epiglottic Movement: Partial inversion Laryngeal Vestibule Closure at Height of Swallow: Incomplete; narrow column of air/contrast in laryngeal vestibule Pharyngeal Stripping Wave: Present - diminished Pharyngoesophageal Segment Opening: Complete distension and complete duration; no obstruction of flow Tongue Base Retraction: Wide column of contrast between tongue base & post. pharyngeal wall Pharyngeal Residue: Trace residue within or on pharyngeal structures - Esophageal Phase Esophageal Clearance: Esophageal retention - Diagnosis/Impression Diagnosis: moderate oropharyngeal dysphagia R13.12 Impression: Oral phase primarily marked by... - mild mastication insufficiency - poor bolus control resulting in premature bolus loss to the pyriforms w/ various consistencies Pharyngeal phase primarily marked by... - delayed pharyngeal swallow onset timing resulting in suboptimal bolus location - reduced closure of the airway during deglutition attributed to reduced laryngeal elevation and reduced hyoid excursion resulting in insufficient epiglottic inversion and poor laryngeal vestibule closure. - penetration observed with various consistencies re: single and consecutive sips via thin, nectar thick liquids and honey thick liquids. - aspiration observed w/ small sip of thin via cup w/ cough response Noted patient extremely impulsive and has difficulty following commands. Patient was verbally cued to take small. single sip via cup w/ patient taking 4 large, sequential sips via cup w/ penetration to the vocal cords. Patient visually anxious throughout study. - Recommendations Diet: Regular Textures, Waggaman-thick Liquids Compensatory Strategies: Small Bites, Small Sips Supervision: 1:1 Close Supervision Recommend Repeat Modified Barium Swallow: TBD Need for Skilled Speech Therapy Services: Yes Education Completed: 1. Described result of evaluation. - Status Active ST Patient: Active - Contact Information [facility] Speech Therapy:: Gerda Law M.A. [facility]-APPLIED MARINE PHYSICS PROFESSOR Speech-Language Pathologist [facility] [address] [place] [address] [email or web address] [phone] 05/31/22 10:32
--- NOTE | 2022-05-31 09:57 | PN.CC_ITS ---
Assessment & Plan Assessment/Plan (1) Sepsis: PLAN: Plan RECOMMENDATIONS: 1. Continue to wean supplemental oxygen to maintain saturations 88 to 92%. 2. Continue antimicrobials to complete 7 days of therapy. 3. Continue scheduled bronchodilators and steroids. 4. Continue appropriate prophylaxis. 5. Encourage incentive spirometer use and mobilize patient as tolerated. 6. Challenge with Lasix as tolerated IMPRESSIONS: 1. Sepsis The patient presented with sepsis due to gram-negative pneumonia with acute sepsis related organ dysfunction as evidenced by altered mentation, lactic acidemia and acute kidney injury. The patient did receive supplemental IV fluid hydration. The patient remains hemodynamically stable. Plan to continue antimicrobials as ordered. Will attempt diuresis as able. 2. Metabolic encephalopathy Improved. Likely related to hypercarbia noted at presentation. Improvement was noted with invasive mechanical ventilatory support. Continue supportive measures as noted below. 3. Acute combined respiratory failure Likely secondary to gram-negative pneumonia leading to COPD exacerbation. It is certainly plausible that the patient has underlying obstructive lung disease, with questionable outpatient compliance with prescribed medical therapy leading to her acute presentation. There was no evidence of pulmonary embolism on CT imaging. I agree with continuing antimicrobials. In addition, the patient will be continued on scheduled bronchodilators. We will space out IV steroids. We will hold on IV Lasix for today as patient has some contraction alkalosis. Likely challenge again tomorrow. 4. Acute kidney injury Stable. Likely prerenal in etiology in the setting #1. No current i ndication for renal replacement therapy. Continue to monitor urine output. 5. History of coronary artery disease/anemia/hypertension/hyperlipidemia Complicates care, management, recovery and prognosis. Continue home medications as indicated. This note was generated with [employer] dictation software. It may contain incorrect words, spelling, and punctuation that were not noted in checking the note before signing. Subjective Subjective Patient did okay overnight. Patient still requiring high nasal cannula oxygen to maintain saturations. Patient came back from a swallow study and immediately asked do I have cancer. Patient states subjectively she feels improved compared to previous, but is still having a productive cough. Patient states that she feels that she may consider smoking cessation on discharge. Objective Data Objective Data Vital Signs: Vital Signs Temp Pulse Resp BP Pulse Ox O2 Del Method O2 Flow Rate 36.1 C L 98 20 H 165/76 H 90 High Flow 9 05/31/22 08:00 05/31/22 08:07 05/31/22 08:00 05/31/22 08:00 05/31/22 09:00 05/31/22 09:16 05/31/22 09:16 FiO2 35 05/28/22 06:00 Oxygen Flow Rate (L/min) 9 Oxygen Delivery Method High Flow Weight: 80.4 kg Body Mass Index (BMI) 27.3 Intake & Output: Intake and Output for Last 24 Hours 05/29/22 05/30/22 05/31/22 23:59 23:59 23:59 Intake Total 1166.25 / 1166.25 1270 / 1390 280 / 280 Balance 1166.25 / 1166.25 1270 / 1390 280 / 280 Lab / Micro Data Attestation: I reviewed the patient's lab results. Result Diagrams: 05/31/22 06:30 05/31/22 06:30 Labs: Laboratory Results - last 24 hr 05/30/22 11:18: POC Glucose 137 H 05/30/22 16:56: POC Glucose 145 H 05/30/22 21:52: POC Glucose 140 H 05/31/22 06:00: POC Glucose 119 H 05/31/22 06:30: WBC 7.2, RBC 3.44 L, Hgb 10.1 L, Hct 33.3 L, MCV 96.8, MCH 29.4, MCHC 30.3 L, RDW Std Deviation 56.6 H, RDW Coeff of Parviz 15.9 H, Plt Count 234, MPV 11.1, Immature Gran % (Auto) 0.700, Neut % (Auto) 82.9 H, Lymph % (Auto) 10.1 L, [place] % (Auto) 5.9, Eos % (Auto) 0.1, Baso % (Auto) 0.3, Absolute Neuts (auto) 6.0, Absolute Lymphs (auto) 0.73 L, Nucleated RBC % 0 05/31/22 06:30: Sodium 147 H, Potassium 3.9, Chloride 110 H, Carbon Dioxide 35.0 H, Anion Gap 2 L, BUN 28 H, Creatinine 0.84, Estim Creat Clear Calc 50.74, Est GFR (MDRD) Af Amer 85, Est GFR (MDRD) Non-Af 70, BUN/Creatinine Ratio 33.3 H, Glucose 125 H, Calcium 8.7, Total Bilirubin 0.50, AST 23, ALT 37, Alkaline Phosphatase 40 L, Total Protein 5.3 L, Albumin 2.4 L, Globulin 2.9, Albumin/ Globulin Ratio 0.8 L Micro: Microbiology 05/26/22 10:30 Blood Culture (Wb) - Anticubital Left Blood Culture - Preliminary No growth in 48 hours. 05/26/22 10:12 Blood Culture (Wb) - Right Wrist Blood Culture - Preliminary No growth in 48 hours. 05/26/22 10:41 Sputum, Induced/Lukens Gram Stain - Final 05/26/22 10:41 Sputum, Induced/Lukens Respiratory Culture - Final Escherichia coli 05/26/22 10:30 Urine Catheter - Catheter Urine Culture - Final Streptococcus agalactiae (B) 05/26/22 10:30 Nasal Secretion SARS-CoV-2 Antigen (Rapid) - Final 05/26/22 10:20 Gastric Fluid/Contents Gastric Occult Blood - Final Physical Exam Const alert and no apparent distress Constitutional Narrative: Rather unkempt in appearance. General Appearance: frail HEENT normocephalic and head/scalp atraumatic Eyes PERRL and EOMs intact bilaterally Neck supple General: trachea midline Chest Chest: abnormal inspection of the chest increased A-P diameter Resp Resp Narrative: Poor inspiratory effort. No conversational dyspnea Auscultation: diminished lung sounds; Negative for rales, rhonchi or wheezes Cardio regular rate, regular rhythm, S1 normal heart sound, S2 normal heart sound, no murmurs, no rub and no gallops GI normal to inspection, nondistended, normoactive bowel sounds Extremity no clubbing, cyanosis or edema Skin no rashes or lesions noted Neuro CN's II-XII intact bilaterally and moves all extremities Psych Mood & Affect: flat affect Charges/Coding Visit Charges Inpatient E&M: 95612 Subs Hosp L3
--- NOTE | 2022-05-31 10:30 | CASEMGMT ---
JAYA called patient's son, Robert. JAYA asked if he would be able to come in sometime to meet with physician, JAYA and patient. Robert said he is working on getting a job right now so he doesn't have time today. JAYA asked about tomorrow and he said he could come in around 11 or noon. JAYA told him SW will notify physician. JAYA called patient's clinical case manager, Claire Alba. Claire said she did see patient yesterday. JAYA told Claier about the appt tomorrow. However, she is unable to come in because she is off work. JAYA asked when patient's next Psychiatrist appt is and she said it is not until Aug 04. Claire said she or SW could call and get an earlier appt. JAYA said SW will try. JAYA called [facility] and asked about scheduling an earlier appt due to patient's readmissions and physician feels patient's meds may need adjusted. JAYA was told patient's Psychiatrist, Dr Peralta is off the whole month of May. JAYA asked if patient could see another Psychiatrist. Patient can see another Psychiatrist, but medications will not be changed. Robert called SW back and said he cannot make it in tomorrow as he does not have the gas money. JAYA notified physician. JAYA spoke with ED JAYA, Arelis. Arelis felt [facility] placement would be an option due to patient's inability to care for self, no med management, patient went home last time and it failed. [facility] facility takes patient's on O2. Most Psych units do not take patient's on O2. Patient is currently on 9L so she is not ready for d/c yet. JAYA notified physician and she feels this is an option. Isaura Leiva IT SECURITY ARCHITECT GLOVE OPERATOR
[2022-05-31 12:10] LABS: Bedside Glucose 132 mg/dL (74-106)
[2022-05-31] MEDS: 0.9% Saline Lock 10 ML Syringe IV ×3 (13:00→21:36)
--- NOTE | 2022-05-31 15:13 | PCM.PN.HOSP ---
Subjective Subjective Follow-up on acute respiratory failure/sepsis secondary to pneumonia/NSTEMI/RAMANDEEP: Patient was seen and examined.? She appears more confused and rambling. She oriented to her self. She stated that she is going to refuse her oral medications. I encouraged her not to do that. She also stated that she thinks we are looking for cancer in her body. Patient is reportedly paranoid with staff. Objective Data Objective Data Vital Signs: Vital Signs Temp Pulse Resp BP Pulse Ox O2 Del Method O2 Flow Rate 96.8 F L 87 19 H 154/60 H 95 High Flow 7 05/31/22 14:45 05/31/22 14:45 05/31/22 14:45 05/31/22 14:45 05/31/22 14:45 05/31/22 14:45 05/31/22 14:45 FiO2 35 05/28/22 06:00 Oxygen Flow Rate (L/min) 7 Oxygen Delivery Method High Flow Weight: 79.2 kg Body Mass Index (BMI) 27.3 Intake & Output: Intake and Output for Last 24 Hours 05/29/22 05/30/22 05/31/22 23:59 23:59 23:59 Intake Total 1166.25 / 1166.25 1270 / 1390 400 / 400 Balance 1166.25 / 1166.25 1270 / 1390 400 / 400 Lab / Micro Data Result Diagrams: 05/31/22 06:30 05/31/22 06:30 Labs: Laboratory Results - last 24 hr 05/30/22 16:56: POC Glucose 145 H 05/30/22 21:52: POC Glucose 140 H 05/31/22 06:00: POC Glucose 119 H 05/31/22 06:30: WBC 7.2, RBC 3.44 L, Hgb 10.1 L, Hct 33.3 L, MCV 96.8, MCH 29.4, MCHC 30.3 L, RDW Std Deviation 56.6 H, RDW Coeff of Parviz 15.9 H, Plt Count 234, MPV 11.1, Immature Gran % (Auto) 0.700, Neut % (Auto) 82.9 H, Lymph % (Auto) 10.1 L, [place] % (Auto) 5.9, Eos % (Auto) 0.1, Baso % (Auto) 0.3, Absolute Neuts (auto) 6.0, Absolute Lymphs (auto) 0.73 L, Nucleated RBC % 0 05/31/22 06:30: Sodium 147 H, Potassium 3.9, Chloride 110 H, Carbon Dioxide 35.0 H, Anion Gap 2 L, BUN 28 H, Creatinine 0.84, Estim Creat Clear Calc 50.74, Est GFR (MDRD) Af Amer 85, Est GFR (MDRD) Non-Af 70, BUN/Creatinine Ratio 33.3 H, Glucose 125 H, Calcium 8.7, Total Bilirubin 0.50, AST 23, ALT 37, Alkaline Phosphatase 40 L, Total Protein 5.3 L, Albumin 2.4 L, Globulin 2.9, Albumin/Globulin Ratio 0.8 L 05/31/22 11:51: POC Glucose 132 H Micro: Microbiology 05/26/22 10:30 Blood Culture (Wb) - Anticubital Left Blood Culture - Final No growth in 5 days. 05/26/22 10:12 Blood Culture (Wb) - Right Wrist Blood Culture - Final No growth in 5 days. 05/26/22 10:41 Sputum, Induced/Lukens Gram Stain - Final 05/26/22 10:41 Sputum, Induced/Lukens Respiratory Culture - Final Escherichia coli 05/26/22 10:30 Urine Catheter - Catheter Urine Culture - Final Streptococcus agalactiae (B) 05/26/22 10:30 Nasal Secretion SARS-CoV-2 Antigen (Rapid) - Final 05/26/22 10:20 Gastric Fluid/Contents Gastric Occult Blood - Final Rhythm Strip Rhythm Strip: Sinus Rhythm Physical Exam Narrative General: Alert, appears disheveled, incoherent at times, rambling thoughts HEENT: Atraumatic, PERRLA, EOMI, Normocephalic Oral: Moist Mucosa Neck: Supple Lungs: Normal air movement, Diminished Cardiovascular: Regular rate, Regular Rhythm, Normal S1, Normal S2, No murmurs Abdomen: Bowel Sounds Present, Soft, Non Tender, Non-Distended, No Hepato-splenomegaly Extremities: No edema Skin: No rashes Neurological: Cranial nerves II-XII grossly intact, Neuro grossly intact Psych/Mental Status: Normal Affect, Appropriate Assessment & Plan Assessment/Plan (1) Acute hypoxemic respiratory failure: PLAN: Plan 1. Acute combined respiratory failure secondary to acute COPD exacerbation/E. coli pneumonia Patient is currently on 7 L of oxygen, Continue on treatment for both above Wean off for SPO2 more than 88 to 92% Patient is on IV Zosyn, will de-escalate to IV ceftriaxone (day 5 of antibiotics) 2. Sepsis secondary to E. coli pneumonia/strep agalactiae UTI, pansensitive Continue on IV ceftriaxone Continue to trend 3. Acute NSTEMI, likely secondary to type II/demand, medically being managed, Cardiology following. Patient has underlying CAD 2D echo showed EF of 45 to 50% with indeterminate diastolic dysfunction/moderate to severe left ventricular hypertrophy/inferior and septal hypokinesis/dilated right ventricule with severe global ventricular systolic dysfunction/pulmonary systolic pressure of 51 Continue aspirin, Plavix, statin, metoprolol Outpatient stress test planned when respiratory status stable 4. RAMANDEEP, pre-renal, resolved Patient presented with creatinine 1.67, creatinine today 084 5. 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 Acute blood loss anemia currently 2 #5, stable at 9.3 today 7. Hypertension, controlled, continue on amlodipine, metoprolol 8. Hyperlipidemia, continue statin, fenofibrate 9. Schizophrenia, patient appears to be in an acute crisis Would benefit from inpatient psych eval Continue on buspirone, benztropine 10. History of abdominal aortic aneurysm repair/PAD 11. Nicotine dependence, advised to quit, will continue on replacement 12. Hypernatremia, mild, secondary to dehydration, will trend 13. DVT prophylaxis with Lovenox subcu Charges/Coding Visit Charges Inpatient E&M: 76638 Subs Hosp L2
[2022-05-31] MEDS: Furosemide 40 MG/4 ML Vial IV (15:57)
--- NOTE | 2022-05-31 15:59 | NURSING ---
patient bed alarming, in hallway with no oxygen, this RN and second RN escorted patient back to bed, 7L high flow O2 placed, sats 87% improving to 90%, bed exit alarm on, educated on safety and POC. Refused blood sugar check, refused carafate, lasix given. Warm blankets provided, water given per protocol, call light in reach and alarms on.
--- NOTE | 2022-05-31 16:16 | CASEMGMT ---
JAYA called Adult Protective Services and spoke with Sheldon. AJYA spoke with Reimbursement Manager Joyce last week and told her about patient's admission. JAYA explained to Sheldon what happened requiring admission last week. JAYA also told Rodríguez about patient not being able to be seen by her Psychiatrist until Jul. JAYA told Rodríguez that SW is likely going to look for Psych placement when medically ready. Isaura Leiva [employer]SEM[employer] ALBA
[2022-05-31] MEDS: Atorvastatin Calcium 80 MG Tablet PO (21:29)
[2022-05-31 23:35] LABS: Bedside Glucose 136 mg/dL (74-106)
[2022-06-01] VITALS (15 sets, daily range): BP systolic 142–174; BP diastolic 53–67; PULSE 45–78; RESP 15–20; TEMP 36.3–37.1; O2SAT 90–97
[2022-06-01] MEDS: 0.9% Saline Lock 10 ML Syringe IV ×4 (06:03→17:07)
[2022-06-01] MEDS: busPIRone 5 MG Tablet 10 MG PO ×3 (06:05→23:52)
[2022-06-01] MEDS: Sucralfate 1 GM Tablet PO (06:05)
[2022-06-01 06:49] LABS: Absolute Lymphocyte Count 1.11 X10^3/uL (0.83-4.51); Absolute Neutrophil Count 5.6 X10^3/uL (2.0-7.7); Basophil# 0.01 X10^3/uL; Basophil% 0.1 % (0-1); Eosinophil# 0.02 X10^3/uL; Eosinophils% 0.3 % (0-5); Hematocrit 30.3 % (37-47); Hemoglobin 9.2 g/dL (12.0-15.0); Lymphocyte # 1.11 X10^3/ul (0.83-4.51); Mean Corp Hgb Conc 30.4 g/dL (32-36); Mean Corpuscular Hgb 29.5 pg (27.0-32.0); Mean Corpuscular Volume 97.1 fL (81-99); Mean Platelet Vol. 11.2 fl (6.2-12.0); Monocyte# 0.59 X10^3/uL; NRBC Flagged by Analyzer 0 % (0-5); Neutrophil # 5.63 X10^3/uL (2.7-7.7); Neutrophil % 76.1 % (47-70); Platelet Count 211 K/mm3 (150-450); RBC Distribution Width CV 15.8 % (11.6-14.6); RBC Distribution Width SD 56.3 fl (35.1-43.9); Red Blood Count 3.12 M/mm3 (4.2-5.4); White Blood Count 7.4 K/mm3 (4.4-11.0)
[2022-06-01 07:10] LABS: Bedside Glucose 116 mg/dL (74-106)
[2022-06-01 07:18] LABS: ALB/GLOB Ratio 0.8 RATIO (0.9-2.4); AST(SGOT) 26 U/L (15-37); Alanine Aminotransfer ALT/SGPT 34 U/L (13-56); Albumin, Serum 2.2 g/dL (3.2-5.0); Alkaline Phosphatase 38 U/L (45-117); Anion Gap 1 (5-15); BUN 23 mg/dL (7-18); Calcium,Total 8.2 mg/dL (8.5-10.1); Chloride 105 mmol/L (98-107); EST Glomerular Filtration Rate 87 mL/min (>60); Est Glom Filt Rate - Afr Amer 106 mL/min (>60); Estimated Creatinine Clearance 42.62 ml/min; Globulin 2.6 g/dL (2.2-4.2); Glucose 111 mg/dL (74-106); Potassium 3.6 mmol/L (3.5-5.1); Protein, Total 4.8 g/dL (6.4-8.2); Sodium Level 145 mmol/L (136-145)
[2022-06-01] MEDS: Ipratropium/Albuterol Sulfate 3 ML AMPUL.NEB INHALATION (07:33)
--- NOTE | 2022-06-01 08:24 | PCM.PN.INT ---
Assessment & Plan Assessment/Plan (1) Sepsis: PLAN: Plan RECOMMENDATIONS: 1. Continue to wean supplemental oxygen to maintain saturations 88 to 92%. 2. Continue antimicrobials to complete 7 days of therapy. 3. Continue scheduled bronchodilators. Transition to p.o. steroids and wean over 12 to 14 days 4. Continue appropriate prophylaxis. 5. Encourage incentive spirometer use and mobilize patient as tolerated. 6. Continue to challenge with Lasix therapy IMPRESSIONS: 1. Sepsis The patient presented with sepsis due to E. coli pneumonia with acute sepsis related organ dysfunction as evidenced by altered mentation, lactic acidemia and acute kidney injury. The patient did receive supplemental IV fluid hydration. The patient remains hemodynamically stable. Patient will need 7 to 10 days of antibiotics total 2. Metabolic encephalopathy Improved. Likely related to hypercarbia noted at presentation. Improvement was noted with invasive mechanical ventilatory support. Continue supportive measures as noted below. 3. Acute combined respiratory failure Likely secondary to gram-negative pneumonia leading to COPD exacerbation. It is certainly plausible that the patient has underlying obstructive lung disease, with questionable outpatient compliance with prescribed medical therapy leading to her acute presentation. There was no evidence of pulmonary embolism on CT imaging. I agree with continuing antimicrobials. In addition, the patient will be continued on scheduled bronchodilators. Transition to p.o. steroids. Likely okay to be discharged from a pulmonary perspective. Patient will need to follow-up with nurse practitioner in 2 weeks to establish care and perform outpatient testing 4. Acute kidney injury Stable. Likely prerenal in etiology in the setting #1. No current indication for renal replacement therapy. Continue to monitor urine output. 5. History of coronary artery disease/anemia/hypertension/hyperlipidemia Complicates care, management, recovery and prognosis. Continue home medications as indicated. Patient's refusal of intermediate does increased risk for repeat admission. This note was generated with [employer] dictation software. It may contain incorrect words, spelling, and punctuation that were not noted in checking the note before signing. Subjective Subjective Patient did well overnight. Patient subjectively feels improved compared to yesterday. Patient has been able to make it down for baseline supplemental oxygen. Patient was distraught because she said she is not going to a [facility] even though she does admit that she gets more short of breath with walking to the bathroom. Objective Data Objective Data Vital Signs: Vital Signs Temp Pulse Resp BP Pulse Ox O2 Del Method O2 Flow Rate 36.3 C L 45 L 18 142/53 H 92 Nasal Cannula 5 06/01/22 03:17 06/01/22 07:34 06/01/22 07:34 06/01/22 03:17 06/01/22 07:34 06/01/22 07:54 06/01/22 07:54 FiO2 35 05/28/22 06:00 Oxygen Flow Rate (L/min) 5 Oxygen Delivery Method Nasal Cannula Weight: 76.3 kg Body Mass Index (BMI) 27.3 Intake & Output: Intake and Output for Last 24 Hours 05/30/22 05/31/22 06/01/22 23:59 23:59 23:59 Intake Total 1270 / 1390 640 / 920 280 / 280 Balance 1270 / 1390 640 / 920 280 / 280 Lab / Micro Data Attestation: I reviewed the patient's lab results. Result Diagrams: 06/01/22 06:40 06/01/22 06:40 Labs: Laboratory Results - last 24 hr 05/31/22 11:51: POC Glucose 132 H 05/31/22 21:20: POC Glucose 136 H 06/01/22 06:01: POC Glucose 116 H 06/01/22 06:40: WBC 7.4, RBC 3.12 L, Hgb 9.2 L, Hct 30.3 L, MCV 97.1, MCH 29.5, MCHC 30.4 L, RDW Std Deviation 56.3 H, RDW Coeff of Parviz 15.8 H, Plt Count 211, MPV 11.2, Immature Gran % (Auto) 0.500, Neut % (Auto) 76.1 H, Lymph % (Auto) 15.0 L, [place] % (Auto) 8.0, Eos % (Auto) 0.3, Baso % (Auto) 0.1, Absolute Neuts (auto) 5.6, Absolute Lymphs (auto) 1.11, Nucleated RBC % 0 06/01/22 06:40: Sodium 145, Potassium 3.6, Chloride 105, Carbon Dioxide 39.0 H, Anion Gap 1 L, BUN 23 H, Creatinine 0.70, Estim Creat Clear Calc 42.62, Est GFR (MDRD) Af Amer 106, Est GFR (MDRD) Non-Af 87, BUN/Creatinine Ratio 33.0 H, Glucose 111 H, Calcium 8.2 L, Total Bilirubin 0.30, AST 26, ALT 34, Alkaline Phosphatase 38 L, Total Protein 4.8 L, Albumin 2.2 L, Globulin 2.6, Albumin/Globulin Ratio 0.8 L Micro: Microbiology 05/26/22 10:30 Blood Culture (Wb) - Anticubital Left Blood Culture - Final No growth in 5 days. 05/26/22 10:12 Blood Culture (Wb) - Right Wrist Blood Culture - Final No growth in 5 days. 05/26/22 10:41 Sputum, Induced/Lukens Gram Stain - Final 05/26/22 10:41 Sputum, Induced/Lukens Respiratory Culture - Final Escherichia coli 05/26/22 10:30 Urine Catheter - Catheter Urine Culture - Final Streptococcus agalactiae (B) 05/26/22 10:30 Nasal Secretion SARS-CoV-2 Antigen (Rapid) - Final 05/26/22 10:20 Gastric Fluid/Contents Gastric Occult Blood - Final Physical Exam Const alert and no apparent distress General Appearance: frail HEENT normocephalic and head/scalp atraumatic Eyes PERRL and EOMs intact bilaterally Neck supple General: trachea midline Chest Chest: abnormal inspection of the chest increased A-P diameter Resp Resp Narrative: Poor inspiratory effort. No conversational dyspnea Auscultation: diminished lung sounds; Negative for rales, rhonchi or wheezes Cardio regular rate, regular rhythm, S1 normal heart sound, S2 normal heart sound, no murmurs, no rub and no gallops GI normal to inspection, nondistended, normoactive bowel sounds Extremity no clubbing, cyanosis or edema Skin no rashes or lesions noted Neuro CN's II-XII intact bilaterally and moves all extremities Psych Mood & Affect: anxious and flat affect Charges/Coding Visit Charges Inpatient E&M: 80485 Subs Hosp L2
--- NOTE | 2022-06-01 09:00 | CASEMGMT ---
Social Work consult for Psychiatric Assessment Informant: RN, Social Work, and Physician Chief Complaint: Patient has Schizophrenia. Patient is not caring for self at home and it is unknown if patient is taking medications appropriately. Patient was admitted to the hospital 05-20-22 for driving erratically. Patient was found to be confused and hypoxic. Patient was not wearing O2. Patient is supposed to wear O2 all the time. Patient was discharged home without home health and refused SNF (05-25-22). Patient was then readmitted on 05-26. Patient's classification case manager from [facility] found patient unresponsive naked on the floor with no O2. Patient is currently impulsive, paranoid, not directable, anxious, and restless. Marital Status/Social History: Identified Gender: Female Sexual Orientation: Heterosexual Living situation: Patient lives alone Support Resources: Patient has a Care Process Manager with [facility], Claire Alba ([phone]). Care Process Manager with [facility], Margarita Saavedra ([phone]), and Psychiatrist Dr Peralta at [facility]. History: No Education and Employment: unknown. Patient not cooperative at time of assessment. Mental Health Treatment: Per records from [facility] patient has a diagnosis of Schizoaffective D/O. r/o PTSD, and Anxiety D/O. Patient had a Psych hospitalization in 2018. Patient has had a suicide attempt via overdose. Triggers/Stressors: Patient's Care Process Manager with [facility] and [facility] has changed over the last few months. Patient is not coping well with these changes. Patient's daughter also recently . Patient's bird . Coping Skills: Not able to talk with patient as she is not cooperative at this time. Abuse Issues: Unknown Substance Abuse Issues: Unknown Risk to Self/Others: Suicidal-No Homicidal-No Violence-No Mental Status Exam: Patient not participating in assessment. Per nursing AO&X2 Memory: Fair Appearance: Disheveled and restless (Per SW observation) Mood/Affect:Anxious (Per SW observation) Communication pattern: Patient not participating in assessment at this time Thought Process: Paranoid: Told the You are looking for Cancer in my body. Told RN, Better not be overdosing me. General Intellectual Functioning: unknown Judgement: Poor (Based on previous conversations with SW and hospital admissions) Insight: Poor (Based on previous conversations with SW.) Plan: Patient has endured some changes in her life recently. Her Carton Stamper with [facility] and [facility] changed. Patient's daughter and bird . Patient has not frequented [facility] until recently. SW feels these recent back to back admissions are due to these changes in patient's life and she is not managing well. It is felt patient would benefit from Psychiatric hospitalization to stabilize patient's medications and to help patient process her recent changes. Patient is not able to get in to see her Psychiatrist until July. The hope would be that patient would be stabilized on her medication and then be discharged home with resumption of her community services. Isaura Leiva PUBLIC RELATIONS INTERN [facility]
[2022-06-01] MEDS: Furosemide 20 MG/2 ML VIAL IV ×2 (09:11→17:06)
[2022-06-01] MEDS: Enoxaparin 40 MG/0.4 ML Syringe SC (09:11)
[2022-06-01] MEDS: Ceftriaxone 1 GM/50 mL Premix Q24 IV (09:11)
[2022-06-01] MEDS: Clopidogrel Bisulfate 75 MG Tablet PO (09:12)
[2022-06-01] MEDS: RisperiDONE 1 MG Tablet 3 MG PO ×2 (09:12→23:55)
[2022-06-01] MEDS: amLODIPine 5 MG Tablet PO (09:12)
[2022-06-01] MEDS: Isosorbide Mononitrate 30 MG Tablet PO (09:12)
[2022-06-01] MEDS: Aspirin E.C. 81 MG Tablet PO (09:12)
[2022-06-01] MEDS: Benztropine Mesylate 0.5 MG TABLET 1 MG PO ×2 (09:12→23:52)
[2022-06-01] MEDS: Fenofibrate 145 MG Tablet PO (09:12)
[2022-06-01] MEDS: Metoprolol Tartrate 100 MG Tablet PO (09:59)
--- NOTE | 2022-06-01 10:04 | PN.HOSP_ITS ---
Subjective Subjective Follow-up on acute respiratory failure/sepsis secondary to pneumonia/NSTEMI/RAMANDEEP: Patient was seen and examined.? Patient is more impulsive and confused today. She is getting out of bed with unsteady gait. She is currently on 5 L of oxygen. Objective Data Objective Data Vital Signs: Vital Signs Temp Pulse Resp BP Pulse Ox O2 Del Method O2 Flow Rate 98.2 F 78 15 174/59 H 91 Nasal Cannula 5 06/01/22 08:58 06/01/22 09:59 06/01/22 08:58 06/01/22 08:58 06/01/22 08:58 06/01/22 08:58 06/01/22 08:58 FiO2 35 05/28/22 06:00 Oxygen Flow Rate (L/min) 5 Oxygen Delivery Method Nasal Cannula Weight: 76.3 kg Body Mass Index (BMI) 27.3 Intake & Output: Intake and Output for Last 24 Hours 05/30/22 05/31/22 06/01/22 23:59 23:59 23:59 Intake Total 1270 / 1390 640 / 920 330 / 330 Balance 1270 / 1390 640 / 920 330 / 330 Lab / Micro Data Result Diagrams: 06/01/22 06:40 06/01/22 06:40 Labs: Laboratory Results - last 24 hr 05/31/22 11:51: POC Glucose 132 H 05/31/22 21:20: POC Glucose 136 H 06/01/22 06:01: POC Glucose 116 H 06/01/22 06:40: WBC 7.4, RBC 3.12 L, Hgb 9.2 L, Hct 30.3 L, MCV 97.1, MCH 29.5, MCHC 30.4 L, RDW Std Deviation 56.3 H, RDW Coeff of Parviz 15.8 H, Plt Count 211, MPV 11.2, Immature Gran % (Auto) 0.500, Neut % (Auto) 76.1 H, Lymph % (Auto) 15.0 L, [place] % (Auto) 8.0, Eos % (Auto) 0.3, Baso % (Auto) 0.1, Absolute Neuts (auto) 5.6, Absolute Lymphs (auto) 1.11, Nucleated RBC % 0 06/01/22 06:40: Sodium 145, Potassium 3.6, Chloride 105, Carbon Dioxide 39.0 H, Anion Gap 1 L, BUN 23 H, Creatinine 0.70, Estim Creat Clear Calc 42.62, Est GFR (MDRD) Af Amer 106, Est GFR (MDRD) Non-Af 87, BUN/Creatinine Ratio 33.0 H, Glucose 111 H, Calcium 8.2 L, Total Bilirubin 0.30, AST 26, ALT 34, Alkaline Phosphatase 38 L, Total Protein 4.8 L, Albumin 2.2 L, Globulin 2.6, Albumin/Globulin Ratio 0.8 L Micro: Microbiology 05/26/22 10:30 Blood Culture (Wb) - Anticubital Left Blood Culture - Final No growth in 5 days. 05/26/22 10:12 Blood Culture (Wb) - Right Wrist Blood Culture - Final No growth in 5 days. 05/26/22 10:41 Sputum, Induced/Lukens Gram Stain - Final 05/26/22 10:41 Sputum, Induced/Lukens Respiratory Culture - Final Escherichia coli 05/26/22 10:30 Urine Catheter - Catheter Urine Culture - Final Streptococcus agalactiae (B) 05/26/22 10:30 Nasal Secretion SARS-CoV-2 Antigen (Rapid) - Final 05/26/22 10:20 Gastric Fluid/Contents Gastric Occult Blood - Final Rhythm Strip Rhythm Strip: Sinus Rhythm Physical Exam Narrative General: Alert to person, appears disheveled, incoherent at times, rambling thoughts HEENT: Atraumatic, PERRLA, EOMI, Normocephalic Oral: Moist Mucosa Neck: Supple Lungs: Normal air movement, Diminished Cardiovascular: Regular rate, Regular Rhythm, Normal S1, Normal S2, No murmurs Abdomen: Bowel Sounds Present, Soft, Non Tender, Non-Distended, No Hepato- splenomegaly Extremities: No edema Skin: No rashes Neurological: Cranial nerves II-XII grossly intact, Neuro grossly intact Psych/Mental Status: Normal Affect, Appropriate Assessment & Plan Assessment/Plan (1) Acute hypoxemic respiratory failure: PLAN: Plan 1. Acute combined respiratory failure secondary to acute COPD exacerbation/E. coli pneumonia Patient is currently on 6 L of oxygen, Continue on treatment for both above Wean off for SPO2 more than 88 to 92% Continue on IV ceftriaxone (day 6 of antibiotics); will aim for 1 week of treatment 2. Sepsis secondary to E. coli pneumonia/strep agalactiae UTI, pansensitive Continue on IV ceftriaxone Continue to trend 3. Acute NSTEMI, likely secondary to type II/demand, medically being managed, Cardiology following. Patient has underlying CAD 2D echo showed EF of 45 to 50% with indeterminate diastolic dysfunction/moderate to severe left ventricular hypertrophy/inferior and septal hypokinesis/dilated right ventricule with severe global ventricular systolic dysfunction/pulmonary systolic pressure of 51 Continue aspirin, Plavix, statin, metoprolol Outpatient stress test planned when respiratory status stable 4. RAMANDEEP, pre-renal, resolved Patient presented with creatinine 1.67, creatinine today is 0.70 5. 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 Acute blood loss anemia currently 2 #5, stable at 9.2 today 7. Hypertension, controlled, continue on amlodipine, metoprolol 8. Hyperlipidemia, continue statin, fenofibrate 9. Schizophrenia, patient appears to be in an acute crisis Would benefit from inpatient psych eval Continue on buspirone, benztropine 10. History of abdominal aortic aneurysm repair/PAD 11. Nicotine dependence, advised to quit, will continue on replacement 12. Hypernatremia, mild, secondary to dehydration, resolved, Na ia 145 13. DVT prophylaxis with Lovenox subcu Charges/Coding Visit Charges Inpatient E&M: 79873 Subs Hosp L2
[2022-06-01] MEDS: Insulin Lispro 100 UNIT/ML INSULN.PEN SC ×2 (10:52→17:06)
[2022-06-01] MEDS: LORazepam 2 MG/ML Syringe IV (10:53)
[2022-06-01] MEDS: predniSONE 20 MG Tablet 40 MG PO (10:53)
[2022-06-01 11:21] LABS: Bedside Glucose 227 mg/dL (74-106)
[2022-06-01] MEDS: Ziprasidone IM 20 MG/ML VIAL IM (13:09)
--- NOTE | 2022-06-01 15:10 | CASEMGMT ---
SW called [facility] for Psychiatry([facility]) regarding referral. Referral was faxed to [facility] as requested. SW asked that they follow up with PCU. Isaura WILLIS
[2022-06-01 17:45] LABS: Bedside Glucose 187 mg/dL (74-106)
[2022-06-01] MEDS: QUEtiapine 25 MG Tablet PO (17:53)
--- NOTE | 2022-06-01 20:35 | CM.ED ---
Social Work Telephone call to [facility]. Summer reports that patient has been declined due to medical acuity. Telephone call to Rosa tariq. This health care social worker provided handoff due to end of health care social worker shift. Telephone call to PCU, Charge nurse. This health care social worker provided charge nurse with fax number to fax clinical information to crisis to crisis to attempt further placement. Social Work to continue to follow tomorrow. Perston Land MSW, ALBA-S
[2022-06-01] MEDS: Atorvastatin Calcium 80 MG Tablet PO (23:53)
[2022-06-02] VITALS (11 sets, daily range): BP systolic 121–165; BP diastolic 52–67; PULSE 53–80; RESP 16–18; TEMP 36.3–37.3; O2SAT 90–94
--- NOTE | 2022-06-02 00:23 | PCM.HOSP.N ---
Hospitalist Note Patient with recurrent agitation. Her q HS seroquel had been given earlier secondary to prior similar issues. Will give a x 1 dose now as she did not then have her q HS timed seroquel regimen.
[2022-06-02] MEDS: QUEtiapine 25 MG Tablet PO (00:34)
[2022-06-02 01:46] LABS: Bedside Glucose 108 mg/dL (74-106)
[2022-06-02] MEDS: busPIRone 5 MG Tablet 10 MG PO ×3 (06:17→20:10)
[2022-06-02] MEDS: Sucralfate 1 GM Tablet PO ×2 (06:18→15:48)
[2022-06-02 06:40] LABS: Absolute Lymphocyte Count 1.42 X10^3/uL (0.83-4.51); Absolute Neutrophil Count 4.6 X10^3/uL (2.0-7.7); Basophil# 0.01 X10^3/uL; Basophil% 0.1 % (0-1); Eosinophils% 1.5 % (0-5); Hematocrit 34.5 % (37-47); Hemoglobin 10.4 g/dL (12.0-15.0); Lymphocyte # 1.42 X10^3/ul (0.83-4.51); Mean Corp Hgb Conc 30.1 g/dL (32-36); Mean Corpuscular Volume 96.1 fL (81-99); Mean Platelet Vol. 11.3 fl (6.2-12.0); Monocyte# 0.62 X10^3/uL; Monocyte% 9.2 % (0-10); NRBC Flagged by Analyzer 0 % (0-5); Neutrophil # 4.56 X10^3/uL (2.7-7.7); Neutrophil % 67.6 % (47-70); Platelet Count 236 K/mm3 (150-450); RBC Distribution Width CV 15.9 % (11.6-14.6); RBC Distribution Width SD 56.2 fl (35.1-43.9); Red Blood Count 3.59 M/mm3 (4.2-5.4); White Blood Count 6.8 K/mm3 (4.4-11.0)
[2022-06-02 07:14] LABS: ALB/GLOB Ratio 0.9 RATIO (0.9-2.4); AST(SGOT) 22 U/L (15-37); Alanine Aminotransfer ALT/SGPT 35 U/L (13-56); Albumin, Serum 2.5 g/dL (3.2-5.0); Alkaline Phosphatase 43 U/L (45-117); Anion Gap 2 (5-15); BUN 20 mg/dL (7-18); BUN/Creat Ratio 30.8 RATIO (10-20); Calcium,Total 8.5 mg/dL (8.5-10.1); Chloride 105 mmol/L (98-107); Creatinine, Serum 0.65 mg/dL (0.55-1.02); EST Glomerular Filtration Rate 95 mL/min (>60); Est Glom Filt Rate - Afr Amer 115 mL/min (>60); Estimated Creatinine Clearance 42.62 ml/min; Globulin 2.7 g/dL (2.2-4.2); Glucose 69 mg/dL (74-106); Potassium 3.2 mmol/L (3.5-5.1); Protein, Total 5.2 g/dL (6.4-8.2); Sodium Level 149 mmol/L (136-145)
[2022-06-02 07:15] LABS: Bedside Glucose 68 mg/dL (74-106)
[2022-06-02 07:15] LABS: Bedside Glucose 70 mg/dL (74-106)
--- NOTE | 2022-06-02 08:30 | CASEMGMT ---
JAYA called Joann at [facility] to see if they have made any progress on placing patient. Joann said they are confused. The packet they received did not have an assessment. They don't know why patient needs placed. JAYA let Joann know SW will take over and work on obtaining placement. Isaura Leiva [employer] [place]
--- NOTE | 2022-06-02 09:18 | PN.CC_ITS ---
Assessment & Plan Assessment/Plan (1) Sepsis: PLAN: Plan RECOMMENDATIONS: 1. Continue to wean supplemental oxygen to maintain saturations 88 to 92%. 2. Continue antimicrobials to complete 7 days of therapy. 3. Continue scheduled bronchodilators. Wean steroids over 12 to 14 days 4. Continue appropriate prophylaxis. 5. Encourage incentive spirometer use and mobilize patient as tolerated. 6. Decrease Lasix therapy with electrolyte repletion as indicated IMPRESSIONS: 1. Sepsis The patient presented with sepsis due to E. coli pneumonia with acute sepsis related organ dysfunction as evidenced by altered mentation, lactic acidemia and acute kidney injury. The patient did receive supplemental IV fluid hydration initially. The patient remains hemodynamically stable. Patient will need 7 to 10 days of antibiotics total 2. Metabolic encephalopathy Improved. Likely related to hypercarbia noted at presentation. Improvement was noted with invasive mechanical ventilatory support. Continue supportive measures as noted below. 3. Acute combined respiratory failure Likely secondary to gram-negative pneumonia leading to COPD exacerbation. It is certainly plausible that the patient has underlying obstructive lung disease, with questionable outpatient compliance with prescribed medical therapy leading to her acute presentation. There was no evidence of pulmonary embolism on CT imaging. I agree with continuing antimicrobials. In addition, the patient will be continued on scheduled bronchodilators. Transitioned to p.o. steroids. Likely okay to be discharged from a pulmonary perspective. Patient will need to follow-up with nurse practitioner in 2 weeks to establish care and perform outpatient testing 4. Acute kidney injury Stable. Likely prerenal in etiology in the setting #1. No current indication for renal replacement therapy. Continue to monitor urine output. Patient does appear to be developing contraction alkalosis. Will decrease Lasix therapy 5. History of coronary artery disease/anemia/hypertension/hyperlipidemia Complicates care, management, recovery and prognosis. Continue home medications as indicated. Patient's refusal of usp does increased risk for repeat admission. This note was generated with [employer] dictation software. It may contain incorrect words, spelling, and punctuation that were not noted in checking the note before signing. Subjective Subjective Patient resting comfortably this morning. Oxygen status has improved compared to yesterday. Patient continues to report that she is not going to a fpc. Patient subjectively feels better compared to yesterday Objective Data Objective Data Vital Signs: Vital Signs Temp Pulse Resp BP Pulse Ox O2 Del Method O2 Flow Rate 36.3 C L 60 18 139/62 H 93 Nasal Cannula 4 10/13/22 05:10 06/02/22 07:00 06/02/22 05:10 06/02/22 05:10 06/02/22 08:05 06/02/22 08:05 06/02/22 08:05 FiO2 35 05/28/22 06:00 Oxygen Flow Rate (L/min) 4 Oxygen Delivery Method Nasal Cannula Weight: 77.6 kg Body Mass Index (BMI) 27.3 Intake & Output: Intake and Output for Last 24 Hours 05/31/22 06/01/22 06/02/22 23:59 23:59 23:59 Intake Total 640 / 920 1160 / 1160 Balance 640 / 920 1160 / 1160 Lab / Micro Data Attestation: I reviewed the patient's lab results. Result Diagrams: 06/02/22 06:15 06/02/22 06:15 Labs: Laboratory Results - last 24 hr 06/01/22 10:51: POC Glucose 227 H 06/01/22 17:03: POC Glucose 187 H 06/01/22 23:50: POC Glucose 108 H 06/02/22 06:08: POC Glucose 68 L 06/02/22 06:15: WBC 6.8, RBC 3.59 L, Hgb 10.4 L, Hct 34.5 L, MCV 96.1, MCH 29.0, MCHC 30.1 L, RDW Std Deviation 56.2 H, RDW Coeff of Parviz 15.9 H, Plt Count 236, MPV 11.3, Immature Gran % (Auto) 0.600, Neut % (Auto) 67.6, Lymph % (Auto) 21.0, [place] % (Auto) 9.2, Eos % (Auto) 1.5, Baso % (Auto) 0.1, Absolute Neuts (auto) 4.6, Absolute Lymphs (auto) 1.42, Nucleated RBC % 0 06/02/22 06:15: Sodium 149 H, Potassium 3.2 L, Chloride 105, Carbon Dioxide 42.0 H, Anion Gap 2 L, BUN 20 H, Creatinine 0.65, Estim Creat Clear Calc 42.62, Est GFR (MDRD) Af Amer 115, Est GFR (MDRD) Non-Af 95, BUN/Creatinine Ratio 30.8 H, Glucose 69 L, Calcium 8.5, Total Bilirubin 0.30, AST 22, ALT 35, Alkaline Phosphatase 43 L, Total Protein 5.2 L, Albumin 2.5 L, Globulin 2.7, Albumin/Globulin Ratio 0.9 06/02/22 06:25: POC Glucose 70 L Micro: Microbiology 05/26/22 10:30 Blood Culture (Wb) - Anticubital Left Blood Culture - Final No growth in 5 days. 05/26/22 10:12 Blood Culture (Wb) - Right Wrist Blood Culture - Final No growth in 5 days. 05/26/22 10:41 Sputum, Induced/Lukens Gram Stain - Final 05/26/22 10:41 Sputum, Induced/Lukens Respiratory Culture - Final Escherichia coli 05/26/22 10:30 Urine Catheter - Catheter Urine Culture - Final Streptococcus agalactiae (B) 05/26/22 10:30 Nasal Secretion SARS-CoV-2 Antigen (Rapid) - Final 05/26/22 10:20 Gastric Fluid/Contents Gastric Occult Blood - Final Physical Exam Const alert and no apparent distress General Appearance: frail HEENT normocephalic and head/scalp atraumatic Eyes PERRL and EOMs intact bilaterally Neck supple General: trachea midline Chest Chest: abnormal inspection of the chest increased A-P diameter Resp Resp Narrative: Poor inspiratory effort. No conversational dyspnea Auscultation: diminished lung sounds; Negative for rales, rhonchi or wheezes Cardio regular rate, regular rhythm, S1 normal heart sound, S2 normal heart sound, no murmurs, no rub and no gallops GI normal to inspection, nondistended, normoactive bowel sounds Extremity no clubbing, cyanosis or edema Skin no rashes or lesions noted Neuro CN's II-XII intact bilaterally and moves all extremities Psych Mood & Affect: anxious and flat affect Charges/Coding Visit Charges Inpatient E&M: 80934 Subs Hosp L2
[2022-06-02] MEDS: Ceftriaxone 1 GM/50 mL Premix Q24 IV (09:19)
--- NOTE | 2022-06-02 09:35 | CASEMGMT ---
SW called [facility] and they do not have any beds available. 9:45a SW called [facility] and they will only take patients on 2L or less 9:47a SW called [facility] regarding referral. SW faxed referral at 10:23a. 10:23a SW called [facility] and they have no beds. 10:25a SW called [facility] regarding referral and faxed referral. 10:27a SW received a call from [facility] and they are declining patient due to unsafe d/c plan from Psych unit. Awaiting calls from [facility] and [facility]. Isaura Leiva TRANSCRIBING OPERATORS SUPERVISOR ALBA
[2022-06-02] MEDS: Potassium Chloride Oral Tablet 20 MEQ 60 MEQ PO (10:01)
[2022-06-02] MEDS: 0.9% Saline Lock 10 ML Syringe IV (10:01)
[2022-06-02] MEDS: Furosemide 20 MG/2 ML VIAL IV (10:01)
[2022-06-02] MEDS: Enoxaparin 40 MG/0.4 ML Syringe SC (10:01)
[2022-06-02] MEDS: Isosorbide Mononitrate 30 MG Tablet PO (10:02)
[2022-06-02] MEDS: Clopidogrel Bisulfate 75 MG Tablet PO (10:02)
[2022-06-02] MEDS: RisperiDONE 1 MG Tablet 3 MG PO ×2 (10:02→20:11)
[2022-06-02] MEDS: Benztropine Mesylate 0.5 MG TABLET 1 MG PO ×2 (10:02→20:11)
[2022-06-02] MEDS: amLODIPine 5 MG Tablet PO (10:02)
[2022-06-02] MEDS: Aspirin E.C. 81 MG Tablet PO (10:02)
[2022-06-02] MEDS: predniSONE 20 MG Tablet 40 MG PO (10:02)
[2022-06-02] MEDS: Metoprolol Tartrate 100 MG Tablet PO ×2 (10:03→20:10)
[2022-06-02] MEDS: Fenofibrate 145 MG Tablet PO (10:03)
--- NOTE | 2022-06-02 11:23 | CASEMGMT ---
SW called [facility] regarding referral. SW also faxed referral. Await response. Isaura Leiva MSW ALBA
--- NOTE | 2022-06-02 11:40 | CASEMGMT ---
JAYA called [facility] regarding referral. JAYA then faxed initial information to [facility]. Await response. JAYA did try and call patient's son again and received his voice mail. Isaura WILLIS
--- NOTE | 2022-06-02 12:05 | CASEMGMT ---
SW had to re-fax referral to [facility] as it did not go through. Isaura Leiva NEWSPAPER PHOTOJOURNALIST ALBA
[2022-06-02 12:16] LABS: Bedside Glucose 101 mg/dL (74-106)
--- NOTE | 2022-06-02 13:22 | RAD_ITS ---
STUDY: X-RAY CHEST REASON FOR EXAM: Female, 72 years old. Acute on chronic respiratory failure/pneumonia -- For discharge planning TECHNIQUE: Single AP portable view of the chest. COMPARISON: Comparison is made with prior study dated 05/26/2022. FINDINGS: EKG electrodes are seen. New bilateral pleural effusions left greater than right with bibasilar atelectasis and/or infiltrates worse on the left side superimposed on CHF. There is mild cardiac enlargement. Normal mediastinum and cynthia. Normal visualized pulmonary arteries. There is atherosclerotic calcification of the aortic arch with tortuosity. There are diffuse degenerative changes of the visualized thoracic spine. Normal visualized ribs, clavicles, and shoulders. There is no demonstrated abnormality of the visualized soft tissue structures of the upper abdomen. RAD/Chest 1 View (Portable) IMPRESSION: Bilateral pleural effusions with bibasilar atelectasis and/or infiltrates worse on the left side superimposed on CHF. Electronically Signed: Smith Chau MD at 15:38 EDT ,
--- NOTE | 2022-06-02 13:44 | CASEMGMT ---
JAYA has received phone calls from [facility], [facility], and [facility]. They all had tentatively accepted pending a new chest x-ray and COVID test. [facility] was able to talk with patient's son and he agreed with placement. [facility] has not been able to reach patient's son. JAYA asked physician if she could order a chest xray and COVID test. Await on these results to send to facilities. Isaura Leiva MSW ALBA
--- NOTE | 2022-06-02 15:45 | CASEMGMT ---
SW contacted [facility] and let them know SW found another facility. SW also contacted [facility] and let them know as well. Isaura Leiva LITIGATION ASSISTANT ALBA
--- NOTE | 2022-06-02 15:47 | CASEMGMT ---
SW received COVID test and chest xray. JAYA faxed these to [facility]. Await return call to set up transport. Isaura Leiva MSW BLASTING MINER
--- NOTE | 2022-06-02 15:48 | DCINST_ITS ---
Discharge Instructions Diet Discharge Diet: Low fat / Low cholesterol and 2000 mg Sodium Diet Activity Discharge Activity: Return to Normal Activity Follow Up Care Test Results: Test results from this visit will be discussed in further detail at your follow- up appointment, if applicable. Discharge Plan Admission Admit Date/Time: 05/26/22 12:42 Primary Reason for Your Visit: Acute metabolic encephalopathy Attending Provider: Gwen Castaneda Primary Care Provider: Mine Bojorquez Consulting Providers: Anali Joseph ; Bassam Saldana ; Clark Peralta ; Royer Chavez ; Marcial Del Toro ; Mojgan Jones NP ; Martha Babb Discharge Orders/Prescriptions Prescriptions: New quetiapine 25 mg Tablet 50 mg PO QHS 30 Days Qty: 60 0RF metoprolol tartrate 100 mg Tablet 100 mg PO BID 30 Days Qty: 60 0RF amlodipine 5 mg Tablet 5 mg PO DAILY 30 Days Qty: 30 0RF prednisone 10 mg tablet See Taper PO DAILY Qty: 30 0RF Taper: Prednisone Taper 40 mg WITH BREAKFAST for 3 Days and 0 Hour 30 mg WITH BREAKFAST for 3 Days and 0 Hour 20 mg WITH BREAKFAST for 3 Days and 0 Hour 10 mg WITH BREAKFAST for 3 Days and 0 Hour furosemide [Lasix] 40 mg tablet 40 mg PO BID 30 Days Qty: 60 0RF Continued Incruse Ellipta Inhaler 62.5 mcg INHALATION DAILY multivitamin [Daily Multiple] 1 EACH tablet 1 tab PO DAILY risperidone [Risperdal] 3 MG tablet 3 mg PO BID buspirone 10 MG tablet 10 mg PO TID Fish Oil 1 EACH capsule 1 cap PO DAILY Invega Sustenna 234 MG/1.5 ML syringe 234 mg IM Q30D albuterol sulfate [Ventolin HFA] 108 HFA aerosol inhaler 2 puff inhalation 4X/DAY PRN PRN (Reason: Sob &/Or Wheezing) atorvastatin 80 mg tablet 80 mg PO QHS Rx Instructions: TAKE 1 TABLET BY MOUTH AT BEDTIME fenofibrate micronized 200 mg capsule 200 mg PO DAILY Rx Instructions: TAKE 1 CAPSULE BY MOUTH DAILY isosorbide mononitrate 30 mg tablet extended release 24 hr 30 mg PO DAILY benztropine 1 mg Tablet 1 mg PO BID Spiriva Respimat 2.5 mcg/actuation mist 2 inh INHALATION DAILY fluticasone furoate-vilanterol [Breo Ellipta] 100-25 mcg/dose blister with device 1 ea INHALATION TID PRN (Reason: Sedation) pantoprazole 40 mg Tablet,Delayed Release (Dr/Ec) 40 mg PO BIDCM Qty: 60 1RF sucralfate 1 gram tablet 1 g PO BID Qty: 60 0RF clopidogrel 75 mg tablet 75 mg PO DAILY Qty: 90 3RF Rx Instructions: resume plavix on 05/29/2022 aspirin 81 MG tablet,delayed release (DR/EC) 81 mg PO DAILY Qty: 30 0RF Rx Instructions: resume aspirin on 05/29/2022 Discontinued metoprolol succinate 50 MG tablet extended release 24 hr 50 mg PO DAILY potassium chloride 10 mEq tablet,ER particles/crystals 10 meq PO DAILY Qty: 90 3RF Referrals / Follow Up: Anali Joseph MD [Med Staff - Active Staff] - 06/15/22 10:30 am Mine Bojorquez DO [Primary Care Provider] - Disposition Disposition (needs filled in before D/C Order can be placed): Psychiatric Hospital or Unit
--- NOTE | 2022-06-02 15:54 | PCM.DC.SUM ---
Providers Date of Admission: 05/26/22 Date of Discharge: 06/02/22 Primary Care Physician: Dr. Mine Bojorquez, Consultations 05/26/22 13:08 Consult: Branch Office Administrator / Pulmonary Medicine Routine Consulting Provider: Pulmonary Medicine mariely [place] Reason for Consult: acute hypoxic respiratory failure EMERGENT Consult: No Notified: Yes Date Notified: 05/26/22 Time Notified: 12:47 Method of Notification: Text 05/26/22 19:04 Consult: Cardiology Routine Consulting Provider: Anali Joseph Reason for Consult: elevated troponins EMERGENT Consult: No Notified: Yes Date Notified: 05/26/22 Time Notified: 19:04 Method of Notification: Text Reason For Visit: HYPOXIC RSPIRATORY FAILURE Diagnosis Discharge Diagnosis (1) Sepsis: Status: Acute Code(s): A41.9 - Sepsis, unspecified organism Plan 1. Acute combined respiratory failure secondary to acute COPD exacerbation/E. coli pneumonia 2. Sepsis secondary to E. coli pneumonia/strep agalactiae UTI, pansensitive 3. Acute NSTEMI, likely secondary to type II/demand 4. RAMANDEEP, pre-renal, resolved 5. Recent acute GI bleed, status post EGD on 05/25/2022 which showed LA grade a reflux esophagitis, small hiatal hernia, enlarged gastric folds, for bleeding angiodysplastic lesions in the stomach treated with heater probe 6. Acute blood loss anemia secondary to GI bleed 7. Hypertension 8. Hyperlipidemia 9. Schizophrenia, patient appears to be in an acute crisis 10. History of abdominal aortic aneurysm repair/PAD 11. Nicotine dependence 12. Hypernatremia, mild, secondary to dehydration Medications at Discharge Home Medications buspirone 10 mg tablet 10 mg PO TID anxiety 01/30/18 multivitamin (Daily Multiple tablet) 1 tab PO DAILY vitamin 01/30/18 omega-3 fatty acids-fish oil 340 mg-1,000 mg capsule (Fish Oil) 1 cap PO DAILY vitamin 01/30/18 paliperidone palmitate 234 mg/1.5 mL intramuscular syringe (Invega Sustenna) 234 mg IM Q30D schizo 01/30/18 risperidone 3 mg tablet (Risperdal) 3 mg PO BID psych 01/30/18 albuterol sulfate 90 mcg/actuation aerosol inhaler (Ventolin HFA) 2 puff inhalation 4X/DAY PRN PRN Sob &/Or Wheezing 05/18/18 Incruse Ellipta Inhaler 62.5 mcg inhalation DAILY COPD 10/21/20 atorvastatin 80 mg tablet 80 mg PO QHS cholesterol 05/21/22 fenofibrate micronized 200 mg capsule 200 mg PO DAILY high triglycerides 05/21/22 isosorbide mononitrate 30 mg tablet,extended release 24 hr 30 mg PO DAILY Heart 05/21/22 benztropine 1 mg tablet 1 mg PO BID sedation 05/23/22 fluticasone furoate 100 mcg-vilanterol 25 mcg/dose inhalation powder (Breo Ellipta) 1 ea inhalation TID PRN Sedation 05/23/22 tiotropium bromide 2.5 mcg/actuation mist for inhalation (Spiriva Respimat) 2 inh inhalation DAILY breathing 05/23/22 aspirin 81 mg tablet,delayed release 81 mg PO DAILY Heart Health #30 tabs 05/25/22 clopidogrel 75 mg tablet 75 mg PO DAILY ANTIPLATELET #90 tabs 05/25/22 pantoprazole 40 mg tablet,delayed release 40 mg PO BIDCM #60 tabs 05/25/22 sucralfate 1 gram tablet 1 g PO BID #60 tabs 05/25/22 amlodipine 5 mg tablet 5 mg PO DAILY 30 days #30 tabs 06/02/22 furosemide 40 mg tablet (Lasix) 40 mg PO BID 30 days #60 tabs 06/02/22 metoprolol tartrate 100 mg tablet 100 mg PO BID 30 days #60 tabs 06/02/22 prednisone 10 mg tablet See Taper PO DAILY #30 tabs 06/02/22 quetiapine 25 mg tablet 50 mg PO QHS 30 days #60 tabs 06/02/22 Hospital Course Operations None Procedures None Summary of Care Provided Minutes Spent on Discharge: 45 Hospital Course: 72-year-old female with past medical history of schizophrenia, chronic hypoxic respiratory failure, on 3 L of oxygen at home, who comes in to the hospital after being found unresponsive by her home health aide. Patient was recently discharged on 05/25/2022 when she was admitted for acute metabolic encephalopathy and treated for acute COPD exacerbation. Patient refused subacute rehab at that time. She was adamant about going home. Adult protective services with consulted to follow-up with the patient. Patient presented back after being found unresponsive by her home health aide. In the emergency room, her oxygen was 57%. Patient was found without her oxygen. She was emergently intubated in the ED. Patient however was extubated later on 05/28/2022. During the course of this hospital stay, patient was managed as acute non-STEMI, cardiology was following, outpatient stress test was recommended. She was also monitored acute CHF exacerbation with Lasix as well as acute COPD exacerbation. She was found to have E. coli pneumonia. She completed 1 week of antibiotics. She also had strep agalactiae UTI that was pansensitive. Patient had acute kidney injury that resolved at discharge. She was maintained on pantoprazole. Patient was followed here in the hospital by floors buffer as well as with cardiology. Patient was found not to be cooperative with care. She was insistent on going home. She had recurrent admissions soon after she goes home because she is noncompliant. Patient was found to be rambling, and having incoherent thoughts. She was pink slipped. She was discharged to acute psychiatric hospital for further psychiatric evaluation. Patient had missed out on her monthly Invega injections prior to admission. Physical Exam Narrative General: Alert to person, appears disheveled, incoherent at times, rambling thoughts HEENT: Atraumatic, PERRLA, EOMI, Normocephalic Oral: Moist Mucosa Neck: Supple Lungs: Normal air movement, Diminished Cardiovascular: Regular rate, Regular Rhythm, Normal S1, Normal S2, No murmurs Abdomen: Bowel Sounds Present, Soft, Non Tender, Non-Distended, No Hepato-splenomegaly Extremities: No edema Skin: No rashes Neurological: Cranial nerves II-XII grossly intact, Neuro grossly intact Psych/Mental Status: Normal Affect, Appropriate Weight / BMI Weight Weight: 77.6 kg Body Mass Index (BMI) 27.3 ABG / Lab / Microbiology Data Result Diagrams: 06/02/22 06:15 06/02/22 06:15 Laboratory: Laboratory Results - last 24 hr 06/01/22 17:03: POC Glucose 187 H 06/01/22 23:50: POC Glucose 108 H 06/02/22 06:08: POC Glucose 68 L 06/02/22 06:15: WBC 6.8, RBC 3.59 L, Hgb 10.4 L, Hct 34.5 L, MCV 96.1, MCH 29.0, MCHC 30.1 L, RDW Std Deviation 56.2 H, RDW Coeff of Parviz 15.9 H, Plt Count 236, MPV 11.3, Immature Gran % (Auto) 0.600, Neut % (Auto) 67.6, Lymph % (Auto) 21.0, Day % (Auto) 9.2, Eos % (Auto) 1.5, Baso % (Auto) 0.1, Absolute Neuts (auto) 4.6, Absolute Lymphs (auto) 1.42, Nucleated RBC % 0 06/02/22 06:15: Sodium 149 H, Potassium 3.2 L, Chloride 105, Carbon Dioxide 42.0 H, Anion Gap 2 L, BUN 20 H, Creatinine 0.65, Estim Creat Clear Calc 42.62, Est GFR (MDRD) Af Amer 115, Est GFR (MDRD) Non-Af 95, BUN/Creatinine Ratio 30.8 H, Glucose 69 L, Calcium 8.5, Total Bilirubin 0.30, AST 22, ALT 35, Alkaline Phosphatase 43 L, Total Protein 5.2 L, Albumin 2.5 L, Globulin 2.7, Albumin/Globulin Ratio 0.9 06/02/22 06:25: POC Glucose 70 L 06/02/22 11:54: POC Glucose 101 Microbiology: Microbiology 06/02/22 13:45 Nasal Secretion SARS-CoV-2 Antigen (Rapid) - Final 05/26/22 10:30 Blood Culture (Wb) - Anticubital Left Blood Culture - Final No growth in 5 days. 05/26/22 10:12 Blood Culture (Wb) - Right Wrist Blood Culture - Final No growth in 5 days. 05/26/22 10:41 Sputum, Induced/Lukens Gram Stain - Final 05/26/22 10:41 Sputum, Induced/Lukens Respiratory Culture - Final Escherichia coli 05/26/22 10:30 Urine Catheter - Catheter Urine Culture - Final Streptococcus agalactiae (B) 05/26/22 10:30 Nasal Secretion SARS-CoV-2 Antigen (Rapid) - Final 05/26/22 10:20 Gastric Fluid/Contents Gastric Occult Blood - Final Radiography Diagnostic Testing: Radiology Impression Chest X-Ray 06/02/22 13:22 IMPRESSION: Bilateral pleural effusions with bibasilar atelectasis and/or infiltrates worse on the left side superimposed on CHF. Electronically Signed: Smith Chau MD at 15:38 EDT , D/C Instructions Discharge Diet: Low fat / Low cholesterol and 2000 mg Sodium Diet Meaningful Use Info Meaningful Use Diagnoses (Choose all that apply): None applicable Discharge Plan Admission Admit Date/Time: 05/26/22 12:42 Primary Reason for Your Visit: Acute metabolic encephalopathy Attending Provider: Gwen Castaneda Primary Care Provider: Mine Bojorquez Consulting Providers: Anali Joseph ; Bassam Saldana ; Clark Peralta ; Royer Chavez ; Marcial Del Toro ; Mojgan Jones NP ; Martha Babb Discharge Orders/Prescriptions Prescriptions: New quetiapine 25 mg Tablet 50 mg PO QHS 30 Days Qty: 60 0RF metoprolol tartrate 100 mg Tablet 100 mg PO BID 30 Days Qty: 60 0RF amlodipine 5 mg Tablet 5 mg PO DAILY 30 Days Qty: 30 0RF prednisone 10 mg tablet See Taper PO DAILY Qty: 30 0RF Taper: Prednisone Taper 40 mg WITH BREAKFAST for 3 Days and 0 Hour 30 mg WITH BREAKFAST for 3 Days and 0 Hour 20 mg WITH BREAKFAST for 3 Days and 0 Hour 10 mg WITH BREAKFAST for 3 Days and 0 Hour furosemide [Lasix] 40 mg tablet 40 mg PO BID 30 Days Qty: 60 0RF Continued Incruse Ellipta Inhaler 62.5 mcg INHALATION DAILY multivitamin [Daily Multiple] 1 EACH tablet 1 tab PO DAILY risperidone [Risperdal] 3 MG tablet 3 mg PO BID buspirone 10 MG tablet 10 mg PO TID Fish Oil 1 EACH capsule 1 cap PO DAILY Invega Sustenna 234 MG/1.5 ML syringe 234 mg IM Q30D albuterol sulfate [Ventolin HFA] 108 HFA aerosol inhaler 2 puff inhalation 4X/DAY PRN PRN (Reason: Sob &/Or Wheezing) atorvastatin 80 mg tablet 80 mg PO QHS Rx Instructions: TAKE 1 TABLET BY MOUTH AT BEDTIME fenofibrate micronized 200 mg capsule 200 mg PO DAILY Rx Instructions: TAKE 1 CAPSULE BY MOUTH DAILY isosorbide mononitrate 30 mg tablet extended release 24 hr 30 mg PO DAILY benztropine 1 mg Tablet 1 mg PO BID Spiriva Respimat 2.5 mcg/actuation mist 2 inh INHALATION DAILY fluticasone furoate-vilanterol [Breo Ellipta] 100-25 mcg/dose blister with device 1 ea INHALATION TID PRN (Reason: Sedation) pantoprazole 40 mg Tablet,Delayed Release (Dr/Ec) 40 mg PO BIDCM Qty: 60 1RF sucralfate 1 gram tablet 1 g PO BID Qty: 60 0RF clopidogrel 75 mg tablet 75 mg PO DAILY Qty: 90 3RF Rx Instructions: resume plavix on 05/29/2022 aspirin 81 MG tablet,delayed release (DR/EC) 81 mg PO DAILY Qty: 30 0RF Rx Instructions: resume aspirin on 05/29/2022 Discontinued metoprolol succinate 50 MG tablet extended release 24 hr 50 mg PO DAILY potassium chloride 10 mEq tablet,ER particles/crystals 10 meq PO DAILY Qty: 90 3RF Referrals / Follow Up: Anali Joseph MD [Med Staff - Active Staff] - 06/15/22 10:30 am Mine Bojorquez DO [Primary Care Provider] - Disposition Disposition (needs filled in before D/C Order can be placed): [facility] Unit Charges/Coding Visit Charges Inpatient E&M: 30122 Disch Hosp
--- NOTE | 2022-06-02 15:56 | CASEMGMT ---
Discharge Runstitching Machine Operator This medical writer set up transportation thru [facility] to [facility]. ETA 5:30pm. Rajan GRIMES Devulcanizer Loader
--- NOTE | 2022-06-02 16:12 | CASEMGMT ---
Physician and SW spoke with patient about going to [facility]. Patient verbalized understanding, but not wanting to go. SW and physician explained to patient why she needs to go. Patient asked SW to call her son and tell him. SW spoke with [facility] and SW can set up transport. SW let him know transport was set up for 530 tack picker. SW faxed d/c orders. RN to call report. [place] slip signed and in patient's chart and packet. JAYA spoke with patient's bottle caser Claire letting her know patient will be headed to [facility] today. [facility] spoke with patient's son Robert and he agreed with admission. JAYA called Robert and let him know patient will be headed to [facility] today. Plan: [place] [facility] to [facility]. [facility] transported via [facility]. Isaura WILLIS
[2022-06-02] MEDS: Insulin Lispro 100 UNIT/ML INSULN.PEN SC (16:19)
--- NOTE | 2022-06-02 16:36 | NURSING ---
Called report to Grace VALLES at [facility] [place]
[2022-06-02 16:40] LABS: Bedside Glucose 172 mg/dL (74-106)
[2022-06-02] MEDS: Atorvastatin Calcium 80 MG Tablet PO (20:11)
[2022-06-02] MEDS: QUEtiapine 25 MG Tablet 50 MG PO (20:12)
[2022-06-02 22:41] LABS: Bedside Glucose 194 mg/dL (74-106)
== END 2022-06-02 21:57 | DRG 871 ==
LOC: ED 10:22 → ICU 13:18 → PCU 05-28 13:35
PROVIDERS: Hospitalist; Internal Medicine Cardiovascular Disease; Admitting Provider Student in an Organized Health Care Education/Training Program; Emergency Provider Student in an Organized Health Care Education/Training Program; PCP Family Medicine; Visit Provider Internal Medicine
DX: A41.51 Sepsis due to Escherichia coli [E. coli] (principal); J96.01 Acute respiratory failure with hypoxia; R65.21 Severe sepsis with septic shock; J15.5 Pneumonia due to Escherichia coli; G93.41 Metabolic encephalopathy; J96.02 Acute respiratory failure with hypercapnia; I21.A1 Myocardial infarction type 2; J44.0 Chronic obstructive pulmonary disease with (acute) lower respiratory infection; N17.9 Acute kidney failure, unspecified; J44.1 Chronic obstructive pulmonary disease with (acute) exacerbation; F23 Brief psychotic disorder; E87.0 Hyperosmolality and hypernatremia; D62 Acute posthemorrhagic anemia; E87.20 Acidosis, unspecified; N39.0 Urinary tract infection, site not specified; E11.51 Type 2 diabetes mellitus with diabetic peripheral angiopathy without gangrene; I27.81 Cor pulmonale (chronic); E87.5 Hyperkalemia; S80.01XA Contusion of right knee, initial encounter; I25.10 Atherosclerotic heart disease of native coronary artery without angina pectoris; I10 Essential (primary) hypertension; E78.00 Pure hypercholesterolemia, unspecified; K21.00 Gastro-esophageal reflux disease with esophagitis, without bleeding; I25.2 Old myocardial infarction; F17.210 Nicotine dependence, cigarettes, uncomplicated; K44.9 Diaphragmatic hernia without obstruction or gangrene; Z79.02 Long term (current) use of antithrombotics/antiplatelets; Y95 Nosocomial condition; Z79.82 Long term (current) use of aspirin; Z79.899 Other long term (current) drug therapy; X58.XXXA Exposure to other specified factors, initial encounter; Z91.199 Patient's noncompliance with other medical treatment and regimen due to unspecified reason
CPT/HCPCS: 31500; 31720; 36415; 36600; 51702; 70450; 71045; 71275; 72125; 73560; 74018; 74230; 80048; 80053; 80202; 80307; 81001; 82077; 82140; 82271; 82550; 82803; 82962; 83605; 83735; 84478; 84484; 85025; 85610; 85730; 86850; 86900; 86901; 87040; 87070; 87077; 87086; 87088; 87186; 87205; 87426; 87811; 92526; 92610; 92611; 93005; 93306; 94002; 94003; 94640; 94660; 94762; 97110; 97162; 97166; 97530; 97535; 97802; 97803; 99251; 99285; 99406; J7030; J7040; J7050; Q9967; A4216; G0463; J1940; J3010; J3486; J3490